=== PATIENT | male | born 1945 | race Caucasian/White ===

== ENCOUNTER → 2016-12-13 | Outpatient (CLI) | payer MEDICARE, OTHER ==
--- NOTE | 2016-12-13 13:38 | Diagnostic Imaging Report ---
PROCEDURE: Lung cancer screening CT chest without contrast. TECHNIQUE: Multiple contiguous axial images were obtained through the chest without the use of intravenous contrast. This is performed with a low-dose protocol. INDICATION: Currently asymptomatic patient with 30 pack years history of smoking Comparison: None. Findings: The lungs demonstrate no significant consolidation, mass or suspicious nodule. No significant interstitial thickening, bronchiectasis or emphysema changes. No mediastinal mass or significantly enlarged lymph nodes. No definite lymph node mass adjacent to the unopacified hilar vessels seen. No axillary lymphadenopathy. The thoracic aorta is normal in caliber. The heart size is normal. No pleural or pericardial effusion. The osseous structures appear grossly unremarkable. IMPRESSION: Negative study. Lung Rads Category 1. Negative study. Recommendations: Annual screening low-dose CT scan. Dictated by: Dictated on workstation # [id number]
== END ==
LOC: RAD 11:03
PROVIDERS: ATTEND Family Medicine
DX: Z12.2 Encounter for screening for malignant neoplasm of respiratory organs (principal); J43.9 Emphysema, unspecified; I25.10 Atherosclerotic heart disease of native coronary artery without angina pectoris; I73.9 Peripheral vascular disease, unspecified; F17.210 Nicotine dependence, cigarettes, uncomplicated

== ENCOUNTER → 2017-04-24 | Outpatient (CLI) | payer MEDICARE, OTHER | LOC: CARD 10:45 | PROVIDERS: ATTEND Internal Medicine Cardiovascular Disease | DX: I10 Essential (primary) hypertension (principal); I73.9 Peripheral vascular disease, unspecified; E78.2 Mixed hyperlipidemia | CPT/HCPCS: 93306 ==

== ENCOUNTER → 2017-04-30 | Outpatient (CLI) | payer MEDICARE, OTHER ==
[~2017-04-30] MED LIST: CATHETER FLUSH 10 ML SYR IV PRN
[2017-04-30 13:36] VITALS: BP 143/92
[2017-04-30 13:43] VITALS: BP 159/93
[2017-04-30 13:45] VITALS: BP 191/101
[2017-04-30 13:47] VITALS: BP 167/97
[2017-04-30 13:49] VITALS: BP 147/93
--- NOTE | 2017-05-01 08:02 | STRESS TEST ---
DATE OF SERVICE: 04/30/2017 EXERCISE MYOVIEW STRESS TEST REPORT Baseline heart rate is 67. Baseline blood pressure 148/97. Baseline EKG is sinus rhythm with no ischemic changes. IN SUMMARY: The patient was injected with 10.16 mCi of technetium-99 Myoview and the resting images were obtained. Then, the patient started exercising with a baseline heart rate, blood pressure and EKG mentioned above. Patient was able to finish a total of 6 minutes 30 seconds on standard Davian protocol with peak exercise level, blood pressure was 190/100. During recovery, heart rate and blood pressure returned to baseline. EKG returned to baseline. Minimal nondiagnostic EKG changes were noted. The resting and stressed images were reviewed and compared in the short axis, horizontal long axis, and vertical long axis views. Review of the images showed diaphragmatic attenuation with typical male pattern. No significant ischemia or infarction was seen. SSS is 0. TID value 1.07. On the gated images, the left ventricle appeared to be normal size with normal contractility, calculated ejection fraction 55%. IN CONCLUSION: 1. Fair exercise tolerance a total of 6 minutes 30 seconds on standard Davian protocol, total of 7.7 METS achieving 100% of maximum expected heart rate. 2. Minimal and diagnostic EKG changes with exercise returned to baseline during recovery. 3. Occasional PVCs noted during test. 4. Typical male pattern with no significant ischemia or infarction on SPECT images. 5. Normal left ventricular size with normal contractility. Calculated ejection fraction 55%. Job ID: [id number] DocumentID: [id number] Dictated Date: 04/30/2017 15:45:07 Surg Rn Date: 05/01/2017 00:44:12 Dictated By: ALFREDO JAMES MD
== END ==
LOC: CARD 11:34
PROVIDERS: ATTEND Internal Medicine Cardiovascular Disease
DX: I10 Essential (primary) hypertension (principal); I73.9 Peripheral vascular disease, unspecified; E78.2 Mixed hyperlipidemia
CPT/HCPCS: 78452; 93017

== ENCOUNTER → 2017-09-16 | Outpatient (CLI) | payer MEDICARE, OTHER ==
--- NOTE | 2017-09-16 11:20 | Diagnostic Imaging Report ---
INDICATION: COPD COMPARISON: None FINDINGS: Frontal and lateral views of the chest demonstrate normal heart size and pulmonary vascularity. The lungs are clear. There are no signs of infiltrate, pleural effusions or pneumothoraces. The visualized osseous structures show no acute abnormalities. There is calcified aortic atherosclerosis. IMPRESSION: 1. No acute process. No signs of infiltrates, effusions or pneumothoraces. Dictated by: Dictated on workstation # [id number]
== END ==
LOC: RAD 10:51
PROVIDERS: ATTEND Internal Medicine Critical Care Medicine
DX: J44.9 Chronic obstructive pulmonary disease, unspecified (principal)
CPT/HCPCS: 71046

== ENCOUNTER → 2017-10-01 | Outpatient (CLI) | payer MEDICARE, OTHER ==
[~2017-10-01] MED LIST changes: -CATHETER FLUSH 10 ML SYR IV PRN; +RT-ALBUTEROL SULF 2.5 MG/3 ML PRE-MIX VIAL INH ONE; +RT-ALBUTEROL SULF 2.5 MG/3 ML PRE-MIX VIAL ONE
== END ==
LOC: RT 15:00
PROVIDERS: ATTEND Nurse Practitioner Family
DX: J45.909 Unspecified asthma, uncomplicated (principal); J44.9 Chronic obstructive pulmonary disease, unspecified; R06.00 Dyspnea, unspecified; F17.200 Nicotine dependence, unspecified, uncomplicated
CPT/HCPCS: 94060; 94726; 94729

== ENCOUNTER 2017-10-16 15:00 | Outpatient (RCR) | payer MEDICARE, OTHER ==
[2017-10-14 15:00] VITALS: BP 120/60
[2017-10-14 15:36] VITALS: BP 120/70
[2017-10-21 15:00] VITALS: BP 118/70
[2017-10-21 15:38] VITALS: BP 138/70
[2017-10-28 09:45] VITALS: BP 104/70
[2017-10-28 10:50] VITALS: BP 110/78
[2017-11-06 10:00] VITALS: BP 118/80
[2017-11-06 10:58] VITALS: BP 132/70
[2017-11-18 10:55] VITALS: BP 112/61
[2017-11-18 11:13] VITALS: BP 109/60
[2017-11-20 09:58] VITALS: BP 120/80
[2017-11-20 11:00] VITALS: BP 100/70
[2017-11-25 09:55] VITALS: BP_SYST 100; BP_SYST 115; BP_DIAS 70
[2017-11-25 10:55] VITALS: BP 128/76
[2017-11-27 10:00] VITALS: BP 118/60
[2017-11-27 11:00] VITALS: BP 120/60
[2017-12-02 09:30] VITALS: BP 120/80
[2017-12-02 10:21] VITALS: BP 123/60
[2017-12-09 09:55] VITALS: BP 120/80
[2017-12-09 10:50] VITALS: BP 100/63
[2017-12-11 10:00] VITALS: BP 100/60
[2017-12-11 10:56] VITALS: BP 105/70
[2017-12-16 09:50] VITALS: BP 110/69
[2017-12-16 10:42] VITALS: BP 97/59
[2017-12-18 09:55] VITALS: BP 115/60
[2017-12-18 10:40] VITALS: BP 105/40
[2017-12-23 10:00] VITALS: BP 122/60
[2017-12-23 10:59] VITALS: BP 100/70
[2017-12-25 10:00] VITALS: BP 100/60
[2017-12-25 11:00] VITALS: BP 107/60
== END 2017-12-28 | disposition home or self-care (01) ==
LOC: PULM 15:00
PROVIDERS: ATTEND Nurse Practitioner Family
DX: J45.909 Unspecified asthma, uncomplicated (principal); J44.9 Chronic obstructive pulmonary disease, unspecified; R06.00 Dyspnea, unspecified
CPT/HCPCS: 99211

== ENCOUNTER → 2017-10-21 | Outpatient (CLI) | payer MEDICARE, OTHER ==
[2017-10-21 14:59] LABS: BASOPHILS # (AUTO) 0.1 10^3/uL (0.0-0.1); BASOPHILS % (AUTO) 1 % (0-10); EOSINOPHILS # (AUTO) 0.1 10^3/uL (0.0-0.3); EOSINOPHILS % (AUTO) 0 % (0-10); HEMATOCRIT 41 % (40-54); HEMOGLOBIN 13.8 G/DL (13.3-17.7); LYMPHOCYTES # (AUTO) 2.1 X 10^3 (1.0-4.0); LYMPHOCYTES % (AUTO) 10 % (12-44); MEAN CORPUSCULAR HEMOGLOBIN 34 PG (25-34); MEAN CORPUSCULAR HGB CONC 34 G/DL (32-36); MEAN CORPUSCULAR VOLUME 100 FL (80-99); MEAN PLATELET VOLUME 10.3 FL (7.4-10.4); MONOCYTES # (AUTO) 1.7 X 10^3 (0.0-1.0); MONOCYTES % (AUTO) 8 % (0-12); NEUTROPHILS # (AUTO) 17.5 X 10^3 (1.8-7.8); NEUTROPHILS % (AUTO) 81 % (42-75); PLATELET COUNT 637 10^3/uL (130-400); RED BLOOD COUNT 4.07 10^6/uL (4.35-5.85); RED CELL DISTRIBUTION WIDTH 15.6 % (10.0-14.5)
[2017-10-21 15:00] LABS: WHITE BLOOD COUNT 21.5 10^3/uL (4.3-11.0)
[2017-10-21 15:10] LABS: BAND NEUTROPHILS 14 %; BASOPHILS % (MANUAL) 2 %; EOSINOPHILS % (MANUAL) 0 %; LYMPHOCYTES % (MANUAL) 15 %; MONOCYTES % (MANUAL) 6 %; NEUTROPHILS % (MANUAL) 63 %; RBC MORPH NORMAL
== END ==
LOC: LAB 14:10
PROVIDERS: ATTEND Nurse Practitioner Family
DX: J44.9 Chronic obstructive pulmonary disease, unspecified (principal)
CPT/HCPCS: 36415; 82785; 85007; 85027; 86003

== ENCOUNTER 2017-11-05 21:02 | Outpatient (CLI) | payer MEDICARE, OTHER, BC | END 2017-11-06 06:45 | disposition home or self-care (01) | LOC: SLEEP 21:02 | PROVIDERS: ATTEND Nurse Practitioner Family | DX: G47.33 Obstructive sleep apnea (adult) (pediatric) (principal) | CPT/HCPCS: 95810 ==

== ENCOUNTER → 2017-11-14 | Outpatient (CLI) | payer MEDICARE, OTHER ==
--- NOTE | 2017-11-14 12:15 | Diagnostic Imaging Report ---
INDICATION: COPD and asthma. TIME OF EXAM: 11:38 AM Correlation is made with prior study 09/16/2017. FINDINGS: The heart size is stable. Lungs are hyperinflated consistent with COPD. No infiltrates are detected. No effusion or pneumothorax is seen. IMPRESSION: Stable chest. No acute feature is detected. Dictated by: Dictated on workstation # [id number]
== END ==
LOC: RAD 10:21
PROVIDERS: ATTEND Nurse Practitioner Family
DX: J44.9 Chronic obstructive pulmonary disease, unspecified (principal); J30.2 Other seasonal allergic rhinitis; F17.200 Nicotine dependence, unspecified, uncomplicated
CPT/HCPCS: 71046; 87070; 87205

== ENCOUNTER → 2018-04-13 | Outpatient (CLI) | payer MEDICARE, OTHER ==
[~2018-04-13] VITALS: Ht 170.2 cm; Wt 69.4 kg
[~2018-04-13] MED LIST changes: +AMLO5TAB7 PO; +ASPI-586 PO; +ATOR40TA70 PO; +CETI10TA17 PO; +FLUT15.88 NS; +KETO15CR2 TP; +LEVO75TA6 PO; +LISI40TA PO; +MONT10TA24 PO; +OMEP20TA7 PO; -RT-ALBUTEROL SULF 2.5 MG/3 ML PRE-MIX VIAL INH ONE; -RT-ALBUTEROL SULF 2.5 MG/3 ML PRE-MIX VIAL ONE
== END | disposition home or self-care (01) ==
LOC: PREOP 05:40
PROVIDERS: ATTEND Specialist
DX: Z01.818 Encounter for other preprocedural examination (principal)

== ENCOUNTER 2018-04-15 08:24 | Day surgery (SDC) | payer MEDICARE, OTHER ==
[~2018-04-15] VITALS: Ht 170.2 cm; Wt 69.4 kg
[2018-04-15] MEDS ORDERED: TIMOLOL MALEATE 0.5% 5 ML (TIMOPTIC) BTL OU PRN (08:45)
[2018-04-15] MEDS ORDERED: MOXIFLOXACIN OPHTH SOLN 5 MG/ML 0.3 ML SYRINGE OP ONE (08:45)
[2018-04-15] MEDS ORDERED: POVIDONE (BETADINE) OPHTH SOLN 5% 30 ML OP ONE (08:45)
[2018-04-15] MEDS ORDERED: LIDOCAINE PF 1% 2 ML AMP IR PRN (08:45)
[2018-04-15] MEDS ORDERED: EPINEPHrine INJECTION 1 MG/ML AMP INJ ONE (08:45)
[2018-04-15 08:50] VITALS: BP 120/91
[2018-04-15] MEDS: TETRACAINE 0.5% OPHTH SOLN 4 ML BTL (SINGLE DOSE ONLY) OU PRN ×4 (08:54→09:09)
[2018-04-15] MEDS: PHENYLEPHRINE 10% OPHTH (NEO-SYN) 5 ML BTL OU SCH ×3 (09:00→09:09)
[2018-04-15] MEDS: CYCLOPENTOLATE 1% (CYCLOGYL) 2 ML DROPS OP SCH ×3 (09:00→09:09)
[2018-04-15] MEDS ORDERED: MIDAZOLAM 2 MG/2 ML (VERSED) VIAL ONE (09:16)
--- NOTE | 2018-04-15 09:38 | Ophthalmologist Pre-Op Note ---
Pre-Operative Progress Note H&P Reviewed The H&P was reviewed, patient examined and no changes noted. Date H&P Reviewed: Apr 15, 2018 Time H&P Reviewed: 09:38 Pre-Op Dx Cataract, Right Eye ELEANOR GALEAS MD Apr 15, 2018 09:38
--- NOTE | 2018-04-15 10:13 | Ophthalmology Operative Report ---
Cataract, Miotic Pupil PREOPERATIVE DIAGNOSIS: 1. Cataract Right Eye 2. Miotic Pupil POSTOPERATIVE DIAGNOSIS: 1. Cataract Right Eye 2. Miotic Pupil PROCEDURE: 1. Cataract removal and placement of posterior chamber implant, right eye 2. Pupillary expansion with malyugin ring SURGEON: Margarito Galeas ANESTHESIA: Topical with sedation COMPLICATIONS: None ESTIMATED BLOOD LOSS: Minimal DESCRIPTION OF PROCEDURE: After proper informed consent was obtained, the patient, a 72 male, was taken to the Operating Room and the right eye was anesthetized with Tetracaine. The eye was then prepped and draped in the usual manner. A wire lid speculum was placed. A paracentesis was made at the left hand position. Preservative free lidocaine was injected into anterior chamber followed by viscoelastic. A clear corneal incision was made in the temporal position. The malyugin ring was injected into the anterior chamber and the pupil was dilated. A capsulorrhexis was preformed and the central nuclear and cortical material were removed. The posterior capsule was polished and Shai 23.0 AU00Y0 IOL was placed into the capsular bag. The malyugin ring was removed. The residual viscoelastic was aspirated and the balanced saline solution was injected into the anterior chamber. Moxifloxacin was injected into the anterior chamber. The wound was checked and found to be water tight. The patient tolerated the procedure well without complications. MARGARITO GALEAS MD Apr 15, 2018 10:13
[2018-04-15 10:25] VITALS: BP 136/80
--- NOTE | 2018-04-15 11:12 | Anesthesia-General Post-Op ---
MAC Patient Condition Mental Status/LOC: Same as Preop Cardiovascular: Satisfactory Nausea/Vomiting: Absent Respiratory: Satisfactory Pain: Controlled Complications: Absent Post Op Complications Complications None Follow Up Care/Instructions Patient Instructions None needed. Anesthesiology Discharge Order Discharge Order Patient is doing well, no complaints, stable vital signs, no apparent adverse anesthesia problems. No complications reported per nursing. RITA CHANG CRNA Apr 15, 2018 11:12
== END 2018-04-15 10:25 | disposition home or self-care (01) ==
LOC: SDC 08:24
PROVIDERS: ATTEND Specialist
DX: H26.9 Unspecified cataract (principal); H57.03 Miosis; I10 Essential (primary) hypertension; J44.9 Chronic obstructive pulmonary disease, unspecified; H91.90 Unspecified hearing loss, unspecified ear; F17.210 Nicotine dependence, cigarettes, uncomplicated; K21.9 Gastro-esophageal reflux disease without esophagitis; I73.9 Peripheral vascular disease, unspecified; Z85.828 Personal history of other malignant neoplasm of skin; Z79.899 Other long term (current) drug therapy

== ENCOUNTER 2018-04-26 14:15 | Emergency (ER) | payer MEDICARE, OTHER ==
[~2018-04-26] VITALS: Ht 170.2 cm; Wt 68.9 kg
[2018-04-26 14:52] LABS: BILIRUBIN,URINE NEGATIVE (NEGATIVE); CLARITY,URINE CLEAR; COLOR,URINE YELLOW; GLUCOSE, URINE (UA) NEGATIVE (NEGATIVE); KETONES,URINE NEGATIVE (NEGATIVE); LEUKOCYTE ESTERASE ,URINE 1+ (NEGATIVE); NITRITE,URINE NEGATIVE (NEGATIVE); PH,URINE 6.5 (5-9); PROTEIN,URINE 2+ (NEGATIVE); UROBILINOGEN,URINE NORMAL (NORMAL)
[2018-04-26 14:53] LABS: BASOPHILS # (AUTO) 0.1 10^3/uL (0.0-0.1); BASOPHILS % (AUTO) 0 % (0-10); EOSINOPHILS # (AUTO) 0.2 10^3/uL (0.0-0.3); EOSINOPHILS % (AUTO) 1 % (0-10); HEMATOCRIT 42 % (40-54); HEMOGLOBIN 14.6 G/DL (13.3-17.7); LYMPHOCYTES # (AUTO) 3.8 X 10^3 (1.0-4.0); LYMPHOCYTES % (AUTO) 16 % (12-44); MEAN CORPUSCULAR HEMOGLOBIN 33 PG (25-34); MEAN CORPUSCULAR HGB CONC 35 G/DL (32-36); MEAN CORPUSCULAR VOLUME 94 FL (80-99); MEAN PLATELET VOLUME 10.6 FL (7.4-10.4); MONOCYTES # (AUTO) 2.3 X 10^3 (0.0-1.0); MONOCYTES % (AUTO) 10 % (0-12); NEUTROPHILS # (AUTO) 17.2 X 10^3 (1.8-7.8); NEUTROPHILS % (AUTO) 73 % (42-75); RED BLOOD COUNT 4.49 10^6/uL (4.35-5.85); WHITE BLOOD COUNT 23.7 10^3/uL (4.3-11.0)
[2018-04-26 14:55] LABS: PLATELET COUNT 1010 10^3/uL (130-400)
[2018-04-26 15:00] LABS: BACTERIA,URINE TRACE /HPF; HYALINE CASTS, URINE RARE /LPF; SQUAMOUS EPITHELIAL CELL,UR RARE /HPF
[2018-04-26 15:04] LABS: FIBRIN DEGRADATION PRODUCTS 0.59 UG/ML (0.00-0.49); PROTHROMBIN TIME PATIENT 13.5 SEC (12.2-14.7)
[2018-04-26 15:11] LABS: ALANINE AMINOTRANSFERASE 39 U/L (0-55); ALBUMIN 4.4 GM/DL (3.2-4.5); ALKALINE PHOSPHATASE 78 U/L (40-136); BILIRUBIN,TOTAL 0.8 MG/DL (0.1-1.0); BUN/CREATININE RATIO 14; CALCIUM 9.4 MG/DL (8.5-10.1); CARBON DIOXIDE 21 MMOL/L (21-32); CHLORIDE 105 MMOL/L (98-107); CREATININE SERUM 1.14 MG/DL (0.60-1.30); GFR ESTIMATED > 60; GLUCOSE 154 MG/DL (70-105); SODIUM 139 MMOL/L (135-145); TOTAL PROTEIN 7.5 GM/DL (6.4-8.2)
--- NOTE | 2018-04-26 15:14 | Diagnostic Imaging Report ---
EXAM: CHEST 1 VIEW, AP/PA ONLY. INDICATION: Confusion. COMPARISON: Chest radiographs 11/14/2017. FINDINGS: Normal heart size and pulmonary vascularity. Calcified aorta. No focal pulmonary opacity, pleural effusion, or pneumothorax. No acute osseous findings. IMPRESSION: No acute cardiopulmonary findings. Dictated by: Dictated on workstation # [id number]
--- NOTE | 2018-04-26 15:15 | Diagnostic Imaging Report ---
EXAM: CT HEAD WO-R/O STROKE. INDICATION: Altered mental status. COMPARISON: None. FINDINGS: Moderate generalized cerebral and cerebellar parenchymal volume loss. No CT evidence for territorial infarction. No intracranial hemorrhage, mass effect, hydrocephalus, or extra-axial fluid collections. Intracranial vascular calcifications. The paranasal sinuses and mastoids are clear. No fractures. IMPRESSION: No acute intracranial CT findings. Dictated by: Dictated on workstation # [id number]
[2018-04-26 15:34] LABS: LYMPHOCYTES % (MANUAL) 19 %; MONOCYTES % (MANUAL) 13 %; NEUTROPHILS % (MANUAL) 68 %
[2018-04-26 15:35] LABS: RBC MORPH NORMAL
[2018-04-26] MEDS ORDERED: NS IV 1000 ML 1,000 ML IV ONE (15:35)
--- NOTE | 2018-04-26 16:15 | ED General ---
General Chief Complaint: Neuro-Stroke Like Symptoms Stated Complaint: CONFUSION,ACTING OUT Nursing Triage Note: ARRIVED VIA AMB TO ROOM 09 WITH FAMILY. PT STATES HE IS VERY CONFUSED AND NOT ACTING HIMSELF. LAST WELL KNOWN TIME WAS FRIDAY AFTERNOON. Nursing Sepsis Screen: No Definite Risk Source of Information: Patient Exam Limitations: No Limitations History of Present Illness Date Seen by Provider: Apr 26, 2018 Time Seen by Provider: 15:30 Initial Comments Here with report of acute psychosis in that he is confused and talking more than he typically does. He is also cussing which is not typical for him. He has family here to celebrate his birthday. Denies drinking alcohol or using drugs. 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 Family with him agrees and he has not been using alcohol or any other drugs. Recently just finished a seven-day course of Levaquin and is currently finishing a course of steroids for his COPD. Denies recent injury or other concerns. Denies difficulty with swallowing and certainly has no difficulty with talking. Retains full strength and otherwise has no focal neural deficits. Onset sometime after Friday night and before Friday earlier in the day. This is per family at bedside. There is report that he was similar and mannerism on Friday but better on Friday. Timing/Duration: 1-2 Days Severity: Moderate Associated Systoms: No Chest Pain; Cough (chronic COPD); No Fever/Chills, No Nausea/Vomiting, No Shortness of Air, No Weakness Allergies and Home Medications Allergies Coded Allergies: No Known Drug Allergies (Unverified , 04/13/18) Home Medications Amlodipine Besylate 5 Mg Tablet, 5 MG PO DAILY, (Reported) Aspirin 81 Mg Tablet.dr, 81 MG PO DAILY, (Reported) Atorvastatin Calcium 40 Mg Tablet, 40 MG PO DAILY, (Reported) Cetirizine HCl 10 Mg Tablet, 10 MG PO DAILY, (Reported) Fluticasone Propionate 15.8 Ml [place].susp, 15.8 ML NS DAILY, (Reported) Ketoconazole 15 Gm Cream..g., 15 GM TP DAILY, (Reported) Levothyroxine Sodium 75 Mcg Tablet, 75 MCG PO DAILY, (Reported) Lisinopril 40 Mg Tablet, 40 MG PO DAILY, (Reported) Montelukast Sodium 10 Mg Tablet, 10 MG PO DAILY, (Reported) Omeprazole 20 Mg Tablet.dr, 20 MG PO DAILY, (Reported) Patient Home Medication List Home Medication List Reviewed: Yes Review of Systems Review of Systems Constitutional: see HPI; No chills, No fever Respiratory: cough; No short of breath; wheezing Cardiovascular: no symptoms reported Gastrointestinal: No abdominal pain, No nausea, No vomiting Genitourinary: no symptoms reported Musculoskeletal: no symptoms reported Skin: no symptoms reported Psychiatric/Neurological: See HPI, Emotional Problems (talkative and cussing. Not normal for him.); Denies Weakness All Other Systems Reviewed Negative Unless Noted: Yes Past Fpfmicq-Snfluf-Zlrwcz Hx Past Med/Social Hx: Reviewed Nursing Past Med/Soc Hx Patient Social History Alcohol Use: Past History Recreational Drug Use: No Smoking Status: Current Everyday Smoker Recent Foreign Travel: No Contact w/Someone Who Travel: No Recent Infectious Disease Expo: No Past Medical History Respiratory: Yes (ASTHMA, COPD) Cardiac: Yes (CARDIAC STENTS) Genitourinary: Yes (TURP) Gastrointestinal: Yes Gastroesophageal Reflux Musculoskeletal: No Endocrine: No HEENT: No Cancer: No Psychosocial: No Family Medical History Reviewed Nursing Family Hx Physical Exam Vital Signs Vital Signs - First Documented 04/26/18 14:30 Temp 98.0 Pulse 98 Resp 16 B/P (MAP) 138/113 (121) Pulse Ox 98 O2 Delivery Room Air Capillary Refill : Less Than 3 Seconds Height, Weight, BMI Height: 5'7.00" Weight: 152lbs. 0.4oz. 68.453215cc; BMI Method:Stated General Appearance: No Apparent Distress, WD/WN HEENT: PERRL/EOMI, Pharynx Normal Neck: Non Tender, Supple Respiratory: Lungs Clear, Normal Breath Sounds Cardiovascular: Regular Rate, Rhythm, No Murmur Gastrointestinal: Non Tender, Soft Back: Normal Inspection, No CVA Tenderness, No Vertebral Tenderness Extremity: Normal Range of Motion, Non Tender Neurologic/Psychiatric: Alert, Oriented x3 Skin: Normal Color, Warm/Dry Progress/Results/Core Measures Suspected Sepsis Recent Fever Within 48 Hours: No Infection Criteria Present: None New/Unexplained Altered Menta: Yes Sepsis Screen: No Definite Risk SIRS Temperature:98.0 Pulse: 98 Respiratory Rate: 16 Laboratory Tests 04/26/18 14:40: White Blood Count 23.7H Blood Pressure 138 /113 Mean: 121 Laboratory Tests 04/26/18 14:40: Creatinine 1.14, INR Comment 1.0, Platelet Count 1010*H, Total Bilirubin 0.8 Results/Orders Lab Results Laboratory Tests Test 04/26/18 14:40 04/26/18 14:54 Range/Units White Blood Count 23.7 H 4.3-11.0 10^3/uL Red Blood Count 4.49 4.35-5.85 10^6/uL Hemoglobin 14.6 13.3-17.7 G/DL Hematocrit 42 40-54 % Mean Corpuscular Volume 94 80-99 FL Mean Corpuscular Hemoglobin 33 25-34 PG Mean Corpuscular Hemoglobin Concent 35 32-36 G/DL Red Cell Distribution Width 19.0 H 10.0-14.5 % Platelet Count 1010 *H 130-400 10^3/uL Mean Platelet Volume 10.6 H 7.4-10.4 FL Neutrophils (%) (Auto) 73 42-75 % Lymphocytes (%) (Auto) 16 12-44 % Monocytes (%) (Auto) 10 0-12 % Eosinophils (%) (Auto) 1 0-10 % Basophils (%) (Auto) 0 0-10 % Neutrophils # (Auto) 17.2 H 1.8-7.8 X 10^3 Lymphocytes # (Auto) 3.8 1.0-4.0 X 10^3 Monocytes # (Auto) 2.3 H 0.0-1.0 X 10^3 Eosinophils # (Auto) 0.2 0.0-0.3 10^3/uL Basophils # (Auto) 0.1 0.0-0.1 10^3/uL Neutrophils % (Manual) 68 % Lymphocytes % (Manual) 19 % Monocytes % (Manual) 13 % Blood Morphology Comment NORMAL Prothrombin Time 13.5 12.2-14.7 SEC INR Comment 1.0 0.8-1.4 Activated Partial Thromboplast Time 37 H 24-35 SEC D-Dimer 0.59 H 0.00-0.49 UG/ML Urine Color YELLOW Urine Clarity CLEAR Urine pH 6.5 5-9 Urine Specific [place] 1.015 L 1.016-1.022 Urine Protein 2+ H NEGATIVE Urine Glucose (UA) NEGATIVE NEGATIVE Urine Ketones NEGATIVE NEGATIVE Urine Nitrite NEGATIVE NEGATIVE Urine Bilirubin NEGATIVE NEGATIVE Urine Urobilinogen NORMAL NORMAL MG/DL Urine Leukocyte Esterase 1+ H NEGATIVE Urine RBC (Auto) NEGATIVE NEGATIVE Urine RBC NONE /HPF Urine WBC 2-5 /HPF Urine Squamous Epithelial Cells RARE /HPF Urine Crystals NONE /LPF Urine Bacteria TRACE /HPF Urine Casts PRESENT /LPF Urine Hyaline Casts RARE /LPF Urine Mucus NEGATIVE /LPF Urine Culture Indicated NO Sodium Level 139 135-145 MMOL/L Potassium Level 4.0 3.6-5.0 MMOL/L Chloride Level 105 98-107 MMOL/L Carbon Dioxide Level 21 21-32 MMOL/L Anion Gap 13 5-14 MMOL/L Blood Urea Nitrogen 16 7-18 MG/DL Creatinine 1.14 0.60-1.30 MG/DL Estimat Glomerular Filtration Rate > 60 BUN/Creatinine Ratio 14 Glucose Level 154 H 70-105 MG/DL Calcium Level 9.4 8.5-10.1 MG/DL Corrected Calcium 9.1 8.5-10.1 MG/DL Total Bilirubin 0.8 0.1-1.0 MG/DL Aspartate Amino Transf (AST/SGOT) 36 H 5-34 U/L Alanine Aminotransferase (ALT/SGPT) 39 0-55 U/L Alkaline Phosphatase 78 40-136 U/L Lactate Dehydrogenase 299 H 125-220 U/L Troponin I < 0.30 <0.30 NG/ML Total Protein 7.5 6.4-8.2 GM/DL Albumin 4.4 3.2-4.5 GM/DL Serum Alcohol < 10 <10 MG/DL Glucometer 168 H 70-110 MG/DL My Orders Orders - HOLLEY MCGRAW MD Cbc With Automated Diff (04/26/18 14:47) Protime With Inr (04/26/18 14:47) Partial Thromboplastin Time (04/26/18 14:47) Comprehensive Metabolic Panel (04/26/18 14:47) Fibrin Degradation Products (04/26/18 14:47) Troponin I (04/26/18 14:47) Ua Culture If Indicated (04/26/18 14:47) Chest 1 View, Ap/Pa Only (04/26/18 14:47) Ekg Tracing (04/26/18 14:47) Nothing By Mouth (04/26/18 Dinner) Accucheck Stat ONCE (04/26/18 14:47) Saline Lock/Iv-Start (04/26/18 14:47) Saline Lock/Iv-Start (04/26/18 14:47) Vital Signs Stroke Patient Q15M (04/26/18 14:47) Ct Head Wo-R/O Stroke (04/26/18 14:47) O2 (04/26/18 14:47) Intake & Output 06,14,22 (04/26/18 14:47) Monitor-Rhythm Ecg Trace Only (04/26/18 14:47) Dysphagia Screening Tool (04/26/18 14:47) Post Thrombolytic Adminstratio (04/26/18 14:47) Lipid Panel (04/27/18 06:00) Manual Differential (04/26/18 14:40) Alcohol (04/26/18 14:57) LDH (04/26/18 15:22) Saline Lock/Iv-Start (04/26/18 15:35) Ns Iv 1000 Ml (Sodium Chloride 0.9%) (04/26/18 15:35) Thyroid Analyzer (04/26/18 16:27) Medications Given in ED Current Medications Medications Dose Ordered Sig/Marta Route Start Time Stop Time Status Last Admin Dose Admin Sodium Chloride 1,000 ml @ 0 mls/hr Q0M ONCE IV 04/26/18 15:35 04/26/18 15:37 DC 04/26/18 15:42 1,000 MLS/HR Vital Signs/I&O 04/26/18 14:30 Temp 98.0 Pulse 98 Resp 16 B/P (MAP) 138/113 (121) Pulse Ox 98 O2 Delivery Room Air Capillary Refill : Less Than 3 Seconds Blood Pressure Mean: 121 Point of Care Testing Finger Stick Blood Glucose: 138 Progress Note : Progress Note Seen and evaluated. IV, labs, UA, EKG, CT head, chest x-ray and normal saline 1 L bolus ordered. Monitor patient. This does appear to be mostly related to acute psychosis likely from Levaquin use and possibly augmented by steroids. I did discuss the case with Dr. Doyle and she agrees. I did discuss this with the patient and family. He does have family members I can stay with him tonight and they are willing to do that and patient feels like he would be more comfortable at home. Family also agrees with that and saline. He has no other focal deficits and no indications stroke or other abnormalities. He does have elevated white count and platelets which may be related to steroids. He has had this previously. He will need follow-up for that. I did add LDH for evaluation. We will add thyroid studies as well since he is on thyroid replacement. Overall safe for discharge home at this point with the understanding if things worsen or change that he will return and we will to admission at that point. Dr. Zaragoza was in agreement with that plan as well. ECG Initial ECG Impression Date: Apr 26, 2018 Initial ECG Impression Time: 14:48 Initial ECG Rate: 94 Initial ECG Rhythm: Normal Sinus Comment Sinus rhythm with left axis deviation. No evidence of ST elevation AR. Premature atrial complexes noted. No previous available for comparison. Interpreted by me. Diagnostic Imaging Diagonstic Imaging: CT Plain Films/CT/US/NM/MRI: head Comments VIA [place], [place] NAME: DONTA ENCISO [facility] REC#: [id number] PT STATUS: REG ER : 1945 PHYSICIAN: HOLLEY MCGRAW MD ADMIT DATE: 04/26/18/ER Draft Date of Exam:04/26/18 CT HEAD WO-R/O STROKE EXAM: CT HEAD WO-R/O STROKE. INDICATION: Altered mental status. COMPARISON: None. FINDINGS: Moderate generalized cerebral and cerebellar parenchymal volume loss. No CT evidence for territorial infarction. No intracranial hemorrhage, mass effect, hydrocephalus, or extra-axial fluid collections. Intracranial vascular calcifications. The paranasal sinuses and mastoids are clear. No fractures. IMPRESSION: No acute intracranial CT findings. Dictated on workstation # [id number] Dict: 04/26/18 1512 Trans: 04/26/18 1514 [id number] Interpreted by: SHARON JULES MD Electronically signed by: Diagonstic Imaging: Xray Plain Films/CT/US/NM/MRI: chest Comments [facility]IA [facility] [employer] [place], [place] NAME: DONTA ENCISO [facility] REC#: [id number] PT STATUS: REG ER : 1945 PHYSICIAN: HOLLEY MCGRAW MD ADMIT DATE: 04/26/18/ER Draft Date of Exam:04/26/18 CHEST 1 VIEW, AP/PA ONLY EXAM: CHEST 1 VIEW, AP/PA ONLY. INDICATION: Confusion. COMPARISON: Chest radiographs 11/14/2017. FINDINGS: Normal heart size and pulmonary vascularity. Calcified aorta. No focal pulmonary opacity, pleural effusion, or pneumothorax. No acute osseous findings. IMPRESSION: No acute cardiopulmonary findings. Dictated on workstation # [id number] Dict: 04/26/18 1511 Trans: 04/26/18 1514 [id number] Interpreted by: SHARON JULES MD Electronically signed by: Departure Impression Primary Impression: Acute psychosis Additional Impressions: Adverse reaction to drug primarily affecting autonomic nervous system Blood dyscrasia Disposition: 01 HOME, SELF-CARE Condition: Stable Departure-Patient Inst. Decision time for Depature: 16:31 Referrals: GLORY CABRERA DO (PCP/Family) Primary Care Physician Patient Instructions: Acute Psychosis (DC) Add. Discharge Instructions: All discharge instructions reviewed with patient and/or family. Voiced understanding. Drink plenty of fluids and eat a normal diet. Follow-up with Dr. Cabrera tomorrow. Return for worsening of the psychosis, breathing problems, weakness, vision or balance problems or other concerns as needed. Get some rest. Copy Copies To 1: GLORY CABRERA TIMOTHY D MD Apr 26, 2018 16:15
[2018-04-26 16:38] VITALS: BP 144/98
== END 2018-04-26 16:38 | disposition home or self-care (01) ==
LOC: EDUNIT# 14:15 → ER 14:16
DX: F23 Brief psychotic disorder (principal); T44.901A Poisoning by unspecified drugs primarily affecting the autonomic nervous system, accidental (unintentional), initial encounter; D75.9 Disease of blood and blood-forming organs, unspecified; J44.9 Chronic obstructive pulmonary disease, unspecified; K21.9 Gastro-esophageal reflux disease without esophagitis; F17.200 Nicotine dependence, unspecified, uncomplicated; Z79.82 Long term (current) use of aspirin; Z79.51 Long term (current) use of inhaled steroids; Z95.5 Presence of coronary angioplasty implant and graft
CPT/HCPCS: 36415; 70450; 71045; 80053; 80320; 81000; 82962; 83615; 84443; 84484; 85007; 85027; 85379; 85610; 85730; 93005; 93041

== ENCOUNTER 2018-04-27 16:10 | Inpatient (IN) | payer MEDICARE, OTHER ==
[~2018-04-27] VITALS: Ht 171.4 cm; Wt 68.5 kg
[2018-04-27] MEDS ORDERED: PATIENT MAY USE OWN MEDS, ALL PO SCH (16:30)
[2018-04-27] MEDS ORDERED: HALOPERIDOL 5 MG/ML (HALDOL) AMP IM NR (16:30)
[2018-04-27] MEDS ORDERED: LORazepam INJ 2 MG/ML (ATIVAN) VIAL IVP NR (16:30)
[2018-04-27] MEDS: NS IV 1000 ML 1,000 ML IV SCH (17:28)
[2018-04-27 17:50] LABS: BASOPHILS % (AUTO) 0 % (0-10); EOSINOPHILS % (AUTO) 0 % (0-10); HEMATOCRIT 38 % (40-54); HEMOGLOBIN 13.9 G/DL (13.3-17.7); LYMPHOCYTES # (AUTO) 2.2 X 10^3 (1.0-4.0); LYMPHOCYTES % (AUTO) 12 % (12-44); MEAN CORPUSCULAR HEMOGLOBIN 34 PG (25-34); MEAN CORPUSCULAR HGB CONC 36 G/DL (32-36); MEAN CORPUSCULAR VOLUME 93 FL (80-99); MEAN PLATELET VOLUME 10.5 FL (7.4-10.4); MONOCYTES # (AUTO) 1.6 X 10^3 (0.0-1.0); MONOCYTES % (AUTO) 9 % (0-12); NEUTROPHILS # (AUTO) 14.6 X 10^3 (1.8-7.8); NEUTROPHILS % (AUTO) 79 % (42-75); PLATELET COUNT 795 10^3/uL (130-400); RED BLOOD COUNT 4.12 10^6/uL (4.35-5.85); RED CELL DISTRIBUTION WIDTH 18.6 % (10.0-14.5); WHITE BLOOD COUNT 18.4 10^3/uL (4.3-11.0)
[2018-04-27 18:13] LABS: ALANINE AMINOTRANSFERASE 33 U/L (0-55); ALBUMIN 4.4 GM/DL (3.2-4.5); ALKALINE PHOSPHATASE 78 U/L (40-136); BILIRUBIN,TOTAL 0.6 MG/DL (0.1-1.0); BUN/CREATININE RATIO 13; CALCIUM 9.6 MG/DL (8.5-10.1); CARBON DIOXIDE 21 MMOL/L (21-32); CHLORIDE 104 MMOL/L (98-107); GFR ESTIMATED > 60; GLUCOSE 96 MG/DL (70-105); POTASSIUM 3.9 MMOL/L (3.6-5.0); SODIUM 136 MMOL/L (135-145); TOTAL PROTEIN 7.4 GM/DL (6.4-8.2)
[2018-04-27] MEDS: RT-ALBUTEROL/IPRATROPIUM 3 ML (DUONEB) VIAL INH SCH ×2 (18:46→22:22)
[2018-04-27 19:27] VITALS: BP 85/55
[2018-04-27] MEDS ORDERED: HALOPERIDOL 5 MG/ML (HALDOL) AMP IM PRN (19:45)
[2018-04-27] MEDS ORDERED: LORazepam INJ 2 MG/ML (ATIVAN) VIAL IVP PRN (19:45)
[2018-04-27] MEDS ORDERED: FLU QUADRIvalent (5+ YOA) 2018-2019 (AFLURIA) 0.5 ML IM ONE (20:00)
--- NOTE | 2018-04-27 22:48 | History & Physicial ---
History of Present Illness History of Present Illness Reason for visit/HPI This is a 73 year old male with a recent exacerbation of COPD as well as recent cataract surgery. The patient takes a routine inhaled corticosteroid and was on Levaquin and a prednisone taper for his COPD exacerbation. He was then placed on steroid eye drops. He became manic like and was brought to the emergency room by his family due to concern of stroke. 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 He was seen in my office today and was having racing thoughts as well as agitation. He has not slept according to his son and daughter. He was directly admitted for IVFs as well as treatment of his psychosis. Date of Admission Apr 27, 2018 at 17:00 Date Seen by a Provider: Apr 27, 2018 Time Seen by a Provider: 03:30 I consulted on this patient on 04/27/18 22:43 Attending Physician Vidhya Cabrera DO Admitting Physician Vidhya Cabrera DO Consult Allergies and Home Medications Allergies Coded Allergies: No Known Drug Allergies (Unverified , 04/13/18) Home Medications Amlodipine Besylate 5 Mg Tablet, 5 MG PO DAILY, (Reported) Aspirin 81 Mg Tablet.dr, 81 MG PO DAILY, (Reported) Atorvastatin Calcium 40 Mg Tablet, 40 MG PO DAILY, (Reported) Cetirizine HCl 10 Mg Tablet, 10 MG PO DAILY, (Reported) Fluticasone Propionate 15.8 Ml [place].susp, 15.8 ML NS DAILY, (Reported) Ketoconazole 15 Gm Cream..g., 15 GM TP DAILY, (Reported) Levothyroxine Sodium 75 Mcg Tablet, 75 MCG PO DAILY, (Reported) Lisinopril 40 Mg Tablet, 40 MG PO DAILY, (Reported) Montelukast Sodium 10 Mg Tablet, 10 MG PO DAILY, (Reported) Omeprazole 20 Mg Tablet.dr, 20 MG PO DAILY, (Reported) Patient Home Medication List Home Medication List Reviewed: Yes Past Nwglrlg-[id number] Hx Patient Social History Alcohol Use: Denies Use Recreational Drug Use: No Smoking Status: Current Everyday Smoker Type Used: Cigarettes Physical Abuse Screen: No Sexual Abuse: No Recent Foreign Travel: No Contact w/other who traveled: No Recent Hopitalizations: Yes (1 week ago cataract surgery) Recent Infectious Disease Expo: No Seasonal Allergies Seasonal Allergies: No Respiratory Yes (ASTHMA, COPD) Currently Using CPAP: No Currently Using BIPAP: No Cardiovascular Yes (CARDIAC STENTS) Neurological No Genitourinary Yes (TURP) Gastrointestinal Yes Gastroesophageal Reflux Musculoskeletal No Endocrine History of Endocrine Disorders: No HEENT History of HEENT Disorders: No HEENT Disorders: Cataract Hearing Impairment: Hard of Hearing, Bilateral Hearing Aide Cancer No Skin Psychosocial History of Psychiatric Problem: No Integumentary History of Skin or Integumenta: No Blood Transfusions Adverse Reaction to a Blood Tr: No Family Medical History Family Hx: Alcoholism 19 FATHER G8 BROTHER G8 BROTHER G8 BROTHER G8 BROTHER G8 BROTHER G8 SISTER G8 SISTER Cardiovascular disease 19 FATHER Colon cancer Completed stroke G8 BROTHER Deafness or hearing loss G8 BROTHER G8 BROTHER G8 SISTER G8 SISTER Diabetes mellitus G8 BROTHER G8 BROTHER Drug abuse G8 BROTHER G8 BROTHER Myocardial infarction 19 FATHER Neoplasm G8 BROTHER G8 SISTER Review of Systems Constitutional: No no symptoms reported, No see HPI, No chills, No diaphoresis , No dizziness, No fever, No malaise, No weakness, No weight gain, No weight loss, No other EENTM: No see HPI, No no symptoms reported, No ear discharge, No hearing loss, No ear pain, No blurred vision, No double vision, No eye pain, No tearing, No vision loss, No dental problems, No hoarseness, No mouth pain, No mouth swelling , No epistaxis, No nose congestion, No nose pain, No throat pain, No throat swelling, No other Respiratory: cough, dyspnea on exertion, short of breath, wheezing Cardiovascular: No no symptoms reported, No see HPI, No chest pain, No edema, No Hx of Intervention, No palpitations, No syncope, No vascular heart diseas, No other Gastrointestinal: No RUQ, No LUQ, No RLQ, No LLQ, No no symptoms reported, No see HPI, No abdominal pain, No constipation, No diarrhea, No dysphagia, No hematemesis, No heartburn, No jaundice, No loss of appetite, No melena, No nausea, No vomiting, No other Genitourinary: No no symptoms reported, No see HPI, No decreased output, No discharge, No dysuria, No frequency, No hematuria, No hesitancy, No incontinence , No nocturia, No pain, No other Musculoskeletal: No no symptoms reported, No see HPI, No back pain, No gout, No joint pain, No joint swelling, No muscle pain, No muscle stiffness, No muscle cramps, No muscle twitching, No muscle weakness, No neck pain, No other Skin: No no symptoms reported, No see HPI, No change in color, No change in hair/nails, No dryness, No hx of skin cancer, No lesions, No lumps, No pruritus , No rash, No other Psychiatric/Neurological: Emotional Problems (racing thoughts/agitation) Physical Exam Vital Signs Vital Signs - First Documented 04/27/18 04/27/18 04/27/18 04/27/18 18:49 19:00 19:27 20:00 Temp 98.6 Pulse 88 Resp 20 B/P (MAP) 85/55 (65) Pulse Ox 92 O2 Delivery Room Air O2 Flow Rate 2.00 Capillary Refill : Height, Weight, BMI Height: 5'7.50" Weight: 151lbs. 0.8oz. [id number]; 23.3 BMI Method:Stated General Appearance: Mild Distress, Other (wearing dark glasses) HEENT: Normal ENT Inspection Neck: Supple Respiratory: Decreased Breath Sounds, Rhonci Cardiovascular: Systolic Murmur, Gallop/S4, Tachycardia Gastrointestinal: Normal Bowel Sounds, Non Tender, Soft Rectal: Deferred Back: No CVA Tenderness Extremity: Non Tender, No Calf Tenderness, No Pedal Edema Neurologic/Psychiatric: Alert, Disoriented Skin: Warm/Dry Comments Laboratory Tests 04/27/18 17:45: White Blood Count 18.4H, Red Blood Count 4.12L, Hemoglobin 13.9, Hematocrit 38L , Mean Corpuscular Volume 93, Mean Corpuscular Hemoglobin 34, Mean Corpuscular Hemoglobin Concent 36, Red Cell Distribution Width 18.6H, Platelet Count 795H, Mean Platelet Volume 10.5H, Neutrophils (%) (Auto) 79H, Lymphocytes (%) (Auto) 12, Monocytes (%) (Auto) 9, Eosinophils (%) (Auto) 0, Basophils (%) (Auto) 0, Neutrophils # (Auto) 14.6H, Lymphocytes # (Auto) 2.2, Monocytes # (Auto) 1.6H, Eosinophils # (Auto) 0.0, Basophils # (Auto) 0.0, Erythrocyte Sedimentation Rate 1, Sodium Level 136, Potassium Level 3.9, Chloride Level 104, Carbon Dioxide Level 21, Anion Gap 11, Blood Urea Nitrogen 12, Creatinine 0.90, Estimat Glomerular Filtration Rate > 60, BUN/Creatinine Ratio 13, Glucose Level 96, Calcium Level 9.6, Corrected Calcium 9.3, Total Bilirubin 0.6, Aspartate Amino Transf (AST/SGOT) 26, Alanine Aminotransferase (ALT/SGPT) 33, Alkaline Phosphatase 78, Total Protein 7.4, Albumin 4.4 04/27/18 22:25: Urine Opiates Screen NEGATIVE, Urine Oxycodone Screen NEGATIVE, Urine Methadone Screen NEGATIVE, Urine Propoxyphene Screen NEGATIVE, Urine Barbiturates Screen NEGATIVE, Ur Tricyclic Antidepressants Screen NEGATIVE, Urine Phencyclidine Screen NEGATIVE, Urine Amphetamines Screen NEGATIVE, Urine Methamphetamines Screen NEGATIVE, Urine Benzodiazepines Screen POSITIVEH, Urine Cocaine Screen NEGATIVE, Urine Cannabinoids Screen NEGATIVE Assessment/Plan Assessment and Plan 1. Acute Steroid Psychosis--admit and hydrate and give haldol and ativan and monitor, DC oral prednisone 2. Acute Exacerbation of COPD--oxygen prn to keep O2 sat greater than 90%, SVNS with duoneb 3. Hypertension--currently hypotensive so will hold BP meds and hydrate and monitor BP Admission Diagnosis Admission Status: Observation Clinical Quality Measures DVT/VTE Risk/Contraindication: Risk Factor Score Per Nursin RFS Level Per Nursing on Admit: 4+=Very High VIDHYA CABRERA DO Apr 27, 2018 22:48
[2018-04-27 22:50] LABS: AMPHETAMINE SCREEN, URINE NEGATIVE (NEGATIVE); BARBITURATE SCREEN URINE NEGATIVE (NEGATIVE); BENZODIAZEPINES SCREEN URINE POSITIVE (NEGATIVE); CANNABINOID SCREEN, URINE NEGATIVE (NEGATIVE); COCAINE SCREEN URINE NEGATIVE (NEGATIVE); METHADONE STAT NEGATIVE (NEGATIVE); METHAMPHETAMINE SCREEN URINE S NEGATIVE (NEGATIVE); OPIATE SCREEN URINE NEGATIVE (NEGATIVE); OXYCODONE STAT NEGATIVE (NEGATIVE); PROPOXYPHENE STAT NEGATIVE (NEGATIVE); TRICYCLIC ANTIDEPRESSANTS SCRE NEGATIVE (NEGATIVE)
[2018-04-28 00:56] VITALS: BP 116/66
[2018-04-28] MEDS: NS IV 1000 ML 1,000 ML IV SCH ×3 (01:35→18:50)
[2018-04-28] MEDS: RT-ALBUTEROL/IPRATROPIUM 3 ML (DUONEB) VIAL INH SCH ×6 (02:16→22:03)
[2018-04-28 04:03] VITALS: BP 116/65
[2018-04-28 06:18] LABS: BASOPHILS # (AUTO) 0.1 10^3/uL (0.0-0.1); BASOPHILS % (AUTO) 0 % (0-10); EOSINOPHILS # (AUTO) 0.2 10^3/uL (0.0-0.3); EOSINOPHILS % (AUTO) 1 % (0-10); HEMATOCRIT 36 % (40-54); HEMOGLOBIN 12.2 G/DL (13.3-17.7); LYMPHOCYTES # (AUTO) 3.4 X 10^3 (1.0-4.0); LYMPHOCYTES % (AUTO) 18 % (12-44); MEAN CORPUSCULAR HEMOGLOBIN 32 PG (25-34); MEAN CORPUSCULAR HGB CONC 34 G/DL (32-36); MEAN CORPUSCULAR VOLUME 95 FL (80-99); MEAN PLATELET VOLUME 10.6 FL (7.4-10.4); MONOCYTES # (AUTO) 2.5 X 10^3 (0.0-1.0); MONOCYTES % (AUTO) 13 % (0-12); NEUTROPHILS # (AUTO) 13.1 X 10^3 (1.8-7.8); NEUTROPHILS % (AUTO) 68 % (42-75); PLATELET COUNT 770 10^3/uL (130-400); RED BLOOD COUNT 3.78 10^6/uL (4.35-5.85); RED CELL DISTRIBUTION WIDTH 19.1 % (10.0-14.5); WHITE BLOOD COUNT 19.2 10^3/uL (4.3-11.0)
[2018-04-28 07:00] LABS: BAND NEUTROPHILS 2 %; EOSINOPHILS % (MANUAL) 5 %; LYMPHOCYTES % (MANUAL) 19 %; MONOCYTES % (MANUAL) 7 %; NEUTROPHILS % (MANUAL) 67 %; POIKILOCYTOSIS SLIGHT; POLYCHROMASIA SLIGHT
[2018-04-28 07:01] LABS: ANISOCYTOSIS MODERATE; ELLIPT/OVALOCYTES SLIGHT
[2018-04-28 08:00] VITALS: BP_SYST 138; BP_SYST 169; BP_DIAS 80; BP_DIAS 90
[2018-04-28] MEDS ORDERED: PRED5DRO17 OD (09:25)
[2018-04-28] MEDS ORDERED: FLUT16SP22 NS (09:25)
[2018-04-28] MEDS ORDERED: OMEP20CA12 PO (09:25)
[2018-04-28] MEDS ORDERED: KETO5DRO14 OD (09:25)
[2018-04-28 12:00] VITALS: BP 150/80
[2018-04-28] MEDS ORDERED: cefTRIAXone FOR IV USE 1,000 MG in NS (IVPB) 50 ML IV NR (13:15)
[2018-04-28 16:00] VITALS: BP 143/89
[2018-04-28] MEDS: amLODIPine 5 MG (NORVASC) TAB PO SCH (16:29)
[2018-04-28] MEDS: prednisoLONE 1% OPTH (PRED FORTE) 5 ML BTL OD SCH ×2 (16:30→20:00)
[2018-04-28] MEDS: KETOROLAC TROMETHAMINE 0.5% OD SCH ×2 (16:30→20:00)
[2018-04-28] MEDS: EYE OD SCH ×2 (16:30→20:00)
[2018-04-28 20:50] VITALS: BP 140/78
[2018-04-28] MEDS ORDERED: HALOPERIDOL 5 MG/ML (HALDOL) AMP IM ONE (22:15)
[2018-04-28] MEDS ORDERED: LORazepam INJ 2 MG/ML (ATIVAN) VIAL IVP ONE (22:15)
[2018-04-29] VITALS (7 sets, daily range): BP systolic 111–161; BP diastolic 65–93
[2018-04-29] MEDS: RT-ALBUTEROL/IPRATROPIUM 3 ML (DUONEB) VIAL INH SCH ×6 (02:38→22:10)
[2018-04-29] MEDS: OMEPRAZOLE 20 MG (PriLOSEC) CAP PO SCH (06:31)
[2018-04-29] MEDS: LEVOTHYROXINE 75 MCG (LEVOTHROID) TABLET PO SCH (06:31)
[2018-04-29 06:47] LABS: BASOPHILS # (AUTO) 0.1 10^3/uL (0.0-0.1); BASOPHILS % (AUTO) 1 % (0-10); EOSINOPHILS # (AUTO) 0.2 10^3/uL (0.0-0.3); EOSINOPHILS % (AUTO) 1 % (0-10); HEMATOCRIT 34 % (40-54); HEMOGLOBIN 11.8 G/DL (13.3-17.7); LYMPHOCYTES # (AUTO) 2.5 X 10^3 (1.0-4.0); LYMPHOCYTES % (AUTO) 21 % (12-44); MEAN CORPUSCULAR HEMOGLOBIN 33 PG (25-34); MEAN CORPUSCULAR HGB CONC 35 G/DL (32-36); MEAN CORPUSCULAR VOLUME 95 FL (80-99); MEAN PLATELET VOLUME 10.7 FL (7.4-10.4); MONOCYTES # (AUTO) 1.5 X 10^3 (0.0-1.0); MONOCYTES % (AUTO) 12 % (0-12); NEUTROPHILS # (AUTO) 7.8 X 10^3 (1.8-7.8); NEUTROPHILS % (AUTO) 65 % (42-75); PLATELET COUNT 679 10^3/uL (130-400); RED BLOOD COUNT 3.56 10^6/uL (4.35-5.85); RED CELL DISTRIBUTION WIDTH 18.7 % (10.0-14.5)
[2018-04-29 07:02] LABS: BUN/CREATININE RATIO 14; CALCIUM 8.7 MG/DL (8.5-10.1); CARBON DIOXIDE 20 MMOL/L (21-32); CHLORIDE 111 MMOL/L (98-107); CREATININE SERUM 0.79 MG/DL (0.60-1.30); GFR ESTIMATED > 60; GLUCOSE 92 MG/DL (70-105); POTASSIUM 4.1 MMOL/L (3.6-5.0); SODIUM 139 MMOL/L (135-145)
[2018-04-29] MEDS: NS IV 1000 ML 1,000 ML IV SCH (08:31)
[2018-04-29] MEDS: KETOROLAC TROMETHAMINE 0.5% OD SCH ×4 (08:31→21:24)
[2018-04-29] MEDS: cefTRIAXone FOR IV USE 1,000 MG in NS (IVPB) 50 ML IV SCH (08:31)
[2018-04-29] MEDS: prednisoLONE 1% OPTH (PRED FORTE) 5 ML BTL OD SCH ×4 (08:31→21:36)
[2018-04-29] MEDS: EYE OD SCH ×4 (08:31→21:24)
[2018-04-29] MEDS: ATORVASTATIN 40 MG (LIPITOR) TABLET PO SCH (08:32)
[2018-04-29] MEDS: amLODIPine 5 MG (NORVASC) TAB PO SCH (08:33)
[2018-04-29] MEDS: ASPIRIN E.C. 81 MG (ECOTRIN) TAB PO SCH (08:33)
[2018-04-29] MEDS: lisINopril 40 MG (PRINIVIL) TABLET PO SCH (08:34)
[2018-04-29] MEDS: MONTELUKAST 10 MG (SINGULAIR) TAB PO SCH (08:34)
[2018-04-29] MEDS ORDERED: NON-FORMULARY MEDICATION 1 EA EA (Aspirin (Aspir 81) 81 MG) PO SCH (09:00)
[2018-04-29] MEDS ORDERED: OMEPRAZOLE 20 MG (PriLOSEC) CAP NON-FORMULARY PO SCH (09:00)
[2018-04-29] MEDS ORDERED: NON-FORMULARY MEDICATION 1 EA EA (Amlodipine Besylate 5 MG) PO SCH (09:00)
[2018-04-29] MEDS ORDERED: FLU QUADRIvalent (5+ YOA) 2018-2019 (AFLURIA) 0.5 ML IM ONE (13:29)
--- NOTE | 2018-04-29 18:21 | Progress Note (SOAP) ---
Subjective Date Seen by a Provider: Apr 28, 2018 Time Seen by a Provider: 12:35 Subjective/Events-last exam Fwup Acute Steroid Psychosis, COPD exacerbation, Leukocytosis, Dehydration, Tobacco Abuse, Hypertension. Objective Exam Vital Signs Date Time Temp Pulse Resp B/P (MAP) Pulse Ox O2 Delivery O2 Flow Rate FiO2 04/29/18 16:30 98.2 103 16 112/82 (92) 98 Room Air 04/29/18 14:41 95 Room Air 04/29/18 13:00 89 04/29/18 12:00 97.2 86 18 111/87 (95) 94 Room Air 04/29/18 10:36 92 Room Air 04/29/18 08:00 93 Room Air 04/29/18 08:00 97.4 87 18 134/80 (98) 93 Room Air 04/29/18 07:32 92 Room Air 04/29/18 07:00 95 04/29/18 04:29 98.5 72 17 115/65 (82) 93 Room Air 04/29/18 01:00 102 04/29/18 00:44 97.5 81 18 123/66 (85) 94 Room Air 04/28/18 22:03 92 Room Air 04/28/18 20:50 97.4 83 18 140/78 (98) 94 Room Air 04/28/18 20:00 94 Room Air 04/28/18 19:10 93 Room Air 04/28/18 19:00 93 I & O 04/29/18 07:00 Intake Total 3840 ml Balance 3840 ml Capillary Refill : General Appearance: No Apparent Distress Neck: Supple Respiratory: Decreased Breath Sounds, Rhonci Cardiovascular: Regular Rate, Rhythm, Systolic Murmur, Gallop/S4 Gastrointestinal: normal bowel sounds, non tender, soft Extremity: Non Tender, No Calf Tenderness, No Pedal Edema Neurologic/Psychiatric: Alert, Oriented x3, Other (flight of ideas, anxious) Skin: Warm/Dry Results Lab Laboratory Tests 04/29/18 06:20: White Blood Count 12.0H, Red Blood Count 3.56L, Hemoglobin 11.8L, Hematocrit 34L , Mean Corpuscular Volume 95, Mean Corpuscular Hemoglobin 33, Mean Corpuscular Hemoglobin Concent 35, Red Cell Distribution Width 18.7H, Platelet Count 679H, Mean Platelet Volume 10.7H, Neutrophils (%) (Auto) 65, Lymphocytes (%) (Auto) 21 , Monocytes (%) (Auto) 12, Eosinophils (%) (Auto) 1, Basophils (%) (Auto) 1, Neutrophils # (Auto) 7.8, Lymphocytes # (Auto) 2.5, Monocytes # (Auto) 1.5H, Eosinophils # (Auto) 0.2, Basophils # (Auto) 0.1, Sodium Level 139, Potassium Level 4.1, Chloride Level 111H, Carbon Dioxide Level 20L, Anion Gap 8, Blood Urea Nitrogen 11, Creatinine 0.79, Estimat Glomerular Filtration Rate > 60, BUN/ Creatinine Ratio 14, Glucose Level 92, Calcium Level 8.7 Assessment/Plan Assessment/Plan Assess & Plan/Chief Complaint 1. Acute Steroid Psychosis--did sleep with Haldol and ativan but still with racing thoughts and pressured speech and restlessness today, only steroids we are keeping at this time are his steroid eye drops for his post surgical cataract eye 2. Leukocytosis--will add Rocephin to cover for recent UTI and lung etiology and monitor WBC count as well as psychosis 3. COPD with acute exacerbation--continue SVNs with duoneb and oxygen prn 4. Tobacco Abuse--will hold on nicotine patch as do not want any stimulants at this time 5. Hypertension--restart home BP meds Clinical Quality Measures Admission Status Admission Dx 1. Acute Steroid Psychosis--admit and hydrate and give haldol and ativan and monitor, DC oral prednisone 2. Acute Exacerbation of COPD--oxygen prn to keep O2 sat greater than 90%, SVNS with duoneb 3. Hypertension--currently hypotensive so will hold BP meds and hydrate and monitor BP DVT/VTE Risk/Contraindication: Risk Factor Score Per Nursin RFS Level Per Nursing on Admit: 4+=Very High GLORY MARTIN DO Apr 29, 2018 6:21 pm
--- NOTE | 2018-04-29 18:24 | Progress Note (SOAP) ---
Subjective Date Seen by a Provider: Apr 29, 2018 Time Seen by a Provider: 12:45 Subjective/Events-last exam Fwup Acute Steroid Psychosis, COPD exacerbation, Leukocytosis, Dehydration, Tobacco Abuse, Hypertension. Slept well last night and doing a little better today. Not quite as restless and thoughts aren't racing as much. Objective Exam Vital Signs Date Time Temp Pulse Resp B/P (MAP) Pulse Ox O2 Delivery O2 Flow Rate FiO2 04/29/18 16:30 98.2 103 16 112/82 (92) 98 Room Air 04/29/18 14:41 95 Room Air 04/29/18 13:00 89 04/29/18 12:00 97.2 86 18 111/87 (95) 94 Room Air 04/29/18 10:36 92 Room Air 04/29/18 08:00 93 Room Air 04/29/18 08:00 97.4 87 18 134/80 (98) 93 Room Air 04/29/18 07:32 92 Room Air 04/29/18 07:00 95 04/29/18 04:29 98.5 72 17 115/65 (82) 93 Room Air 04/29/18 01:00 102 04/29/18 00:44 97.5 81 18 123/66 (85) 94 Room Air 04/28/18 22:03 92 Room Air 04/28/18 20:50 97.4 83 18 140/78 (98) 94 Room Air 04/28/18 20:00 94 Room Air 04/28/18 19:10 93 Room Air 04/28/18 19:00 93 I & O 04/29/18 07:00 Intake Total 3840 ml Balance 3840 ml Capillary Refill : General Appearance: No Apparent Distress Neck: Supple Respiratory: Decreased Breath Sounds, Rhonci Cardiovascular: Regular Rate, Rhythm, Systolic Murmur, Gallop/S4 Extremity: Non Tender, No Calf Tenderness, No Pedal Edema Neurologic/Psychiatric: Alert, Oriented x3 Skin: Warm/Dry Results Lab Laboratory Tests 04/29/18 06:20: White Blood Count 12.0H, Red Blood Count 3.56L, Hemoglobin 11.8L, Hematocrit 34L , Mean Corpuscular Volume 95, Mean Corpuscular Hemoglobin 33, Mean Corpuscular Hemoglobin Concent 35, Red Cell Distribution Width 18.7H, Platelet Count 679H, Mean Platelet Volume 10.7H, Neutrophils (%) (Auto) 65, Lymphocytes (%) (Auto) 21 , Monocytes (%) (Auto) 12, Eosinophils (%) (Auto) 1, Basophils (%) (Auto) 1, Neutrophils # (Auto) 7.8, Lymphocytes # (Auto) 2.5, Monocytes # (Auto) 1.5H, Eosinophils # (Auto) 0.2, Basophils # (Auto) 0.1, Sodium Level 139, Potassium Level 4.1, Chloride Level 111H, Carbon Dioxide Level 20L, Anion Gap 8, Blood Urea Nitrogen 11, Creatinine 0.79, Estimat Glomerular Filtration Rate > 60, BUN/ Creatinine Ratio 14, Glucose Level 92, Calcium Level 8.7 Assessment/Plan Assessment/Plan Assess & Plan/Chief Complaint 1. Acute Steroid Psychosis--some improvement so will DC haldol and ativan and use restoril for sleep tonight and see how he does, only steroids we are keeping at this time are his steroid eye drops for his post surgical cataract eye 2. Leukocytosis--improved today since added Rocephin to cover for recent UTI and lung etiology 3. COPD with acute exacerbation--continue SVNs with duoneb and oxygen prn 4. Tobacco Abuse--will hold on nicotine patch as do not want any stimulants at this time 5. Hypertension--restarted home BP meds Clinical Quality Measures Admission Status Admission Dx 1. Acute Steroid Psychosis--admit and hydrate and give haldol and ativan and monitor, DC oral prednisone 2. Acute Exacerbation of COPD--oxygen prn to keep O2 sat greater than 90%, SVNS with duoneb 3. Hypertension--currently hypotensive so will hold BP meds and hydrate and monitor BP DVT/VTE Risk/Contraindication: Risk Factor Score Per Nursin RFS Level Per Nursing on Admit: 4+=Very High GLORY MARTIN DO Apr 29, 2018 6:24 pm
[2018-04-29] MEDS ORDERED: TEMAZEPAM 7.5 MG CAP (RESTORIL) PO SCH (21:00)
[2018-04-30] MEDS: RT-ALBUTEROL/IPRATROPIUM 3 ML (DUONEB) VIAL INH SCH ×3 (03:17→09:48)
[2018-04-30 04:33] VITALS: BP 120/76
[2018-04-30] MEDS: LEVOTHYROXINE 75 MCG (LEVOTHROID) TABLET PO SCH (05:43)
[2018-04-30] MEDS: OMEPRAZOLE 20 MG (PriLOSEC) CAP PO SCH (05:43)
[2018-04-30 06:04] LABS: BASOPHILS # (AUTO) 0.1 10^3/uL (0.0-0.1); BASOPHILS % (AUTO) 0 % (0-10); EOSINOPHILS # (AUTO) 0.2 10^3/uL (0.0-0.3); EOSINOPHILS % (AUTO) 2 % (0-10); HEMATOCRIT 37 % (40-54); HEMOGLOBIN 12.8 G/DL (13.3-17.7); LYMPHOCYTES % (AUTO) 16 % (12-44); MEAN CORPUSCULAR HEMOGLOBIN 33 PG (25-34); MEAN CORPUSCULAR HGB CONC 35 G/DL (32-36); MEAN CORPUSCULAR VOLUME 95 FL (80-99); MEAN PLATELET VOLUME 10.6 FL (7.4-10.4); MONOCYTES # (AUTO) 1.6 X 10^3 (0.0-1.0); MONOCYTES % (AUTO) 13 % (0-12); NEUTROPHILS # (AUTO) 8.2 X 10^3 (1.8-7.8); NEUTROPHILS % (AUTO) 68 % (42-75); PLATELET COUNT 780 10^3/uL (130-400); RED BLOOD COUNT 3.92 10^6/uL (4.35-5.85); RED CELL DISTRIBUTION WIDTH 18.9 % (10.0-14.5)
[2018-04-30] MEDS: prednisoLONE 1% OPTH (PRED FORTE) 5 ML BTL OD SCH (07:49)
[2018-04-30] MEDS: ASPIRIN E.C. 81 MG (ECOTRIN) TAB PO SCH (07:51)
[2018-04-30] MEDS: ATORVASTATIN 40 MG (LIPITOR) TABLET PO SCH (07:52)
[2018-04-30] MEDS: amLODIPine 5 MG (NORVASC) TAB PO SCH (07:53)
[2018-04-30] MEDS: MONTELUKAST 10 MG (SINGULAIR) TAB PO SCH (07:54)
[2018-04-30] MEDS: KETOROLAC TROMETHAMINE 0.5% OD SCH (07:57)
[2018-04-30] MEDS: lisINopril 40 MG (PRINIVIL) TABLET PO SCH (07:57)
[2018-04-30] MEDS: EYE OD SCH (07:57)
[2018-04-30 08:00] VITALS: BP 145/89
[2018-04-30] MEDS: cefTRIAXone FOR IV USE 1,000 MG in NS (IVPB) 50 ML IV SCH (09:09)
[2018-04-30 12:00] VITALS: BP 156/77
[2018-04-30] MEDS ORDERED: CEFD300C3 PO (12:24)
[2018-04-30] MEDS ORDERED: TEMA7.5C PO (12:24)
--- NOTE | 2018-04-30 12:28 | Discharge Inst-Simple/Standard ---
Discharge Inst-Standard Discharge Medications New, Converted or Re-Newed RX: Transmitted to Pharmacy Patient Instructions/Follow Up Plan of Care/Instructions/FU: Fwup with me in 1 week Activity as Tolerated: Yes Discharge Diet: ADA Diet Other Inst to Patient May use brovana in nebulizer machine but stop betamethasone. May use ventolin as rescue inhaler and albuterol in nebulizer as needed as rescue. GLORY MARTIN DO Apr 30, 2018 12:28 pm
[2018-04-30 13:20] VITALS: BP 156/77
--- NOTE | 2018-05-01 15:24 | Physician Query-Final Dx ---
Final Diagnosis Give Final Diagnosis Please give Final Diagnosis [place] May 01, 2018 15:24
== END 2018-04-30 13:23 | disposition home or self-care (01) | DRG 885 ==
LOC: 4TH 16:30 → UNDOADMOB 17:00 → INTOOBSV 04-29 12:59 → OBSVTOIN 04-29 12:59 → UNDODISIN 04-30 13:23
PROVIDERS: ADMIT Family Medicine; ATTEND Family Medicine
DX: F23 Brief psychotic disorder (principal); T38.0X5A Adverse effect of glucocorticoids and synthetic analogues, initial encounter; J44.1 Chronic obstructive pulmonary disease with (acute) exacerbation; F17.210 Nicotine dependence, cigarettes, uncomplicated; E86.0 Dehydration; I10 Essential (primary) hypertension; K21.9 Gastro-esophageal reflux disease without esophagitis; I95.9 Hypotension, unspecified; Z95.5 Presence of coronary angioplasty implant and graft; D72.829 Elevated white blood cell count, unspecified; Z23 Encounter for immunization
CPT/HCPCS: 36415; 80048; 80053; 80306; 85007; 85025; 85027; 85652; 90686; 94640; 94760; G0378

== ENCOUNTER 2018-09-25 13:00 | Outpatient (RCR) | payer MEDICARE, OTHER ==
[~2018-09-25 13:00] MED LIST changes: -AMLO5TAB7 PO; +AMLO5TAB9 PO; +CEFD300C3 PO; +FLUT16SP22 NS; +KETO5DRO14 OD; +OMEP20CA12 PO; +PRED5DRO17 OD; +TEMA7.5C PO
== END 2018-10-29 | disposition home or self-care (01) ==
PROVIDERS: ATTEND Family Medicine
DX: M54.16 Radiculopathy, lumbar region (principal)

== ENCOUNTER → 2019-06-28 | Outpatient (CLI) | payer MEDICARE, OTHER ==
[~2019-06-28] MED LIST changes: +FLUT15.845 NS; -FLUT15.88 NS; +OMEP-280 PO; -OMEP20CA12 PO; +RT-ALBUTEROL SULF 2.5 MG/3 ML PRE-MIX VIAL INH ONE
== END ==
LOC: RT 09:33
PROVIDERS: ATTEND Nurse Practitioner Family
DX: J44.9 Chronic obstructive pulmonary disease, unspecified (principal); J30.2 Other seasonal allergic rhinitis; G47.9 Sleep disorder, unspecified; F17.200 Nicotine dependence, unspecified, uncomplicated
CPT/HCPCS: 94060; 94726; 94729

== ENCOUNTER → 2019-08-12 | Outpatient (CLI) | payer MEDICARE, OTHER ==
[~2019-08-12] MED LIST changes: -RT-ALBUTEROL SULF 2.5 MG/3 ML PRE-MIX VIAL INH ONE
--- NOTE | 2019-08-12 13:50 | Diagnostic Imaging Report ---
PROCEDURE: CT abdomen and pelvis without contrast. TECHNIQUE: Multiple contiguous axial images were obtained through the abdomen and pelvis without the use of intravenous contrast. Auto Exposure Controls were utilized during the CT exam to meet ALARA standards for radiation dose reduction. INDICATION: Diarrhea x3 weeks which has improved recently. Denies abdominal pain. CORRELATION STUDY: None. FINDINGS: LOWER THORAX: Clear. LIVER: Unremarkable. GALLBLADDER: Somewhat contracted may be owing to recent meal ingestion. No overt bile duct dilatation. SPLEEN: Unremarkable. PANCREAS: Unremarkable. ADRENAL GLANDS: Unremarkable. KIDNEYS: There is presence of non-obstructing bilateral renal stones. There are two rounded low attenuating masses in the right kidney favoring probable cysts but incompletely characterized on this noncontrast study. No definitive ureteric calcification or significant obstructive uropathy. ABDOMINAL AORTA: Dense aortoiliac wall calcification, nonaneurysmal. There does appear to be concern for rather significant, severe narrowing through the bilateral common iliac arteries right greater than left. Extensive calcification through the internal and external iliac arteries as well. GASTROINTESTINAL TRACT: Stomach is significantly distended with retained gastric contents and fluid. No small bowel obstruction. Moderate severity fecal retention with stool throughout the colon. Normal appendix is present. Fairly tortuous, redundant course of the sigmoid colon. Some wall thickening of the sigmoid colon likely largely due to its collapsed state. Component of colitis would be difficult to exclude. However, there is no significant pericolonic inflammatory changes. No abdominal ascites or free air. URINARY BLADDER: Unremarkable. REPRODUCTIVE: Prostate gland enlarged, approximately 5 x 4 cm. OSSEOUS STRUCTURES: Rather marked severity disc space narrowing L5-S1 level. Endplate spurring results in significant osseous encroachment with narrowing of the neural foramina. OTHER: None. IMPRESSION: 1. Nonobstructive appearing bowel gas pattern. There is question of some wall thickening of the distal colon. This may simply be owing to its relatively collapsed state. Component of low-grade colitis is not excluded. 2. Distention of the stomach with retained gastric contents and fluid likely owing to recent meal ingestion. 3. Rather dense aortoiliac vascular calcification. There is what appears to be likely rather marked severity narrowing with perhaps near occlusion at the bilateral common iliac arteries and to a lesser degree external and internal iliac arteries. 4. Nonobstructing bilateral renal stones with probable right renal cortical cysts. 5. Prostate gland enlargement. Dictated by: Dictated on workstation # [id number]
== END ==
LOC: RAD 13:04
PROVIDERS: ATTEND Family Medicine
DX: N20.0 Calculus of kidney (principal); N40.0 Benign prostatic hyperplasia without lower urinary tract symptoms; R10.32 Left lower quadrant pain; R19.7 Diarrhea, unspecified
CPT/HCPCS: 74176

== ENCOUNTER → 2020-01-19 | Outpatient (CLI) | payer MEDICARE, OTHER ==
[~2020-01-19] MED LIST changes: -MONT10TA24 PO; +MONT10TA26 PO; -OMEP-280 PO; +OMEP20CA18 PO
== END ==
LOC: CARD 10:18
PROVIDERS: ATTEND Family Medicine
DX: Z01.810 Encounter for preprocedural cardiovascular examination (principal); I25.10 Atherosclerotic heart disease of native coronary artery without angina pectoris
CPT/HCPCS: 93005

== ENCOUNTER 2020-04-06 21:38 | Inpatient (IN) | payer MEDICARE, OTHER ==
[~2020-04-06] VITALS: Ht 172.7 cm; Wt 70.4 kg
[2020-04-06 22:16] LABS: BASOPHILS # (AUTO) 0.1 10^3/uL (0.0-0.1); BASOPHILS % (AUTO) 1 % (0-10); EOSINOPHILS # (AUTO) 0.1 10^3/uL (0.0-0.3); EOSINOPHILS % (AUTO) 1 % (0-10); HEMATOCRIT 36 % (40-54); HEMOGLOBIN 12.1 G/DL (13.3-17.7); LYMPHOCYTES # (AUTO) 2.3 X 10^3 (1.0-4.0); LYMPHOCYTES % (AUTO) 19 % (12-44); MEAN CORPUSCULAR HEMOGLOBIN 33 PG (25-34); MEAN CORPUSCULAR HGB CONC 34 G/DL (32-36); MEAN CORPUSCULAR VOLUME 98 FL (80-99); MEAN PLATELET VOLUME 10.7 FL (7.4-10.4); MONOCYTES # (AUTO) 0.8 X 10^3 (0.0-1.0); MONOCYTES % (AUTO) 7 % (0-12); NEUTROPHILS # (AUTO) 8.9 X 10^3 (1.8-7.8); NEUTROPHILS % (AUTO) 73 % (42-75); PLATELET COUNT 692 10^3/uL (130-400); WHITE BLOOD COUNT 12.2 10^3/uL (4.3-11.0)
[2020-04-06 22:20] LABS: ALBUMIN 4.4 GM/DL (3.2-4.5)
[2020-04-06 22:21] LABS: CHLORIDE 103 MMOL/L (98-107); POTASSIUM 4.5 MMOL/L (3.6-5.0); SODIUM 136 MMOL/L (135-145)
[2020-04-06] MEDS: fentaNYL INJECTION 100 MCG/2 ML AMP IVP PRN (22:21)
[2020-04-06 22:22] LABS: CALCIUM 9.4 MG/DL (8.5-10.1)
[2020-04-06 22:23] LABS: GLUCOSE 112 MG/DL (70-105); TOTAL PROTEIN 7.7 GM/DL (6.4-8.2)
[2020-04-06 22:24] LABS: CARBON DIOXIDE 21 MMOL/L (21-32)
[2020-04-06 22:25] LABS: BILIRUBIN,TOTAL 0.7 MG/DL (0.1-1.0)
[2020-04-06 22:26] LABS: ALKALINE PHOSPHATASE 77 U/L (40-136)
[2020-04-06 22:27] LABS: CREATININE SERUM 1.15 MG/DL (0.60-1.30); GFR ESTIMATED > 60
[2020-04-06 22:28] LABS: BUN/CREATININE RATIO 17
[2020-04-06 22:30] LABS: ALANINE AMINOTRANSFERASE 19 U/L (0-55)
--- NOTE | 2020-04-06 23:25 | ED Fall/Injury ---
General Chief Complaint: Lower Extremity Stated Complaint: FALL Source: patient Exam Limitations: no limitations History of Present Illness Date Seen by Provider: Apr 06, 2020 Time Seen by Provider: 22:23 Initial Comments Here with report of fall. Apparently he was getting out of his boat and stepped down from the trailer. He lost his balance and fell on his right hip. He tried to get up afterwards and realized that he was in too much pain. States it's lateral aspect. The leg is rotated to the right. Denies hitting his head. Denies being on blood thinners. Follows with Dr. Cabrera. Does smoke and has history of COPD. Denies other injury. Occurred: just prior to arrival (approximately one hour ago) Severity: mild, moderate Injuries/Pain Location: pelvis, lower extremity Context: lost balance Loss of Consciousness: no loss of consciousness Modifying Factors: Improves With Immobilization; Worse With Movement Associated Symptoms (Fall): No Abdominal Pain, No Chest Pain, No Confusion, No Nausea/Vomiting, No Neck Pain, No Shortness of Air; Trouble Walking Allergies and Home Medications Allergies Coded Allergies: No Known Drug Allergies (Unverified , 04/13/18) Home Medications Amlodipine Besylate 5 Mg Tablet, 5 MG PO DAILY, (Reported) Aspirin 81 Mg Tablet.dr, 81 MG PO DAILY, (Reported) Atorvastatin Calcium 40 Mg Tablet, 40 MG PO DAILY, (Reported) Cefdinir 300 Mg Capsule, 300 MG PO BID Prescribed by: GLORY CABRERA on 04/30/18 1224 Cetirizine HCl 10 Mg Tablet, 10 MG PO DAILY, (Reported) Ketoconazole 15 Gm Cream..g., TP DAILY, (Reported) Ketorolac Tromethamine 5 Ml Drops, 1 DROP OD QID, (Reported) Levothyroxine Sodium 75 Mcg Tablet, 75 MCG PO DAILY, (Reported) Lisinopril 40 Mg Tablet, 40 MG PO DAILY, (Reported) Montelukast Sodium 10 Mg Tablet, 10 MG PO DAILY, (Reported) Omeprazole 20 Mg Capsule.dr, 20 MG PO DAILY, (Reported) Prednisolone Acetate 5 Ml Drops.susp, 1 DROP OD QID, (Reported) Temazepam 7.5 Mg Capsule, 7.5 MG PO HS for sleep Prescribed by: GLORY CABRERA on 04/30/18 1224 Patient Home Medication List Home Medication List Reviewed: Yes Review of Systems Review of Systems Constitutional: see HPI; No chills, No fever Eyes: No Symptoms Reported Ears, Nose, Mouth, Throat: no symptoms reported Respiratory: no symptoms reported Cardiovascular: no symptoms reported Musculoskeletal: see HPI, joint pain; No joint swelling; muscle pain Skin: change in color; No lesions Psychiatric/Neurological: No Symptoms Reported All Other Systems Reviewed Negative Unless Noted: Yes Past Zwvsjoa-Wgiyfj-Cbhuxs Hx Past Med/Social Hx: Reviewed Nursing Past Med/Soc Hx Patient Social History Alcohol Use: Denies Use Recreational Drug Use: No Smoking Status: Current Everyday Smoker Type Used: Cigarettes Recent Foreign Travel: No Contact w/Someone Who Travel: No Recent Infectious Disease Expo: No Recent Hopitalizations: Yes (1 week ago cataract surgery) Physical Abuse: No Sexual Abuse: No Mistreated: No Fear: No Immunizations Up To Date Date of Influenza Vaccine: Apr 29, 2018 Seasonal Allergies Seasonal Allergies: No Past Medical History Surgeries: Yes Vascular Surgery (stents to the arteries in the upper leg bilateral) Respiratory: Yes COPD Currently Using CPAP: No Currently Using BIPAP: No Cardiac: Yes (cardiac stents) Neurological: No Genitourinary: No Gastrointestinal: No Gastroesophageal Reflux Musculoskeletal: No Endocrine: No HEENT: Yes (9 days ago) Cataract Hearing Impairment: Hard of Hearing, Bilateral Hearing Aide Cancer: Yes Skin Psychosocial: No Integumentary: No Adverse Reaction/Blood Tranf: No Family Medical History Reviewed Nursing Family Hx Alcoholism 19 FATHER G8 BROTHER G8 BROTHER G8 BROTHER G8 BROTHER G8 BROTHER G8 SISTER G8 SISTER Cardiovascular disease 19 FATHER Colon cancer Completed stroke G8 BROTHER Deafness or hearing loss G8 BROTHER G8 BROTHER G8 SISTER G8 SISTER Diabetes mellitus G8 BROTHER G8 BROTHER Drug abuse G8 BROTHER G8 BROTHER Myocardial infarction 19 FATHER Neoplasm G8 BROTHER G8 SISTER Physical Exam Vital Signs Vital Signs - First Documented 04/06/20 21:38 Temp 35.4 Pulse 69 Resp 22 B/P (MAP) 135/89 (104) Pulse Ox 98 O2 Delivery Room Air Capillary Refill : Less Than 3 Seconds Height, Weight, BMI Height: 5'7.50" Weight: 151lbs. 0.8oz. 68.626008mn; 23.00 BMI Method:Stated General Appearance: WD/WN, no apparent distress HEENT: PERRL/EOMI, pharynx normal Neck: non-tender, full range of motion, supple, normal inspection Cardiovascular: regular rate, rhythm, no murmur Respiratory: lungs clear, normal breath sounds Gastrointestinal: non tender, soft Back: normal inspection, no CVA tenderness, no vertebral tenderness Extremities: no pedal edema, no calf tenderness, pelvis stable, other (tender right lateral hip at greater trochanter) Neurologic/Psychiatric: alert, oriented x 3 Skin: normal color, warm/dry, ecchymosis (bilateral arms) Arianna Coma Score Best Eye Response: (4) Open Spontaneously Best Verbal Response: (5) Oriented Best Motor Response: (6) Obeys Commands Progress/Results/Core Measures Results/Orders Lab Results Laboratory Tests Test 04/06/20 21:58 Range/Units White Blood Count 12.2 H 4.3-11.0 10^3/uL Red Blood Count 3.64 L 4.35-5.85 10^6/uL Hemoglobin 12.1 L 13.3-17.7 G/DL Hematocrit 36 L 40-54 % Mean Corpuscular Volume 98 80-99 FL Mean Corpuscular Hemoglobin 33 25-34 PG Mean Corpuscular Hemoglobin Concent 34 32-36 G/DL Red Cell Distribution Width 18.1 H 10.0-14.5 % Platelet Count 692 H 130-400 10^3/uL Mean Platelet Volume 10.7 H 7.4-10.4 FL Neutrophils (%) (Auto) 73 42-75 % Lymphocytes (%) (Auto) 19 12-44 % Monocytes (%) (Auto) 7 0-12 % Eosinophils (%) (Auto) 1 0-10 % Basophils (%) (Auto) 1 0-10 % Neutrophils # (Auto) 8.9 H 1.8-7.8 X 10^3 Lymphocytes # (Auto) 2.3 1.0-4.0 X 10^3 Monocytes # (Auto) 0.8 0.0-1.0 X 10^3 Eosinophils # (Auto) 0.1 0.0-0.3 10^3/uL Basophils # (Auto) 0.1 0.0-0.1 10^3/uL Sodium Level 136 135-145 MMOL/L Potassium Level 4.5 3.6-5.0 MMOL/L Chloride Level 103 98-107 MMOL/L Carbon Dioxide Level 21 21-32 MMOL/L Anion Gap 12 5-14 MMOL/L Blood Urea Nitrogen 19 H 7-18 MG/DL Creatinine 1.15 0.60-1.30 MG/DL Estimat Glomerular Filtration Rate > 60 BUN/Creatinine Ratio 17 Glucose Level 112 H 70-105 MG/DL Calcium Level 9.4 8.5-10.1 MG/DL Corrected Calcium 9.1 8.5-10.1 MG/DL Total Bilirubin 0.7 0.1-1.0 MG/DL Aspartate Amino Transf (AST/SGOT) 24 5-34 U/L Alanine Aminotransferase (ALT/SGPT) 19 0-55 U/L Alkaline Phosphatase 77 40-136 U/L Total Protein 7.7 6.4-8.2 GM/DL Albumin 4.4 3.2-4.5 GM/DL Medications Given in ED Current Medications Medications Dose Ordered Sig/Marta Route Start Time Stop Time Status Last Admin Dose Admin Fentanyl Citrate 25 mcg ONCE PRN IVP 04/06/20 22:15 04/06/20 22:21 25 MCG Vital Signs/I&O 04/06/20 21:38 Temp 35.4 Pulse 69 Resp 22 B/P (MAP) 135/89 (104) Pulse Ox 98 O2 Delivery Room Air Blood Pressure Mean: 104 Progress Progress Note : Progress Note Seen and evaluated. IV, labs, UA, x-ray pelvis and right hip as well as chest x- ray ordered. Monitor patient. Retinal 25 g IV for pain. Monitor patient. 2320: I did discuss the case with Dr. Cabrera and she accepts patient in consult. 2325: I did discuss the case with Dr. Tim and he accepts patient for admis ave, inpatient status for fracture repair of the right hip. Patient agrees to the plan. Currently comfortable. Declines Felton catheter at this point. Initial ECG Impression Date: Apr 06, 2020 Initial ECG Impression Time: 22:28 Initial ECG Rate: 68 Initial ECG Rhythm: Normal Sinus Comment Sinus rhythm with leftward axis. No evidence of ST elevation CA. Similar to previous of 04/26/18. Interpreted by me. Diagnostic Imaging Diagonstic Imaging: Xray Plain Films/CT/US/NM/MRI: chest Comments No acute Reviewed: Reviewed by Me Diagonstic Imaging: Xray Plain Films/CT/US/NM/MRI: pelvis, hip Comments Intertrochanteric fracture of the right hip Reviewed: Reviewed by Me Departure Impression Primary Impression: Closed right hip fracture Qualified Codes: S72.001A - Fracture of unspecified part of neck of right femur, initial encounter for closed fracture Disposition: ADMITTED INPATIENT Condition: Stable Admissions Decision to Admit Reason: Admit from ER (Trauma) Decision to Admit/Date: Apr 06, 2020 Time/Decision to Admit Time: 23:20 Departure-Patient Inst. Referrals: GLORY CABRERA DO (PCP/Family) Primary Care Physician HOLLEY MCGRAW MD Apr 06, 2020 23:25
[2020-04-07] VITALS (15 sets, daily range): BP systolic 94–133; BP diastolic 57–79
--- NOTE | 2020-04-07 00:11 | NUR ---
TELEPHONE REPORT RECEIVED FROM FRANCISCO VALVERDE FROM ED.
--- NOTE | 2020-04-07 00:30 | NUR ---
DONTA ENCISO admitted to room 413-1, with an admitting diagnosis of RIGHT HIP FRACTURE, on 04/06/20 from ED via STRETCHER, accompanied by STAFF.DONTA ENCISO introduced to surroundings, call light, bed controls, phone, TV, temperature control, lights, meal times, smoking policy, visitor policy, side rail policy, bathrooms and showers. Patient Rights given to patient in the handbook. DONTA ENCISO verbalizes understanding that [facility] is not responsible for the loss or damage to any personal effects or valuables that are kept in the patients posession during their hospitalization. DONTA ENCISO verbalizes understanding of Interdisciplinary Patient Education. Patient and/or family were informed about the Rapid Response Team and its purpose.
[2020-04-07] MEDS ORDERED: NS IV 1000 ML 1,000 ML ONE (01:02)
[2020-04-07] MEDS: NS IV 1000 ML 1,000 ML IV SCH ×2 (01:05→08:10)
[2020-04-07] MEDS: fentaNYL INJECTION 100 MCG/2 ML AMP IVP PRN ×3 (01:05→16:01)
--- NOTE | 2020-04-07 01:05 | NUR ---
IV FLUID STARTED AND PAIN MEDICATION GIVEN PER ORDER AT THIS TIME.
[2020-04-07] MEDS ORDERED: ONDANSETRON 4 MG/2 ML (SDV) Z0FRAN IVP PRN ×4 (01:45→15:00)
[2020-04-07] MEDS ORDERED: RT-ALBUTEROL/IPRATROPIUM 3 ML (DUONEB) VIAL INH PRN ×2 (03:15→16:00)
--- NOTE | 2020-04-07 06:29 | Diagnostic Imaging Report ---
INDICATION: Trauma. FINDINGS: AP pelvis and two-view right hip shows intertrochanteric fracture of the right hip without significant angulation or dislocation. The bony pelvis appeared intact. There are vascular calcifications on atherosclerotic basis. IMPRESSION: Right hip intertrochanteric fracture without dislocation or substantial angulation. Dictated by: Dictated on workstation # [id number]
--- NOTE | 2020-04-07 06:30 | Diagnostic Imaging Report ---
INDICATION: Fall with pain. FINDINGS: No lung contusion, pneumothorax or hemothorax. No failure pattern or pneumonia. No displaced chest wall fracture deformity. IMPRESSION: No acute appearing abnormality. Dictated by: Dictated on workstation # [id number]
--- NOTE | 2020-04-07 06:56 | Progress Note-Pre Operative ---
Pre-Operative Progress Note H&P Reviewed The H&P was reviewed, patient examined and no changes noted. Date Seen by Provider: Apr 07, 2020 Time Seen by Provider: 06:55 Date H&P Reviewed: Apr 07, 2020 Time H&P Reviewed: 06:56 Pre-Operative Diagnosis: right intertrochanteric femur fracture REBEKA CODY MD Apr 07, 2020 06:56
--- NOTE | 2020-04-07 06:56 | Progress Note-Post Operative ---
Post-Operative Progess Note Surgeon (s)/Psychiatric Therapist (s) Surgeon REBEKA CODY MD Psychiatric Therapist: Herson Rivas Pre-Operative Diagnosis right intertrochanteric femur fracture Post-Operative Diagnosis right intertrochanteric femur fracture Procedure & Operative Findings Date of Procedure 04/07/20 Procedure Performed/Findings right hip intramedullary nail Anesthesia Type GETA Estimated Blood Loss Estimated blood loss (mL): 100ml Specimens/Packing Specimens Removed none Packing: none REBEKA CODY MD Apr 07, 2020 06:56
--- NOTE | 2020-04-07 08:45 | HISTORY AND PHYSICAL ---
DATE OF SERVICE: ADMISSION HISTORY AND PHYSICAL REASON FOR ADMISSION: Right intertrochanteric femur fracture. HISTORY OF PRESENT ILLNESS: The patient is a 74-year-old gentleman, who fell while getting out of his boat after docking onto his trailer last evening. He fell directly on his right hip. He reports pain in his hip area. Radiographs revealed a displaced right intertrochanteric femur fracture. He reports no antecedent pain. He denies head pain. Denies loss of consciousness. PAST MEDICAL HISTORY: Significant for chronic obstructive pulmonary disease. Hypothyroidism and reflux. ALLERGIES: No known drug allergies. MEDICATIONS: Amlodipine, aspirin, atorvastatin, levothyroxine and omeprazole. SOCIAL HISTORY: The patient is an everyday smoker. Denies alcohol use. PAST SURGICAL HISTORY: Vascular stents and cataract. FAMILY HISTORY: Noncontributory. PHYSICAL EXAMINATION: GENERAL: The patient is well developed, well-nourished, in no acute distress. HEENT: Normocephalic and atraumatic. Pupils are equal, round and reactive to light. Oropharynx is clear. NECK: Supple, no lymphadenopathy. LUNGS: Clear to auscultation bilaterally. HEART: Regular rate and rhythm. ABDOMEN: Soft, nontender and nondistended. EXTREMITIES: Right lower extremity demonstrates some mild shortening and has symmetric pulses. He has intact dorsiflexion and plantarflexion of the toes and ankle with symmetric sensation to light touch. Radiographs reveal a minimally displaced right intertrochanteric femur fracture. IMPRESSION: Closed displaced right intertrochanteric femur fracture. PLAN: Right hip intramedullary nail. Discussed risks, benefits, options, ramifications and recovery with the patient and his son. They understand and wished to proceed. Job ID: [id number] DocumentID: [id number] Dictated Date: 04/07/2020 07:00:19 International Marketing Coordinator Date: 04/07/2020 08:45:14 Dictated By: REBEKA CODY MD
[2020-04-07] MEDS ORDERED: IPRA30SP NSEACH (09:10)
[2020-04-07] MEDS ORDERED: COLE1TAB PO (09:10)
[2020-04-07] MEDS ORDERED: ALBU2.5V4 NEB (09:10)
[2020-04-07] MEDS ORDERED: RT-ALBUINH INH (09:10)
[2020-04-07] MEDS ORDERED: CHOL500050 PO (09:10)
[2020-04-07] MEDS ORDERED: ARFO15VI3 NEB (09:10)
[2020-04-07] MEDS ORDERED: ASPI-1238 PO (09:10)
--- NOTE | 2020-04-07 09:20 | NUR ---
SPOKE WITH THE PT (HE HAD A MED LIST THAT I ATTACHED TO HIS CHART) AND WENT THRU THE EXT MED HISTORY TO COMPLETE THE MED REC COLESTIPOL 1 GM- DIRECTIONS SHOW 1 TAB BID HOWEVER PT IS JUST TAKING 1 TAB DAILY. PT STATES HE HAD A MAINTENANCE INHALER THAT HE RECEIVED A SAMPLE FROM DR. MARTIN BUT INDICATES HE DOESNT USE IT VERY OFTEN AND HE CANT REMEMBER THE NAME OR THE LAST TIME HE GOT ONE FROM THE OFFICE. I SPOKE WITH DR. TAYLOR OFFICE AND WAS TOLD THEY HAVE ALEXIS EATONER 15.6 ON HIS MED LIST BUT THEY HAVE NO RECORD OF GIVING HIM SAMPLES- I DID NOT INCLUDE THIS ON THE MED REC DUE TO THE REASONS LISTED ABOVE OTC MEDS: ASPIRIN 81MG VIT D3
--- NOTE | 2020-04-07 10:52 | NUR ---
Pt is Roman Catholic and would usually want sacraments but is NPO. Automotive Hardware Engineer will notify team facilitator.
[2020-04-07] MEDS ORDERED: BUPIVACAINE 0.25% 30 ML (SENSORCAINE) VIAL ONE ×2 (10:53→12:33)
--- NOTE | 2020-04-07 11:47 | NUR ---
ADELAIDA/ERLINDA visited with the patient for discharge planning. The patient reports that he is doing okay but he is in pain and has surgery this afternoon. Home: The patient lives at home alone in the [facility]. He reports that he is independent at home with his daily living activities and is able to cook, clean, and do his laundry without any assistance. The house does not have any stairs. Equipment: The patient reports that he does have a nebulizer for his COPD but does not have any other equipment. Support: The patient reports that he moved here to be closer to his son and [id number]. He reports that they are a great support for him. ADELAIDA/ERLINDA discussed different options for skilled therapies after his surgery. ADELAIDA/ERLINDA discussed jail facility and inpatient rehab. The patient reports that Dr. Cabrera informed him IRF would be a good option for him. ADELAIDA/SS informed [facility] in [facility]F and [facility]. They verbalized understanding. ADELAIDA/ERLINDA will continue to follow.
[2020-04-07] MEDS ORDERED: NON-FORMULARY MEDICATION 1 EA EA (Ipratropium Bromide 2 SPRAYS) NSEACH PRN (12:15)
[2020-04-07] MEDS ORDERED: ACETAMINOPHEN 325 MG TABLET PO PRN (12:15)
[2020-04-07] MEDS ORDERED: fentaNYL INJECTION 100 MCG/2 ML AMP IVP PRN (12:15)
--- NOTE | 2020-04-07 12:17 | Consultation ---
History of Present Illness History of Present Illness Patient Consulted On(rashard/time) 04/07/20 12:10 Date Seen by Provider: Apr 07, 2020 Time Seen by Provider: 10:40 History of Present Illness This is a 74 year old male with know COPD, HTN and a history of CAD who fell when he was putting his boat away after fishing. He landed directly on his right hip. He was brought to the emergency room and x-rays revealed a displaced right intertrochanteric femur fracture. He is currently scheduled for surgery this afternoon by Dr. Tim. 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 Home Medications Albuterol Sulfate 2.5 Mg/3 Ml Vial.neb, 3 ML NEB Q4H PRN for SHORTNESS OF BREATH, (Reported) Albuterol Sulfate 1 Puff Puff, 2 PUFF INH Q4H PRN for SHORTNESS OF BREATH, (Reported) 1 PUFF = 90 MCG Amlodipine Besylate 5 Mg Tablet, 5 MG PO DAILY, (Reported) Arformoterol Tartrate 15 Mcg/2 Ml Vial.neb, 2 ML NEB BID, (Reported) Aspirin 81 Mg Tablet.dr, 81 MG PO HS, (Reported) Atorvastatin Calcium 40 Mg Tablet, 40 MG PO HS, (Reported) Cetirizine HCl 10 Mg Tablet, 10 MG PO DAILY, (Reported) Cholecalciferol (Vitamin D3) 125 Mcg Capsule, 125 MCG PO DAILY, (Reported) Colestipol HCl 1 Gm Tablet, 1 GM PO DAILY, (Reported) Ipratropium [place] 30 Ml [place], 2 SPRAYS NSEACH BID PRN for RUNNY NOSE, (Reported) Levothyroxine Sodium 75 Mcg Tablet, 75 MCG PO DAILY, (Reported) Lisinopril 40 Mg Tablet, 40 MG PO DAILY, (Reported) Montelukast Sodium 10 Mg Tablet, 10 MG PO HS, (Reported) Patient Home Medication List Home Medication List Reviewed: Yes Past Fafqewh-Addtha-Aoibbz Hx Past Med/Social Hx: Reviewed Nursing Past Med/Soc Hx Patient Social History Alcohol Use: Denies Use Recreational Drug Use: No Smoking Status: Current Everyday Smoker Type Used: Cigarettes Recent Foreign Travel: No Contact w/Someone Who Travel: No Recent Infectious Disease Expo: No Recent Hopitalizations: Yes (1 week ago cataract surgery) Physical Abuse: No Sexual Abuse: No Mistreated: No Fear: No Immunizations Up To Date Date of Pneumonia Vaccine: Mar 21, 2018 Date of Influenza Vaccine: Apr 05, 2020 Seasonal Allergies Seasonal Allergies: No Past Medical History Surgeries: Yes Vascular Surgery (stents to the arteries in the upper leg bilateral) Respiratory: Yes COPD Currently Using CPAP: No Currently Using BIPAP: No Cardiac: Yes (cardiac stents) Neurological: No Genitourinary: No Gastrointestinal: No Gastroesophageal Reflux Musculoskeletal: No Endocrine: No HEENT: Yes (9 days ago) Cataract Hearing Impairment: Hard of Hearing, Bilateral Hearing Aide Cancer: Yes Skin Psychosocial: No Integumentary: No Adverse Reaction/Blood Tranf: No Family Medical History Reviewed Nursing Family Hx Alcoholism 19 FATHER G8 BROTHER G8 BROTHER G8 BROTHER G8 BROTHER G8 BROTHER G8 SISTER G8 SISTER Cardiovascular disease 19 FATHER Colon cancer Completed stroke G8 BROTHER Deafness or hearing loss G8 BROTHER G8 BROTHER G8 SISTER G8 SISTER Diabetes mellitus G8 BROTHER G8 BROTHER Drug abuse G8 BROTHER G8 BROTHER Myocardial infarction 19 FATHER Neoplasm G8 BROTHER G8 SISTER Review of Systems-General Constitutional: No no symptoms reported, No see HPI, No chills, No diaphoresis, No dizziness, No fever, No malaise, No weakness, No weight gain, No weight loss, No other EENTM: No see HPI, No no symptoms reported, No ear discharge, No hearing loss, No ear pain, No blurred vision, No double vision, No eye pain, No tearing, No vision loss, No dental problems, No hoarseness, No mouth pain, No mouth swelling, No epistaxis, No nose congestion, No nose pain, No throat pain, No throat swelling, No other Respiratory: cough (chronic) Cardiovascular: No no symptoms reported, No see HPI, No chest pain, No edema, No Hx of Intervention, No palpitations, No syncope, No vascular heart diseas, No other Gastrointestinal: diarrhea (intermittent from IBS) Genitourinary: No no symptoms reported, No see HPI, No decreased output, No discharge, No dysuria, No frequency, No hematuria, No hesitancy, No incontinence, No nocturia, No pain, No other Musculoskeletal: joint pain (right hip) Psychiatric/Neurological: Denies No Symptoms Reported, Denies See HPI, Denies Anxiety, Denies Depressed, Denies Emotional Problems, Denies Headache, Denies Numbness, Denies Paresthesia, Denies Pre-Existing Deficit, Denies Seizure, Denies Tingling, Denies Tremors, Denies Weakness, Denies Other Physical Exam-General Problems Physical Exam Vital Signs Vital Signs - First Documented 04/06/20 04/07/20 21:38 03:05 Temp 35.4 Pulse 69 Resp 22 B/P (MAP) 135/89 (104) Pulse Ox 98 O2 Delivery Room Air FiO2 21 Capillary Refill : Less Than 3 SecondsLess Than 3 Seconds General Appearance: no apparent distress HEENT: normal ENT inspection Neck: supple Respiratory: lungs clear, decreased breath sounds Cardiovascular: regular rate, rhythm, gallop/S4 Gastrointestinal: normal bowel sounds, non tender, soft Rectal: deferred Back: no CVA tenderness Extremities: non-tender, no pedal edema, no calf tenderness, other (right groin/lateral hip with tenderness) Neurologic/Psychiatric: alert, oriented x 3 Skin: warm/dry Comments Laboratory Tests 04/06/20 21:58: White Blood Count 12.2H, Red Blood Count 3.64L, Hemoglobin 12.1L, Hematocrit 36L , Mean Corpuscular Volume 98, Mean Corpuscular Hemoglobin 33, Mean Corpuscular Hemoglobin Concent 34, Red Cell Distribution Width 18.1H, Platelet Count 692H, Mean Platelet Volume 10.7H, Neutrophils (%) (Auto) 73, Lymphocytes (%) (Auto) 19, Monocytes (%) (Auto) 7, Eosinophils (%) (Auto) 1, Basophils (%) (Auto) 1, Neutrophils # (Auto) 8.9H, Lymphocytes # (Auto) 2.3, Monocytes # (Auto) 0.8, Eosinophils # (Auto) 0.1, Basophils # (Auto) 0.1, Sodium Level 136, Potassium Level 4.5, Chloride Level 103, Carbon Dioxide Level 21, Anion Gap 12, Blood Urea Nitrogen 19H, Creatinine 1.15, Estimat Glomerular Filtration Rate > 60, BUN/Creatinine Ratio 17, Glucose Level 112H, Calcium Level 9.4, Corrected Calcium 9.1, Total Bilirubin 0.7, Aspartate Amino Transf (AST/SGOT) 24, Alanine Aminotransferase (ALT/SGPT) 19, Alkaline Phosphatase 77, Total Protein 7.7, Albumin 4.4 Assessment/Plan Assessment/Plan Admission Diagnosis/Plan 1. Displaced right intertrochanteric femur fracture--pain control, surgery today--discussed spinal block due to his COPD, will need rehab as patient lives alone 2. COPD--give preop albuterol/ipratroprium inhaler dose now and then prn 3. Hypertension--resume home meds 4. CAD--stable Admission Status: Inpatient Order (span 2 midnights) Clinical Quality Measures DVT/VTE Risk/Contraindication: Risk Factor Score Per Nursin RFS Level Per Nursing on Admit: 4+=Very High GLORY MARTIN DO Apr 07, 2020 12:17
--- NOTE | 2020-04-07 12:21 | NUR ---
GINNY ONE GRAM PULLED FOR THE PATIENT'S SURGERY LATER THIS AFTERNOON. THIS RN WILL SEND WITH PATIENT TO O.R. PER DR. CODY'S ORDERS. THIS HAS NOT BEEN CHARTED BY THIS RN AND WILL NEED TO BE SCANNED IN O.R. PER THE RN THAT ASSUMES CARE OF HI, WHILE HE IS OFF THIS FLOOR.
[2020-04-07] MEDS ORDERED: GLYCOPYRROLATE 0.2 MG/ML (ROBINUL) 2 ML VIAL ONE (13:00)
[2020-04-07] MEDS ORDERED: RT-ALBUTEROL/IPRATROPIUM 3 ML (DUONEB) VIAL IH NR (13:00)
[2020-04-07] MEDS ORDERED: ONDANSETRON 4 MG/2 ML (SDV) Z0FRAN ONE (13:00)
[2020-04-07] MEDS ORDERED: ROCURONIUM 10 MG/ML 5 ML SYRINGE IV ONE (13:00)
[2020-04-07] MEDS ORDERED: proPOfol 200 MG/20 ML (DIPRIVAN) VIAL IV ONE (13:00)
[2020-04-07] MEDS ORDERED: LIDOCAINE PF 2% 5 ML (XYLOCAINE) VIAL ONE (13:00)
[2020-04-07] MEDS ORDERED: NEOSTIGMINE 3 MG/3 ML VIAL ONE (13:00)
[2020-04-07] MEDS ORDERED: MIDAZOLAM 2 MG/2 ML (VERSED) VIAL ONE (13:00)
[2020-04-07] MEDS ORDERED: fentaNYL INJECTION 100 MCG/2 ML AMP ONE (13:01)
[2020-04-07] MEDS: LACTATED RINGERS 1,000 ML IV PRN ×2 (13:20→15:00)
[2020-04-07] MEDS: RT-ALBUTEROL/IPRATROPIUM 3 ML (DUONEB) VIAL INH SCH ×3 (13:50→21:09)
[2020-04-07] MEDS ORDERED: ceFAZolin INJECTION 1,000 MG in WATER (STERILE) FOR INJECTION 10 ML IV ONE (14:00)
--- NOTE | 2020-04-07 14:35 | Physical Therapy Progress Note ---
Therapy Progress Note Patient currently in surgery for right hip repair. PT to initiate treatment in JANI Champion PT Apr 07, 2020 14:35
[2020-04-07] MEDS ORDERED: ISOFLURANE (FORANE) 15 ML/15 MIN INHALATION ONE ×2 (14:36→15:05)
--- NOTE | 2020-04-07 14:49 | Diagnostic Imaging Report ---
INDICATION: Hip fracture. EXAMINATION: Fluoroscopy at 2:20 p.m. Fluoroscopic assistance was provided for Dr. Tim. 30 seconds of fluoroscopy time was utilized. 3 spot films of the right femur were received from the OR. FINDINGS: The prior exam of 04/06/2020 noted an intertrochanteric fracture of the right femur. The spot films reveal that there is now an orthopedic fixation screw and intramedullary jose alfredo securing the main fracture fragments. The orthopedic hardware appears to be in good position and the fracture fragments are near anatomic in alignment. IMPRESSION: Fluoroscopic assistance was provided for Dr. Tim. Dictated by: Dictated on workstation # [id number]
[2020-04-07] MEDS ORDERED: morphine INJ 10 MG/ML 1ML (SYR OR VIAL) IVP ONE (15:00)
[2020-04-07] MEDS ORDERED: MEPERIDINE (DEMEROL) INJ 50 MG/ML IVP ONE (15:00)
[2020-04-07] MEDS ORDERED: morphine INJ 10 MG/ML 1ML (SYR OR VIAL) ONE (15:09)
[2020-04-07] MEDS: oxyCODONE/APAP 5/325MG (PERCOCET 5) TABLET PO PRN (16:02)
[2020-04-07] MEDS: MONTELUKAST 10 MG (SINGULAIR) TAB PO SCH (20:36)
[2020-04-07] MEDS: ceFAZolin INJECTION 1,000 MG in WATER (STERILE) FOR INJECTION 10 ML IV SCH ×2 (20:36→22:13)
[2020-04-07] MEDS: ASPIRIN E.C. 81 MG (ECOTRIN) TAB PO SCH (20:37)
--- NOTE | 2020-04-07 23:15 | OPERATIVE REPORT ---
DATE OF SERVICE: 04/07/2020 PREOPERATIVE DIAGNOSIS: Right hip intertrochanteric femur fracture. POSTOPERATIVE DIAGNOSIS: Right hip intertrochanteric femur fracture. PROCEDURE: Right hip intramedullary nail. SURGEON: Johnathon Cody MD ACTIVE DIRECTORY ADMINISTRATOR: Herson Rivas, who assisted throughout the procedure and closed the incisions ANESTHESIA: General endotracheal by Fredy Escalona CRNA ESTIMATED BLOOD LOSS: 100 mL. DRAINS: None. COMPLICATIONS: None. POSTOPERATIVE PLAN: Weightbearing as tolerated, right lower extremity. MATERIALS: Synthes 11 nail with 105 mm blade. STATEMENT OF MEDICAL NECESSITY: The patient is a 74-year-old gentleman who fell last evening after loading his boat. He presented to the Emergency Department with right hip pain and was found to have an intertrochanteric right femur fracture. The patient was admitted and elected to proceed with surgical intervention. DESCRIPTION OF PROCEDURE: After risks and benefits of procedure were discussed and questions were answered, an informed consent was signed and placed on chart, the operative site was confirmed in the preoperative holding area initialed by the surgeon. The patient was then transferred to the operating room and after adequate levels of general endotracheal anesthetic were obtained, a timeout was called, confirming the operative site. The patient was carefully placed on the fracture table. Gentle longitudinal traction applied. Fluoroscopy in AP and lateral planes revealed anatomic reduction of the fracture. The right hip and lower extremity was then prepped and draped in the usual sterile fashion. A longitudinal incision was made on the lateral aspect of the hip extending from the greater trochanter proximally. The iliotibial band was incised in line with the incision, the guidewire was passed through the greater trochanter into the femoral canal, which was found to be well-placed in the AP and lateral projections. This was then overreamed and an 11 mm short jose alfredo was placed through a stab incision, the guidewire for the spiral blade was placed. This was found to be in excellent position, then overdrilled and a 105 mm blade was placed. This was then locked proximally. The static locking screw was then placed through the same incision distally. Fluoroscopy in the AP and lateral planes revealed anatomic reduction of the fracture with well-placed hardware. The wounds were copiously irrigated. The iliotibial band was closed in a kxubwe-zi-odnxc interrupted fashion. The wounds were further irrigated. A 2-0 Vicryl was used to reapproximate subcutaneous tissue and skin was closed with rhonda. A soft dressing was applied and the patient was transported to the recovery room awake and in stable condition. Job ID: [id number] DocumentID: [id number] Dictated Date: 04/07/2020 14:45:29 Projection Welding Machine Operator Date: 04/07/2020 23:14:54 Dictated By: JOHNATHON CODY MD
[2020-04-08] VITALS: BP 93/59
[2020-04-08] MEDS: RT-ALBUTEROL SULF 2.5 MG/3 ML PRE-MIX VIAL INH SCH ×6 (02:32→20:28)
[2020-04-08 03:57] VITALS: BP 99/62
[2020-04-08] MEDS: oxyCODONE/APAP 5/325MG (PERCOCET 5) TABLET PO PRN ×3 (04:06→20:45)
[2020-04-08] MEDS: NS IV 1000 ML 1,000 ML IV SCH ×3 (04:13→14:56)
[2020-04-08] MEDS: LEVOTHYROXINE 75 MCG (LEVOTHROID) TABLET PO SCH (05:27)
[2020-04-08 06:39] LABS: HEMOGLOBIN 9.2 G/DL (13.3-17.7)
[2020-04-08 08:00] VITALS: BP 93/54
--- NOTE | 2020-04-08 08:01 | Progress Note ---
Standard Progress Note Progress Notes/Assess & Plan Date Seen by a Provider: Apr 08, 2020 Time Seen by a Provider: 08:00 Progress/Assessment & Plan no complaints Vital Signs Date Time Temp Pulse Resp B/P (MAP) Pulse Ox O2 Delivery O2 Flow Rate FiO2 04/08/20 03:57 37.9 66 16 99/62 (74) 90 Nasal Cannula 3.00 04/08/20 02:32 Nasal Cannula 2.00 04/08/20 00:00 37.0 62 16 93/59 (70) 91 Room Air 04/07/20 21:26 74 94 32 04/07/20 21:09 94 Nasal Cannula 3.00 04/07/20 20:00 90 Room Air 04/07/20 19:10 36.9 69 18 104/61 (75) 91 Nasal Cannula 3.00 04/07/20 16:17 36.0 71 16 129/75 (93) 91 Nasal Cannula 2.50 04/07/20 15:50 Nasal Cannula 3 04/07/20 15:50 36.7 20 129/79 (96) 94 Nasal Cannula 3 04/07/20 15:45 Nasal Cannula 3 04/07/20 15:40 20 129/79 (96) 96 Nasal Cannula 3 04/07/20 15:30 20 131/74 (93) 100 OxyMask 3 04/07/20 15:30 OxyMask 3 04/07/20 15:20 20 128/75 (92) 95 OxyMask 6 04/07/20 15:15 OxyMask 6 04/07/20 15:10 20 133/75 (94) 95 OxyMask 6 04/07/20 15:00 20 131/71 (91) 97 OxyMask 6 04/07/20 15:00 OxyMask 6 04/07/20 14:52 36.7 20 102/70 (81) 100 OxyMask 6 04/07/20 14:52 OxyMask 6 04/07/20 12:02 90 Room Air 04/07/20 12:02 37.0 58 90 21 04/07/20 12:00 36.5 66 18 103/70 (81) 91 Room Air 04/07/20 09:10 90 Room Air I & O 04/08/20 07:00 Intake Total 1910 ml Output Total 815 ml Balance 1095 ml Laboratory Tests Test 04/08/20 06:20 Range/Units Hemoglobin 9.2 #L 13.3-17.7 G/DL Hematocrit 28 L 40-54 % R hip dressing intact. Intact DF and PF of toes and ankle with equal pulses s/p R hip IM Jaxon PT/OT REBEKA CODY MD Apr 08, 2020 08:01
[2020-04-08] MEDS: lisINopril 40 MG (PRINIVIL) TABLET PO SCH (08:17)
[2020-04-08] MEDS: amLODIPine 5 MG (NORVASC) TAB PO SCH (08:17)
[2020-04-08] MEDS: LORATADINE (CLARITIN) 10 MG TAB PO SCH (08:17)
[2020-04-08] MEDS: VITAMIN D3 125 MCG (5,000 UNITS) CAPSULE PO SCH (08:17)
[2020-04-08] MEDS: ASPIRIN E.C. 81 MG (ECOTRIN) TAB PO SCH ×2 (08:17→20:45)
[2020-04-08] MEDS: ENOXAPARIN 40 MG/0.4 ML (LOVENOX) SYR SC SCH (08:18)
--- NOTE | 2020-04-08 10:10 | Progress Note ---
Subjective Subjective Date Seen by Provider: Apr 08, 2020 Time Seen by Provider: 10:00 Denies overnight events- reports doing well. No concerns or questions today. s/p hip fracture after falling off his boat. Review of Systems General: No Chills, No Night Sweats HEENT: No Head Aches Pulmonary: Dyspnea (at baseline); No Cough Cardiovascular: No: Chest Pain Gastrointestinal: No: Nausea, Vomiting Musculoskeletal: leg pain Neurological: Weakness All Other Systems Reviewed All Other Systems Reviewed: Yes Objective Exam Vital Signs Vital Signs Date Time Temp Pulse Resp B/P (MAP) Pulse Ox O2 Delivery O2 Flow Rate FiO2 04/08/20 08:35 Nasal Cannula 3.00 04/08/20 03:57 37.9 66 16 99/62 (74) 90 Nasal Cannula 3.00 04/08/20 02:32 Nasal Cannula 2.00 04/08/20 00:00 37.0 62 16 93/59 (70) 91 Room Air 04/07/20 21:26 74 94 32 04/07/20 21:09 94 Nasal Cannula 3.00 04/07/20 20:00 90 Room Air 04/07/20 19:10 36.9 69 18 104/61 (75) 91 Nasal Cannula 3.00 04/07/20 16:17 36.0 71 16 129/75 (93) 91 Nasal Cannula 2.50 04/07/20 15:50 Nasal Cannula 3 04/07/20 15:50 36.7 20 129/79 (96) 94 Nasal Cannula 3 04/07/20 15:45 Nasal Cannula 3 04/07/20 15:40 20 129/79 (96) 96 Nasal Cannula 3 04/07/20 15:30 20 131/74 (93) 100 OxyMask 3 04/07/20 15:30 OxyMask 3 04/07/20 15:20 20 128/75 (92) 95 OxyMask 6 04/07/20 15:15 OxyMask 6 04/07/20 15:10 20 133/75 (94) 95 OxyMask 6 04/07/20 15:00 20 131/71 (91) 97 OxyMask 6 04/07/20 15:00 OxyMask 6 04/07/20 14:52 36.7 20 102/70 (81) 100 OxyMask 6 04/07/20 14:52 OxyMask 6 04/07/20 12:02 90 Room Air 04/07/20 12:02 37.0 58 90 21 04/07/20 12:00 36.5 66 18 103/70 (81) 91 Room Air I & O 04/08/20 07:00 Intake Total 1910 ml Output Total 815 ml Balance 1095 ml General Appearance: No Apparent Distress, WD/WN Respiratory: Lungs Clear, Normal Breath Sounds, No Accessory Muscle Use Cardiovascular: Regular Rate, Rhythm (quiet due to copd) Gastrointestinal: Non Tender, Soft Rectal: Deferred Extremity: No Calf Tenderness Neurologic/Psychiatric: Alert, Oriented x3, Normal Mood/Affect Skin: Warm/Dry Results Lab Laboratory Tests 04/08/20 06:20: Hemoglobin 9.2#L, Hematocrit 28L Microbiology 04/07/20 MRSA Screen - Final, Complete MRSA not isolated Assessment/Plan Assessment/Plan Assessment and Plan 04/08/20- continue therapies s/p right femur fracture repair- Dr. Tim for orthopedics. -COPD is at baseline. -rechecking hgb in AM as it decreased with IVF Problems: (1) COPD (chronic obstructive pulmonary disease) (2) Closed right hip fracture Qualifiers: Qualified Codes: S72.001A - Fracture of unspecified part of neck of right femur, initial encounter for closed fracture (3) HTN (hypertension) Qualifiers: Qualified Codes: I10 - Essential (primary) hypertension Assessment & Plan: continue home medications (4) CAD (coronary artery disease) Clinical Quality Measures DVT/VTE Risk/Contraindication: Risk Factor Score Per Nursin RFS Level Per Nursing on Admit: 4+=Very High BATSHEVA TAVARES MD Apr 08, 2020 10:10
[2020-04-08 12:00] VITALS: BP 107/59
--- NOTE | 2020-04-08 13:18 | Physical Therapy Evaluation ---
PT Evaluation-General Medical Diagnosis Admission Date Apr 06, 2020 at 23:27 Medical Diagnosis: R hip fx Onset Date: Apr 06, 2020 Therapy Diagnosis Therapy Diagnosis: decreased mobility Height/Weight Height (Feet): 5 Height (Inches): 7.50 Weight (Pounds): 151 Weight (Ounces): 0.8 Precautions Precautions/Isolations: Fall Prevention, Standard Precautions Weight Bear Status Right Lower Extremity: Right Partial Weight Bearing Left Lower Extremity: Left Full Weight Bearing Referral Physician: MACO Leblanc Reason for Referral: Evaluation/Treatment Medical History Pertinent Medical History: COPD Additional Medical History tobacco use Current History Presented to ER due to fall while stepping out of boat. Reviewed History: Yes Social History Home: Single Level Current Living Status: Alone Prior Prior Level of Function SCALE: Activities may be completed with or without assistive devices. 9-Xqmqqnckpe-vdzxzbm completes the activity by him/herself with no assistance from a helper. 5-Set-up or Clean-up Assistance-helper sets up or cleans up; patient completes activity. [place] assists only prior to or following the activity. 4-Supervision or Touching Assistance-helper provides verbal cues and/or touching/steadying and/or contact guard assistance as patient completes activity. Assistance may be provided throughout the activity or intermittently. 3-Partial/Moderate Assistance-helper does LESS THAN HALF the effort. [place] lifts, holds or supports trunk or limbs, but provides less than half the effort. 2-Substantial/Maximal Assistance-helper does MORE THAN HALF the effort. [place] l ifts or holds trunk or limbs and provides more than half the effort. 9-Ayzcdbgfw-ypsklg does ALL the effort. Patient does none of the effort to complete the activity. Or, the assistance of 2 or more helpers is required for the patient to complete the activity. If activity was not attempted, code reason: 7-Patient Refused. 9-Not Applicable-not attempted and the patient did not perform the activity before the current illness, exacerbation or injury. 10-Not Attempted due to Environmental Limitations-(lack of equipment, weather restraints, etc.). 88-Not Attempted due to Medical Conditions or Safety Concerns. Bed Mobility: 6 Transfers (B,C,W/C): 6 Gait: 6 Stairs: 6 Indoor Mobility (Ambulation): Independent PT Evaluation-Current Subjective Pt. in bed, agrees to therapy. He denies pain at present time. Pt/Family Goals home Objective Patient Orientation: Person, Place, Time, Situation Attachments: Oxygen, IV ROM/Strength ROM Upper Extremities WNL ROM Lower Extremities WNL except focal deficits of R hip Strength Upper Extremities WNL Strength Lower Extremities 5/5 L LE, n/a R LE Integumentary/Posture Integumentary bandages covering R hip incision, no drainage present Bowel Incontinence: No Bladder Incontinence: No Posture generally upright Neuromuscular (Tone, Coordination, Reflexes) unremarkable Sensory Vision: Wears Glasses Hearing: Hearing Aid/Aides Sensation Right Upper Extremit: Intact Sensation Left Upper Extremity: Intact Sensation Right Lower Extremit: Intact Sensation Left Lower Extremity: Intact Transfers Lying to Sitting/Side of Bed(Q: 4 Sit to Stand (QC): 4 Chair/Eou-mj-Airbp Xfer(QC): 4 Gait Does the Patient Walk?: Yes Mode of Locomotion: Walk Anticipated Mode of Locomotion: Walk Distance: 5 ft Gait Assistive Device: FWW Comments/Gait Description maintains PWB on L Balance Sitting Static: Good Sitting Dynamic: Good Standing Static: Fair Standing Dynamic: Fair Treatment transfers Assessment/Needs Pt. is a 74 y.o. active male s/p R hip fracture with IM nail and who presents with decreased mobility. Pt. is currently CGA with transfers and maintains PWB during WB positions. Pt. in bedside chair post session with call light and all needs met, O2 in situ. Rehab Potential: Good PT Snf Goals Field Tax Auditor Goals PT Snf Goals Time Frame: Apr 15, 2020 Roll Left & Right (QC): 6 Sit to Lying (QC): 6 Lying-Sitting on Side/Bed(QC): 6 Sit to Stand (QC): 6 Chair/Sll-gg-Issve Xfer(QC): 6 Toilet Transfer (QC): 6 Does the Patient Walk: Yes Walk 10 feet (QC): 6 Walk 150 ft (QC): 6 4 Steps (QC): 4 PT Plan Problem List Problem List: Activity Tolerance, Functional Strength, Safety, Balance, Gait, Transfer, Bed Mobility, ROM Treatment/Plan Treatment Plan: Continue Plan of Care Treatment Plan: Bed Mobility, Concurrent Therapy, Education, Functional Activity Deborah, Functional Strength, Gait, Safety, Therapeutic Exercise, Transfers Treatment Duration: Apr 15, 2020 Frequency: 11 times per week Estimated Hrs Per Day: .25 hour per day Patient and/or Family Agrees t: Yes Time/GCodes Time In: 850 Time Out: 915 Total Billed Treatment Time: 25 Total Billed Treatment 1, EVL 10', FA 15' JOE BROWN PT Apr 08, 2020 13:18
[2020-04-08 16:00] VITALS: BP 106/67
--- NOTE | 2020-04-08 18:13 | Anesthesia-General Post-Op ---
General Patient Condition Mental Status/LOC: Same as Preop Cardiovascular: Satisfactory Nausea/Vomiting: Absent Respiratory: Satisfactory Pain: Controlled Complications: Absent Post Op Complications Complications None Follow Up Care/Instructions Patient Instructions None needed. Anesthesia/Patient Condition Patient Condition Patient is doing well, no complaints, stable vital signs, no apparent adverse anesthesia problems. No complications reported per nursing. ISABEL HERNANDEZ CRNA Apr 08, 2020 18:12
[2020-04-08 19:00] VITALS: BP 126/64
[2020-04-08] MEDS: MONTELUKAST 10 MG (SINGULAIR) TAB PO SCH (20:45)
[2020-04-09] VITALS (7 sets, daily range): BP systolic 111–124; BP diastolic 64–70
[2020-04-09] MEDS: NS IV 1000 ML 1,000 ML IV SCH ×2 (01:56→11:17)
[2020-04-09] MEDS: RT-ALBUTEROL SULF 2.5 MG/3 ML PRE-MIX VIAL INH SCH (03:36)
[2020-04-09 06:13] LABS: HEMOGLOBIN 8.9 G/DL (13.3-17.7)
[2020-04-09] MEDS: LEVOTHYROXINE 75 MCG (LEVOTHROID) TABLET PO SCH (06:26)
[2020-04-09] MEDS: ARFORMOTEROL 15 MCG/2 ML (BROVANA) INH SOLUTIION IH SCH ×3 (08:03→19:26)
[2020-04-09] MEDS: amLODIPine 5 MG (NORVASC) TAB PO SCH (08:05)
[2020-04-09] MEDS: LORATADINE (CLARITIN) 10 MG TAB PO SCH (08:05)
[2020-04-09] MEDS: ASPIRIN E.C. 81 MG (ECOTRIN) TAB PO SCH ×2 (08:05→20:44)
[2020-04-09] MEDS: VITAMIN D3 125 MCG (5,000 UNITS) CAPSULE PO SCH (08:05)
[2020-04-09] MEDS: lisINopril 40 MG (PRINIVIL) TABLET PO SCH (08:05)
[2020-04-09] MEDS: ENOXAPARIN 40 MG/0.4 ML (LOVENOX) SYR SC SCH (08:06)
[2020-04-09] MEDS: oxyCODONE/APAP 5/325MG (PERCOCET 5) TABLET PO PRN ×2 (08:12→20:43)
[2020-04-09] MEDS ORDERED: RT-ALBUTEROL SULF 2.5 MG/3 ML PRE-MIX VIAL INH PRN (08:15)
--- NOTE | 2020-04-09 09:36 | Physical Therapy Daily Note ---
PT Daily Note-Current Subjective Pt. up in chair, agrees to therapy. States he took a pain pill already this morning, no pain rating given. Mental Status Patient Orientation: Person, Place, Time, Situation Attachments: Oxygen, IV Transfers SCALE: Activities may be completed with or without assistive devices. 3-Xcdirngwvi-oircxeg completes the activity by him/herself with no assistance from a helper. 5-Set-up or Clean-up Assistance-helper sets up or cleans up; patient completes activity. [place] assists only prior to or following the activity. 4-Supervision or Touching Assistance-helper provides verbal cues and/or touching/steadying and/or contact guard assistance as patient completes activity. Assistance may be provided throughout the activity or intermittently. 3-Partial/Moderate Assistance-helper does LESS THAN HALF the effort. [place] lifts, holds or supports trunk or limbs, but provides less than half the effort. 2-Substantial/Maximal Assistance-helper does MORE THAN HALF the effort. [place] lifts or holds trunk or limbs and provides more than half the effort. 3-Vfkaejcuk-wxrxnx does ALL the effort. Patient does none of the effort to complete the activity. Or, the assistance of 2 or more helpers is required for the patient to complete the activity. If activity was not attempted, code reason: 7-Patient Refused. 9-Not Applicable-not attempted and the patient did not perform the activity before the current illness, exacerbation or injury. 10-Not Attempted due to Environmental Limitations-(lack of equipment, weather restraints, etc.). 88-Not Attempted due to Medical Conditions or Safety Concerns. Sit to Stand (QC): 4 Weight Bearing Right Lower Extremity: Right Partial Weight Bearing Left Lower Extremity: Left Full Weight Bearing Gait Training Does the Patient Walk?: Yes Distance: 60 ft Walk 10 feet (QC): 4 Gait Persons Needed: 1 Gait Assistive Device: FWW maintains PWB on R Exercises Seated Therapy Exercises: Ankle pumps, Long arc quads Seated Reps: 10 Treatments gait training Assessment Current Status: Good Progress Pt. is progressing very well with therapy. Able to increase ambulation to hallway today and he maintains PWB on R. Pt. returned to bedside chair post session, call light and all needs met. PT Marketing Planner Goals Mcfp Goals PT Marketing Planner Goals Time Frame: Apr 15, 2020 Roll Left & Right (QC): 6 Sit to Lying (QC): 6 Lying-Sitting on Side/Bed(QC): 6 Sit to Stand (QC): 6 Chair/Gxr-us-Qmkar Xfer(QC): 6 Toilet Transfer (QC): 6 Does the Patient Walk: Yes Walk 10 feet (QC): 6 Walk 150 ft (QC): 6 4 Steps (QC): 4 PT Plan Treatment/Plan Treatment Plan: Continue Plan of Care Treatment Plan: Bed Mobility, Concurrent Therapy, Education, Functional Activity Deborah, Functional Strength, Gait, Safety, Therapeutic Exercise, Transfers Treatment Duration: Apr 15, 2020 Frequency: 11 times per week Estimated Hrs Per Day: .25 hour per day Patient and/or Family Agrees t: Yes Time/GCodes Time In: 0825 Time Out: 0840 Total Billed Treatment Time: 15 Total Billed Treatment 1, GT 15' JOE BROWN PT Apr 09, 2020 09:36
[2020-04-09] MEDS: DOCUSATE SODIUM 100 MG (COLACE) CAP PO SCH ×2 (11:14→20:43)
--- NOTE | 2020-04-09 11:18 | Progress Note ---
Subjective Subjective Date Seen by Provider: Apr 09, 2020 Time Seen by Provider: 09:45 Denies overnight events- reports doing well. Seeing what each day brings and what the plan is. He is okay with rehab. Review of Systems General: No Chills, No Night Sweats HEENT: No Head Aches Pulmonary: Dyspnea (at baseline); No Cough Cardiovascular: No: Chest Pain Gastrointestinal: No: Nausea, Vomiting Musculoskeletal: leg pain Neurological: Weakness All Other Systems Reviewed All Other Systems Reviewed: Yes Objective Exam Vital Signs Vital Signs Date Time Temp Pulse Resp B/P (MAP) Pulse Ox O2 Delivery O2 Flow Rate FiO2 04/09/20 08:22 Nasal Cannula 3.00 04/09/20 08:00 36.8 78 18 123/67 (85) 92 Room Air 04/09/20 07:51 37.0 74 94 34 04/09/20 04:35 37.0 74 18 120/68 (85) 94 Nasal Cannula 3.00 04/09/20 00:15 36.6 80 18 111/69 (83) 92 Nasal Cannula 3.00 04/08/20 20:45 Nasal Cannula 2.00 04/08/20 20:28 93 Room Air 2.00 04/08/20 19:45 37.4 04/08/20 19:00 36.6 91 18 126/64 (84) 95 Nasal Cannula 2.00 04/08/20 16:00 37.5 79 18 106/67 (80) 92 Nasal Cannula 2.00 04/08/20 14:45 Nasal Cannula 2.00 90 04/08/20 12:00 36.6 70 18 107/59 (75) 94 Nasal Cannula 1.00 I & O 04/09/20 07:00 Intake Total 1130 ml Output Total 1015 ml Balance 115 ml General Appearance: No Apparent Distress, WD/WN HEENT: PERRL/EOMI Neck: Non Tender, Supple Respiratory: Lungs Clear, Normal Breath Sounds, No Accessory Muscle Use Cardiovascular: Regular Rate, Rhythm (quiet due to copd) Gastrointestinal: Non Tender, Soft Rectal: Deferred Extremity: No Calf Tenderness Neurologic/Psychiatric: Alert, Oriented x3, Normal Mood/Affect Skin: Warm/Dry Results Lab Laboratory Tests 04/09/20 06:00: Hemoglobin 8.9L, Hematocrit 27L Microbiology 04/07/20 MRSA Screen - Final, Complete MRSA not isolated Assessment/Plan Assessment/Plan Assessment and Plan 04/08/20- continue therapies s/p right femur fracture repair- Dr. Tim for orthopedics. -COPD is at baseline. -rechecking hgb in AM as it decreased with IVF 04/09/20- hgb about the same. No exacerbation of COPD. Awaiting rehab decision. Dr. Cabrera to resume care in AM. Problems: (1) COPD (chronic obstructive pulmonary disease) (2) Closed right hip fracture Qualifiers: Qualified Codes: S72.001A - Fracture of unspecified part of neck of right femur, initial encounter for closed fracture (3) HTN (hypertension) Qualifiers: Qualified Codes: I10 - Essential (primary) hypertension Assessment & Plan: continue home medications (4) CAD (coronary artery disease) Clinical Quality Measures DVT/VTE Risk/Contraindication: Risk Factor Score Per Nursin RFS Level Per Nursing on Admit: 4+=Very High BATSHEVA TAVARES MD Apr 09, 2020 11:18
--- NOTE | 2020-04-09 11:25 | Progress Note ---
Standard Progress Note Progress Notes/Assess & Plan Date Seen by a Provider: Apr 09, 2020 Time Seen by a Provider: 11:23 Progress/Assessment & Plan no complaints Vital Signs Date Time Temp Pulse Resp B/P (MAP) Pulse Ox O2 Delivery O2 Flow Rate FiO2 04/08/20 03:57 37.9 66 16 99/62 (74) 90 Nasal Cannula 3.00 04/08/20 02:32 Nasal Cannula 2.00 04/08/20 00:00 37.0 62 16 93/59 (70) 91 Room Air 04/07/20 21:26 74 94 32 04/07/20 21:09 94 Nasal Cannula 3.00 04/07/20 20:00 90 Room Air 04/07/20 19:10 36.9 69 18 104/61 (75) 91 Nasal Cannula 3.00 04/07/20 16:17 36.0 71 16 129/75 (93) 91 Nasal Cannula 2.50 04/07/20 15:50 Nasal Cannula 3 04/07/20 15:50 36.7 20 129/79 (96) 94 Nasal Cannula 3 04/07/20 15:45 Nasal Cannula 3 04/07/20 15:40 20 129/79 (96) 96 Nasal Cannula 3 04/07/20 15:30 20 131/74 (93) 100 OxyMask 3 04/07/20 15:30 OxyMask 3 04/07/20 15:20 20 128/75 (92) 95 OxyMask 6 04/07/20 15:15 OxyMask 6 04/07/20 15:10 20 133/75 (94) 95 OxyMask 6 04/07/20 15:00 20 131/71 (91) 97 OxyMask 6 04/07/20 15:00 OxyMask 6 04/07/20 14:52 36.7 20 102/70 (81) 100 OxyMask 6 04/07/20 14:52 OxyMask 6 04/07/20 12:02 90 Room Air 04/07/20 12:02 37.0 58 90 21 04/07/20 12:00 36.5 66 18 103/70 (81) 91 Room Air 04/07/20 09:10 90 Room Air I & O 04/08/20 07:00 Intake Total 1910 ml Output Total 815 ml Balance 1095 ml Laboratory Tests Test 04/08/20 06:20 Range/Units Hemoglobin 9.2 #L 13.3-17.7 G/DL Hematocrit 28 L 40-54 % R hip dressing intact. Intact DF and PF of toes and ankle with equal pulses s/p R hip IM Jaxon PT/OT Final Diagnosis no complaints Vital Signs Date Time Temp Pulse Resp B/P (MAP) Pulse Ox O2 Delivery O2 Flow Rate FiO2 04/09/20 08:22 Nasal Cannula 3.00 04/09/20 08:00 36.8 78 18 123/67 (85) 92 Room Air 04/09/20 07:51 37.0 74 94 34 04/09/20 04:35 37.0 74 18 120/68 (85) 94 Nasal Cannula 3.00 04/09/20 00:15 36.6 80 18 111/69 (83) 92 Nasal Cannula 3.00 04/08/20 20:45 Nasal Cannula 2.00 04/08/20 20:28 93 Room Air 2.00 04/08/20 19:45 37.4 04/08/20 19:00 36.6 91 18 126/64 (84) 95 Nasal Cannula 2.00 04/08/20 16:00 37.5 79 18 106/67 (80) 92 Nasal Cannula 2.00 04/08/20 14:45 Nasal Cannula 2.00 90 04/08/20 12:00 36.6 70 18 107/59 (75) 94 Nasal Cannula 1.00 I & O 04/09/20 07:00 Intake Total 1130 ml Output Total 1015 ml Balance 115 ml Laboratory Tests Test 04/09/20 06:00 Range/Units Hemoglobin 8.9 L 13.3-17.7 G/DL Hematocrit 27 L 40-54 % R hip incision with mild bloody DC inferiorly no calf tenderness. Neg Levon's s/p R hip IM jaxon mobilize WALLYU REBEKA Pereira MD Apr 09, 2020 11:25
[2020-04-09] MEDS: MONTELUKAST 10 MG (SINGULAIR) TAB PO SCH (20:43)
[2020-04-09] MEDS ORDERED: DOCUSATE SODIUM 100 MG (COLACE) CAP PO SCH (21:00)
[2020-04-10 00:23] VITALS: BP 105/66
--- NOTE | 2020-04-10 00:23 | NUR ---
PT O2 SAT 96% ON 3 LITERS PER NASAL CANNULA. THIS RN DECREASED PT TO 1 LITER PER NASAL CANNULA. O2 SAT CURRENTLY AT 95%. WILL CONTINUE TO MONITOR.
[2020-04-10 03:33] VITALS: BP 112/70
[2020-04-10] MEDS: LEVOTHYROXINE 75 MCG (LEVOTHROID) TABLET PO SCH (04:58)
[2020-04-10] MEDS: ARFORMOTEROL 15 MCG/2 ML (BROVANA) INH SOLUTIION IH SCH (07:05)
[2020-04-10 07:44] VITALS: BP 108/59
--- NOTE | 2020-04-10 07:57 | Progress Note ---
Standard Progress Note Progress Notes/Assess & Plan Date Seen by a Provider: Apr 10, 2020 Time Seen by a Provider: 07:56 Progress/Assessment & Plan no complaints Vital Signs Date Time Temp Pulse Resp B/P (MAP) Pulse Ox O2 Delivery O2 Flow Rate FiO2 04/08/20 03:57 37.9 66 16 99/62 (74) 90 Nasal Cannula 3.00 04/08/20 02:32 Nasal Cannula 2.00 04/08/20 00:00 37.0 62 16 93/59 (70) 91 Room Air 04/07/20 21:26 74 94 32 04/07/20 21:09 94 Nasal Cannula 3.00 04/07/20 20:00 90 Room Air 04/07/20 19:10 36.9 69 18 104/61 (75) 91 Nasal Cannula 3.00 04/07/20 16:17 36.0 71 16 129/75 (93) 91 Nasal Cannula 2.50 04/07/20 15:50 Nasal Cannula 3 04/07/20 15:50 36.7 20 129/79 (96) 94 Nasal Cannula 3 04/07/20 15:45 Nasal Cannula 3 04/07/20 15:40 20 129/79 (96) 96 Nasal Cannula 3 04/07/20 15:30 20 131/74 (93) 100 OxyMask 3 04/07/20 15:30 OxyMask 3 04/07/20 15:20 20 128/75 (92) 95 OxyMask 6 04/07/20 15:15 OxyMask 6 04/07/20 15:10 20 133/75 (94) 95 OxyMask 6 04/07/20 15:00 20 131/71 (91) 97 OxyMask 6 04/07/20 15:00 OxyMask 6 04/07/20 14:52 36.7 20 102/70 (81) 100 OxyMask 6 04/07/20 14:52 OxyMask 6 04/07/20 12:02 90 Room Air 04/07/20 12:02 37.0 58 90 21 04/07/20 12:00 36.5 66 18 103/70 (81) 91 Room Air 04/07/20 09:10 90 Room Air I & O 04/08/20 07:00 Intake Total 1910 ml Output Total 815 ml Balance 1095 ml Laboratory Tests Test 04/08/20 06:20 Range/Units Hemoglobin 9.2 #L 13.3-17.7 G/DL Hematocrit 28 L 40-54 % R hip dressing intact. Intact DF and PF of toes and ankle with equal pulses s/p R hip IM Jaxon PT/OT Final Diagnosis no complaints Vital Signs Date Time Temp Pulse Resp B/P (MAP) Pulse Ox O2 Delivery O2 Flow Rate FiO2 04/10/20 03:33 37.0 75 16 112/70 (84) 95 Nasal Cannula 1.00 04/10/20 00:23 37.2 72 17 105/66 (79) 96 Nasal Cannula 1.00 04/09/20 20:00 37.6 77 20 124/65 (84) 95 Nasal Cannula 3.00 04/09/20 20:00 Nasal Cannula 3.00 04/09/20 19:23 Nasal Cannula 3.50 04/09/20 16:30 36.6 66 16 118/70 (86) 97 Nasal Cannula 3.00 04/09/20 12:00 36.5 78 16 112/64 (80) 97 Nasal Cannula 3.00 04/09/20 08:22 Nasal Cannula 3.00 04/09/20 08:00 36.8 78 18 123/67 (85) 92 Room Air I & O 04/10/20 07:00 Intake Total 3230 ml Output Total 1875 ml Balance 1355 ml R hip with bloody DC from inferior incision No erythema s/p R hip IM jaxon IRU when available REBEKA CODY MD Apr 10, 2020 07:57
[2020-04-10] MEDS: LORATADINE (CLARITIN) 10 MG TAB PO SCH (08:34)
[2020-04-10] MEDS: lisINopril 40 MG (PRINIVIL) TABLET PO SCH (08:34)
[2020-04-10] MEDS: ENOXAPARIN 40 MG/0.4 ML (LOVENOX) SYR SC SCH (08:34)
[2020-04-10] MEDS: amLODIPine 5 MG (NORVASC) TAB PO SCH (08:34)
[2020-04-10] MEDS: ASPIRIN E.C. 81 MG (ECOTRIN) TAB PO SCH (08:34)
[2020-04-10] MEDS: DOCUSATE SODIUM 100 MG (COLACE) CAP PO SCH (08:39)
[2020-04-10] MEDS: VITAMIN D3 125 MCG (5,000 UNITS) CAPSULE PO SCH (08:39)
--- NOTE | 2020-04-10 10:22 | NUR ---
REPORT GIVEN TO FRANCISCO KIM FROM REHAB AT THIS TIME. ALL PATIENT BELONGINGS TAKEN TO ARU WITH PATIENT WHEN TRANFERRED THIS A.M.
--- NOTE | 2020-04-10 10:38 | NUR ---
PATIENT TO REHAB VIA W/C AT 1030 THIS A.M. ACCOMPANIED BY OT AND PULL THROUGH [facility].
--- NOTE | 2020-04-11 10:34 | DISCHARGE SUMMARY ---
DATE OF SERVICE: DIAGNOSES: 1. Right intertrochanteric femur fracture. 2. Chronic obstructive pulmonary disease. 3. Hypothyroidism. 4. Reflux. PROCEDURE: Right hip intramedullary nail. SUMMARY: The patient is a 74-year-old gentleman who fell off his boat trailer while after loading his boat and presented to the Emergency Department, was found to have a right intertrochanteric femur fracture. He underwent intramedullary nailing following day without complications. Postoperatively, he did well. He was advancing well with physical therapy and no calf tenderness. Negative Levon signs. He is tolerating diet well and tolerating pain with oral pain medications. CONDITION AT DISCHARGE: Good. DISCHARGE DIET: Regular. ACTIVITIES: 50% weightbearing, right lower extremity. DISCHARGE DISPOSITION: Transferred to the inpatient rehabilitation unit for continued physical and occupational therapy. Job ID: [id number] DocumentID: [id number] Dictated Date: 04/10/2020 17:08:18 Alkylation Operator Date: 04/11/2020 10:34:53 Dictated By: REBEKA CODY MD
== END 2020-04-10 10:30 | DRG 482 ==
LOC: EDUNIT# 21:38 → ER 21:40 → 4TH 23:27
PROVIDERS: ADMIT Orthopaedic Surgery; ATTEND Orthopaedic Surgery
PROC: 0QS636Z Reposition Right Upper Femur with Intramedullary Internal Fixation Device, Percutaneous Approach (ICD-10-PCS; principal; 2020-04-07 13:35)
DX: S72.141A Displaced intertrochanteric fracture of right femur, initial encounter for closed fracture (principal); J44.9 Chronic obstructive pulmonary disease, unspecified; I10 Essential (primary) hypertension; I25.10 Atherosclerotic heart disease of native coronary artery without angina pectoris; E03.9 Hypothyroidism, unspecified; K21.9 Gastro-esophageal reflux disease without esophagitis; F17.210 Nicotine dependence, cigarettes, uncomplicated; H91.93 Unspecified hearing loss, bilateral; W17.89XA Other fall from one level to another, initial encounter; Y93.19 Activity, other involving water and watercraft; Z97.4 Presence of external hearing-aid; Z95.5 Presence of coronary angioplasty implant and graft; Z95.828 Presence of other vascular implants and grafts; Z85.828 Personal history of other malignant neoplasm of skin
CPT/HCPCS: 36415; 71045; 76000; 80053; 85014; 85018; 85025; 87081; 93005; 94640; 94664; 94760; 96374

== ENCOUNTER 2020-04-10 09:05 | Inpatient (IN) | payer MEDICARE, OTHER ==
[~2020-04-10] VITALS: Ht 152.4 cm; Wt 71.2 kg
[~2020-04-10 09:05] MED LIST changes: +ALBU2.5V4 NEB; +ARFO15VI3 NEB; +ASPI-1238 PO; +CHOL500050 PO; +COLE1TAB PO; +IPRA30SP NSEACH; +RT-ALBUINH INH
[2020-04-10] MEDS ORDERED: MELATONIN 3 MG TABLET PO PRN (09:30)
[2020-04-10] MEDS ORDERED: diphenhydrAMINE 25 MG TAB (BENADRYL) PO PRN (09:30)
[2020-04-10] MEDS ORDERED: ACETAMINOPHEN 500 MG TAB (TYLENOL) PO PRN (09:30)
[2020-04-10] MEDS ORDERED: FLEET ENEMA ADULT 1 EA BTL PR PRN (09:30)
[2020-04-10] MEDS ORDERED: CALCIUM CARBONATE 500 MG (TUMS) TAB.CHEW PO PRN (09:30)
[2020-04-10] MEDS ORDERED: LACTULOSE SYRUP 10GM/15ML (ENULOSE) 30ML UDC PO PRN (09:30)
[2020-04-10] MEDS ORDERED: DOCUSATE SODIUM 100 MG (COLACE) CAP PO PRN (09:30)
[2020-04-10] MEDS ORDERED: ENOXAPARIN 40 MG/0.4 ML (LOVENOX) SYR SC SCH ×2 (09:30→14:00)
[2020-04-10] MEDS ORDERED: ONDANSETRON 4 MG (ZOFRAN) ORAL DISSOLVE TAB PO PRN (09:30)
[2020-04-10] MEDS ORDERED: ALPRAZolam 0.25 MG (XANAX) TAB PO PRN (09:30)
[2020-04-10] MEDS ORDERED: BISACODYL 10 MG SUPP (DULCOLAX) PR PRN (09:30)
[2020-04-10] MEDS ORDERED: guaiFENesin/CODEINE (ROBITUSSIN AC) 10ML UDC PO PRN (09:30)
--- NOTE | 2020-04-10 11:05 | NUR ---
Donta Junior admitted to room 228, with an admitting diagnosis of right ORIF, on from via , accompanied by stafff.DONTA JUNIOR introduced to surroundings, call light, bed controls, phone, TV, temperature control, lights, meal times, smoking policy, visitor policy, side rail policy, bathrooms and showers. Patient Rights given to patient in the handbook.DONTA JUNIOR verbalizes understanding that [facility] is not responsible for the loss or damage to any personal effects or valuables that are kept in the patients posession during their hospitalization. The following Patient Care Plans were discussed with the patient: Discharge Planning, impaired mobility,altered comfort, and self care deficit. DONTA JUNIOR verbalizes understanding of Interdisciplinary Patient Education. Patient and/or family were informed about the Rapid Response Team and its purpose.
--- NOTE | 2020-04-10 11:29 | Occupational Therapy Eval ---
OT Evaluation-General/PLF Medical Diagnosis Admission Date Apr 10, 2020 Medical Diagnosis: R hip fx, S/P IM nail Onset Date: Apr 06, 2020 Therapy Diagnosis Therapy Diagnosis: decreased ADL status Height/Weight Height (Feet): 5 Height (Inches): 7.50 Weight (Pounds): 151 Weight (Ounces): 0.8 Weight Bear Status Weight Bearing Restriction: Partial Weight Bearing Location Restriction: R LE Referral Physician: Mila Referral Reason: Evaluation/Treatment Medical History Pertinent Medical History: COPD Additional Medical History COPD, hypothyroidism, reflux, vascular stents, cataracts Current History fall while stepping out of boat, R hip fx, s/p IM nail Social History Home: Single Level Current Living Status: Alone Steps Into Home: 0 ADL-Prior Level of Function SCALE: Activities may be completed with or without assistive devices. 6-Hjvzcqiics-yojjwhj completes the activity by him/herself with no assistance from a helper. 5-Set-up or Clean-up Assistance-helper sets up or cleans up; patient completes activity. [place] assists only prior to or following the activity. 4-Supervision or Touching Assistance-helper provides verbal cues and/or touching/steadying and/or contact guard assistance as patient completes activity. Assistance may be provided throughout the activity or intermittently. 3-Partial/Moderate Assistance-helper does LESS THAN HALF the effort. [place] lifts, holds or supports trunk or limbs, but provides less than half the effort. 2-Substantial/Maximal Assistance-helper does MORE THAN HALF the effort. [place] lifts or holds trunk or limbs and provides more than half the effort. 9-Dyzhpsdhp-mjpsfu does ALL the effort. Patient does none of the effort to complete the activity. Or, the assistance of 2 or more helpers is required for the patient to complete the activity. If activity was not attempted, code reason: 7-Patient Refused. 9-Not Applicable-not attempted and the patient did not perform the activity before the current illness, exacerbation or injury. 10-Not Attempted due to Environmental Limitations-(lack of equipment, weather restraints, etc.). 88-Not Attempted due to Medical Conditions or Safety Concerns. ADL PLOF Comments Pt reports being independent with all ADLS and functional mobility at PLOF, no AE/AD. Pt has a tub/shower, without a shower chair. He reports taking care of his own cooking, cleaning, bathing and dressing. Self Care: Independent Functional Cognition: Independent DME/Equipment: Tub/Shower OT Current Status Subjective Pt laying in bed. Agreeable to OT evaluation and tx. Pt did not verbalize pain during tx. Mental Status/Objective Patient Orientation: Person, Place, Time, Situation Attachments: Oxygen (1L) Current Glasses/Contacts: No Hearing Aids: Yes Dentures/Partials: Yes Hand Dominance: Left Upper Extremity ROM WFL, BUE shoulder flexion to approx 150 degrees. Upper Extremity Coordination WFL Upper Extremity Sensation Pt denies tingling/numbness BUEs Upper Extremity Strength grossly 4/5 MMT ADL-Treatment Eating (QC): 7 Oral Hygiene (QC): 7 Shower/Bathe Self (QC): 7 Upper Body Dressing (QC): 7 Lower Body Dressing (QC): 3 (A threading RLE, pt able to thread LLE and complete pant hike with CGA in stand at FWW) On/Off Footwear (QC): 7 Toileting Hygiene (QC): 7 Other Treatments Pt laying in bed, transferred supine to sit EOB with min A RLE. Pt then stood with CGA and transferred to w/c, using FWW with CGA. Pt able to maintain partial weight bearing in RLE. OT educated pt on purpose and benefits of OT, he verbalized understanding. Pt then provided information about PLOF and home set up, & participates in UE screen. OT then provided education about ARU expectatio ns. Pt then agreeable to donning underwear. Pt required min A for threading RLE, pt then able to thread LLE and complete pant hike with CGA. Pt sat back in w/c. Post OT tx, pt seated in w/c, call light in reach and all needs met, PT present. Education OT Patient Education: Correct positioning, Energy conservation, Modified ADL techniques, Progress toward Goal/Update tx plan, Purpose of tx/functional activities, Rehab process Teaching Recipient: Patient Teaching Methods: Discussion Response to Teaching: Verbalize Understanding OT Short Term Goals Short Term Goals Time Frame: Apr 19, 2020 Lower body dressin Putting on/taking off footwear: 3 OT Train Planner Goals Train Planner Goals Time Frame: Apr 28, 2020 Eating (QC): 6 Oral Hygiene (QC): 6 Toileting Hygiene (QC): 6 Shower/Bathe Self (QC): 6 Upper Body Dressing (QC): 6 Lower Body Dressing (QC): 6 On/Off Footwear (QC): 6 Additional Goals: 1-Demonstrate ADL Tasks, 2-Verbalize Understanding, 3- ImproveStrength/Deborah 1=Demonstrate adherence to instructed precautions during ADL tasks. 2=Patient will verbalize/demonstrate understanding of assistive devices/modifications for ADL. 3=Patient will improve strength/tolerance for activity to enable patient to perform ADL's. OT Education/Plan Problem List/Assessment Assessment: Decreased Activ Tolerance, Decreased UE Strength, Impaired Funct Balance, Impaired I ADL's, Impaired Self-Care Skills Discharge Recommendations Plan/Recommendations: Continue POC Treatment Plan/Plan of Care Patient would benefit from OT for education, treatment and training to promote independence in ADL's, mobility, safety and/or upper extremity function for ADL's. Plan of Care: ADL Retraining, Functional Mobility, Group Exercise/Act as Ind, UE Funct Exercise/Act Treatment Duration: Apr 28, 2020 Frequency: At least 5 of 7 days/Wk (IRF) Estimated Hrs Per Day: 1.5 hours per day Rehab Potential: Good Time/GCodes Start Time: 10:30 Stop Time: 11:00 Total Time Billed (hr/min): 30 Billed Treatment Time 1, EVM (20'), ADL (10') MAURICIO LANG OT Apr 10, 2020 11:29
--- NOTE | 2020-04-10 11:53 | Physical Therapy Evaluation ---
PT Evaluation-General Medical Diagnosis Admission Date Apr 06, 2020 Medical Diagnosis: R hip fx, S/P IM nail Onset Date: Apr 06, 2020 Therapy Diagnosis Therapy Diagnosis: Impaired strength, mobility, and endurance Height/Weight Height (Feet): 5 Height (Inches): 7.50 Weight (Pounds): 151 Weight (Ounces): 0.8 Precautions Precautions/Isolations: Fall Prevention, Standard Precautions Weight Bear Status Right Lower Extremity: Right Partial Weight Bearing Left Lower Extremity: Left Full Weight Bearing Referral Physician: Alley Zaragoza DO Reason for Referral: Evaluation/Treatment Medical History Pertinent Medical History: COPD Reviewed History: Yes Social History Home: Single Level Current Living Status: Alone PT Steps Into Home: 0 PT Steps Inside Home: 0 Pt reports poor hearing abilities, he often relies on reading lips, which is not possible while wearing a mask. Please speak clearly and slowly to him. Prior Prior Level of Function SCALE: Activities may be completed with or without assistive devices. 9-Exqnpjjkwl-godblzo completes the activity by him/herself with no assistance from a helper. 5-Set-up or Clean-up Assistance-helper sets up or cleans up; patient completes activity. [place] assists only prior to or following the activity. 4-Supervision or Touching Assistance-helper provides verbal cues and/or touching/steadying and/or contact guard assistance as patient completes activity. Assistance may be provided throughout the activity or intermittently. 3-Partial/Moderate Assistance-helper does LESS THAN HALF the effort. [place] lifts, holds or supports trunk or limbs, but provides less than half the effort. 2-Substantial/Maximal Assistance-helper does MORE THAN HALF the effort. [place] lifts or holds trunk or limbs and provides more than half the effort. 9-Yxrljrsmy-phmhkm does ALL the effort. Patient does none of the effort to complete the activity. Or, the assistance of 2 or more helpers is required for the patient to complete the activity. If activity was not attempted, code reason: 7-Patient Refused. 9-Not Applicable-not attempted and the patient did not perform the activity before the current illness, exacerbation or injury. 10-Not Attempted due to Environmental Limitations-(lack of equipment, weather restraints, etc.). 88-Not Attempted due to Medical Conditions or Safety Concerns. Bed Mobility: 6 Transfers (B,C,W/C): 6 Gait: 6 Stairs: 6 Wheelchair Mobility: 9 Indoor Mobility (Ambulation): Independent Stairs: Independent Prior Devices Use: None PT Evaluation-Current Subjective Pt presents sitting upright in recliner. Pt agrees to PT. Pt reports 4/10 pain in right hip. Pt/Family Goals Return home Objective Patient Orientation: Person, Place, Eyes Open, Situation Attachments: Oxygen ROM/Strength Strength Lower Extremities RLE hip flex: 3/5 RLE knee flex/ext: 4/5 LLE hip flex: 4/5 LLE knee flex/ext: 5/5 Sensory Hearing: Impaired Hand Dominance: Left Sensation Right Lower Extremit: Intact Sensation Left Lower Extremity: Intact Sensation Lower Extremities B LE sensation intact to light touch L2-S2 Transfers Roll Left to Right (QC): 4 Sit to Lying (QC): 4 Lying to Sitting/Side of Bed(Q: 4 Sit to Stand (QC): 4 Chair/Ywu-le-Kiuar Xfer(QC): 4 Toilet Transfer (QC): 4 Car Transfer (QC): 4 Pt able to complete bed mobility (sit<->lying, rolling), sit<->stand, and car transfers with CGA. Gait Does the Patient Walk?: Yes Mode of Locomotion: Walk Anticipated Mode of Locomotion: Walk Walk 10 feet (QC): 4 Walk 50 ft with 2 Turns(QC): 4 Walk 150 ft (QC): 4 Walking 10ft/uneven surface-QC: 4 Distance: 150'x2 Gait Assistive Device: FWW Comments/Gait Description Pt took rest break to complete car transfer on walk to the rehab gym. On walk from gym to room patient required a rest break at about the residential point, but was able to remain standing the entire time. Wheelchair Training Does the Pt Use a Wheelchair?: No Wheel 50 ft with 2 turns (QC): 9 Wheel 150 ft (QC): 9 Stairs 1 Step (curb) (QC): 4 4 Steps (QC): 88 12 Steps (QC): 88 Walking Assistive Device: Walker Pt cued to step up with LLE leading and R LLE leading when descending. Balance Sitting Static: Normal Sitting Dynamic: Normal Standing Static: Good Standing Dynamic: Good Picking up an Object (QC): 88 Treatment R SLR with min assist x3; pt unable to remain supine B LAQ x10 B HR/TR x10 B Hip abd/add with 2s pillow squeeze x10 Assessment/Needs Pt becomes short of breath due to COPD, this limits patient's endurance with activity. Pt demonstrated weakness in B hip flexion, weaker on R. Pt struggles with bed mobility but is able to complete himself; he is unable to roll fully to R side due to hip pain. Pt sits with weightshifted to L to unload R side and relieve hip pain. Rehab Potential: Fair PT Short Term Goals Short Term Goals Time Frame: Apr 17, 2020 Roll Left & Right: 4 (SBA) Sit to lyin (SBA) Lying to sitting on side of be: 4 (SBA) Sit to stand: 4 (SBA) Chair/wxq-bb-vlcvc transfer: 4 (SBA) Toilet transfer: 5 Walk 10 feet: 4 (SBA) Walk 50 feet with two turns: 4 (SBA) Walk 150 feet: 4 (SBA) PT Residential Goals Residential Goals PT Prison Librarian Goals Time Frame: Apr 24, 2020 Roll Left & Right (QC): 6 Sit to Lying (QC): 6 Lying-Sitting on Side/Bed(QC): 6 Sit to Stand (QC): 6 Chair/Dxq-eu-Yaaxy Xfer(QC): 6 Toilet Transfer (QC): 6 Car Transfer (QC): 5 Does the Patient Walk: Yes Walk 10 feet (QC): 5 Walk 50ft with 2 Turns (QC): 5 Walk 150 ft (QC): 5 Walking 10ft on Uneven Surface: 5 1 Step (curb) (QC): 4 4 Steps (QC): 88 12 Steps (QC): 88 Picking up an Object (QC): 88 Does the Pt use WC or Scooter?: No Wheel 50 feet with 2 turns (QC: 9 Wheel 150 feet: 9 PT Plan Problem List Problem List: Activity Tolerance, Functional Strength, Safety, Balance, Gait, Transfer, Bed Mobility, ROM Treatment/Plan Treatment Plan: Continue Plan of Care Treatment Plan: Bed Mobility, Education, Functional Activity Deborah, Functional Strength, Group Therapy, Gait, Safety, Therapeutic Exercise, Transfers Treatment Duration: Apr 24, 2020 Frequency: At least 5 of 7 days/Wk (IRF) Estimated Hrs Per Day: 1.5 hours per day Patient and/or Family Agrees t: Yes Safety Risks/Education Patient Education: Gait Training, Transfer Techniques, Steps, Reviewed Precautions, Correct Positioning, Safety Issues Teaching Recipient: Patient Teaching Methods: Demonstration, Discussion Response to Teaching: Reinforcement Needed Discharge Recommendations Plan Plan to complete LE strengthening, gait training, balance training, functional activities. Therapy Discharge Recommendati: Home & Family Time/GCodes Time In: 1100 Time Out: 1200 Total Billed Treatment Time: 60 Total Billed Treatment 1 visit EVL 20' GT 25' EX 15' RAFAEL ARZOLA PT Apr 10, 2020 11:53
[2020-04-10 12:00] VITALS: BP 110/74
--- NOTE | 2020-04-10 12:46 | NUR ---
KIM, RT NOTIFIED OF PATIENT'S RT ADMISSION SCORE.
--- NOTE | 2020-04-10 13:31 | NUR ---
ENOXAPARIN NON ADMINISTERED ; DUPLICATE ORDER. ADMIN ON 4TH. PATIENT UP IN CHAIR CURRENTLY WORKING WITH OT. DENIES NEEDS OR C/O. CONT TO MONITOR.
[2020-04-10] MEDS ORDERED: ACETAMINOPHEN 325 MG TABLET PO PRN ×2 (13:45→14:30)
--- NOTE | 2020-04-10 14:01 | Occupational Ther Daily Note ---
OT Current Status-Daily Note Subjective Pt seated in recliner, agreeable to OT tx. Pt did not verbalize pain rating during tx. Mental Status/Objective Patient Orientation: Person, Place, Time, Situation ADL-Treatment Therapy Code Descriptions/Definitions Functional [place] Measure: 0=Not Assessed/NA 4=Minimal Assistance 1=Total Assistance 5=Supervision or Setup 2=Maximal Assistance 6=Modified [place] 3=Moderate Assistance 7=Complete IndependenceSCALE: Activities may be completed with or without assistive devices. 2-Wqlqhhxvqj-kajenmd completes the activity by him/herself with no assistance from a helper. 5-Set-up or Clean-up Assistance-helper sets up or cleans up; patient completes activity. [place] assists only prior to or following the activity. 4-Supervision or Touching Assistance-helper provides verbal cues and/or touching/steadying and/or contact guard assistance as patient completes activity. Assistance may be provided throughout the activity or intermittently. 3-Partial/Moderate Assistance-helper does LESS THAN HALF the effort. [place] lifts, holds or supports trunk or limbs, but provides less than half the effort. 2-Substantial/Maximal Assistance-helper does MORE THAN HALF the effort. [place] lifts or holds trunk or limbs and provides more than half the effort. 8-Uhouanqzf-wqgpnn does ALL the effort. Patient does none of the effort to complete the activity. Or, the assistance of 2 or more helpers is required for the patient to complete the activity. If activity was not attempted, code reason: 7-Patient Refused. 9-Not Applicable-not attempted and the patient did not perform the activity before the current illness, exacerbation or injury. 10-Not Attempted due to Environmental Limitations-(lack of equipment, weather restraints, etc.). 88-Not Attempted due to Medical Conditions or Safety Concerns. Eating (QC): 6 (Pt ate lunch without difficulty.) Oral Hygiene (QC): 5 (set up with oral care at recliner) Shower/Bathe Self (QC): 3 (Assist BLEs lower legs/feet. Pt able to wash upper body, UEs, chest/abdomen, buttocks/periarea with CGA in standing.) Upper Body Dressing (QC): 5 (set up) Lower Body Dressing (QC): 3 (assist threading RLE into pants, pt then able to thread LLE and manage pants up in stand. ) On/Off Footwear: 1 (Pt requires assistance donning/doffing gripper socks) Toileting Hygiene (QC): 4 (Pt able to manage pants up/down and perform hygiene, CGA in stance at [facility]) Other Treatment Pt seated at recliner eating lunch. Pt requests sponge bath on this date, requires assistance with lower legs/feet due to pain. Pt then completed dressing at recliner, assist threading RLE into pants. Pt brushes his teeth at tray table, then bella his hair independently. Post OT tx, pt seated in recliner, waffle cushion in chair, call light in reach and all needs met. Education OT Patient Education: Correct positioning, Energy conservation, Modified ADL techniques, Progress toward Goal/Update tx plan, Purpose of tx/functional activities, Safety issues Teaching Recipient: Patient Teaching Methods: Discussion Response to Teaching: Verbalize Understanding OT Short Term Goals Short Term Goals Time Frame: Apr 19, 2020 Lower body dressin Putting on/taking off footwear: 3 OT Nursing Home Goals Condominium Manager Goals Time Frame: Apr 28, 2020 Eating (QC): 6 Oral Hygiene (QC): 6 Toileting Hygiene (QC): 6 Shower/Bathe Self (QC): 6 Upper Body Dressing (QC): 6 Lower Body Dressing (QC): 6 On/Off Footwear (QC): 6 Additional Goals: 1-Demonstrate ADL Tasks, 2-Verbalize Understanding, 3- ImproveStrength/Deborah 1=Demonstrate adherence to instructed precautions during ADL tasks. 2=Patient will verbalize/demonstrate understanding of assistive devices/modifications for ADL. 3=Patient will improve strength/tolerance for activity to enable patient to perform ADL's. OT Education/Plan Problem List/Assessment Assessment: Decreased Activ Tolerance, Decreased UE Strength, Impaired I ADL's, Impaired Self-Care Skills Discharge Recommendations Plan/Recommendations: Continue POC Treatment Plan/Plan of Care Patient would benefit from OT for education, treatment and training to promote independence in ADL's, mobility, safety and/or upper extremity function for ADL's. Plan of Care: ADL Retraining, Functional Mobility, Group Exercise/Act as Ind, UE Funct Exercise/Act Treatment Duration: Apr 28, 2020 Frequency: At least 5 of 7 days/Wk (IRF) Estimated Hrs Per Day: 1.5 hours per day Rehab Potential: Good Time/GCodes Start Time: 13:00 Stop Time: 14:00 Total Time Billed (hr/min): 60 Billed Treatment Time 1, ADL 4 MAURICIO LANG OT Apr 10, 2020 14:01
[2020-04-10] MEDS ORDERED: ONDANSETRON 4 MG/2 ML (SDV) Z0FRAN IVP PRN (14:30)
[2020-04-10] MEDS ORDERED: RT-ALBUTEROL SULF 2.5 MG/3 ML PRE-MIX VIAL INH PRN (14:30)
[2020-04-10] MEDS ORDERED: RT-ALBUTEROL/IPRATROPIUM 3 ML (DUONEB) VIAL INH PRN (14:30)
[2020-04-10] MEDS ORDERED: NON-FORMULARY MEDICATION 1 EA EA (Ipratropium Bromide 2 SPRAYS) NSEACH PRN (14:30)
[2020-04-10 14:52] VITALS: BP 110/74
--- NOTE | 2020-04-10 15:36 | NUR ---
NO BM SINCE 04/06, LACTULOSE AND COLACE ADMIN. DENIES NEEDS OR C/O AT THIS TIME. UP IN CHAIR , WATCHING TELEVISION. CONT TO MONITOR.
--- NOTE | 2020-04-10 15:47 | Physical Therapy Daily Note ---
PT Daily Note-Current Subjective Pt presents sitting upright in recliner. Pt agrees to PT. Pt reports 4/10 pain in R hip. Appearance At conclusion of PT tx patient is sitting upright in recliner with access to tray, call button, and all needs met. Mental Status Patient Orientation: Person, Place, Time, Eyes Open Attachments: Oxygen Transfers SCALE: Activities may be completed with or without assistive devices. 6-Dbyivhwjgu-djukrac completes the activity by him/herself with no assistance from a helper. 5-Set-up or Clean-up Assistance-helper sets up or cleans up; patient completes activity. [place] assists only prior to or following the activity. 4-Supervision or Touching Assistance-helper provides verbal cues and/or touching/steadying and/or contact guard assistance as patient completes activity. Assistance may be provided throughout the activity or intermittently. 3-Partial/Moderate Assistance-helper does LESS THAN HALF the effort. [place] lifts, holds or supports trunk or limbs, but provides less than half the effort. 2-Substantial/Maximal Assistance-helper does MORE THAN HALF the effort. [place] lifts or holds trunk or limbs and provides more than half the effort. 6-Bsurnjzkq-xibetk does ALL the effort. Patient does none of the effort to complete the activity. Or, the assistance of 2 or more helpers is required for the patient to complete the activity. If activity was not attempted, code reason: 7-Patient Refused. 9-Not Applicable-not attempted and the patient did not perform the activity before the current illness, exacerbation or injury. 10-Not Attempted due to Environmental Limitations-(lack of equipment, weather restraints, etc.). 88-Not Attempted due to Medical Conditions or Safety Concerns. Sit to Stand (QC): 4 Weight Bearing Right Lower Extremity: Right Partial Weight Bearing Left Lower Extremity: Left Full Weight Bearing Gait Training Does the Patient Walk?: Yes Distance: 150'x2 Walk 10 feet (QC): 4 Walk 50 ft with 2 Turns(QC): 4 Walk 150 ft (QC): 4 Gait Assistive Device: FWW Antalgic gait; pt reports bearing about 20% weight on RLE instead of 50% Exercises Seated Therapy Exercises: Ankle pumps, Hip flexion Seated Reps: 15 Treatments Gait Training Assessment Current Status: Fair Progress Pt able to ambulate 150' without need for seated rest. PT Short Term Goals Short Term Goals Time Frame: Apr 17, 2020 Roll Left & Right: 4 (SBA) Sit to lyin (SBA) Lying to sitting on side of be: 4 (SBA) Sit to stand: 4 (SBA) Chair/fbp-gs-qizzr transfer: 4 (SBA) Toilet transfer: 5 Walk 10 feet: 4 (SBA) Walk 50 feet with two turns: 4 (SBA) Walk 150 feet: 4 (SBA) PT On Site Property Manager Goals Alf Goals PT On Site Property Manager Goals Time Frame: Apr 24, 2020 Roll Left & Right (QC): 6 Sit to Lying (QC): 6 Lying-Sitting on Side/Bed(QC): 6 Sit to Stand (QC): 6 Chair/Agl-zf-Pxlmx Xfer(QC): 6 Toilet Transfer (QC): 6 Car Transfer (QC): 5 Does the Patient Walk: Yes Walk 10 feet (QC): 5 Walk 50ft with 2 Turns (QC): 5 Walk 150 ft (QC): 5 Walking 10ft on Uneven Surface: 5 1 Step (curb) (QC): 4 4 Steps (QC): 88 12 Steps (QC): 88 Picking up an Object (QC): 88 Does the Pt use WC or Scooter?: No Wheel 50 feet with 2 turns (QC: 9 Wheel 150 feet: 9 PT Plan Problem List Problem List: Activity Tolerance, Functional Strength, Safety, Balance, Gait, Transfer, Bed Mobility, ROM Treatment/Plan Treatment Plan: Continue Plan of Care Treatment Plan: Bed Mobility, Education, Functional Activity Deborah, Functional Strength, Group Therapy, Gait, Safety, Therapeutic Exercise, Transfers Treatment Duration: Apr 24, 2020 Frequency: At least 5 of 7 days/Wk (IRF) Estimated Hrs Per Day: 1.5 hours per day Patient and/or Family Agrees t: Yes Safety Risks/Education Patient Education: Gait Training, Transfer Techniques, Safety Issues Teaching Recipient: Patient Teaching Methods: Demonstration, Discussion Response to Teaching: Reinforcement Needed Time/GCodes Time In: 1500 Time Out: 1530 Total Billed Treatment Time: 30 Total Billed Treatment 1 visit GT 20' EX 10' RAFAEL ARZOLA PT Apr 10, 2020 15:47
[2020-04-10 16:00] VITALS: BP 124/57
--- NOTE | 2020-04-10 16:15 | NUR ---
Visited with pt about smoking cessation. Pt states, "tried to quit before, it worked for just a little while. I was able to quit once for 5 years, but then I started up again." Enc. given. Offered [facility] classes and [facility] quit info, Handout on smoking cessation given.
[2020-04-10] MEDS: oxyCODONE/APAP 5/325MG (PERCOCET 5) TABLET PO PRN ×2 (17:39→23:14)
--- NOTE | 2020-04-10 18:49 | Progress Note ---
Subjective Date Seen by a Provider: Apr 10, 2020 Time Seen by a Provider: 12:45 Subjective/Events-last exam Fwup right femur fracture--S/P IM jose lafredo, COPD, HTN, post-op anemia. Sitting up in chair in rehab. Pain well controlled. Reports no BM since surgery. Objective Exam Vital Signs Date Time Temp Pulse Resp B/P (MAP) Pulse Ox O2 Delivery O2 Flow Rate FiO2 04/10/20 14:52 36.2 73 94 24 04/10/20 12:00 36.2 74 16 110/74 93 1.00 04/10/20 12:00 93 1.00 Capillary Refill : Less Than 3 Seconds General Appearance: No Apparent Distress Neck: Supple Respiratory: Decreased Breath Sounds, Rhonci Cardiovascular: Regular Rate, Rhythm, Gallop/S4 Gastrointestinal: normal bowel sounds, non tender, soft Extremity: Non Tender, No Calf Tenderness, No Pedal Edema Neurologic/Psychiatric: Alert, Oriented x3 Skin: Warm/Dry, Other (right hip with dry dressing in place) Assessment/Plan Assessment/Plan Assess & Plan/Chief Complaint 1. Right Femur Fracture--S/P IM jose alfredo placement, pain contol, DVT prophylaxis, PT/OT 2. Hypertension--back on home meds 3. 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 Post-op anemia--monitor H/H 5. Constipation--start senokot-S, miralax today Clinical Quality Measures DVT/VTE Risk/Contraindication: Risk Factor Score Per Nursin RFS Level Per Nursing on Admit: 4+=Very High GLORY MARTIN DO Apr 10, 2020 18:49
--- NOTE | 2020-04-10 18:52 | NUR ---
RIGHT HIP DRESSING CHANGE. MODERATE AMOUNTS OF SANGUINOUS DRAINAGE. SURROUNDING TISSUE EDEMATOUS, FREE FROM ERYTHEMA. JESSIE INTACT, WELL APPROXIMATED. ISLAND CHANGED AND REINFORCED WITH 4X4 GAUZE. REPORTS PAIN 3/10 FOLLOWING PERCOCET ADMINISTRATION. PATIENT INCONT OF SMALL AMOUNT OF BM WHILE AMBULATING W/FWW, GAIT BELT TO BR. HAD LARGE, FORMED BM IN STOOL. PRN LACTULOSE AND COLACE EFFECTIVE. CONT TO MONITOR.
[2020-04-10] MEDS: ARFORMOTEROL 15 MCG/2 ML (BROVANA) INH SOLUTIION IH SCH (19:57)
[2020-04-10] MEDS: MONTELUKAST 10 MG (SINGULAIR) TAB PO SCH (20:22)
[2020-04-10] MEDS: SENNA W/DOCUSATE (SENOKOT S) TABLET PO SCH (20:22)
[2020-04-10] MEDS: DOCUSATE SODIUM 100 MG (COLACE) CAP PO SCH (20:22)
[2020-04-10] MEDS: polyethylene glycoL POWDER 17 GM (MIRALAX) PACK PO SCH (20:23)
--- NOTE | 2020-04-10 20:25 | NUR ---
BEDSIDE REPORT RECEIVED FROM JUDY SINGH, ASSUME CARE OF PT
[2020-04-10] MEDS ORDERED: DOCUSATE SODIUM 100 MG (COLACE) CAP PO SCH (21:00)
--- NOTE | 2020-04-10 21:15 | NUR ---
DRESSING CHANGE TO RT HIP, DRESSING SATURATED WITH SEROSANGUINEOUS DRAINAGE, CLEANSED WITH ALCOHOL DRESSING 4X4 & ISLAND DRESSING TOLERATED WELL
--- NOTE | 2020-04-10 21:17 | PM&R Post Admission Assessment ---
PM&R HP Date of Visit: Apr 10, 2020 Time of Visit: 11:30 History of Present Illness CC: Right hip fracture HPI: This is a 74yoWM clinic pt of Dr. Cabrera and Dr. Lozano and Dr. Aguilar who has a PMH of COPD who continues to smoke and he is maintained on inhalers but no home O2 who was fishing and had just returned back to getting out of the boat when he tripped and fell suffering a right hip fracture. At this time pt will be a short stay. He is doing very well with therapy but will maintain good respiratory monitoring for postoperative pneumonia. 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 and he lives at home alone. He does take nebulizer treatments at home. His prior level of functioning was independent without the use of assistive devices. Smoking cessation counseled. Past Xpbdrda-Sgzmfz-Eyupdk Hx Past Med/Social Hx: Reviewed Nursing Past Med/Soc Hx, Reviewed and Corrections made Patient Social History Marrital Status: single Employed/Student: retired Alcohol Use: Denies Use Recreational Drug Use: No Smoking Status: Current Everyday Smoker Type Used: Cigarettes Physical Abuse Screen: No Sexual Abuse: No Recent Foreign Travel: No Contact w/other who traveled: No Recent Hopitalizations: Yes (ORIF RIGHT HIP) Recent Infectious Disease Expo: No Immunizations Up To Date Date of Pneumonia Vaccine: Mar 21, 2018 Date of Influenza Vaccine: Apr 05, 2020 Seasonal Allergies Seasonal Allergies: Yes Past Medical History Surgeries: Orthopedic, Vascular Surgery Respiratory: COPD Currently Using CPAP: No Currently Using BIPAP: No Cardiac: High Cholesterol, Hypertension Gastrointestinal: Gastroesophageal Reflux, Diverticulosis Musculoskeletal: Arthritis HEENT: Cataract Loss of Vision: Denies Hearing Impairment: Hard of Hearing, Bilateral Hearing Aide Cancer: Skin History of Blood Disorders: No Adverse Reaction to Blood Wright: No Family History Alcoholism 19 FATHER G8 BROTHER G8 BROTHER G8 BROTHER G8 BROTHER G8 BROTHER G8 SISTER G8 SISTER Cardiovascular disease 19 FATHER Colon cancer Completed stroke G8 BROTHER Deafness or hearing loss G8 BROTHER G8 BROTHER G8 SISTER G8 SISTER Diabetes mellitus G8 BROTHER G8 BROTHER Drug abuse G8 BROTHER G8 BROTHER Myocardial infarction 19 FATHER Neoplasm G8 BROTHER G8 SISTER Prior Level of Function Bed Mobility: 6 Transfers: 6 Gait: 6 Stairs: 6 Wheelchair Mobility: 9 Indoor Mobility (Ambulation): Independent Stairs: Independent Prior Devices Use: None Self Care: Independent Functional Cognition: Independent Current Level of Fuctioning Roll Left to Right: 4 Sit to Lyin Lying to Sitting/Side of Bed: 4 Sit to Stand: 4 Chair/Ykk-yo-Mdbta Xfer: 4 Car Transfer: 4 Does the Patient Walk: Yes Mode of Locomotion: Walk Anticipated Mode of Locomotion: Walk Walk 10 feet: 4 Walk 50 ft with 2 Turns: 4 Walk 150 ft: 4 Walking 10ft on uneven surface: 4 Gait Assistive Device: FWW Does the Pt Use a Wheelchair: No Wheel 50 ft with 2 turns: 9 Wheel 150 ft: 9 1 Step (curb): 4 4 Steps: 88 Walking Assistive Device: Walker 12 Steps: 88 Picking up an Object: 88 Eatin (Pt ate lunch without difficulty.) Oral Hygiene: 5 ([facility]) Shower/Bathe Self: 3 (Assist BLEs lower legs/feet. Pt able to wash upper body, UEs, chest/abdomen, buttocks/periarea with CGA in standing.) Upper Body Dressin (set up) Lower Body Dressin (assist threading RLE into pants, pt then able to thread LLE and manage pants up in stand. 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 Home Medications Scheduled Amlodipine Besylate (Amlodipine Besylate), 5 MG PO DAILY, (Reported) Arformoterol Tartrate (Brovana), 2 ML NEB BID, (Reported) Aspirin (Aspirin EC), 81 MG PO HS, (Reported) Atorvastatin Calcium (Atorvastatin Calcium), 40 MG PO HS, (Reported) Cetirizine HCl (Cetirizine HCl), 10 MG PO DAILY, (Reported) Cholecalciferol (Vitamin D3) (Vitamin D3), 125 MCG PO DAILY, (Reported) Colestipol HCl (Colestipol HCl), 1 GM PO DAILY, (Reported) Levothyroxine Sodium (Levothyroxine Sodium), 75 MCG PO DAILY, (Reported) Lisinopril (Lisinopril), 40 MG PO DAILY, (Reported) Montelukast Sodium (Montelukast Sodium), 10 MG PO HS, (Reported) Scheduled PRN Albuterol Sulfate (Albuterol Sulfate), 3 ML NEB Q4H PRN for SHORTNESS OF BREATH, (Reported) Albuterol Sulfate (Ventolin Hfa), 2 PUFF INH Q4H PRN for SHORTNESS OF BREATH, (Reported) Ipratropium [place] (Ipratropium [place]), 2 SPRAYS NSEACH BID PRN for RUNNY NOSE, (Reported) Discontinued Medications Ketoconazole (Ketoconazole), TP DAILY, (Reported) Discontinued Reason: Duplicate Order Ketorolac Tromethamine (Ketorolac Tromethamine), 1 DROP OD QID, (Reported) Discontinued Reason: No Longer Taking Omeprazole (Omeprazole), 20 MG PO DAILY, (Reported) Discontinued Reason: No Longer Taking Prednisolone Acetate (Prednisolone Acetate), 1 DROP OD QID, (Reported) Discontinued Reason: No Longer Taking Temazepam (Temazepam), 7.5 MG PO HS Discontinued Reason: No Longer Taking Current Medications Current Medications Reviewed Review of Systems Constitutional: see HPI, malaise, weakness EENTM: no symptoms reported Respiratory: cough, short of breath, wheezing Cardiovascular: no symptoms reported Gastrointestinal: constipation Genitourinary: no symptoms reported Musculoskeletal: joint pain Skin: no symptoms reported Psychiatric/Neurological: Anxiety All Other Systems Reviewed Negative Unless Noted: Yes Physical Exam Physical Exam Vital Signs Vital Signs - First Documented 04/10/20 04/10/20 04/10/20 12:00 14:52 19:57 Temp 36.2 Pulse 74 Resp 16 B/P (MAP) 110/74 Pulse Ox 93 O2 Delivery Nasal Cannula O2 Flow Rate 1.00 FiO2 24 Capillary Refill : Less Than 3 Seconds Height, Weight, BMI Height: 5'7.50" Weight: 151lbs. 0.8oz. 68.035148ex; 30.26 BMI Method:Stated General Appearance: No Apparent Distress, WD/WN, Chronically ill Eyes: Bilateral Eye Normal Inspection, Bilateral Eye PERRL HEENT: PERRL/EOMI, Normal ENT Inspection, Pharynx Normal Neck: Full Range of Motion, Normal Inspection, Non Tender, Supple Respiratory: Chest Non Tender, No Accessory Muscle Use, No Respiratory Distress, Decreased Breath Sounds, Rhonci Cardiovascular: Regular Rate, Rhythm, No Edema, No Gallop, No JVD, No Murmur, Normal Peripheral Pulses, Gallop/S4 Gastrointestinal: Normal Bowel Sounds, No Organomegaly, No Pulsatile Mass, Non Tender, Soft Back: Normal Inspection, No CVA Tenderness, No Vertebral Tenderness Extremity: Normal Capillary Refill, Normal Inspection, Normal Range of Motion (except right leg), Non Tender, No Calf Tenderness, No Pedal Edema Neurologic/Psychiatric: Alert, Oriented x3, No Motor/Sensory Deficits, Normal Mood/Affect, hand reamer II-XII Norm as Tested, Abnormal Gait Skin: Normal Color, Warm/Dry, Other (right hip with dry dressing in place) Lymphatic: No Adenopathy PM&R Medical Assessment & Plan REHAB/MEDICAL ASSESSMENT AND PLAN: REHAB IMPAIRMENT GROUP: Right hip fracture ETIOLOGIC DIAGNOSIS: Right hip fracture The comorbidities that impact the patients function and/or functional outcome by: COPD, continued smoking, lives alone, fall risk REHAB PLAN: The patient is being admitted to our comprehensive inpatient rehabilitation facility and can tolerate the intensity of service consisting of at least: 180 minutes of therapy a day, 5 out of 7 days a week Rehab treatment will consist of: PT OT will focus on regaining function in ADL's and ambulation along with fall risk prevention in order to return home to live independently The patient/family has a good understanding of our discharge process and will benefit from an interdisciplinary inpatient rehabilitation program. The patient has potential to make improvement and is in need of at least two of the following multidisciplinary therapies including but not limited to physical, occupational, speech, and prosthetics and orthotics. Additionally the patient will need services from respiratory, nutritional services, wound care, psychology, etc. (Customize this to each patient). Given the patients complex condition and risk of further medical complications, rehabilitation services cannot be safely or effectively provided at a lower level of care such as a residential facility. BARRIERS TO DISCHARGE: Lives alone ESTIMATED LOS: [ ] DISPOSITION: 7 days RELEVANT CHANGES SINCE PREADMISSION SCREENING: I have compared the patients medical and functional status at the time of the preadmission screening and there are: no changes PROGNOSIS: Good REHABILITATION GOALS: 1. PT OT will focus on regaining function in ADL's and ambulation along with fal l risk prevention in order to return home to live independently All the above goals were reviewed with the patient and he/she is in agreement. By signing this document, I acknowledge that I have personally performed a full physical examination on this patient within 24 hours of admission to this inpatient rehabilitation facility and have determined the patient to be able to tolerate the above course of treatment at an intensive level for a reasonable period of time. I will be completing a detailed individualized Plan of Care for this patient by day #4 of the patients stay based upon the Preadmission Screen, the Post-Admission Evaluation, and the therapy evaluations. Admission Dx/Comorbidities: (1) Closed right hip fracture Status: Acute ICD Codes: S72.001A - Fracture of unspecified part of neck of right femur, ini tial encounter for closed fracture (2) Smoker ICD Codes: F17.200 - Nicotine dependence, unspecified, uncomplicated (3) Recovering alcoholic in remission ICD Codes: F10.21 - Alcohol dependence, in remission (4) HTN (hypertension) ICD Codes: I10 - Essential (primary) hypertension (5) CAD (coronary artery disease) ICD Codes: I25.10 - Atherosclerotic heart disease of [place] coronary artery without angina pectoris (6) COPD (chronic obstructive pulmonary disease) ICD Codes: J44.9 - Chronic obstructive pulmonary disease, unspecified Assessment/Plan Assessment and Plan Assess & Plan/Chief Complaint Assessment: s/p right hip fracture uncomplicated repair COPD Smoker HTN HLP Recovered alcoholic Constipation Plan: Jairo LAM IRF protocol BM regimen CATRACHITA DIAS DO Apr 10, 2020 21:17
--- NOTE | 2020-04-10 23:15 | NUR ---
C/O RT HIP PAIN, LEVEL 5/10 ON NUMERIC SCALE, PERCOCET 5/325 1 TAB GIVEN
[2020-04-11 05:43] LABS: BASOPHILS % (AUTO) 0 % (0-10); HEMATOCRIT 26 % (40-54); HEMOGLOBIN 8.7 G/DL (13.3-17.7); MEAN CORPUSCULAR HEMOGLOBIN 32 PG (25-34); MEAN CORPUSCULAR HGB CONC 33 G/DL (32-36); MEAN CORPUSCULAR VOLUME 97 FL (80-99); MEAN PLATELET VOLUME 11.1 FL (7.4-10.4); PLATELET COUNT 655 10^3/uL (130-400); WHITE BLOOD COUNT 10.5 10^3/uL (4.3-11.0)
[2020-04-11 05:49] VITALS: BP 123/61
[2020-04-11 05:54] LABS: ALBUMIN 3.3 GM/DL (3.2-4.5)
[2020-04-11 05:55] LABS: CHLORIDE 106 MMOL/L (98-107); POTASSIUM 3.6 MMOL/L (3.6-5.0); SODIUM 136 MMOL/L (135-145)
[2020-04-11 05:56] LABS: CALCIUM 8.1 MG/DL (8.5-10.1)
[2020-04-11 05:57] LABS: GLUCOSE 100 MG/DL (70-105); TOTAL PROTEIN 6.1 GM/DL (6.4-8.2)
[2020-04-11 05:58] LABS: CARBON DIOXIDE 21 MMOL/L (21-32); EOSINOPHILS # (AUTO) 0.1 10^3/uL (0.0-0.3); EOSINOPHILS % (AUTO) 1 % (0-10); LYMPHOCYTES % (AUTO) 19 % (12-44); MONOCYTES # (AUTO) 1.2 X 10^3 (0.0-1.0); MONOCYTES % (AUTO) 12 % (0-12); NEUTROPHILS # (AUTO) 7.1 X 10^3 (1.8-7.8); NEUTROPHILS % (AUTO) 68 % (42-75)
[2020-04-11 05:59] LABS: BILIRUBIN,TOTAL 0.8 MG/DL (0.1-1.0)
[2020-04-11 06:00] LABS: ALKALINE PHOSPHATASE 59 U/L (40-136)
[2020-04-11 06:01] LABS: CREATININE SERUM 0.77 MG/DL (0.60-1.30); GFR ESTIMATED > 60
[2020-04-11 06:02] LABS: BUN/CREATININE RATIO 10
[2020-04-11 06:04] LABS: ALANINE AMINOTRANSFERASE 16 U/L (0-55)
[2020-04-11] MEDS: oxyCODONE/APAP 5/325MG (PERCOCET 5) TABLET PO PRN ×3 (06:36→17:46)
[2020-04-11] MEDS: LEVOTHYROXINE 75 MCG (LEVOTHROID) TABLET PO SCH (06:36)
--- NOTE | 2020-04-11 06:36 | NUR ---
c/o rt hip pain, level 5/10 on numeric scale, Percocet 5/325 1 tab given
[2020-04-11] MEDS: SENNA W/DOCUSATE (SENOKOT S) TABLET PO SCH ×2 (08:04→19:39)
[2020-04-11] MEDS: LORATADINE (CLARITIN) 10 MG TAB PO SCH (08:04)
[2020-04-11] MEDS: ASPIRIN E.C. 81 MG (ECOTRIN) TAB PO SCH (08:04)
[2020-04-11] MEDS: ARFORMOTEROL 15 MCG/2 ML (BROVANA) INH SOLUTIION IH SCH ×2 (08:04→20:51)
[2020-04-11] MEDS: amLODIPine 5 MG (NORVASC) TAB PO SCH (08:05)
[2020-04-11] MEDS: VITAMIN D3 125 MCG (5,000 UNITS) CAPSULE PO SCH (08:05)
[2020-04-11] MEDS: lisINopril 40 MG (PRINIVIL) TABLET PO SCH (08:05)
[2020-04-11] MEDS: polyethylene glycoL POWDER 17 GM (MIRALAX) PACK PO SCH ×2 (08:05→19:39)
[2020-04-11] MEDS: ENOXAPARIN 40 MG/0.4 ML (LOVENOX) SYR SC SCH (08:07)
--- NOTE | 2020-04-11 08:25 | NUR ---
PATIENT WORKING WITH THERAPY. 1LO2 REMOVED. PATIENT O2 SAT 96% ON RA WITH ACTIVITY. TOLERATING THERAPY WELL AT THIS TIME. REPORTS PAIN 3/10 WITH ACTIVITY. OT AT SIDE. DENIES NEEDS OR C/O AT THIS TIME. CONT TO MONITOR.
--- NOTE | 2020-04-11 08:45 | Individualized Plan of Care ---
Individualized Plan of Care Rehab Nursing IPOC Order Admission Date Apr 10, 2020 at 11:05 Current Orders Orders Admission Order(Inpt,Obs,Sdc) (04/10/20 09:27) Vital Signs: Per Unit Policy ( 08,16,00 (04/10/20 09:27) Technical Assoc-Inpt Rehab Con (04/10/20 09:27) Rehab Nursing Orders-Ipoc (04/10/20 09:27) Physical Therapy Rehab Orders (04/10/20 09:27) Occupational Therapy Rehab Ord (04/10/20 09:27) Speech Therapy Rehab Orders (04/10/20:27) Cbc With Automated Diff (04/11/20 06:00) Comprehensive Metabolic Panel (04/11/20 06:00) General/Regular (04/10/20 Lunch) Intake & Output ,, (04/10/20 09:27) Precautions (Aru) (04/10/20 09:27) Rehab-Intensity Of Therapy (04/10/20 09:27) Initiate Admission Nursing Pro .admission (04/10/20 09:27) Acetaminophen Tablet (Tylenol Tablet) (04/10/20 09:30) Alprazolam Tablet (Xanax Tablet) (04/10/20 09:30) Calcium Carbonate Chew Tablet (Antacid C (04/10/20 09:30) Diphenhydramine Tablet (Benadryl Tablet) (04/10/20 09:30) Docusate Sodium Capsule (Colace Capsule) (04/10/20 21:00) Docusate Sodium Capsule (Colace Capsule) (04/10/20 09:30) Bisacodyl Suppository (Dulcolax Supposit (04/10/20 09:30) Lactulose Oral Solution (Enulose Oral So (04/10/20 09:30) Na Phos/Na Biphos Enema (Fleet Enema Lamont (04/10/20 09:30) Guaifenesin/Codeine Syrup (Robitussin Ac (04/10/20 09:30) Loperamide Tablet (Imodium Tablet) (04/10/20 09:30) Enoxaparin Injection (Lovenox Injection) (04/10/20 09:30) Melatonin Tablet (Melatonin Tablet) (04/10/20 09:30) Polyethylene Glycol Powder Pkt (Miralax (04/10/20 21:00) Ondansetron Oral Dissolve Tab (Zofran (04/10/20 09:30) Senna S Tablet (Senokot S Tablet) (04/10/20 21:00) Initiate Admission Nursing Pro .admission (04/10/20 09:27) Admission Arrival Bed Request (04/10/20 12:15) Edu Tobacco/Smoking Cessation .prn (04/10/20 13:08) Ambulate ,, (04/10/20 13:08) Sequential Compression Device Q4H (04/10/20 13:08) Dvt/Vte Risk - Notifiy Physici Q4H (04/10/20 13:08) Acetaminophen Tablet/Caplet (Tylenol T (04/10/20 13:45) Code/Resuscitation (04/10/20 14:22) Dressing Order (Intervention) DAILY (04/10/20 14:22) Oxygen-Administer (04/10/20 14:22) Kevin Hose (04/10/20 14:22) Weight Bearing Restrictions (04/10/20 14:22) (Nf) Ipratropium [place] (04/10/20 14:30) Albuterol Pre-Mix Nebs (Rt) (Proventil (04/10/20 14:30) Albuterol/Ipra Inhalation Soln (Duoneb I (04/10/20 14:30) Arformoterol Inhalation Soln (Brovana In (04/10/20 21:00) Aspirin Enteric Coated Tablet (Ecotrin T (04/11/20 09:00) Atorvastatin Tablet (Lipitor) (04/10/20 21:00) Cholecalciferol Capsule/Tablet (Vitamin (04/11/20 09:00) Docusate Sodium Capsule (Colace Capsule) (04/10/20 21:00) Enoxaparin Injection (Lovenox Injection) (04/11/20 08:00) Levothyroxine Tablet (Synthroid Tablet) (04/11/20 06:30) Loratadine Tablet (Claritin Tablet) (04/11/20 09:00) Montelukast Tablet (Singulair Tablet) (04/10/20 21:00) Acetaminophen Tablet/Caplet (Tylenol T (04/10/20 14:30) Ondansetron Injection (Zofran Injectio (04/10/20 14:30) Amlodipine Tablet (Norvasc Tablet) (04/11/20 09:00) Lisinopril Tablet (Zestril Tablet) (04/11/20 09:00) Oxycodone/Apap 5/325mg Tablet (Percocet (04/10/20 14:30) Incentive Spirometry Initial (04/10/20 14:22) Incentive Spirometry (Nursing) Q2H (04/10/20 14:22) Patient Visit (04/10/20 ) Pt Eval Low Complexity (04/10/20 ) Gait Training, Ea 15 Min (04/10/20 ) Exercise Therap, Ea 15 Min (04/10/20 ) Patient Visit (04/10/20 ) Exercise Therap, Ea 15 Min (04/10/20 ) Gait Training, Ea 15 Min (04/10/20 ) Iron Test (Fe) (04/11/20 10:28) Iron Sucrose Injection (Venofer Injectio (04/11/20 10:30) Sodium Chloride Flush (Catheter Flush Sy (04/11/20 11:01) Patient Visit (04/11/20 ) Exercise Therap, Ea 15 Min (04/11/20 ) Gait Training, Ea 15 Min (04/11/20 ) Ensure Enlive (04/11/20 Dinner) Patient Visit (04/11/20 ) Speech Sound Lang Comp (04/11/20 ) Patient Visit (04/11/20 ) Gait Training, Ea 15 Min (04/11/20 ) Rehab Nursing Orders: Ongoing Assess. of Cognitive Status, Ongoing Assess. of Function Status, Bladder Management, Bladder Scan, Bladder Training, Bowel Management, Bowel Training, Disease Management & Educaiton, DVT Prophylaxis, Fall Prevention, Fluid/Electrolyte/Nutrition Mgmt, Infection Prevention, Medication Management & Education, Management of Risks & Complications, Management of Skin Intergrity, Nutrition Management, Pain Management, Patient/Family Support, Safety Management Intensity of Therapy to be met Patient to be seen: Min.3h per day/5 of 7d PT IPOC Problem List: Activity Tolerance, Functional Strength, Safety, Balance, Gait, T ransfer, Bed Mobility, ROM Treatment Plan: Continue Plan of Care Bed Mobility, Education, Functional Activity Deborah, Functional Strength, Group Therapy, Gait, Safety, Therapeutic Exercise, Transfers Treatment Duration: Apr 24, 2020 Frequency: At least 5 of 7 days/Wk (IRF) Estimated Hrs Per Day: 1.5 hours per day OT IPOC Problems: Decreased Activ Tolerance, Decreased UE Strength, Impaired I ADL's, Impaired Self-Care Skills OT Treatment, Training and Edu: Yes Plan of Care: ADL Retraining, Functional Mobility, Group Exercise/Act as Ind, UE Funct Exercise/Act Treatment Duration: Apr 28, 2020 Frequency: At least 5 of 7 days/Wk (IRF) Estimated Hrs Per Day: 1.[address] IPOC Speech Therapy Treatment Plan: Modify Plan, See Comments Treatment Duration: Apr 11, 2020 Frequency: Modified Program (IRF) Estimated Hrs Per Day: Other Technical Assoc/Case Mgmt Technical Assoc/Case Managemen: Discharge Planning Dietitian/Med Surg Nurse Dietitian/Med Surg Nurse to monitor nutritional status and make changes and/or recommendations as needed and work with speech pathology on dietary upgrades as the occur. Physician IPOC Medical Issues being managed closely and that require the 24 hour availability of a physician: Recent hip fracture with h/o COPD and current smoking with high risk for respiratory compromise. Medical Issues: Bowel/Bladder Function, DVT Prophylaxis, Falls Precautions, Fluid/Electrolyte/Nutrition Balance, Infection Protection, Pain Management Brief Synthesis of Preadmission Screen, Post-Admission Evaluation, and Therapy Evaluations: PT OT will focus on regaining ADL independence along with ambulation with fall risk prevention along with energy conservation with O2 weaning Medical Prognosis: Good Anticipated Length of Stay: 7 days CATRACHITA DIAS DO Apr 11, 2020 08:45
--- NOTE | 2020-04-11 08:45 | PM&R Progress Note ---
Subjective HPI/CC On Admission Date Seen by Provider: Apr 11, 2020 Time Seen by Provider: 10:00 Subjective/Events-last exam Pt had a good night Pain is very well controlled Hgb 8.7, checked iron level, that is pending so will initiate iron infusion Oxycodone is working pretty well for him Bowels really moved very well yesterday Conferred with RN Reviewed therapy notes Checked meds and labs Review of Systems General: Fatigue, Malaise Musculoskeletal: leg pain Neurological: Weakness Objective Exam Vital Signs Vital Signs Date Time Temp Pulse Resp B/P (MAP) Pulse Ox O2 Delivery O2 Flow Rate FiO2 04/11/20 16:23 37.0 82 16 100/59 (73) 92 Room Air 04/11/20 08:04 1.00 04/10/20 14:52 24 Capillary Refill : Less Than 3 SecondsLess Than 3 Seconds General Appearance: No Apparent Distress, WD/WN, Chronically ill HEENT: PERRL/EOMI, Normal ENT Inspection, Pharynx Normal Neck: Full Range of Motion, Normal Inspection, Non Tender, Supple Respiratory: Chest Non Tender, No Accessory Muscle Use, No Respiratory Distress, Decreased Breath Sounds, Rhonci Cardiovascular: Regular Rate, Rhythm, No Edema, No Gallop, No JVD, No Murmur, Normal Peripheral Pulses, Gallop/S4 Gastrointestinal: Normal Bowel Sounds, No Organomegaly, No Pulsatile Mass, Non Tender, Soft Back: Normal Inspection, No CVA Tenderness, No Vertebral Tenderness Extremity: Normal Capillary Refill, Normal Inspection, Normal Range of Motion (except right leg), Non Tender, No Calf Tenderness, No Pedal Edema Neurologic/Psychiatric: Alert, Oriented x3, No Motor/Sensory Deficits, Normal Mood/Affect, lamination operator II-XII Norm as Tested, Abnormal Gait Skin: Normal Color, Warm/Dry, Other (right hip with dry dressing in place) Lymphatic: No Adenopathy Results/Procedures Lab Laboratory Tests 04/11/20 05:25 Patient resulted labs reviewed. FIM Transfers Therapy Code Descriptions/Definitions Functional [place] Measure: 0=Not Assessed/NA 4=Minimal Assistance 1=Total Assistance 5=Supervision or Setup 2=Maximal Assistance 6=Modified [place] 3=Moderate Assistance 7=Complete IndependenceSCALE: Activities may be completed with or without assistive devices. 9-Saeicezpbt-ehkpwsv completes the activity by him/herself with no assistance from a helper. 5-Set-up or Clean-up Assistance-helper sets up or cleans up; patient completes activity. [place] assists only prior to or following the activity. 4-Supervision or Touching Assistance-helper provides verbal cues and/or touching/steadying and/or contact guard assistance as patient completes activity. Assistance may be provided throughout the activity or intermittently. 3-Partial/Moderate Assistance-helper does LESS THAN HALF the effort. [place] lifts, holds or supports trunk or limbs, but provides less than half the effort. 2-Substantial/Maximal Assistance-helper does MORE THAN HALF the effort. [place] lifts or holds trunk or limbs and provides more than half the effort. 3-Zakprxeol-obzuis does ALL the effort. Patient does none of the effort to complete the activity. Or, the assistance of 2 or more helpers is required for the patient to complete the activity. If activity was not attempted, code reason: 7-Patient Refused. 9-Not Applicable-not attempted and the patient did not perform the activity before the current illness, exacerbation or injury. 10-Not Attempted due to Environmental Limitations-(lack of equipment, weather restraints, etc.). 88-Not Attempted due to Medical Conditions or Safety Concerns. Roll Left to Right (QC): 4 Sit to Lying (QC): 4 Sit to Stand (QC): 4 Chair/Upd-tf-Cmzjr Xfer(QC): 4 Car Transfer (QC): 4 Gait Training Does the Patient Walk?: Yes Distance: 150'x2 Walk 10 feet (QC): 4 Walk 50 ft with 2 Turns(QC): 4 Walk 150 ft (QC): 4 Walking 10ft/uneven surface-QC: 4 Gait Assistive Device: FWW Wheelchair Training Does the Pt Use a Wheelchair?: No Wheel 50 ft with 2 turns (QC): 9 Wheel 150 ft (QC): 9 Stair Training 1 Step (curb) (QC): 4 4 Steps (QC): 88 12 Steps (QC): 88 Balance Picking up an Object (QC): 88 ADL-Treatment Eating (QC): 6 (Pt ate lunch without difficulty.) Oral Hygiene (QC): 5 (set up with oral care at recliner) Shower/Bathe Self (QC): 3 (Assist BLEs lower legs/feet. Pt able to wash upper body, UEs, chest/abdomen, buttocks/periarea with CGA in standing.) Upper Body Dressing (QC): 5 (set up) Lower Body Dressing (QC): 3 (assist threading RLE into pants, pt then able to t hread LLE and manage pants up in stand. ) On/Off Footwear (QC): 1 (Pt requires assistance donning/doffing gripper socks) Toileting Hygiene (QC): 4 (Pt able to manage pants up/down and perform hygiene, CGA in stance at FWW) Assessment/Plan Assessment and Plan Assess & Plan/Chief Complaint Assessment: s/p right hip fracture uncomplicated repair COPD Smoker HTN HLP Recovered alcoholic Constipation Plan: Jairo MDI IRF protocol BM regimen 04/11/20: Continue changing dressing of right hip fracture site Continue bowel regimen Pain control IV iron infusion Monitor postop anemia (1) Closed right hip fracture Status: Acute (2) Smoker (3) Recovering alcoholic in remission (4) HTN (hypertension) (5) CAD (coronary artery disease) (6) COPD (chronic obstructive pulmonary disease) ACTRACHITA DIAS DO Apr 11, 2020 08:45
--- NOTE | 2020-04-11 09:08 | Occupational Ther Daily Note ---
OT Current Status-Daily Note Subjective Pt seen in recliner, states 4/10 pain in R hip. Pt agrees to OT, states desire for shower. Alert/ Ox4. Pt seen in recliner. States minimal pain, then pain jumps to 6/10 post standing. Mental Status/Objective Patient Orientation: Person, Place, Time, Situation, Normal For Age Attachments: Oxygen (1L) ADL-Treatment Therapy Code Descriptions/Definitions Functional [place] Measure: 0=Not Assessed/NA 4=Minimal Assistance 1=Total Assistance 5=Supervision or Setup 2=Maximal Assistance 6=Modified [place] 3=Moderate Assistance 7=Complete IndependenceSCALE: Activities may be completed with or without assistive devices. 9-Vqsmuhikrz-ptayxzg completes the activity by him/herself with no assistance from a helper. 5-Set-up or Clean-up Assistance-helper sets up or cleans up; patient completes activity. [place] assists only prior to or following the activity. 4-Supervision or Touching Assistance-helper provides verbal cues and/or touching/steadying and/or contact guard assistance as patient completes activity. Assistance may be provided throughout the activity or intermittently. 3-Partial/Moderate Assistance-helper does LESS THAN HALF the effort. [place] lifts, holds or supports trunk or limbs, but provides less than half the effort. 2-Substantial/Maximal Assistance-helper does MORE THAN HALF the effort. [place] lifts or holds trunk or limbs and provides more than half the effort. 4-Bgcpivrin-zesagf does ALL the effort. Patient does none of the effort to complete the activity. Or, the assistance of 2 or more helpers is required for the patient to complete the activity. If activity was not attempted, code reason: 7-Patient Refused. 9-Not Applicable-not attempted and the patient did not perform the activity before the current illness, exacerbation or injury. 10-Not Attempted due to Environmental Limitations-(lack of equipment, weather restraints, etc.). 88-Not Attempted due to Medical Conditions or Safety Concerns. Eating (QC): 6 Bathing Location: L Arm, R Arm, L Upper Leg, R Upper Leg, Chest, Abdomen, Buttocks, Perineal Area Shower/Bathe Self (QC): 3 (min A: assist with calves/ distal bilaterally and SBA in stance for bottom.) Upper Body Dressing (QC): 5 (s/u) Lower Body Dressing (QC): 2 (max A for B NANI hose, boxers (requires assist RLE) and pants (assist BLE and CGA in stance)) On/Off Footwear: 4 (Pt able to doff with dressing stick with education prior. Pt requires max A donning BLE socks. Pt states he is "stiff"Pt completes sock aide donning bilaterally with SBA) Toileting Hygiene (QC): 4 (CGA) Toilet Transfer (QC): 4 (CGA and cues for walker positioning.) Other Treatment Pt completes sit to stands with SBA, ambulation and transfers with CGA. Pt completes shower post-prep (covering dressing/ IV) as outlined above. Pt's 02 assessed in shower at 96% wihtout O2. Pt completes dressing in sit, pt educated on use of dressing stick for adaptive technique to doff sock. Pt returns to sit in recliner, NANI hose donned. Pt's 02 at 92% post shower, 1L donned again. Pt left in recliner with all needs met, call light in reach, PT present. Pt seen in recliner, desires oral hygiene. Pt sit to stand with SBA/ ambulates and stands in bathroom for ~5 min for oral hygiene (SUP). Pt educated on use of abdomen on sink to increase fx balance during bimanual task. Pt sits in recliner, educated on use of dressing stick/ sock aide. Pt dons sock bilaterally with cues. Pt and OT discuss home environment. Pt states daughter in law will assist in grocery shopping, pt cooks own meals, pt must walk ~3 doors down for laundry room (cues for smaller loads), pt would benefit from walker tray for indoor use. Pt educated on fact, pt states desire to go home as soon as possible. All needs met, call light in reach. Education OT Patient Education: Correct positioning, Modified ADL techniques, Progress toward Goal/Update tx plan, Purpose of tx/functional activities, Rehab process, Safety issues, Transfer techniques, Use of adapted equipment Teaching Recipient: Patient Teaching Methods: Demonstration, Discussion Response to Teaching: Verbalize Understanding, Return Demonstration OT Short Term Goals Short Term Goals Time Frame: Apr 19, 2020 Lower body dressin Putting on/taking off footwear: 3 OT Long-Term Goals Cathode Builder Goals Time Frame: Apr 28, 2020 Eating (QC): 6 Oral Hygiene (QC): 6 Toileting Hygiene (QC): 6 Shower/Bathe Self (QC): 6 Upper Body Dressing (QC): 6 Lower Body Dressing (QC): 6 On/Off Footwear (QC): 6 Additional Goals: 1-Demonstrate ADL Tasks, 2-Verbalize Understanding, 3- ImproveStrength/Deborah 1=Demonstrate adherence to instructed precautions during ADL tasks. 2=Patient will verbalize/demonstrate understanding of assistive devices/modifications for ADL. 3=Patient will improve strength/tolerance for activity to enable patient to perform ADL's. OT Education/Plan Problem List/Assessment Assessment: Decreased Activ Tolerance, Dependent Transfers, Edema, Impaired Funct Balance, Impaired I ADL's, Impaired Self-Care Skills Discharge Recommendations Plan/Recommendations: Continue POC Therapy Discharge Recommendati: Home & Family Equpiment Recommendations-D/C: Hip Kit Treatment Plan/Plan of Care Treatment,Training & Education: Yes Patient would benefit from OT for education, treatment and training to promote independence in ADL's, mobility, safety and/or upper extremity function for ADL's. Plan of Care: ADL Retraining, Functional Mobility, Group Exercise/Act as Ind, UE Funct Exercise/Act Treatment Duration: Apr 28, 2020 Frequency: At least 5 of 7 days/Wk (IRF) Estimated Hrs Per Day: 1.5 hours per day Rehab Potential: Fair Time/GCodes Start Time: 08:00 (1425) Stop Time: 09:00 (1455) Total Time Billed (hr/min): 90 Billed Treatment Time 0769-7276: 1, ADL 4 (60) 1436-0295: 1, ADL 2 (30) Total: 90 PAPA HOYT OTR Apr 11, 2020 09:08
--- NOTE | 2020-04-11 09:56 | Physical Therapy Daily Note ---
PT Daily Note-Current Subjective Pt presents sitting upright in recliner. Pt agrees to PT. Pt reports pain and swelling in R hip. Appearance At the conclusion of PT tx patient is sitting upright in recliner with access to tray, call button, and all needs having been met. Mental Status Patient Orientation: Person, Place, Time, Eyes Open, Situation Attachments: Oxygen Transfers SCALE: Activities may be completed with or without assistive devices. 0-Pwwadssetx-ntwfpjw completes the activity by him/herself with no assistance from a helper. 5-Set-up or Clean-up Assistance-helper sets up or cleans up; patient completes activity. [place] assists only prior to or following the activity. 4-Supervision or Touching Assistance-helper provides verbal cues and/or touching/steadying and/or contact guard assistance as patient completes activity. Assistance may be provided throughout the activity or intermittently. 3-Partial/Moderate Assistance-helper does LESS THAN HALF the effort. [place] lifts, holds or supports trunk or limbs, but provides less than half the effort. 2-Substantial/Maximal Assistance-helper does MORE THAN HALF the effort. [place] lifts or holds trunk or limbs and provides more than half the effort. 3-Zfqjrgnas-oovyhw does ALL the effort. Patient does none of the effort to complete the activity. Or, the assistance of 2 or more helpers is required for the patient to complete the activity. If activity was not attempted, code reason: 7-Patient Refused. 9-Not Applicable-not attempted and the patient did not perform the activity before the current illness, exacerbation or injury. 10-Not Attempted due to Environmental Limitations-(lack of equipment, weather restraints, etc.). 88-Not Attempted due to Medical Conditions or Safety Concerns. Sit to Lying (QC): 4 Lying to Sitting/Side of Bed(Q: 3 (Needed therapist's arm to act as handrail and pull self up) Sit to Stand (QC): 4 Chair/Kjb-cm-Kgnox Xfer(QC): 4 Weight Bearing Right Lower Extremity: Right Partial Weight Bearing Left Lower Extremity: Left Full Weight Bearing Gait Training Does the Patient Walk?: Yes Distance: 150' x2 Walk 10 feet (QC): 4 Walk 50 ft with 2 Turns(QC): 4 Walk 150 ft (QC): 4 Gait Assistive Device: FWW Antalgic gait; pt reports 25-35% weightbearing on R side. Pt able to walk 150' without rest to begin treatment, when walking back to room at end of treatment patient required multiple standing rest breaks. Exercises Supine Ex: Bridging, Heel Slides, Straight leg raise (10 reps; pt required min assist to raise RLE), Hip abd/add Supine Reps: 20 Seated Therapy Exercises: Ankle pumps (HR/TR), Long arc quads, Hip abd/add (2s pillow squeeze) Seated Reps: 20 Seated lateral weight shifts x20 Treatments Gait training and LE strengthening Assessment Current Status: Good Progress Pt is requiring less rest breaks therefore is improving LE endurance. PT Short Term Goals Short Term Goals Time Frame: Apr 17, 2020 Roll Left & Right: 4 (SBA) Sit to lyin (SBA) Lying to sitting on side of be: 4 (SBA) Sit to stand: 4 (SBA) Chair/dej-wt-otvmg transfer: 4 (SBA) Toilet transfer: 5 Walk 10 feet: 4 (SBA) Walk 50 feet with two turns: 4 (SBA) Walk 150 feet: 4 (SBA) PT Dowel Sander Operator Goals Dowel Sander Operator Goals PT [facility]sp Goals Time Frame: Apr 24, 2020 Roll Left & Right (QC): 6 Sit to Lying (QC): 6 Lying-Sitting on Side/Bed(QC): 6 Sit to Stand (QC): 6 Chair/Mwe-ik-Ywzlq Xfer(QC): 6 Toilet Transfer (QC): 6 Car Transfer (QC): 5 Does the Patient Walk: Yes Walk 10 feet (QC): 5 Walk 50ft with 2 Turns (QC): 5 Walk 150 ft (QC): 5 Walking 10ft on Uneven Surface: 5 1 Step (curb) (QC): 4 4 Steps (QC): 88 12 Steps (QC): 88 Picking up an Object (QC): 88 Does the Pt use WC or Scooter?: No Wheel 50 feet with 2 turns (QC: 9 Wheel 150 feet: 9 PT Plan Problem List Problem List: Activity Tolerance, Functional Strength, Safety, Balance, Gait, Transfer, Bed Mobility, ROM Treatment/Plan Treatment Plan: Continue Plan of Care Treatment Plan: Bed Mobility, Education, Functional Activity Deborah, Functional Strength, Group Therapy, Gait, Safety, Therapeutic Exercise, Transfers Treatment Duration: Apr 24, 2020 Frequency: At least 5 of 7 days/Wk (IRF) Estimated Hrs Per Day: 1.5 hours per day Patient and/or Family Agrees t: Yes Safety Risks/Education Patient Education: Gait Training, Transfer Techniques, Reviewed Precautions, Correct Positioning, Safety Issues Teaching Recipient: Patient Teaching Methods: Demonstration, Discussion Response to Teaching: Reinforcement Needed Time/GCodes Time In: 0900 Time Out: 1000 Total Billed Treatment Time: 60 Total Billed Treatment 1 visit GT 15' EX 45' RAFAEL ARZOLA PT Apr 11, 2020 09:56
--- NOTE | 2020-04-11 10:05 | NUR ---
O2 SAT ON RA WHILE IN CHAIR 97%. DENIES NEEDS OR C/O AT THIS TIME. DRESSING D/I. CONT TO MONITOR.
--- NOTE | 2020-04-11 10:51 | NUR ---
Pt is Sabian[employer]. Making Department Preparer provided prayer and Communion.
[2020-04-11] MEDS: IRON SUCROSE 200 MG/10 ML (VENOFER) VIAL IV SCH (11:00)
[2020-04-11] MEDS: DOCUSATE SODIUM 100 MG (COLACE) CAP PO SCH ×2 (11:01→19:39)
[2020-04-11] MEDS ORDERED: SODIUM CHLORIDE FLUSH 10 ML IV PRN (11:01)
--- NOTE | 2020-04-11 12:53 | Progress Note ---
Subjective Date Seen by a Provider: Apr 11, 2020 Time Seen by a Provider: 12:51 Subjective/Events-last exam Fwup right femur fracture--S/P IM jose alfredo, COPD, HTN, post-op anemia. Sitting up in chair. Pain well controlled. Appetite better. Had BM yesterday. Objective Exam Vital Signs Date Time Temp Pulse Resp B/P (MAP) Pulse Ox O2 Delivery O2 Flow Rate FiO2 04/11/20 08:30 96 Room Air 04/11/20 08:04 90 Nasal Cannula 1.00 04/11/20 05:49 36.7 73 18 123/61 (81) 93 Nasal Cannula 1.00 04/10/20 20:38 Nasal Cannula 1.00 04/10/20 19:57 Nasal Cannula 1.00 04/10/20 16:00 37.0 80 16 124/57 (79) 94 04/10/20 14:52 36.2 73 94 24 I & O 04/11/20 07:00 Intake Total 950 ml Output Total 450 ml Balance 500 ml Capillary Refill : Less Than 3 SecondsLess Than 3 Seconds General Appearance: No Apparent Distress Neck: Supple Respiratory: Lungs Clear Cardiovascular: Regular Rate, Rhythm Gastrointestinal: normal bowel sounds, non tender, soft Extremity: Non Tender, No Calf Tenderness Neurologic/Psychiatric: Alert, Oriented x3 Skin: Warm/Dry Results Lab Laboratory Tests 04/11/20 05:25: White Blood Count 10.5, Red Blood Count 2.71L, Hemoglobin 8.7L, Hematocrit 26L, Mean Corpuscular Volume 97, Mean Corpuscular Hemoglobin 32, Mean Corpuscular Hemoglobin Concent 33, Red Cell Distribution Width 18.9H, Platelet Count 655H, Mean Platelet Volume 11.1H, Neutrophils (%) (Auto) 68, Lymphocytes (%) (Auto) 19, Monocytes (%) (Auto) 12, Eosinophils (%) (Auto) 1, Basophils (%) (Auto) 0, Neutrophils # (Auto) 7.1, Lymphocytes # (Auto) 2.0, Monocytes # (Auto) 1.2H, Eosinophils # (Auto) 0.1, Basophils # (Auto) 0.0, Sodium Level 136, Potassium Level 3.6, Chloride Level 106, Carbon Dioxide Level 21, Anion Gap 9, Blood Urea Nitrogen 8, Creatinine 0.77, Estimat Glomerular Filtration Rate > 60, BUN/Creatinine Ratio 10, Glucose Level 100, Calcium Level 8.1L, Corrected Calcium 8.7, Total Bilirubin 0.8, Aspartate Amino Transf (AST/SGOT) 31, Alanine Aminotransferase (ALT/SGPT) 16, Alkaline Phosphatase 59, Total Protein 6.1L, Albumin 3.3 04/11/20 05:28: Assessment/Plan Assessment/Plan Assess & Plan/Chief Complaint 1. Right Femur Fracture--S/P IM jose alfredo placement, pain contol, DVT prophylaxis, PT/OT 2. Hypertension--back on home meds 3. 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 Post-op anemia--monitor H/H 5. Constipation--on bowel regimen Clinical Quality Measures DVT/VTE Risk/Contraindication: Risk Factor Score Per Nursin RFS Level Per Nursing on Admit: 4+=Very High GLORY MARTIN DO Apr 11, 2020 12:53
--- NOTE | 2020-04-11 13:31 | Physical Therapy Daily Note ---
PT Daily Note-Current Subjective Pt presents sitting in recliner. Pt agrees to PT. Pt reports 5/10 pain in R hip; he did not receive pain medication prior to therapy. Pt reports a therapist told him he no longer needed supplemental oxygen. Appearance At the conclusion of PT tx patient returns to sitting in recliner. Pt has access to tray, call button, and all needs have been met. Mental Status Patient Orientation: Person, Place, Time, Eyes Open, Situation Transfers SCALE: Activities may be completed with or without assistive devices. 8-Auuoxrgunr-ukhgybf completes the activity by him/herself with no assistance from a helper. 5-Set-up or Clean-up Assistance-helper sets up or cleans up; patient completes activity. [place] assists only prior to or following the activity. 4-Supervision or Touching Assistance-helper provides verbal cues and/or touching/steadying and/or contact guard assistance as patient completes activity. Assistance may be provided throughout the activity or intermittently. 3-Partial/Moderate Assistance-helper does LESS THAN HALF the effort. [place] lifts, holds or supports trunk or limbs, but provides less than half the effort. 2-Substantial/Maximal Assistance-helper does MORE THAN HALF the effort. [place] lifts or holds trunk or limbs and provides more than half the effort. 5-Izqjqmyqy-dftugs does ALL the effort. Patient does none of the effort to complete the activity. Or, the assistance of 2 or more helpers is required for the patient to complete the activity. If activity was not attempted, code reason: 7-Patient Refused. 9-Not Applicable-not attempted and the patient did not perform the activity before the current illness, exacerbation or injury. 10-Not Attempted due to Environmental Limitations-(lack of equipment, weather restraints, etc.). 88-Not Attempted due to Medical Conditions or Safety Concerns. Sit to Stand (QC): 4 Chair/Mxl-ao-Rjwcc Xfer(QC): 4 Weight Bearing Right Lower Extremity: Right Partial Weight Bearing Left Lower Extremity: Left Full Weight Bearing Gait Training Does the Patient Walk?: Yes Distance: 200' Walk 10 feet (QC): 4 Walk 50 ft with 2 Turns(QC): 4 Walk 150 ft (QC): 4 Gait Assistive Device: FWW Treatments Gait training Assessment Current Status: Good Progress Pt is concerned that he has not made enough progress already; pt reminded that it is only his second day of rehab and that we are following weightbearing precautions. Pt able to hold standing balance while using B UE to pull up LE clothing. Pt needed a few standing rest breaks to catch breath during gait training. PT Short Term Goals Short Term Goals Time Frame: Apr 17, 2020 Roll Left & Right: 4 (SBA) Sit to lyin (SBA) Lying to sitting on side of be: 4 (SBA) Sit to stand: 4 (SBA) Chair/knv-yl-bjtiw transfer: 4 (SBA) Toilet transfer: 5 Walk 10 feet: 4 (SBA) Walk 50 feet with two turns: 4 (SBA) Walk 150 feet: 4 (SBA) PT Detention Goals Detention Goals PT Creel Selector Goals Time Frame: Apr 24, 2020 Roll Left & Right (QC): 6 Sit to Lying (QC): 6 Lying-Sitting on Side/Bed(QC): 6 Sit to Stand (QC): 6 Chair/Isf-wt-Hqyrl Xfer(QC): 6 Toilet Transfer (QC): 6 Car Transfer (QC): 5 Does the Patient Walk: Yes Walk 10 feet (QC): 5 Walk 50ft with 2 Turns (QC): 5 Walk 150 ft (QC): 5 Walking 10ft on Uneven Surface: 5 1 Step (curb) (QC): 4 4 Steps (QC): 88 12 Steps (QC): 88 Picking up an Object (QC): 88 Does the Pt use WC or Scooter?: No Wheel 50 feet with 2 turns (QC: 9 Wheel 150 feet: 9 PT Plan Problem List Problem List: Activity Tolerance, Functional Strength, Safety, Balance, Gait, Transfer, Bed Mobility, ROM Treatment/Plan Treatment Plan: Continue Plan of Care Treatment Plan: Bed Mobility, Education, Functional Activity Deborah, Functional Strength, Group Therapy, Gait, Safety, Therapeutic Exercise, Transfers Treatment Duration: Apr 24, 2020 Frequency: At least 5 of 7 days/Wk (IRF) Estimated Hrs Per Day: 1.5 hours per day Patient and/or Family Agrees t: Yes Safety Risks/Education Patient Education: Gait Training, Reviewed Precautions, Safety Issues Teaching Recipient: Patient Teaching Methods: Demonstration, Discussion Response to Teaching: Reinforcement Needed Time/GCodes Time In: 1300 Time Out: 1320 Total Billed Treatment Time: 20 Total Billed Treatment 1 visit GT 20' KRTEK,RAFAEL PT Apr 11, 2020 13:31
--- NOTE | 2020-04-11 13:49 | ST Cognitive Linguistic Eval ---
Speech Evaluation-General Medical Diagnosis R hip fx, S/P IM nail Onset Date: Apr 06, 2020 Therapy Diagnosis Therapy Diagnosis: Cognitive-communication Referral Referring Physician: Dr. Zaragoza Medical History Pertinent Medical History: COPD Reviewed History: Yes Social History Current Living Status: Alone Speech PLF-Current Status Prior Level of Function Patient lives alone with family support as needed. Subjective Patient was pleasant and cooperative with the cognitive assessment. Language Eval: Auditory Comprehends Simple Yes/No Ques: Functional Indent/Objects Multiple [place]: Functional Ident/Pics in Multiple [place]: Functional Follows 1-Step Commands: Functional Follows Complex Directions: Functional Follows General Conversations: Functional Language Eval: Verbal Language Completes Spontaneous Greeting: Functional Produces Auto, Serial Info: Functional Imitates Simple Words/Phrases: Functional Word Finding: Functional Requests Basic Needs: Functional States Basic Personal Info: Functional Expresses Complex Ideas: Functional Objective Cognitive Domain Attention: WNL Memory: WNL Problem Solving: Functional Executive Functions: WNL Visuospatial Skills: WNL Composite Severity Rating: WNL Clock Drawing Severity Rating: WNL Objective Formal/Standardized Tests [facility] Status ([facility]) Results 28/30, within normal range of function Oral Motor/Speech Production Within Normal Limits Impression Patient is a pleasant 74 y/o male who was admitted to the ARU s/p fractured hip. Patient was given the UMS with a score of 28/30 obtained. This score is within the normal range of function. No further ST services are indicated at this time. Speech Patient Assess Expression of Ideas/Wants: Expression (4) Understanding Verbal Content: Understands (4) Brief Interview-Mental Status: Yes Repetition of Three Words: Three (3) Temporal Orientation: Year: Correct (3) Temporal Orientation: Month: Accurate within 5 days(2) Temporal Orientation: Day: Correct (1) Recall : Wear to say "Sock": Yes, no cue required (2) Recall : Color: Yes, no cue required (2) Recall : Bed: Yes,after cueing (1) Memory/Recall Ability: Current season, Location of own room, That he or she is in a hsp/hsp unit Speech-Plan Patient/Family Goals Patient/Family Goals: Patient plans on returning to his home upon discharge. Treatment Plan Speech Therapy Treatment Plan: Discontinue ST Treatment Duration: Apr 11, 2020 Frequency: 1 time per week Estimated Hrs Per Day: .25 hour per day Rehab Potential: Fair Barriers to Learning: Patient's health issues and age Pt/Family Agrees to Plan: Yes Safety Risks/Education Teaching Recipient: Patient Teaching Methods: Discussion Response to Teaching: Verbalize Understanding Education Topics Provided: Safety within his room and communication of wants/needs Time Speech Therapy Time In: 11:30 Speech Therapy Time Out: 11:45 Total Billed Time: 15 Billed Treatment Time 1, DAVIDNDNATALIEP ALONZO Humphreys Apr 11, 2020 13:49
--- NOTE | 2020-04-11 14:01 | NUR ---
RD ASSESSMENT PMHx: COPD; GERD; HTN; hypercholesterolemia; diverticulosis; current - R hip fracture PT INTERACTION: Pt was awake and pleasant during nutrition assessment. Pt states current appetite is "better today than it was yesterday," as it had been poor since his surgery. Note avg PO intake 38% x1d, per chart review. Pt states following a regular diet at home, and has no issues with chewing/swallowing food. Pt states some recent issues with constipation. Note last BM was 04/11, and pt currently on bowel regimen of colace BID; senna BID; and miralax BID, per chart review. Pt states recent 10# wt loss x12mon. Note unable to determine recent wt hx, per chart review. ABNORMAL NUTRITION-RELATED LAB VALUES LOW: Ca 8.1; Pro 6.1 HIGH: Est. kcal needs: 1400 kcal | 20 kcal/kg Est. Pro needs: 84 g Pro | 1.2 g Pro/kg PES STATEMENT: Inadequate oral intake (NI-2.1) related to loss of appetite | constipation as evidenced by pt interview | avg PO intake 38% x1d INTERVENTION: Continue with current diet order of Regular diet. Add Ensure Enlive (vary) to meals TID, for increased kcal intake. Provides 350 kcal and 13 g Pro per serving. Encouraged pt to eat when able. Will continue to follow and reassess as pt needs, intake, and status change. Argentina Nguyen, MS, RD, LD
[2020-04-11 16:23] VITALS: BP 100/59
[2020-04-11] MEDS: MONTELUKAST 10 MG (SINGULAIR) TAB PO SCH (19:53)
--- NOTE | 2020-04-11 23:20 | NUR ---
Took over care of patient from FRANCISCO Dsohi. Agreed with previous cash processor. Pt resting with eyes closed, no complaints for now.
[2020-04-12] MEDS: oxyCODONE/APAP 5/325MG (PERCOCET 5) TABLET PO PRN ×3 (02:12→20:59)
[2020-04-12] MEDS: LEVOTHYROXINE 75 MCG (LEVOTHROID) TABLET PO SCH (05:58)
[2020-04-12 06:38] VITALS: BP 124/66
[2020-04-12] MEDS: ARFORMOTEROL 15 MCG/2 ML (BROVANA) INH SOLUTIION IH SCH ×2 (07:18→20:05)
[2020-04-12] MEDS: VITAMIN D3 125 MCG (5,000 UNITS) CAPSULE PO SCH (08:05)
[2020-04-12] MEDS: ENOXAPARIN 40 MG/0.4 ML (LOVENOX) SYR SC SCH (08:05)
[2020-04-12] MEDS: LORATADINE (CLARITIN) 10 MG TAB PO SCH (08:06)
[2020-04-12] MEDS: polyethylene glycoL POWDER 17 GM (MIRALAX) PACK PO SCH ×2 (08:06→19:52)
[2020-04-12] MEDS: ASPIRIN E.C. 81 MG (ECOTRIN) TAB PO SCH (08:06)
[2020-04-12] MEDS: DOCUSATE SODIUM 100 MG (COLACE) CAP PO SCH ×2 (08:06→19:51)
[2020-04-12] MEDS: amLODIPine 5 MG (NORVASC) TAB PO SCH (08:06)
[2020-04-12] MEDS: SENNA W/DOCUSATE (SENOKOT S) TABLET PO SCH ×2 (08:06→19:52)
[2020-04-12] MEDS: lisINopril 40 MG (PRINIVIL) TABLET PO SCH (08:06)
--- NOTE | 2020-04-12 09:02 | Occupational Ther Daily Note ---
OT Current Status-Daily Note Subjective Pt seated in recliner, agreeable to OT tx. Pt did not verbalize pain rating during tx. ADL-Treatment Therapy Code Descriptions/Definitions Functional [place] Measure: 0=Not Assessed/NA 4=Minimal Assistance 1=Total Assistance 5=Supervision or Setup 2=Maximal Assistance 6=Modified [place] 3=Moderate Assistance 7=Complete IndependenceSCALE: Activities may be completed with or without assistive devices. 0-Lbmwhucguz-sxuvhjf completes the activity by him/herself with no assistance from a helper. 5-Set-up or Clean-up Assistance-helper sets up or cleans up; patient completes activity. [place] assists only prior to or following the activity. 4-Supervision or Touching Assistance-helper provides verbal cues and/or touching/steadying and/or contact guard assistance as patient completes activity. Assistance may be provided throughout the activity or intermittently. 3-Partial/Moderate Assistance-helper does LESS THAN HALF the effort. Ranger lif ts, holds or supports trunk or limbs, but provides less than half the effort. 2-Substantial/Maximal Assistance-helper does MORE THAN HALF the effort. [place] lifts or holds trunk or limbs and provides more than half the effort. 5-Gblcynyrq-xsqpfp does ALL the effort. Patient does none of the effort to complete the activity. Or, the assistance of 2 or more helpers is required for the patient to complete the activity. If activity was not attempted, code reason: 7-Patient Refused. 9-Not Applicable-not attempted and the patient did not perform the activity before the current illness, exacerbation or injury. 10-Not Attempted due to Environmental Limitations-(lack of equipment, weather restraints, etc.). 88-Not Attempted due to Medical Conditions or Safety Concerns. Eating (QC): 6 (Pt reports no difficulties eating ) Oral Hygiene (QC): 4 (SBA standing at sink) Upper Body Dressing (QC): 5 (set up) Lower Body Dressing (QC): 4 (SBA, OT educated pt on AE to don pants, pt able to complete with min verbal cues) On/Off Footwear: 3 (Pt able to doff socks using parts counter clerk, OT donned TEDhose for pt. Pt able to don shoes with min A with AE after OT switched laces for elastic shoelaces.) Toileting Hygiene (QC): 4 (Pt used urinal in standing at FWW, SBA) Other Treatment Pt seated at recliner, completed dressing. OT educated pt on using AE for lower body dressing and footwear. Pt agreed to OT switching out his laces for elastic shoe laces due to pt reporting difficulty with bending forward to tie shoes. Pt then able to don shoes using long handled parts counter clerk. Pt ambulated to restroom, standing at sink to complete oral care, use urinal, and use electric razer to shave. Pt returned to recliner. Post OT Tx, pt seated in recliner, call light in reach and all needs met. Education OT Patient Education: Correct positioning, Modified ADL techniques, Progress toward Goal/Update tx plan, Purpose of tx/functional activities, Safety issues, Use of adapted equipment Teaching Recipient: Patient Teaching Methods: Discussion Response to Teaching: Verbalize Understanding OT Short Term Goals Short Term Goals Time Frame: Apr 19, 2020 Lower body dressin Putting on/taking off footwear: 3 OT Penitentiary Goals Milk Vendor Goals Time Frame: Apr 28, 2020 Eating (QC): 6 Oral Hygiene (QC): 6 Toileting Hygiene (QC): 6 Shower/Bathe Self (QC): 6 Upper Body Dressing (QC): 6 Lower Body Dressing (QC): 6 On/Off Footwear (QC): 6 Additional Goals: 1-Demonstrate ADL Tasks, 2-Verbalize Understanding, 3-ImproveStrength/Deborah 1=Demonstrate adherence to instructed precautions during ADL tasks. 2=Patient will verbalize/demonstrate understanding of assistive devices/modifications for ADL. 3=Patient will improve strength/tolerance for activity to enable patient to perform ADL's. OT Education/Plan Problem List/Assessment Assessment: Decreased Activ Tolerance, Impaired I ADL's, Impaired Self-Care Skills Discharge Recommendations Plan/Recommendations: Continue POC Equpiment Recommendations-D/C: Extended Bath Bench, Hip Kit, Long Shoe [place] Treatment Plan/Plan of Care Patient would benefit from OT for education, treatment and training to promote independence in ADL's, mobility, safety and/or upper extremity function for ADL's. Plan of Care: ADL Retraining, Functional Mobility, Group Exercise/Act as Ind, UE Funct Exercise/Act Treatment Duration: Apr 28, 2020 Frequency: At least 5 of 7 days/Wk (IRF) Estimated Hrs Per Day: 1.5 hours per day Rehab Potential: Fair Time/GCodes Start Time: 08:00 Stop Time: 09:00 Total Time Billed (hr/min): 60 Billed Treatment Time 1, ADL 4 MAURICIO LANG OT Apr 12, 2020 09:02
--- NOTE | 2020-04-12 09:11 | PM&R Progress Note ---
Subjective HPI/CC On Admission Date Seen by Provider: Apr 12, 2020 Time Seen by Provider: 09:00 Subjective/Events-last exam 04/12/20: No major issue [place] checked on his incision and it is doing well and less drainage Bowels moving pretty well Remains on oxygen and weening that down Pt had a good night Pain is very well controlled Hgb 8.7, checked iron level, that is pending so will initiate iron infusion Oxycodone is working pretty well for him Bowels really moved very well yesterday Conferred with RN Reviewed therapy notes Checked meds and labs Review of Systems General: Fatigue, Malaise Neurological: Weakness Objective Exam Vital Signs Vital Signs Date Time Temp Pulse Resp B/P (MAP) Pulse Ox O2 Delivery O2 Flow Rate FiO2 04/12/20 20:05 88 Room Air 04/12/20 17:30 37.0 78 18 127/56 (79) 04/11/20 08:04 1.00 04/10/20 14:52 24 Capillary Refill : Less Than 3 SecondsLess Than 3 Seconds General Appearance: No Apparent Distress, WD/WN, Chronically ill HEENT: PERRL/EOMI, Normal ENT Inspection, Pharynx Normal Neck: Full Range of Motion, Normal Inspection, Non Tender, Supple Respiratory: Chest Non Tender, No Accessory Muscle Use, No Respiratory Distress, Decreased Breath Sounds, Rhonci Cardiovascular: Regular Rate, Rhythm, No Edema, No Gallop, No JVD, No Murmur, Normal Peripheral Pulses, Gallop/S4 Gastrointestinal: Normal Bowel Sounds, No Organomegaly, No Pulsatile Mass, Non Tender, Soft Back: Normal Inspection, No CVA Tenderness, No Vertebral Tenderness Extremity: Normal Capillary Refill, Normal Inspection, Normal Range of Motion (except right leg), Non Tender, No Calf Tenderness, No Pedal Edema Neurologic/Psychiatric: Alert, Oriented x3, No Motor/Sensory Deficits, Normal Mood/Affect, it service technician II-XII Norm as Tested, Abnormal Gait Skin: Normal Color, Warm/Dry, Other (right hip with dry dressing in place) Lymphatic: No Adenopathy Results/Procedures Lab Patient resulted labs reviewed. FIM Transfers Therapy Code Descriptions/Definitions Functional [place] Measure: 0=Not Assessed/NA 4=Minimal Assistance 1=Total Assistance 5=Supervision or Setup 2=Maximal Assistance 6=Modified [place] 3=Moderate Assistance 7=Complete IndependenceSCALE: Activities may be completed with or without assistive devices. 8-Lmypemxzqt-siuglkd completes the activity by him/herself with no assistance from a helper. 5-Set-up or Clean-up Assistance-helper sets up or cleans up; patient completes activity. [place] assists only prior to or following the activity. 4-Supervision or Touching Assistance-helper provides verbal cues and/or touching/steadying and/or contact guard assistance as patient completes activity. Assistance may be provided throughout the activity or intermittently. 3-Partial/Moderate Assistance-helper does LESS THAN HALF the effort. [place] lifts, holds or supports trunk or limbs, but provides less than half the effort. 2-Substantial/Maximal Assistance-helper does MORE THAN HALF the effort. [place] lifts or holds trunk or limbs and provides more than half the effort. 5-Ihcbxmmtx-iogntl does ALL the effort. Patient does none of the effort to complete the activity. Or, the assistance of 2 or more helpers is required for the patient to complete the activity. If activity was not attempted, code reason: 7-Patient Refused. 9-Not Applicable-not attempted and the patient did not perform the activity before the current illness, exacerbation or injury. 10-Not Attempted due to Environmental Limitations-(lack of equipment, weather restraints, etc.). 88-Not Attempted due to Medical Conditions or Safety Concerns. Roll Left to Right (QC): 4 Sit to Lying (QC): 4 Sit to Stand (QC): 4 Chair/Ssa-px-Hutmd Xfer(QC): 4 Car Transfer (QC): 4 Gait Training Does the Patient Walk?: Yes Distance: 200' Walk 10 feet (QC): 4 Walk 50 ft with 2 Turns(QC): 4 Walk 150 ft (QC): 4 Walking 10ft/uneven surface-QC: 4 Gait Assistive Device: FWW Wheelchair Training Wheel 50 ft with 2 turns (QC): 9 Wheel 150 ft (QC): 9 Stair Training 1 Step (curb) (QC): 4 4 Steps (QC): 88 12 Steps (QC): 88 Balance Picking up an Object (QC): 88 ADL-Treatment Eating (QC): 6 (Pt reports no difficulties eating ) Oral Hygiene (QC): 4 (SBA standing at sink) Bathing Location: L Arm, R Arm, L Upper Leg, R Upper Leg, Chest, Abdomen, Buttocks, Perineal Area Shower/Bathe Self (QC): 3 (min A: assist with calves/ distal bilaterally and SBA in stance for bottom.) Upper Body Dressing (QC): 5 (set up) Lower Body Dressing (QC): 4 (SBA, OT educated pt on AE to don pants, pt able to complete with min verbal cues) On/Off Footwear (QC): 3 (Pt able to doff socks using agricultural engineering technologist, OT donned TEDhose for pt. Pt able to don shoes with min A with AE after OT switched laces for elastic shoelaces.) Toileting Hygiene (QC): 4 (Pt used urinal in standing at FWW, SBA) Toilet Transfer (QC): 4 (CGA and cues for walker positioning.) Assessment/Plan Assessment and Plan Assess & Plan/Chief Complaint Assessment: s/p right hip fracture uncomplicated repair COPD Smoker HTN HLP Recovered alcoholic Constipation Plan: Jairo MDI IRF protocol BM regimen 04/11/20: Continue changing dressing of right hip fracture site Continue bowel regimen Pain control IV iron infusion Monitor postop anemia 04/12/20: Monitor respiratory status nebulizer treatments Oxygen supplementation Pain control (1) Closed right hip fracture Status: Acute (2) Smoker (3) Recovering alcoholic in remission (4) HTN (hypertension) (5) CAD (coronary artery disease) (6) COPD (chronic obstructive pulmonary disease) CATRACHITA DIAS DO Apr 12, 2020 09:11
--- NOTE | 2020-04-12 10:05 | Progress Note ---
Standard Progress Note Progress Notes/Assess & Plan Date Seen by a Provider: Apr 12, 2020 Time Seen by a Provider: 10:04 Progress/Assessment & Plan no complaints Vital Signs Date Time Temp Pulse Resp B/P (MAP) Pulse Ox O2 Delivery O2 Flow Rate FiO2 04/12/20 07:18 93 Room Air 04/12/20 06:38 37.0 71 14 124/66 (85) 92 Room Air 04/11/20 20:51 Room Air 04/11/20 20:00 96 Room Air 04/11/20 16:23 37.0 82 16 100/59 (73) 92 Room Air I & O 04/12/20 07:00 Intake Total 1700 ml Output Total 875 ml Balance 825 ml R hip incisions clean and dry. No calf tenderness. Neg Levon's s/p R hip IM jose alfredo advancing well continue PT/OT REBEKA CODY MD Apr 12, 2020 10:05
--- NOTE | 2020-04-12 11:59 | Physical Therapy Daily Note ---
PT Daily Note-Current Subjective Pt states his pain level in right hip is improving and is 4/10 presently. Pt. comments mostly about the edema and stiffness. Pt. states he is really hoping to DC on Friday, his son can transport him then and stay with him as well Pain Numeric Pain Scale: 4 Location: Right Location Body Site: Hip Pain Description: Ache Mental Status Patient Orientation: Normal For Age Attachments: Other-See Comments (mask while out of room) Transfers SCALE: Activities may be completed with or without assistive devices. 2-Qjbgyrfahx-fyybxjn completes the activity by him/herself with no assistance from a helper. 5-Set-up or Clean-up Assistance-helper sets up or cleans up; patient completes activity. [place] assists only prior to or following the activity. 4-Supervision or Touching Assistance-helper provides verbal cues and/or touching/steadying and/or contact guard assistance as patient completes activity. Assistance may be provided throughout the activity or intermittently. 3-Partial/Moderate Assistance-helper does LESS THAN HALF the effort. [place] lifts, holds or supports trunk or limbs, but provides less than half the effort. 2-Substantial/Maximal Assistance-helper does MORE THAN HALF the effort. [place] lifts or holds trunk or limbs and provides more than half the effort. 0-Begjigtci-uekxsj does ALL the effort. Patient does none of the effort to complete the activity. Or, the assistance of 2 or more helpers is required for the patient to complete the activity. If activity was not attempted, code reason: 7-Patient Refused. 9-Not Applicable-not attempted and the patient did not perform the activity before the current illness, exacerbation or injury. 10-Not Attempted due to Environmental Limitations-(lack of equipment, weather restraints, etc.). 88-Not Attempted due to Medical Conditions or Safety Concerns. Roll Left & Right (QC): 6 Sit to Lying (QC): 6 Lying to Sitting/Side of Bed(Q: 6 Sit to Stand (QC): 6 Chair/Wcj-wr-Wzyhb Xfer(QC): 6 Toilet Transfer (QC): 6 Weight Bearing Right Lower Extremity: Right Partial Weight Bearing Left Lower Extremity: Left Full Weight Bearing Gait Training Does the Patient Walk?: Yes Walk 10 feet (QC): 5 Walk 50 ft with 2 Turns(QC): 5 Walk 150 ft (QC): 5 Gait Persons Needed: 1 Gait Assistive Device: FWW no LOB, maintains PWB ing right well., takes standing rest breaks occas secondary to SOB , mask and COPD Hx Exercises Supine Ex: Ankle pumps, Quad Set, Rolling, Glut sets, Heel Slides, Short Arc Quads, Scooting, Straight leg raise (assisted right), Hip abd/add Supine Reps: 20 Seated Therapy Exercises: Ankle pumps, Sit to stand, Long arc quads Seated Reps: 20 NuStep Minutes: 10 NuStep Workload: 4 Treatments shallow presses on Nustep x 12 Assessment Current Status: Good Progress gives full effort, progressing well in all phases of Rx PT Short Term Goals Short Term Goals Time Frame: Apr 17, 2020 Roll Left & Right: 4 (SBA) Sit to lyin (SBA) Lying to sitting on side of be: 4 (SBA) Sit to stand: 4 (SBA) Chair/vbx-lm-cqpvf transfer: 4 (SBA) Toilet transfer: 5 Walk 10 feet: 4 (SBA) Walk 50 feet with two turns: 4 (SBA) Walk 150 feet: 4 (SBA) PT Half-Way Goals Half-Way Goals PT Excavating Machine Operator Goals Time Frame: Apr 24, 2020 Roll Left & Right (QC): 6 Sit to Lying (QC): 6 Lying-Sitting on Side/Bed(QC): 6 Sit to Stand (QC): 6 Chair/Mbn-bd-Ocruy Xfer(QC): 6 Toilet Transfer (QC): 6 Car Transfer (QC): 5 Does the Patient Walk: Yes Walk 10 feet (QC): 5 Walk 50ft with 2 Turns (QC): 5 Walk 150 ft (QC): 5 Walking 10ft on Uneven Surface: 5 1 Step (curb) (QC): 4 4 Steps (QC): 88 12 Steps (QC): 88 Picking up an Object (QC): 88 Does the Pt use WC or Scooter?: No Wheel 50 feet with 2 turns (QC: 9 Wheel 150 feet: 9 PT Plan Treatment/Plan Treatment Plan: Continue Plan of Care Treatment Plan: Bed Mobility, Education, Functional Activity Deborah, Functional Strength, Group Therapy, Gait, Safety, Therapeutic Exercise, Transfers Treatment Duration: Apr 24, 2020 Frequency: At least 5 of 7 days/Wk (IRF) Estimated Hrs Per Day: 1.5 hours per day Patient and/or Family Agrees t: Yes Safety Risks/Education Patient Education: Gait Training, Transfer Techniques, Correct Positioning, Disease Process, Safety Issues Teaching Recipient: Patient Teaching Methods: Demonstration, Discussion Response to Teaching: Verbalize Understanding, Return Demonstration, Reinforcement Needed Time/GCodes Time In: 1100 Time Out: 1200 Total Billed Treatment Time: 60 Total Billed Treatment 1,GT20m,EX25m,FA15m MECHELLE DOMINGUEZ CLERK OPERATOR Apr 12, 2020 11:59
--- NOTE | 2020-04-12 12:49 | Progress Note ---
Subjective Date Seen by a Provider: Apr 12, 2020 Time Seen by a Provider: 12:48 Subjective/Events-last exam Fwup right femur fracture--S/P IM jose alfredo, COPD, HTN, post-op anemia. Sitting up in chair. Pain well controlled. Objective Exam Vital Signs Date Time Temp Pulse Resp B/P (MAP) Pulse Ox O2 Delivery O2 Flow Rate FiO2 04/12/20 07:18 93 Room Air 04/12/20 06:38 37.0 71 14 124/66 (85) 92 Room Air 04/11/20 20:51 Room Air 04/11/20 20:00 96 Room Air 04/11/20 16:23 37.0 82 16 100/59 (73) 92 Room Air I & O 04/12/20 07:00 Intake Total 1700 ml Output Total 875 ml Balance 825 ml Capillary Refill : Less Than 3 SecondsLess Than 3 Seconds General Appearance: No Apparent Distress Respiratory: Decreased Breath Sounds, Rhonci Cardiovascular: Regular Rate, Rhythm Gastrointestinal: normal bowel sounds, non tender, soft Extremity: Non Tender, No Calf Tenderness, No Pedal Edema Neurologic/Psychiatric: Alert, Oriented x3 Skin: Warm/Dry Assessment/Plan Assessment/Plan Assess & Plan/Chief Complaint 1. Right Femur Fracture--S/P IM jose alfredo placement, pain contol, DVT prophylaxis, PT/OT 2. Hypertension--back on home meds 3. 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 Post-op anemia--monitor H/H 5. Constipation--on bowel regimen Clinical Quality Measures DVT/VTE Risk/Contraindication: Risk Factor Score Per Nursin RFS Level Per Nursing on Admit: 4+=Very High GLORY MARTIN DO Apr 12, 2020 12:49
--- NOTE | 2020-04-12 14:48 | Therapy Group Daily Note ---
Therapy Daily Group Note Patient Education Topic Home Safety, Home Safety, Exercises, Other List Below (ARU description/expectations) Exercises LE Seated Exercise, UE Exercise Session Ratio (pt:therapist): 4:1 Goal of Session: Education on ARU Expectations, Home Safety Strategies, UE/LE Strengthing Goal Met for this Session: Yes Pt Benefit of Group: Contributions to Others, F/U Use of Strategies @Home, Increased Functional Safety, Increased Functional Strength, Recognition of Peer s, Socialization Other/Notes Pt ambulated using FWW from room to [facility] OT/PT group. Group consisted of LE/UE seated exercises, ARU description/expectations, and home safety. Pt participated in introduction(name, where you are from, and random question), actively listened to peers.Engaged in seated LE/UE exercises. Pt acknowledged understanding of educational topics by giving own examples. Pt ambulated back to room. After group, pt laying in bed. Call light/phone in reach. All needs met. Start Time: 12:50 Stop Time: 14:15 Total Billed Treatment Time: 85 Total Billed Treatment 1, GRP JOSEPH TORIBIO Apr 12, 2020 14:47
--- NOTE | 2020-04-12 16:13 | NUR ---
CM/SS ADMISSION Patient was admitted to ARU 04/10/20 from [facility] post op for closed right hip fracture status post IM nail. 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 Patient has resided alone for many years, he lives in handicap accessible [facility] apartments. He was completely independent prior to this accident, he was fishing and stepped down from the boat and trailer, lost his balance and fell with resulting fracture. Patient plans to return to his apartment as before and desires to be able to care for himself like cooking, and gradually back to household duties. PCP: Vidhya Cabrera DO [place] [facility] [place] INSURANCE: Medicare, [employer] [place] supplement DME: Patient has a nebulizer for COPD, he has no other assistive devices and has never needed any. BARRIERS TO DISCHARGE: Patient indicates some financial limitations and hardship due to living only on his Social Security income, that all his fpc funds are gone. Patient will have several DME items that are not Medicare covered and those will be out of pocket. His children are mainly available when not working, so likely weekends. CONTACTS: Santos Junior, [place] [address] [place] [address] Amaya Pinzon, Daughter Donnelly, [place] Son Jack DENISE Patient understood the purpose and process of the weekly patient care conference and that his proposed discharge is 04/15/20.
--- NOTE | 2020-04-12 16:45 | NUR ---
CM/SS PATIENT CARE CONFERENCE Patient understands that his target discharge is 04/15/20. He did express concern about not knowing how he would do home alone, and he had originally proposed a weekend discharge to the therapy team because his family would be off work and more available. Discussed his concerns at length, namely what assistive devices were recommended and the support of home health services. Patient has 3 children, a son in [place], daughter in [place], son in [place]. He indicated his daughter came up when he had surgery and that she would return this weekend. He also shared that his children work and are not readily available during normal business hours. Therapy team expressed confidence in his readiness to return home; however, patient agreed to a revisit of his thoughts on Friday to assess for final planning. Dollyman updated Lead Therapist of patient's concerns, sleeping on his side, and general restrictions for movement/positioning. Therapy team members to respond to his questions/concerns and encourage correct and safe home performance. HHC: Reviewed Medicare Compare agencies in patient's service area, he asked for services with [facility]. Referral initiated for PT and OT. DME: Needs are FWW, Tub Transfer Bench, Hip Kit, some sort of stool riser. Medicare benefits are available for FWW, all other items will be private pay. Dollyman will discuss with children regarding getting these items independently or through an agency, depending on OOP cost.
[2020-04-12 17:30] VITALS: BP 127/56
[2020-04-12] MEDS: LOPERAMIDE 2 MG (IMODIUM) TABLET PO PRN (18:24)
[2020-04-12] MEDS: MONTELUKAST 10 MG (SINGULAIR) TAB PO SCH (20:50)
--- NOTE | 2020-04-13 05:30 | PM&R Progress Note ---
Subjective HPI/CC On Admission Date Seen by Provider: Apr 13, 2020 Time Seen by Provider: 10:00 Subjective/Events-last exam 04/13/20: Percocet ordered and has helped with the pain Doing pretty well overall Bowels moved yesterday and they were loose May need to delay discharge IV iron infusion maintained 04/12/20: No major issue [place] checked on his incision and it is doing well and less drainage Bowels moving pretty well Remains on oxygen and weening that down Pt had a good night Pain is very well controlled Hgb 8.7, checked iron level, that is pending so will initiate iron infusion Oxycodone is working pretty well for him Bowels really moved very well yesterday Conferred with RN Reviewed therapy notes Checked meds and labs Review of Systems General: Fatigue, Malaise Musculoskeletal: leg pain Objective Exam Vital Signs Vital Signs Date Time Temp Pulse Resp B/P (MAP) Pulse Ox O2 Delivery O2 Flow Rate FiO2 04/13/20 20:20 Room Air 04/13/20 17:24 35.6 72 18 103/53 (70) 93 04/11/20 08:04 1.00 04/10/20 14:52 24 Capillary Refill : Less Than 3 SecondsLess Than 3 Seconds General Appearance: No Apparent Distress, WD/WN, Chronically ill HEENT: PERRL/EOMI, Normal ENT Inspection, Pharynx Normal Neck: Full Range of Motion, Normal Inspection, Non Tender, Supple Respiratory: Chest Non Tender, No Accessory Muscle Use, No Respiratory Distress, Decreased Breath Sounds, Rhonci Cardiovascular: Regular Rate, Rhythm, No Edema, No Gallop, No JVD, No Murmur, Normal Peripheral Pulses, Gallop/S4 Gastrointestinal: Normal Bowel Sounds, No Organomegaly, No Pulsatile Mass, Non Tender, Soft Back: Normal Inspection, No CVA Tenderness, No Vertebral Tenderness Extremity: Normal Capillary Refill, Normal Inspection, Normal Range of Motion (except right leg), Non Tender, No Calf Tenderness, No Pedal Edema Neurologic/Psychiatric: Alert, Oriented x3, No Motor/Sensory Deficits, Normal Mood/Affect, market development trainer II-XII Norm as Tested, Abnormal Gait Skin: Normal Color, Warm/Dry, Other (right hip with dry dressing in place) Lymphatic: No Adenopathy Results/Procedures Lab Patient resulted labs reviewed. FIM Transfers Therapy Code Descriptions/Definitions Functional [place] Measure: 0=Not Assessed/NA 4=Minimal Assistance 1=Total Assistance 5=Supervision or Setup 2=Maximal Assistance 6=Modified [place] 3=Moderate Assistance 7=Complete IndependenceSCALE: Activities may be completed with or without assistive devices. 3-Dftqovvnla-mnzvsjc completes the activity by him/herself with no assistance from a helper. 5-Set-up or Clean-up Assistance-helper sets up or cleans up; patient completes activity. [place] assists only prior to or following the activity. 4-Supervision or Touching Assistance-helper provides verbal cues and/or touching/steadying and/or contact guard assistance as patient completes activ ity. Assistance may be provided throughout the activity or intermittently. 3-Partial/Moderate Assistance-helper does LESS THAN HALF the effort. [place] lifts, holds or supports trunk or limbs, but provides less than half the effort. 2-Substantial/Maximal Assistance-helper does MORE THAN HALF the effort. [place] lifts or holds trunk or limbs and provides more than half the effort. 4-Jhmdgluen-ckmqdk does ALL the effort. Patient does none of the effort to complete the activity. Or, the assistance of 2 or more helpers is required for the patient to complete the activity. If activity was not attempted, code reason: 7-Patient Refused. 9-Not Applicable-not attempted and the patient did not perform the activity before the current illness, exacerbation or injury. 10-Not Attempted due to Environmental Limitations-(lack of equipment, weather restraints, etc.). 88-Not Attempted due to Medical Conditions or Safety Concerns. Roll Left to Right (QC): 6 Sit to Lying (QC): 6 Sit to Stand (QC): 6 Chair/Fxa-av-Cdqym Xfer(QC): 6 Car Transfer (QC): 4 Gait Training Does the Patient Walk?: Yes Distance: 200' Walk 10 feet (QC): 5 Walk 50 ft with 2 Turns(QC): 5 Walk 150 ft (QC): 5 Walking 10ft/uneven surface-QC: 4 Gait Persons Needed: 1 Gait Assistive Device: FWW Wheelchair Training Does the Pt Use a Wheelchair?: No Wheel 50 ft with 2 turns (QC): 9 Wheel 150 ft (QC): 9 Stair Training 1 Step (curb) (QC): 4 4 Steps (QC): 88 12 Steps (QC): 88 Balance Picking up an Object (QC): 88 ADL-Treatment Eating (QC): 6 (Pt reports no difficulties eating ) Oral Hygiene (QC): 4 (SBA standing at sink) Bathing Location: L Arm, R Arm, L Upper Leg, R Upper Leg, Chest, Abdomen, Buttocks, Perineal Area Shower/Bathe Self (QC): 3 (min A: assist with calves/ distal bilaterally and SBA in stance for bottom.) Upper Body Dressing (QC): 5 (set up) Lower Body Dressing (QC): 4 (SBA, OT educated pt on AE to don pants, pt able to complete with min verbal cues) On/Off Footwear (QC): 3 (Pt able to doff socks using senior systems engineer, OT donned TEDhose for pt. Pt able to don shoes with min A with AE after OT switched laces for elastic shoelaces.) Toileting Hygiene (QC): 4 (Pt used urinal in standing at FWW, SBA) Toilet Transfer (QC): 4 (CGA and cues for walker positioning.) Assessment/Plan Assessment and Plan Assess & Plan/Chief Complaint Assessment: s/p right hip fracture uncomplicated repair COPD Smoker HTN HLP Recovered alcoholic Constipation Plan: Jairo MDI IRF protocol BM regimen 04/11/20: Continue changing dressing of right hip fracture site Continue bowel regimen Pain control IV iron infusion Monitor postop anemia 04/12/20: Monitor respiratory status nebulizer treatments Oxygen supplementation Pain control 04/13/20: Wean O2 Pain control IRF protocol (1) Closed right hip fracture Status: Acute (2) Smoker (3) Recovering alcoholic in remission (4) HTN (hypertension) (5) CAD (coronary artery disease) (6) COPD (chronic obstructive pulmonary disease) CATRACHITA DIAS DO Apr 13, 2020 05:30
[2020-04-13 06:01] VITALS: BP 116/57
[2020-04-13] MEDS: LEVOTHYROXINE 75 MCG (LEVOTHROID) TABLET PO SCH (06:34)
[2020-04-13] MEDS: ARFORMOTEROL 15 MCG/2 ML (BROVANA) INH SOLUTIION IH SCH ×2 (07:10→20:25)
[2020-04-13] MEDS: lisINopril 40 MG (PRINIVIL) TABLET PO SCH (08:59)
[2020-04-13] MEDS: ASPIRIN E.C. 81 MG (ECOTRIN) TAB PO SCH (08:59)
[2020-04-13] MEDS: VITAMIN D3 125 MCG (5,000 UNITS) CAPSULE PO SCH (08:59)
[2020-04-13] MEDS: amLODIPine 5 MG (NORVASC) TAB PO SCH (08:59)
[2020-04-13] MEDS: IRON SUCROSE 200 MG/10 ML (VENOFER) VIAL IV SCH (09:00)
[2020-04-13] MEDS: LORATADINE (CLARITIN) 10 MG TAB PO SCH (09:00)
[2020-04-13] MEDS: oxyCODONE/APAP 5/325MG (PERCOCET 5) TABLET PO PRN ×2 (09:00→20:46)
--- NOTE | 2020-04-13 09:40 | Occupational Ther Daily Note ---
OT Current Status-Daily Note Subjective Pt seen in recliner. Pt states 5/10 pain in R hip. Pt agrees to OT tx session. Later in session states 7/10 pain, quickly resolves. Pt states hesitation to d/c Friday due to limited confidence as he will be home alone. OT and pt complete most tasks pt will be completing through the day that pt feels unsure of. Mental Status/Objective Patient Orientation: Normal For Age ADL-Treatment Therapy Code Descriptions/Definitions Functional [place] Measure: 0=Not Assessed/NA 4=Minimal Assistance 1=Total Assistance 5=Supervision or Setup 2=Maximal Assistance 6=Modified [place] 3=Moderate Assistance 7=Complete IndependenceSCALE: Activities may be completed with or without assistive devices. 9-Zhnvtdiynj-typdlza completes the activity by him/herself with no assistance from a helper. 5-Set-up or Clean-up Assistance-helper sets up or cleans up; patient completes activity. [place] assists only prior to or following the activity. 4-Supervision or Touching Assistance-helper provides verbal cues and/or touching/steadying and/or contact guard assistance as patient completes activity. Assistance may be provided throughout the activity or intermittently. 3-Partial/Moderate Assistance-helper does LESS THAN HALF the effort. [place] lifts, holds or supports trunk or limbs, but provides less than half the effort. 2-Substantial/Maximal Assistance-helper does MORE THAN HALF the effort. [place] lifts or holds trunk or limbs and provides more than half the effort. 6-Hgbyylguw-llssfl does ALL the effort. Patient does none of the effort to complete the activity. Or, the assistance of 2 or more helpers is required for the patient to complete the activity. If activity was not attempted, code reason: 7-Patient Refused. 9-Not Applicable-not attempted and the patient did not perform the activity before the current illness, exacerbation or injury. 10-Not Attempted due to Environmental Limitations-(lack of equipment, weather restraints, etc.). 88-Not Attempted due to Medical Conditions or Safety Concerns. Eating (QC): 6 Oral Hygiene (QC): 6 Shower/Bathe Self (QC): 7 Lower Body Dressing (QC): 4 On/Off Footwear: 6 Toileting Hygiene (QC): 4 Toilet Transfer (QC): 6 Other Treatment All sit to stands with SBA-SUP with use of walker. Ambulates with walker with SBA-SUP. Pt completes pant/ sock doffing and donning with SBA. No cues required. Pt able to utilize AE appropriately. Pt ambulates to sink, completes oral care with IND. Pt states limited confidence with completing "all my things I do through the day." Pt ambulates to kitchen area; with limited cues, pt able to navigate kitchen, grabbing from high cabinet and mid-shelf in refrigerator with SBA. Pt able to open microwave and pour coffee with safety/ no LOB. Pt states difficulty with fridge at home as it is smaller/ shorter, requiring pt to reach lower. Pt reaches for multiple cones placed around therapy gym, able to grab all with good safety in tight corners/ high shelves and low shelves. In shower room, pt completes tub transfer bench with demonstration to start and VCs. Pt then completes with SBA, stands in tub to practice bottom/ [place] hygiene, and returns to stance outside of shower at walker level. Pt states he is surprised by how easy this task is. Pt states he is getting a BSC at d/c as well, though he states he was able to get off/ on the standard toilet days ago. Pt educated that pt does not have precautions that require him having a BSC, but this would be beneficial to have if fatigued/ desires handles. Pt states he thinks he desires. Pt returns to room, educated on use of walker tray. Pt stands to utilize walker tray, gets in pt's way during this task. Walker basket donned on pt's walker. Pt left with other therapy at this time. All needs met. Education OT Patient Education: Correct positioning, Modified ADL techniques, Progress toward Goal/Update tx plan, Purpose of tx/functional activities, Safety issues, Transfer techniques, Use of adapted equipment Teaching Recipient: Patient Teaching Methods: Demonstration, Discussion Response to Teaching: Verbalize Understanding, Return Demonstration, Reinforcement Needed OT Short Term Goals Short Term Goals Time Frame: Apr 19, 2020 Lower body dressin Putting on/taking off footwear: 3 OT Residential Goals Shaft Mechanic Goals Time Frame: Apr 28, 2020 Eating (QC): 6 Oral Hygiene (QC): 6 Toileting Hygiene (QC): 6 Shower/Bathe Self (QC): 6 Upper Body Dressing (QC): 6 Lower Body Dressing (QC): 6 On/Off Footwear (QC): 6 Additional Goals: 1-Demonstrate ADL Tasks, 2-Verbalize Understanding, 3-ImproveStrength/Deborah 1=Demonstrate adherence to instructed precautions during ADL tasks. 2=Patient will verbalize/demonstrate understanding of assistive devices/modifications for ADL. 3=Patient will improve strength/tolerance for activity to enable patient to perform ADL's. OT Education/Plan Problem List/Assessment Assessment: Decreased Activ Tolerance, Impaired I ADL's Discharge Recommendations Plan/Recommendations: Continue POC Therapy Discharge Recommendati: Home & Family Equpiment Recommendations-D/C: Extended Bath Bench, Bedside Commode (or rails), Hip Kit, Rails on Toilet Treatment Plan/Plan of Care Treatment,Training & Education: Yes Patient would benefit from OT for education, treatment and training to promote independence in ADL's, mobility, safety and/or upper extremity function for ADL's. Plan of Care: ADL Retraining, Functional Mobility, Group Exercise/Act as Ind, UE Funct Exercise/Act Treatment Duration: Apr 28, 2020 Frequency: At least 5 of 7 days/Wk (IRF) Estimated Hrs Per Day: 1.5 hours per day Rehab Potential: Fair Time/GCodes Start Time: 08:25 Stop Time: 09:45 Total Time Billed (hr/min): 75 Billed Treatment Time 1, ADL 3 (45), FA 2 (30)= (75) PAPA HOYT OTR Apr 13, 2020 09:40
--- NOTE | 2020-04-13 10:22 | Occupational Ther Daily Note ---
OT Current Status-Daily Note Subjective Pt seated in recliner, this OT took over OT tx. Pt agreeable. Pt expresses concerns with going home due to not having anyone to assist him except for the weekends. OT encouraged pt and discussed his progress since starting therapy, and about the assistance level he requires with ADLs at this time. Pt agrees he is doing well but still is fearful about going home. ADL-Treatment Therapy Code Descriptions/Definitions Functional [place] Measure: 0=Not Assessed/NA 4=Minimal Assistance 1=Total Assistance 5=Supervision or Setup 2=Maximal Assistance 6=Modified [place] 3=Moderate Assistance 7=Complete IndependenceSCALE: Activities may be completed with or without assistive devices. 4-Fudeqwaxht-anbzdan completes the activity by him/herself with no assistance from a helper. 5-Set-up or Clean-up Assistance-helper sets up or cleans up; patient completes activity. [place] assists only prior to or following the activity. 4-Supervision or Touching Assistance-helper provides verbal cues and/or touching/steadying and/or contact guard assistance as patient completes activity. Assistance may be provided throughout the activity or intermittently. 3-Partial/Moderate Assistance-helper does LESS THAN HALF the effort. [place] lifts, holds or supports trunk or limbs, but provides less than half the effort. 2-Substantial/Maximal Assistance-helper does MORE THAN HALF the effort. [place] lifts or holds trunk or limbs and provides more than half the effort. 3-Okjxpjcfk-mkkllb does ALL the effort. Patient does none of the effort to complete the activity. Or, the assistance of 2 or more helpers is required for the patient to complete the activity. If activity was not attempted, code reason: 7-Patient Refused. 9-Not Applicable-not attempted and the patient did not perform the activity before the current illness, exacerbation or injury. 10-Not Attempted due to Environmental Limitations-(lack of equipment, weather restraints, etc.). 88-Not Attempted due to Medical Conditions or Safety Concerns. Other Treatment OT educated pt on walker basket in order to get items from one room to another at home. Pt able to ambulate around room and gather clothes from counter and bathroom, and go to closet to put away. Pt then returned to [facility] with task. OT educated pt on using containers with lids to carry food from kitchen to area he wants to eat at, as well as drinking bottles with caps on them so liquid does not spill when carrying in basket. Pt verbalized understanding. Pt feels like his main concern with going home is not being able to sleep since he is used to sleeping on his side, OT informed pt if he feels like the recliner is more comfortable, than he can sleep there vs the bed when he goes home, pt agreeable. Post OT tx, pt seated in recliner, call light in reach and all needs met. Education OT Patient Education: Correct positioning, Modified ADL techniques, Progress toward Goal/Update tx plan, Purpose of tx/functional activities, Safety issues, Transfer techniques, Use of adapted equipment Teaching Recipient: Patient Teaching Methods: Discussion Response to Teaching: Verbalize Understanding OT Short Term Goals Short Term Goals Time Frame: Apr 19, 2020 Lower body dressin Putting on/taking off footwear: 3 OT Skilled Nursing Goals Social Science Analyst Goals Time Frame: Apr 28, 2020 Eating (QC): 6 Oral Hygiene (QC): 6 Toileting Hygiene (QC): 6 Shower/Bathe Self (QC): 6 Upper Body Dressing (QC): 6 Lower Body Dressing (QC): 6 On/Off Footwear (QC): 6 Additional Goals: 1-Demonstrate ADL Tasks, 2-Verbalize Understanding, 3- ImproveStrength/Deborah 1=Demonstrate adherence to instructed precautions during ADL tasks. 2=Patient will verbalize/demonstrate understanding of assistive devices/modifications for ADL. 3=Patient will improve strength/tolerance for activity to enable patient to perform ADL's. OT Education/Plan Problem List/Assessment Assessment: Decreased Activ Tolerance, Impaired I ADL's Discharge Recommendations Plan/Recommendations: Continue POC Equpiment Recommendations-D/C: Walker Bag or Basket Treatment Plan/Plan of Care Patient would benefit from OT for education, treatment and training to promote independence in ADL's, mobility, safety and/or upper extremity function for ADL's. Plan of Care: ADL Retraining, Functional Mobility, Group Exercise/Act as Ind, UE Funct Exercise/Act Treatment Duration: Apr 28, 2020 Frequency: At least 5 of 7 days/Wk (IRF) Estimated Hrs Per Day: 1.5 hours per day Rehab Potential: Fair Time/GCodes Start Time: 09:45 Stop Time: 10:00 Total Time Billed (hr/min): 15 Billed Treatment Time ADL MAURICIO LANG OT Apr 13, 2020 10:22
--- NOTE | 2020-04-13 11:16 | NUR ---
Anointed and Communion provided by Fr Meraz.
--- NOTE | 2020-04-13 11:53 | Physical Therapy Daily Note ---
PT Daily Note-Current Subjective Pt presents sitting upright in recliner. Pt agrees to PT. Pt reports unrated pain in R hip. Appearance At conclusion of PT tx patient returns to recliner where he as access to tray, call button, and all needs have been met. Mental Status Patient Orientation: Person, Place, Time, Eyes Open, Situation Transfers SCALE: Activities may be completed with or without assistive devices. 0-Pnxdaairrj-wxudrjv completes the activity by him/herself with no assistance from a helper. 5-Set-up or Clean-up Assistance-helper sets up or cleans up; patient completes activity. [place] assists only prior to or following the activity. 4-Supervision or Touching Assistance-helper provides verbal cues and/or touching/steadying and/or contact guard assistance as patient completes activity. Assistance may be provided throughout the activity or intermittently. 3-Partial/Moderate Assistance-helper does LESS THAN HALF the effort. [place] lifts, holds or supports trunk or limbs, but provides less than half the effort. 2-Substantial/Maximal Assistance-helper does MORE THAN HALF the effort. [place] lifts or holds trunk or limbs and provides more than half the effort. 9-Famgxizxs-iqmanu does ALL the effort. Patient does none of the effort to complete the activity. Or, the assistance of 2 or more helpers is required for the patient to complete the activity. If activity was not attempted, code reason: 7-Patient Refused. 9-Not Applicable-not attempted and the patient did not perform the activity before the current illness, exacerbation or injury. 10-Not Attempted due to Environmental Limitations-(lack of equipment, weather restraints, etc.). 88-Not Attempted due to Medical Conditions or Safety Concerns. Roll Left & Right (QC): 3 Sit to Lying (QC): 4 Lying to Sitting/Side of Bed(Q: 4 Sit to Stand (QC): 4 Chair/Ajt-lg-Xqocg Xfer(QC): 4 Pt requires cues and min assistance to roll to either side. Practiced rolling to each side. Weight Bearing Right Lower Extremity: Right Partial Weight Bearing Left Lower Extremity: Left Full Weight Bearing Gait Training Does the Patient Walk?: Yes Distance: 150'x2 Walk 10 feet (QC): 4 Walk 50 ft with 2 Turns(QC): 4 Walk 150 ft (QC): 4 Gait Assistive Device: FWW Pt ambulates with step-through pattern; antalgic gait, compliant with partial weightbearing precautions on R side. Exercises Supine Ex: Heel Slides, Straight leg raise Supine Reps: 10 Seated Therapy Exercises: Ankle pumps, Long arc quads Seated Reps: 20 Standing: Sit to Stand Standing Reps: 30 Treatments Bed Mobility and LE strengthening, ambulation Assessment Current Status: Good Progress Pt is concerned with a Friday discharge date; he would like to stay longer to continue strengthening LLE and heal RLE before being independent at home. Pt and therapist worked together to find comfortable sleeping position; pt reports he moves around a lot before actually falling asleep. Pt found that laying on his R side was less irritable than expected; laying on his L side caused pressure on L hip that traveled to R hip causing severe pain even with pillows positioned between knee and under L hip, pt reports this pain is not consistent. PT Short Term Goals Short Term Goals Time Frame: Apr 17, 2020 Roll Left & Right: 4 (SBA) Sit to lyin (SBA) Lying to sitting on side of be: 4 (SBA) Sit to stand: 4 (SBA) Chair/pdh-my-noocz transfer: 4 (SBA) Toilet transfer: 5 Walk 10 feet: 4 (SBA) Walk 50 feet with two turns: 4 (SBA) Walk 150 feet: 4 (SBA) PT Limousine Rental Clerk Goals Limousine Rental Clerk Goals PT Limousine Rental Clerk Goals Time Frame: Apr 24, 2020 Roll Left & Right (QC): 6 Sit to Lying (QC): 6 Lying-Sitting on Side/Bed(QC): 6 Sit to Stand (QC): 6 Chair/Ioe-uc-Czwfk Xfer(QC): 6 Toilet Transfer (QC): 6 Car Transfer (QC): 5 Does the Patient Walk: Yes Walk 10 feet (QC): 5 Walk 50ft with 2 Turns (QC): 5 Walk 150 ft (QC): 5 Walking 10ft on Uneven Surface: 5 1 Step (curb) (QC): 4 4 Steps (QC): 88 12 Steps (QC): 88 Picking up an Object (QC): 88 Does the Pt use WC or Scooter?: No Wheel 50 feet with 2 turns (QC: 9 Wheel 150 feet: 9 PT Plan Problem List Problem List: Activity Tolerance, Functional Strength, Safety, Balance, Gait, Transfer, Bed Mobility, ROM Treatment/Plan Treatment Plan: Continue Plan of Care Treatment Plan: Bed Mobility, Education, Functional Activity Deborah, Functional Strength, Group Therapy, Gait, Safety, Therapeutic Exercise, Transfers Treatment Duration: Apr 24, 2020 Frequency: At least 5 of 7 days/Wk (IRF) Estimated Hrs Per Day: 1.5 hours per day Patient and/or Family Agrees t: Yes Safety Risks/Education Patient Education: Gait Training, Transfer Techniques, Reviewed Precautions, Correct Positioning, Safety Issues Teaching Recipient: Patient Teaching Methods: Demonstration, Discussion Response to Teaching: Reinforcement Needed Time/GCodes Time In: 1100 Time Out: 1200 Total Billed Treatment Time: 60 Total Billed Treatment 1 visit FA 30' EX 30' RAFAEL ARZOLA PT Apr 13, 2020 11:53
[2020-04-13] MEDS: ENOXAPARIN 40 MG/0.4 ML (LOVENOX) SYR SC SCH (12:06)
[2020-04-13] MEDS: DOCUSATE SODIUM 100 MG (COLACE) CAP PO SCH ×2 (12:07→20:42)
[2020-04-13] MEDS: SENNA W/DOCUSATE (SENOKOT S) TABLET PO SCH ×2 (12:08→20:42)
[2020-04-13] MEDS: polyethylene glycoL POWDER 17 GM (MIRALAX) PACK PO SCH ×2 (12:08→20:42)
--- NOTE | 2020-04-13 12:08 | NUR ---
PT STATES THAT HE IS INTERESTED IN MEALS ON WHEELS AT DISCHARGE
--- NOTE | 2020-04-13 13:34 | Physical Therapy Daily Note ---
PT Daily Note-Current Subjective Pt presents sitting upright in recliner. Pt agrees to PT. Pt reports 4/10 pain. Appearance At conclusion of PT treatment pt is sitting upright in recliner where he has access to tray, call button, and all needs have been met. Mental Status Patient Orientation: Person, Place, Time, Eyes Open, Situation Transfers SCALE: Activities may be completed with or without assistive devices. 0-Wnnftuvggi-grqrfnj completes the activity by him/herself with no assistance from a helper. 5-Set-up or Clean-up Assistance-helper sets up or cleans up; patient completes activity. [place] assists only prior to or following the activity. 4-Supervision or Touching Assistance-helper provides verbal cues and/or touching/steadying and/or contact guard assistance as patient completes activity. Assistance may be provided throughout the activity or intermittently. 3-Partial/Moderate Assistance-helper does LESS THAN HALF the effort. [place] lifts, holds or supports trunk or limbs, but provides less than half the effort. 2-Substantial/Maximal Assistance-helper does MORE THAN HALF the effort. [place] lifts or holds trunk or limbs and provides more than half the effort. 1-Oadcivdxh-ykvnqc does ALL the effort. Patient does none of the effort to complete the activity. Or, the assistance of 2 or more helpers is required for the patient to complete the activity. If activity was not attempted, code reason: 7-Patient Refused. 9-Not Applicable-not attempted and the patient did not perform the activity before the current illness, exacerbation or injury. 10-Not Attempted due to Environmental Limitations-(lack of equipment, weather restraints, etc.). 88-Not Attempted due to Medical Conditions or Safety Concerns. Sit to Stand (QC): 4 Chair/Ogb-js-Xlzgd Xfer(QC): 4 Weight Bearing Right Lower Extremity: Right Partial Weight Bearing Left Lower Extremity: Left Full Weight Bearing Gait Training Does the Patient Walk?: Yes Distance: 150'x2 Walk 10 feet (QC): 4 Walk 50 ft with 2 Turns(QC): 4 Walk 150 ft (QC): 4 Gait Assistive Device: FWW Pt moves slow and steadily but requires multiple stops for standing rest breaks on the walk returning to room after treatment. Exercises NuStep Minutes: 15 NuStep Workload: 4 Treatments LE strengthening Assessment Current Status: Good Progress Pt increasing LE strength while staying compliant to weightbearing precautions. PT Short Term Goals Short Term Goals Time Frame: Apr 17, 2020 Roll Left & Right: 4 (SBA) Sit to lyin (SBA) Lying to sitting on side of be: 4 (SBA) Sit to stand: 4 (SBA) Chair/szn-mw-ryiab transfer: 4 (SBA) Toilet transfer: 5 Walk 10 feet: 4 (SBA) Walk 50 feet with two turns: 4 (SBA) Walk 150 feet: 4 (SBA) PT Supervisor Payroll Goals Mcfp Goals PT Mcfp Goals Time Frame: Apr 24, 2020 Roll Left & Right (QC): 6 Sit to Lying (QC): 6 Lying-Sitting on Side/Bed(QC): 6 Sit to Stand (QC): 6 Chair/Dfs-dw-Vycfb Xfer(QC): 6 Toilet Transfer (QC): 6 Car Transfer (QC): 5 Does the Patient Walk: Yes Walk 10 feet (QC): 5 Walk 50ft with 2 Turns (QC): 5 Walk 150 ft (QC): 5 Walking 10ft on Uneven Surface: 5 1 Step (curb) (QC): 4 4 Steps (QC): 88 12 Steps (QC): 88 Picking up an Object (QC): 88 Does the Pt use WC or Scooter?: No Wheel 50 feet with 2 turns (QC: 9 Wheel 150 feet: 9 PT Plan Problem List Problem List: Activity Tolerance, Functional Strength, Safety, Balance, Gait, Transfer, Bed Mobility, ROM Treatment/Plan Treatment Plan: Continue Plan of Care Treatment Plan: Bed Mobility, Education, Functional Activity Deborah, Functional Strength, Group Therapy, Gait, Safety, Therapeutic Exercise, Transfers Treatment Duration: Apr 24, 2020 Frequency: At least 5 of 7 days/Wk (IRF) Estimated Hrs Per Day: 1.5 hours per day Patient and/or Family Agrees t: Yes Safety Risks/Education Patient Education: Gait Training, Transfer Techniques, Reviewed Precautions, Correct Positioning, Safety Issues Teaching Recipient: Patient Teaching Methods: Demonstration, Discussion Response to Teaching: Reinforcement Needed Time/GCodes Time In: 1300 Time Out: 1330 Total Billed Treatment Time: 30 Total Billed Treatment 1 visit GT 15' EX 15' RAFAEL ARZOLA PT Apr 13, 2020 13:34
--- NOTE | 2020-04-13 14:09 | NUR ---
CM/SS CONCURRENT DOCUMENTATION Discussed patient independence and performance with PT team, will review 04/17/20 for status relative to safe discharge. DME: Revising after discussion with Lead Therapist: FWW, Hip Kit/private pay, vertical grab bar by bathroom stool. Attempted contact with housing landlord re installation of bathroom bar, left message, await return call. MEALS: Patient expressed interest in home delivered meals to nursing staff, will followup with him about options. HHC: Referral already initiated with [facility].
--- NOTE | 2020-04-13 15:22 | Progress Note ---
Standard Progress Note Progress Notes/Assess & Plan Date Seen by a Provider: Apr 13, 2020 Time Seen by a Provider: 15:20 Progress/Assessment & Plan no complaints Vital Signs Date Time Temp Pulse Resp B/P (MAP) Pulse Ox O2 Delivery O2 Flow Rate FiO2 04/12/20 07:18 93 Room Air 04/12/20 06:38 37.0 71 14 124/66 (85) 92 Room Air 04/11/20 20:51 Room Air 04/11/20 20:00 96 Room Air 04/11/20 16:23 37.0 82 16 100/59 (73) 92 Room Air I & O 04/12/20 07:00 Intake Total 1700 ml Output Total 875 ml Balance 825 ml R hip incisions clean and dry. No calf tenderness. Neg Levon's s/p R hip IM jose alfredo advancing well continue PT/OT Final Diagnosis no complaints RLE dressing intact. able to forward flex the hip. No calf tenderness. Neg Levon's s/p R hip IM jose alfredo continue PT/OT REBEKA CODY MD Apr 13, 2020 15:22
[2020-04-13 17:24] VITALS: BP 103/53
[2020-04-13] MEDS: MONTELUKAST 10 MG (SINGULAIR) TAB PO SCH (20:46)
[2020-04-14 05:41] VITALS: BP 108/71
[2020-04-14] MEDS: LEVOTHYROXINE 75 MCG (LEVOTHROID) TABLET PO SCH (06:17)
[2020-04-14] MEDS: ARFORMOTEROL 15 MCG/2 ML (BROVANA) INH SOLUTIION IH SCH ×2 (07:21→19:57)
[2020-04-14] MEDS: lisINopril 40 MG (PRINIVIL) TABLET PO SCH (08:20)
[2020-04-14] MEDS: amLODIPine 5 MG (NORVASC) TAB PO SCH (08:20)
[2020-04-14] MEDS: VITAMIN D3 125 MCG (5,000 UNITS) CAPSULE PO SCH (08:20)
[2020-04-14] MEDS: ASPIRIN E.C. 81 MG (ECOTRIN) TAB PO SCH (08:20)
[2020-04-14] MEDS: LORATADINE (CLARITIN) 10 MG TAB PO SCH (08:20)
[2020-04-14] MEDS: ENOXAPARIN 40 MG/0.4 ML (LOVENOX) SYR SC SCH (08:21)
[2020-04-14] MEDS: polyethylene glycoL POWDER 17 GM (MIRALAX) PACK PO SCH ×2 (08:21→19:34)
[2020-04-14] MEDS: DOCUSATE SODIUM 100 MG (COLACE) CAP PO SCH ×2 (08:22→19:33)
[2020-04-14] MEDS: SENNA W/DOCUSATE (SENOKOT S) TABLET PO SCH ×2 (08:23→19:34)
[2020-04-14 08:26] VITALS: BP 110/58
[2020-04-14] MEDS: oxyCODONE/APAP 5/325MG (PERCOCET 5) TABLET PO PRN ×3 (09:56→21:25)
--- NOTE | 2020-04-14 09:59 | PM&R Progress Note ---
Subjective HPI/CC On Admission Date Seen by Provider: Apr 14, 2020 Time Seen by Provider: 10:00 Subjective/Events-last exam 04/14/20: BM+ Incision looks good Iron infusions tolerated Edema of right leg bothers him 04/13/20: Percocet ordered and has helped with the pain Doing pretty well overall Bowels moved yesterday and they were loose May need to delay discharge IV iron infusion maintained 04/12/20: No major issue [place] checked on his incision and it is doing well and less drainage Bowels moving pretty well Remains on oxygen and weening that down Pt had a good night Pain is very well controlled Hgb 8.7, checked iron level, that is pending so will initiate iron infusion Oxycodone is working pretty well for him Bowels really moved very well yesterday Conferred with RN Reviewed therapy notes Checked meds and labs Review of Systems Cardiovascular: Edema Musculoskeletal: leg pain Objective Exam Vital Signs Vital Signs Date Time Temp Pulse Resp B/P (MAP) Pulse Ox O2 Delivery O2 Flow Rate FiO2 04/15/20 05:42 36.8 61 16 98/53 (68) 92 Room Air 04/11/20 08:04 1.00 04/10/20 14:52 24 Capillary Refill : Less Than 3 SecondsLess Than 3 Seconds General Appearance: No Apparent Distress, WD/WN, Chronically ill HEENT: PERRL/EOMI, Normal ENT Inspection, Pharynx Normal Neck: Full Range of Motion, Normal Inspection, Non Tender, Supple Respiratory: Chest Non Tender, No Accessory Muscle Use, No Respiratory Distress, Decreased Breath Sounds, Rhonci Cardiovascular: Regular Rate, Rhythm, No Edema, No Gallop, No JVD, No Murmur, Normal Peripheral Pulses, Gallop/S4 Gastrointestinal: Normal Bowel Sounds, No Organomegaly, No Pulsatile Mass, Non Tender, Soft Back: Normal Inspection, No CVA Tenderness, No Vertebral Tenderness Extremity: Normal Capillary Refill, Normal Inspection, Normal Range of Motion (except right leg), Non Tender, No Calf Tenderness, No Pedal Edema Neurologic/Psychiatric: Alert, Oriented x3, No Motor/Sensory Deficits, Normal Mood/Affect, automatic fancy machine operator II-XII Norm as Tested, Abnormal Gait Skin: Normal Color, Warm/Dry, Other (right hip with dry dressing in place) Lymphatic: No Adenopathy Results/Procedures Lab Patient resulted labs reviewed. FIM Transfers Therapy Code Descriptions/Definitions Functional [place] Measure: 0=Not Assessed/NA 4=Minimal Assistance 1=Total Assistance 5=Supervision or Setup 2=Maximal Assistance 6=Modified [place] 3=Moderate Assistance 7=Complete IndependenceSCALE: Activities may be completed with or without assistive devices. 1-Uqfxhalnbz-narqxrr completes the activity by him/herself with no assistance from a helper. 5-Set-up or Clean-up Assistance-helper sets up or cleans up; patient completes activity. [place] assists only prior to or following the activity. 4-Supervision or Touching Assistance-helper provides verbal cues and/or touching/steadying and/or contact guard assistance as patient completes activity. Assistance may be provided throughout the activity or intermittently. 3-Partial/Moderate Assistance-helper does LESS THAN HALF the effort. [place] lifts, holds or supports trunk or limbs, but provides less than half the effort. 2-Substantial/Maximal Assistance-helper does MORE THAN HALF the effort. [place] lifts or holds trunk or limbs and provides more than half the effort. 7-Ajbnyrcsj-axbacm does ALL the effort. Patient does none of the effort to complete the activity. Or, the assistance of 2 or more helpers is required for the patient to complete the activity. If activity was not attempted, code reason: 7-Patient Refused. 9-Not Applicable-not attempted and the patient did not perform the activity before the current illness, exacerbation or injury. 10-Not Attempted due to Environmental Limitations-(lack of equipment, weather restraints, etc.). 88-Not Attempted due to Medical Conditions or Safety Concerns. Roll Left to Right (QC): 3 Sit to Lying (QC): 4 Sit to Stand (QC): 4 Chair/Vaw-wt-Ndape Xfer(QC): 4 Car Transfer (QC): 4 Gait Training Does the Patient Walk?: Yes Distance: 150'x2 Walk 10 feet (QC): 4 Walk 50 ft with 2 Turns(QC): 4 Walk 150 ft (QC): 4 Walking 10ft/uneven surface-QC: 4 Gait Persons Needed: 1 Gait Assistive Device: FWW Wheelchair Training Does the Pt Use a Wheelchair?: No Wheel 50 ft with 2 turns (QC): 9 Wheel 150 ft (QC): 9 Stair Training 1 Step (curb) (QC): 4 4 Steps (QC): 88 12 Steps (QC): 88 Balance Picking up an Object (QC): 88 ADL-Treatment Eating (QC): 6 Oral Hygiene (QC): 6 Bathing Location: L Arm, R Arm, L Upper Leg, R Upper Leg, Chest, Abdomen, Buttocks, Perineal Area Shower/Bathe Self (QC): 7 Upper Body Dressing (QC): 5 (set up) Lower Body Dressing (QC): 4 On/Off Footwear (QC): 6 Toileting Hygiene (QC): 4 Toilet Transfer (QC): 6 Assessment/Plan Assessment and Plan Assess & Plan/Chief Complaint Assessment: s/p right hip fracture uncomplicated repair COPD Smoker HTN HLP Recovered alcoholic Constipation Plan: Jairo PANGI IRF protocol BM regimen 04/11/20: Continue changing dressing of right hip fracture site Continue bowel regimen Pain control IV iron infusion Monitor postop anemia 04/12/20: Monitor respiratory status nebulizer treatments Oxygen supplementation Pain control 04/13/20: Wean O2 Pain control IRF protocol 04/14/20: Off O2 Podiatry consult Pain control (1) Closed right hip fracture Status: Acute (2) Smoker (3) Recovering alcoholic in remission (4) HTN (hypertension) (5) CAD (coronary artery disease) (6) COPD (chronic obstructive pulmonary disease) CATRACHITA DIAS DO Apr 14, 2020 09:59
--- NOTE | 2020-04-14 10:28 | Occupational Ther Daily Note ---
OT Current Status-Daily Note Subjective Pt seen in recliner chair. Pt alert/ oriented. Agrees to shower/ ADLs. States 5/10 pain, agrees to pain meds end of session, nursing notified. Pt seen in recliner post lunch. Pt states pain in R leg, no pain L. Pt agrees to tx. Mental Status/Objective Patient Orientation: Person, Place, Situation ADL-Treatment Therapy Code Descriptions/Definitions Functional Regina Measure: 0=Not Assessed/NA 4=Minimal Assistance 1=Total Assistance 5=Supervision or Setup 2=Maximal Assistance 6=Modified Regina 3=Moderate Assistance 7=Complete IndependenceSCALE: Activities may be completed with or without assistive devices. 1-Dvcnobevzr-zbfsntn completes the activity by him/herself with no assistance from a helper. 5-Set-up or Clean-up Assistance-helper sets up or cleans up; patient completes activity. Maxwell assists only prior to or following the activity. 4-Supervision or Touching Assistance-helper provides verbal cues and/or touching/steadying and/or contact guard assistance as patient completes activity. Assistance may be provided throughout the activity or intermittently. 3-Partial/Moderate Assistance-helper does LESS THAN HALF the effort. Maxwell lifts, holds or supports trunk or limbs, but provides less than half the effort. 2-Substantial/Maximal Assistance-helper does MORE THAN HALF the effort. Maxwell lifts or holds trunk or limbs and provides more than half the effort. 0-Tnvuvjsfl-hxafdo does ALL the effort. Patient does none of the effort to complete the activity. Or, the assistance of 2 or more helpers is required for the patient to complete the activity. If activity was not attempted, code reason: 7-Patient Refused. 9-Not Applicable-not attempted and the patient did not perform the activity before the current illness, exacerbation or injury. 10-Not Attempted due to Environmental Limitations-(lack of equipment, weather restraints, etc.). 88-Not Attempted due to Medical Conditions or Safety Concerns. Eating (QC): 6 Oral Hygiene (QC): 6 Bathing Location: L Arm, R Arm, L Upper Leg, R Upper Leg, L Lower Leg (including foot), R Lower Leg (including foot), Chest, Abdomen, Buttocks, Perineal Area Shower/Bathe Self (QC): 4 (SBA tub transfer with tub transfer bench. SUP showering.) Upper Body Dressing (QC): 6 (gathers from closet and dons IDN.) Lower Body Dressing (QC): 4 (SUP- pt gathers from closet, dons post shower with use of AE with SUP, no LOB, good safety.) On/Off Footwear: 6 (IND, pt able to bring items to shower room and complete sock doffing/ donning with AE) Toileting Hygiene (QC): 4 (SUP in stance.) Toilet Transfer (QC): 4 (SUP, use of walker. ) Other Treatment Pt sit to stands with SBA-SUP, ambulation without LOB and fair endurance. Pt completes gathering items for shower and dressing in walker basket with cues. Pt ambulates to shower room, completing shower in tub and dressing edge of tub transfer bench as outlined above. Pt states good confidence in stance/ during transfers. Pt returns to room, sits in recliner. Pt educated on retrograde massage from toes to groin for edema management. Retrograde massage completed from toes to knee with education, pt completes from knee to hip. Thigh high NANI hose donned bilaterally. All needs met, call light in reach. Pt sit to stand with SBA with walker. Pt denies oral care. Pt ambulates to therapy gym SBA, pt stands at tabletop level to complete pinch/ molder shoulder pad, reaching, visual scanning and cognitive task. Pt able to weight shift and balance with no LOB without hand stabilization on walker. Pt stands for 15 min and requires rest. Pt ambulates back to room and sits in recliner, all needs met, call light in reach. Education OT Patient Education: Correct positioning, Energy conservation, Modified ADL techniques, Progress toward Goal/Update tx plan, Purpose of tx/functional activities, Safety issues, Transfer techniques Teaching Recipient: Patient Teaching Methods: Demonstration, Discussion Response to Teaching: Verbalize Understanding, Return Demonstration OT Short Term Goals Short Term Goals Time Frame: Apr 19, 2020 Lower body dressin Putting on/taking off footwear: 3 OT Snf Goals Con[employer] Paving Supervisor Goals Time Frame: Apr 28, 2020 Eating (QC): 6 Oral Hygiene (QC): 6 Toileting Hygiene (QC): 6 Shower/Bathe Self (QC): 6 Upper Body Dressing (QC): 6 Lower Body Dressing (QC): 6 On/Off Footwear (QC): 6 Additional Goals: 1-Demonstrate ADL Tasks, 2-Verbalize Understanding, 3- ImproveStrength/Deborah 1=Demonstrate adherence to instructed precautions during ADL tasks. 2=Patient will verbalize/demonstrate understanding of assistive devices/modifications for ADL. 3=Patient will improve strength/tolerance for activity to enable patient to perform ADL's. OT Education/Plan Problem List/Assessment Assessment: Decreased Activ Tolerance, Edema, Impaired I ADL's Discharge Recommendations Plan/Recommendations: Continue POC Therapy Discharge Recommendati: Home & Family Equpiment Recommendations-D/C: Extended Bath Bench, Bedside Commode, Hip Kit Treatment Plan/Plan of Care Treatment,Training & Education: Yes Patient would benefit from OT for education, treatment and training to promote independence in ADL's, mobility, safety and/or upper extremity function for ADL's. Plan of Care: ADL Retraining, Functional Mobility, Group Exercise/Act as Ind, UE Funct Exercise/Act Treatment Duration: Apr 28, 2020 Frequency: At least 5 of 7 days/Wk (IRF) Estimated Hrs Per Day: 1.5 hours per day Rehab Potential: Fair Time/GCodes Start Time: 09:00 (1330) Stop Time: 10:00 (1400) Total Time Billed (hr/min): 90 Billed Treatment Time 1, ADL 4 (60) 1, FA 2 (30) Total: 90 PAPA HOYT OTR Apr 14, 2020 10:28
--- NOTE | 2020-04-14 10:54 | Physical Therapy Daily Note ---
PT Daily Note-Current Subjective Pt present sitting upright in recliner. Pt agrees to PT. Pt reports 6/10 pain today in right hip and increased swelling in RLE. Appearance At conclusion of PT tx patient has returned to recliner. Pt has access to tray, call button, and all needs have been met. Mental Status Patient Orientation: Person, Place, Time, Eyes Open, Situation Transfers SCALE: Activities may be completed with or without assistive devices. 9-Mftonacbda-ltrkyva completes the activity by him/herself with no assistance from a helper. 5-Set-up or Clean-up Assistance-helper sets up or cleans up; patient completes activity. Montgomery assists only prior to or following the activity. 4-Supervision or Touching Assistance-helper provides verbal cues and/or touchi ng/steadying and/or contact guard assistance as patient completes activity. Assistance may be provided throughout the activity or intermittently. 3-Partial/Moderate Assistance-helper does LESS THAN HALF the effort. Montgomery lifts, holds or supports trunk or limbs, but provides less than half the effort. 2-Substantial/Maximal Assistance-helper does MORE THAN HALF the effort. [place] lifts or holds trunk or limbs and provides more than half the effort. 2-Tubydkjrr-ufoyxl does ALL the effort. Patient does none of the effort to complete the activity. Or, the assistance of 2 or more helpers is required for the patient to complete the activity. If activity was not attempted, code reason: 7-Patient Refused. 9-Not Applicable-not attempted and the patient did not perform the activity before the current illness, exacerbation or injury. 10-Not Attempted due to Environmental Limitations-(lack of equipment, weather restraints, etc.). 88-Not Attempted due to Medical Conditions or Safety Concerns. Sit to Stand (QC): 4 Chair/Gnp-kq-Ycxcf Xfer(QC): 4 Weight Bearing Right Lower Extremity: Right Partial Weight Bearing Left Lower Extremity: Left Full Weight Bearing Gait Training Does the Patient Walk?: Yes Distance: 150'x2 Walk 10 feet (QC): 4 Walk 50 ft with 2 Turns(QC): 4 Walk 150 ft (QC): 4 Gait Assistive Device: FWW Swing through pattern; antalgic gait due to PWB status on R; pt reports shifting 30-40% of weight on R side. Exercises Seated Therapy Exercises: Ankle pumps, Long arc quads, Hip flexion, Hip abd/add (2s hold with pillow) Seated Reps: 20 NuStep Minutes: 15 NuStep Workload: 4 Treatments LE strengthening, seated weight shifting from side to side x20 Assessment Current Status: Good Progress Pt struggles with activating hip flexors; seated marches did become easier with repetitions. Pt lacks quad strength to fulling straighten knee with LAQs. PT Short Term Goals Short Term Goals Time Frame: Apr 17, 2020 Roll Left & Right: 4 (SBA) Sit to lyin (SBA) Lying to sitting on side of be: 4 (SBA) Sit to stand: 4 (SBA) Chair/fjp-hy-snnoe transfer: 4 (SBA) Toilet transfer: 5 Walk 10 feet: 4 (SBA) Walk 50 feet with two turns: 4 (SBA) Walk 150 feet: 4 (SBA) PT School Manager Goals School Manager Goals PT School Manager Goals Time Frame: Apr 24, 2020 Roll Left & Right (QC): 6 Sit to Lying (QC): 6 Lying-Sitting on Side/Bed(QC): 6 Sit to Stand (QC): 6 Chair/Roc-tv-Yvpsb Xfer(QC): 6 Toilet Transfer (QC): 6 Car Transfer (QC): 5 Does the Patient Walk: Yes Walk 10 feet (QC): 5 Walk 50ft with 2 Turns (QC): 5 Walk 150 ft (QC): 5 Walking 10ft on Uneven Surface: 5 1 Step (curb) (QC): 4 4 Steps (QC): 88 12 Steps (QC): 88 Picking up an Object (QC): 88 Does the Pt use WC or Scooter?: No Wheel 50 feet with 2 turns (QC: 9 Wheel 150 feet: 9 PT Plan Problem List Problem List: Activity Tolerance, Functional Strength, Safety, Balance, Gait, Transfer, Bed Mobility, ROM Treatment/Plan Treatment Plan: Continue Plan of Care Treatment Plan: Bed Mobility, Education, Functional Activity Deborah, Functional Strength, Group Therapy, Gait, Safety, Therapeutic Exercise, Transfers Treatment Duration: Apr 24, 2020 Frequency: At least 5 of 7 days/Wk (IRF) Estimated Hrs Per Day: 1.5 hours per day Patient and/or Family Agrees t: Yes Safety Risks/Education Patient Education: Gait Training, Transfer Techniques, Reviewed Precautions, Correct Positioning, Safety Issues Teaching Recipient: Patient Teaching Methods: Demonstration, Discussion Response to Teaching: Reinforcement Needed Time/GCodes Time In: 1000 Time Out: 1100 Total Billed Treatment Time: 60 Total Billed Treatment 1 visit GT 15' EX 45' RAFAEL ARZOLA PT Apr 14, 2020 10:54
--- NOTE | 2020-04-14 11:26 | Progress Note ---
Subjective Date Seen by a Provider: Apr 13, 2020 Time Seen by a Provider: 12:45 Subjective/Events-last exam Fwup right femur fracture--S/P IM jose alfredo, COPD, HTN, post-op anemia. Sitting up in chair. Pain well controlled. Had diarrhea yesterday so appetite not as good. Objective Exam Vital Signs Date Time Temp Pulse Resp B/P (MAP) Pulse Ox O2 Delivery O2 Flow Rate FiO2 04/14/20 09:14 Room Air 04/14/20 08:26 69 110/58 (75) 04/14/20 07:21 90 Room Air 04/14/20 05:41 36.7 61 18 108/71 (83) 92 Room Air 04/13/20 20:20 Room Air 04/13/20 17:24 35.6 72 18 103/53 (70) 93 Room Air I & O 04/14/20 07:00 Intake Total 1550 ml Output Total 2150 ml Balance -600 ml Capillary Refill : Less Than 3 SecondsLess Than 3 Seconds General Appearance: No Apparent Distress Neck: Supple Respiratory: Decreased Breath Sounds, Rhonci Cardiovascular: Regular Rate, Rhythm Gastrointestinal: normal bowel sounds, non tender, soft Extremity: Non Tender, No Calf Tenderness, No Pedal Edema, Other (thigh high NANI hose on) Neurologic/Psychiatric: Alert, Oriented x3 Skin: Warm/Dry Assessment/Plan Assessment/Plan Assess & Plan/Chief Complaint 1. Right Femur Fracture--S/P IM jose alfredo placement, pain contol, DVT prophylaxis, PT/OT 2. Hypertension--back on home meds 3. 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 Post-op anemia--monitor H/H 5. Constipation--resolved, had diarrhea yesterday so will Hold laxatives/stool softeners Clinical Quality Measures DVT/VTE Risk/Contraindication: Risk Factor Score Per Nursin RFS Level Per Nursing on Admit: 4+=Very High GLORY MARTIN DO Apr 14, 2020 11:26
--- NOTE | 2020-04-14 11:28 | Progress Note ---
Subjective Date Seen by a Provider: Apr 14, 2020 Time Seen by a Provider: 10:20 Subjective/Events-last exam Fwup right femur fracture--S/P IM jose alfredo, COPD, HTN, post-op anemia. In therapy room working on [employer]. Objective Exam Vital Signs Date Time Temp Pulse Resp B/P (MAP) Pulse Ox O2 Delivery O2 Flow Rate FiO2 04/14/20 09:14 Room Air 04/14/20 08:26 69 110/58 (75) 04/14/20 07:21 90 Room Air 04/14/20 05:41 36.7 61 18 108/71 (83) 92 Room Air 04/13/20 20:20 Room Air 04/13/20 17:24 35.6 72 18 103/53 (70) 93 Room Air I & O 04/14/20 07:00 Intake Total 1550 ml Output Total 2150 ml Balance -600 ml Capillary Refill : Less Than 3 SecondsLess Than 3 Seconds General Appearance: No Apparent Distress Extremity: Pedal Edema (right thigh swelling but thight high NANI hose in place) Neurologic/Psychiatric: Alert, Oriented x3 Assessment/Plan Assessment/Plan Assess & Plan/Chief Complaint 1. Right Femur Fracture--S/P IM jose alfredo placement, pain contol, DVT prophylaxis, PT/OT 2. Hypertension--back on home meds 3. 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 Post-op anemia--update H/H 5. Constipation--resolved Clinical Quality Measures DVT/VTE Risk/Contraindication: Risk Factor Score Per Nursin RFS Level Per Nursing on Admit: 4+=Very High GLORY MARTIN DO Apr 14, 2020 11:28
--- NOTE | 2020-04-14 11:31 | NUR ---
CALL TO DR. JEREZ'S OFFICE TO NOTIFY OF CONSULT. OFFICE IS CLOSED. MESSAGE LEFT. WILL F/U ON FRIDAY.
--- NOTE | 2020-04-14 13:30 | Physical Therapy Daily Note ---
PT Daily Note-Current Subjective Pt presents sitting upright in recliner. Pt agrees to PT. Pt reports 5/10 pain in bilateral legs; R surgical LE and pt has history of stents in L LE. Appearance At the conclusion of PT treatment pt returns to recliner. Pt has access to tray, call button, and all needs have been met. Mental Status Patient Orientation: Person, Place, Time, Eyes Open, Situation Transfers SCALE: Activities may be completed with or without assistive devices. 4-Gjharjpfky-eqdebdr completes the activity by him/herself with no assistance from a helper. 5-Set-up or Clean-up Assistance-helper sets up or cleans up; patient completes activity. [place] assists only prior to or following the activity. 4-Supervision or Touching Assistance-helper provides verbal cues and/or touching/steadying and/or contact guard assistance as patient completes activity. Assistance may be provided throughout the activity or intermittently. 3-Partial/Moderate Assistance-helper does LESS THAN HALF the effort. Custer lift s, holds or supports trunk or limbs, but provides less than half the effort. 2-Substantial/Maximal Assistance-helper does MORE THAN HALF the effort. [place] lifts or holds trunk or limbs and provides more than half the effort. 9-Hxcykxnsx-ciprjm does ALL the effort. Patient does none of the effort to complete the activity. Or, the assistance of 2 or more helpers is required for the patient to complete the activity. If activity was not attempted, code reason: 7-Patient Refused. 9-Not Applicable-not attempted and the patient did not perform the activity before the current illness, exacerbation or injury. 10-Not Attempted due to Environmental Limitations-(lack of equipment, weather restraints, etc.). 88-Not Attempted due to Medical Conditions or Safety Concerns. Sit to Stand (QC): 4 Chair/Sgi-gz-Tkkiz Xfer(QC): 4 Weight Bearing Right Lower Extremity: Right Partial Weight Bearing Left Lower Extremity: Left Full Weight Bearing Gait Training Does the Patient Walk?: Yes Distance: 200'x3 Walk 10 feet (QC): 4 Walk 50 ft with 2 Turns(QC): 4 Walk 150 ft (QC): 4 Gait Assistive Device: FWW Pt is compliant to PWB restrictions on R side. Pt requires seated rest breaks after approximately 200' and 400'. Treatments Gait training Assessment Current Status: Good Progress Pt demonstrated a slow but steady ambulation, pt required rest breaks at 200' kauffman to catch breath. Pt has improved gait. Pt reports left leg is more irritable during long walks than R surgical leg due to impaired blood circulation on LLE. PT Short Term Goals Short Term Goals Time Frame: Apr 17, 2020 Roll Left & Right: 4 (SBA) Sit to lyin (SBA) Lying to sitting on side of be: 4 (SBA) Sit to stand: 4 (SBA) Chair/dhc-jw-srzng transfer: 4 (SBA) Toilet transfer: 5 Walk 10 feet: 4 (SBA) Walk 50 feet with two turns: 4 (SBA) Walk 150 feet: 4 (SBA) PT Nursing Home Goals [place] Goals PT Nursing Home Goals Time Frame: Apr 24, 2020 Roll Left & Right (QC): 6 Sit to Lying (QC): 6 Lying-Sitting on Side/Bed(QC): 6 Sit to Stand (QC): 6 Chair/Eym-wr-Vdwak Xfer(QC): 6 Toilet Transfer (QC): 6 Car Transfer (QC): 5 Does the Patient Walk: Yes Walk 10 feet (QC): 5 Walk 50ft with 2 Turns (QC): 5 Walk 150 ft (QC): 5 Walking 10ft on Uneven Surface: 5 1 Step (curb) (QC): 4 4 Steps (QC): 88 12 Steps (QC): 88 Picking up an Object (QC): 88 Does the Pt use WC or Scooter?: No Wheel 50 feet with 2 turns (QC: 9 Wheel 150 feet: 9 PT Plan Problem List Problem List: Activity Tolerance, Functional Strength, Safety, Balance, Gait, Transfer, Bed Mobility, ROM Treatment/Plan Treatment Plan: Continue Plan of Care Treatment Plan: Bed Mobility, Education, Functional Activity Deborah, Functional Strength, Group Therapy, Gait, Safety, Therapeutic Exercise, Transfers Treatment Duration: Apr 24, 2020 Frequency: At least 5 of 7 days/Wk (IRF) Estimated Hrs Per Day: 1.5 hours per day Patient and/or Family Agrees t: Yes Safety Risks/Education Patient Education: Gait Training, Correct Positioning, Safety Issues Teaching Recipient: Patient Teaching Methods: Demonstration, Discussion Response to Teaching: Reinforcement Needed Time/GCodes Time In: 1300 Time Out: 1330 Total Billed Treatment Time: 30 Total Billed Treatment 1 visit GT 30' KRTEK,RAFAEL PT Apr 14, 2020 13:30
--- NOTE | 2020-04-14 14:37 | NUR ---
provided prayer and Communion.
--- NOTE | 2020-04-14 15:02 | NUR ---
CM/SS CONCURRENT DOCUMENTATION Continuing to explore home delivered meals for patient. [facility] will deliver just there in town, asking for a menu for patient to look at from there and other options including [facility] Rolando. Picker / Packer contacted [facility] for updated list of viable services. Addendum: 04/14/20 at 1506 by NELIDA LI Spoke with housing authority staff this a.m., they will gladly install the requested grab bar in patient's bathroom for his additional safety. Picker / Packer requested this done prior to Friday.
[2020-04-14 16:05] VITALS: BP 112/56
[2020-04-14] MEDS: MONTELUKAST 10 MG (SINGULAIR) TAB PO SCH (20:31)
[2020-04-15] MEDS: LEVOTHYROXINE 75 MCG (LEVOTHROID) TABLET PO SCH (05:41)
[2020-04-15 05:42] VITALS: BP 98/53
[2020-04-15 06:06] LABS: BASOPHILS # (AUTO) 0.1 10^3/uL (0.0-0.1); BASOPHILS % (AUTO) 1 % (0-10); EOSINOPHILS # (AUTO) 0.3 10^3/uL (0.0-0.3); EOSINOPHILS % (AUTO) 2 % (0-10); HEMATOCRIT 27 % (40-54); HEMOGLOBIN 8.7 g/dL (13.3-17.7); LYMPHOCYTES # (AUTO) 2.1 10^3/uL (1.0-4.0); LYMPHOCYTES % (AUTO) 12 % (12-44); MEAN CORPUSCULAR HEMOGLOBIN 32 pg (25-34); MEAN CORPUSCULAR HGB CONC 33 g/dL (32-36); MEAN CORPUSCULAR VOLUME 98 fL (80-99); MEAN PLATELET VOLUME 11.4 fL (9.0-12.2); MONOCYTES # (AUTO) 1.3 10^3/uL (0.0-1.0); MONOCYTES % (AUTO) 7 % (0-12); NEUTROPHILS # (AUTO) 13.1 10^3/uL (1.8-7.8); NEUTROPHILS % (AUTO) 76 % (42-75); PLATELET COUNT 947 10^3/uL (130-400); WHITE BLOOD COUNT 17.2 10^3/uL (4.3-11.0)
[2020-04-15 06:15] LABS: ALBUMIN 3.4 GM/DL (3.2-4.5)
[2020-04-15 06:16] LABS: CHLORIDE 105 MMOL/L (98-107); POTASSIUM 4.4 MMOL/L (3.6-5.0); SODIUM 137 MMOL/L (135-145)
[2020-04-15 06:17] LABS: CALCIUM 8.8 MG/DL (8.5-10.1)
[2020-04-15 06:18] LABS: GLUCOSE 111 MG/DL (70-105); TOTAL PROTEIN 6.5 GM/DL (6.4-8.2)
[2020-04-15 06:19] LABS: CARBON DIOXIDE 22 MMOL/L (21-32)
[2020-04-15 06:20] LABS: BILIRUBIN,TOTAL 0.8 MG/DL (0.1-1.0)
[2020-04-15 06:21] LABS: ALKALINE PHOSPHATASE 83 U/L (40-136)
[2020-04-15 06:22] LABS: CREATININE SERUM 0.82 MG/DL (0.60-1.30); GFR ESTIMATED > 60
[2020-04-15 06:23] LABS: BUN/CREATININE RATIO 23
[2020-04-15 06:25] LABS: ALANINE AMINOTRANSFERASE 41 U/L (0-55)
--- NOTE | 2020-04-15 06:30 | PM&R Progress Note ---
Subjective HPI/CC On Admission Date Seen by Provider: Apr 15, 2020 Time Seen by Provider: 12:30 Subjective/Events-last exam 04/15/20: 2 loose stools have bothered him Dressing changes later today Daughter at bedside Right IV infiltrated and will place warm wet towels 04/14/20: BM+ Incision looks good Iron infusions tolerated Edema of right leg bothers him 04/13/20: Percocet ordered and has helped with the pain Doing pretty well overall Bowels moved yesterday and they were loose May need to delay discharge IV iron infusion maintained 04/12/20: No major issue Fernfuta checked on his incision and it is doing well and less drainage Bowels moving pretty well Remains on oxygen and weening that down Pt had a good night Pain is very well controlled Hgb 8.7, checked iron level, that is pending so will initiate iron infusion Oxycodone is working pretty well for him Bowels really moved very well yesterday Conferred with RN Reviewed therapy notes Checked meds and labs Review of Systems General: Fatigue, Malaise Musculoskeletal: leg pain Objective Exam Vital Signs Vital Signs Date Time Temp Pulse Resp B/P (MAP) Pulse Ox O2 Delivery O2 Flow Rate FiO2 04/16/20 05:14 36.6 64 16 96/52 (67) 93 Room Air 04/11/20 08:04 1.00 04/10/20 14:52 24 Capillary Refill : Less Than 3 SecondsLess Than 3 Seconds General Appearance: No Apparent Distress, WD/WN, Chronically ill HEENT: PERRL/EOMI, Normal ENT Inspection, Pharynx Normal Neck: Full Range of Motion, Normal Inspection, Non Tender, Supple Respiratory: Chest Non Tender, No Accessory Muscle Use, No Respiratory Distress, Decreased Breath Sounds, Rhonci Cardiovascular: Regular Rate, Rhythm, No Edema, No Gallop, No JVD, No Murmur, Normal Peripheral Pulses, Gallop/S4 Gastrointestinal: Normal Bowel Sounds, No Organomegaly, No Pulsatile Mass, Non Tender, Soft Back: Normal Inspection, No CVA Tenderness, No Vertebral Tenderness Extremity: Normal Capillary Refill, Normal Inspection, Normal Range of Motion (except right leg), Non Tender, No Calf Tenderness, No Pedal Edema Neurologic/Psychiatric: Alert, Oriented x3, No Motor/Sensory Deficits, Normal Mood/Affect, guard supervisor II-XII Norm as Tested, Abnormal Gait Skin: Normal Color, Warm/Dry, Other (right hip with dry dressing in place) Lymphatic: No Adenopathy Results/Procedures Lab Patient resulted labs reviewed. FIM Transfers Therapy Code Descriptions/Definitions Functional [place] Measure: 0=Not Assessed/NA 4=Minimal Assistance 1=Total Assistance 5=Supervision or Setup 2=Maximal Assistance 6=Modified [place] 3=Moderate Assistance 7=Complete IndependenceSCALE: Activities may be completed with or without assistive devices. 1-Ynmwawxpen-cjgrogo completes the activity by him/herself with no assistance from a helper. 5-Set-up or Clean-up Assistance-helper sets up or cleans up; patient completes activity. [place] assists only prior to or following the activity. 4-Supervision or Touching Assistance-helper provides verbal cues and/or touching/steadying and/or contact guard assistance as patient completes activity. Assistance may be provided throughout the activity or intermittently. 3-Partial/Moderate Assistance-helper does LESS THAN HALF the effort. [place] lifts, holds or supports trunk or limbs, but provides less than half the effort. 2-Substantial/Maximal Assistance-helper does MORE THAN HALF the effort. [place] lifts or holds trunk or limbs and provides more than half the effort. 4-Ybqkoaxfa-iwhvrs does ALL the effort. Patient does none of the effort to complete the activity. Or, the assistance of 2 or more helpers is required for the patient to complete the activity. If activity was not attempted, code reason: 7-Patient Refused. 9-Not Applicable-not attempted and the patient did not perform the activity before the current illness, exacerbation or injury. 10-Not Attempted due to Environmental Limitations-(lack of equipment, weather restraints, etc.). 88-Not Attempted due to Medical Conditions or Safety Concerns. Roll Left to Right (QC): 3 Sit to Lying (QC): 4 Sit to Stand (QC): 4 Chair/Kly-ob-Vobjh Xfer(QC): 4 Car Transfer (QC): 4 Gait Training Does the Patient Walk?: Yes Distance: 200'x3 Walk 10 feet (QC): 4 Walk 50 ft with 2 Turns(QC): 4 Walk 150 ft (QC): 4 Walking 10ft/uneven surface-QC: 4 Gait Persons Needed: 1 Gait Assistive Device: FWW Wheelchair Training Does the Pt Use a Wheelchair?: No Wheel 50 ft with 2 turns (QC): 9 Wheel 150 ft (QC): 9 Stair Training 1 Step (curb) (QC): 4 4 Steps (QC): 88 12 Steps (QC): 88 Balance Picking up an Object (QC): 88 ADL-Treatment Eating (QC): 6 Oral Hygiene (QC): 6 Bathing Location: L Arm, R Arm, L Upper Leg, R Upper Leg, L Lower Leg (including foot), R Lower Leg (including foot), Chest, Abdomen, Buttocks, Perineal Area Shower/Bathe Self (QC): 4 (SBA tub transfer with tub transfer bench. SUP showering.) Upper Body Dressing (QC): 6 (gathers from closet and dons IDN.) Lower Body Dressing (QC): 4 (SUP- pt gathers from closet, dons post shower with use of AE with SUP, no LOB, good safety.) On/Off Footwear (QC): 6 (IND, pt able to bring items to shower room and complete sock doffing/ donning with AE) Toileting Hygiene (QC): 4 (SUP in stance.) Toilet Transfer (QC): 4 (SUP, use of walker. ) Assessment/Plan Assessment and Plan Assess & Plan/Chief Complaint Assessment: s/p right hip fracture uncomplicated repair COPD Smoker HTN HLP Recovered alcoholic Constipation Plan: Jairo PANGI IRF protocol BM regimen 04/11/20: Continue changing dressing of right hip fracture site Continue bowel regimen Pain control IV iron infusion Monitor postop anemia 04/12/20: Monitor respiratory status nebulizer treatments Oxygen supplementation Pain control 04/13/20: Wean O2 Pain control IRF protocol 04/14/20: Off O2 Podiatry consult Pain control 04/15/20: Jairo LAM Lab results will be called to PCP coverage since Deborah ordered them (1) Closed right hip fracture Status: Acute (2) Smoker (3) Recovering alcoholic in remission (4) HTN (hypertension) (5) CAD (coronary artery disease) (6) COPD (chronic obstructive pulmonary disease) CATRACHITA DIAS DO Apr 15, 2020 06:30
[2020-04-15 06:35] LABS: BAND NEUTROPHILS 5 %; EOSINOPHILS % (MANUAL) 2 %; LYMPHOCYTES % (MANUAL) 13 %; MONOCYTES % (MANUAL) 8 %; NEUTROPHILS % (MANUAL) 70 %
[2020-04-15 06:36] LABS: ANISOCYTOSIS SLIGHT; HYPOCHROMASIA SLIGHT; POIKILOCYTOSIS SLIGHT; PROMYELOCYTES % 2 %
[2020-04-15] MEDS: ARFORMOTEROL 15 MCG/2 ML (BROVANA) INH SOLUTIION IH SCH ×2 (07:25→18:39)
[2020-04-15 08:30] VITALS: BP 102/59
[2020-04-15] MEDS: ENOXAPARIN 40 MG/0.4 ML (LOVENOX) SYR SC SCH (09:37)
[2020-04-15] MEDS: LORATADINE (CLARITIN) 10 MG TAB PO SCH (09:38)
[2020-04-15] MEDS: SENNA W/DOCUSATE (SENOKOT S) TABLET PO SCH ×2 (09:38→19:49)
[2020-04-15] MEDS: amLODIPine 5 MG (NORVASC) TAB PO SCH (09:38)
[2020-04-15] MEDS: VITAMIN D3 125 MCG (5,000 UNITS) CAPSULE PO SCH (09:38)
[2020-04-15] MEDS: lisINopril 40 MG (PRINIVIL) TABLET PO SCH (09:38)
[2020-04-15] MEDS: DOCUSATE SODIUM 100 MG (COLACE) CAP PO SCH ×2 (09:38→19:48)
[2020-04-15] MEDS: polyethylene glycoL POWDER 17 GM (MIRALAX) PACK PO SCH ×2 (09:38→19:48)
[2020-04-15] MEDS: IRON SUCROSE 200 MG/10 ML (VENOFER) VIAL IV SCH (09:38)
[2020-04-15] MEDS: ASPIRIN E.C. 81 MG (ECOTRIN) TAB PO SCH (09:38)
--- NOTE | 2020-04-15 10:47 | Physical Therapy Daily Note ---
PT Daily Note-Current Subjective Pt up in chair upon arrival. Pt agrees to PT tx, but requests to get dressed first. Pain Numeric Pain Scale: 0-No Pain Location: No Pain Reported Comment: No pain, just stiffness in R hip Mental Status Patient Orientation: Person, Place, Time, Situation Attachments: [place] Transfers SCALE: Activities may be completed with or without assistive devices. 4-Pcgcxacitb-gngvojt completes the activity by him/herself with no assistance from a helper. 5-Set-up or Clean-up Assistance-helper sets up or cleans up; patient completes activity. [place] assists only prior to or following the activity. 4-Supervision or Touching Assistance-helper provides verbal cues and/or touching/steadying and/or contact guard assistance as patient completes activity. Assistance may be provided throughout the activity or intermittently. 3-Partial/Moderate Assistance-helper does LESS THAN HALF the effort. [place] lifts, holds or supports trunk or limbs, but provides less than half the effort. 2-Substantial/Maximal Assistance-helper does MORE THAN HALF the effort. [place] lifts or holds trunk or limbs and provides more than half the effort. 7-Hfmigymhi-oqrxwt does ALL the effort. Patient does none of the effort to complete the activity. Or, the assistance of 2 or more helpers is required for the patient to complete the activity. If activity was not attempted, code reason: 7-Patient Refused. 9-Not Applicable-not attempted and the patient did not perform the activity before the current illness, exacerbation or injury. 10-Not Attempted due to Environmental Limitations-(lack of equipment, weather restraints, etc.). 88-Not Attempted due to Medical Conditions or Safety Concerns. Sit to Stand (QC): 4 Weight Bearing Right Lower Extremity: Right Partial Weight Bearing Left Lower Extremity: Left Full Weight Bearing Gait Training Does the Patient Walk?: Yes Distance: 100' x2 Walk 10 feet (QC): 4 Walk 50 ft with 2 Turns(QC): 4 Gait Persons Needed: 1 Gait Assistive Device: FWW PWB on RLE. Exercises Seated Therapy Exercises: Sit to stand Seated Reps: 10 NuStep Minutes: 10 NuStep Workload: 1 Treatments Pt stands unsupported to don LE and UE clothing. Gait training throughout unit. Pt completes NuStep; WL1 d/t pt c/o stiffness. Pt in chair at end of tx; call light and bedside table w/in reach and all needs met. Assessment Current Status: Good Progress Pt motivated and pleasant. Has stiffness in R hip but no c/o pain. PT Short Term Goals Short Term Goals Time Frame: Apr 17, 2020 Roll Left & Right: 4 (SBA) Sit to lyin (SBA) Lying to sitting on side of be: 4 (SBA) Sit to stand: 4 (SBA) Chair/jkq-ih-wiyux transfer: 4 (SBA) Toilet transfer: 5 Walk 10 feet: 4 (SBA) Walk 50 feet with two turns: 4 (SBA) Walk 150 feet: 4 (SBA) PT Thermal Technician Goals Shelter Goals PT Thermal Technician Goals Time Frame: Apr 24, 2020 Roll Left & Right (QC): 6 Sit to Lying (QC): 6 Lying-Sitting on Side/Bed(QC): 6 Sit to Stand (QC): 6 Chair/Vyu-wv-Ytrlq Xfer(QC): 6 Toilet Transfer (QC): 6 Car Transfer (QC): 5 Does the Patient Walk: Yes Walk 10 feet (QC): 5 Walk 50ft with 2 Turns (QC): 5 Walk 150 ft (QC): 5 Walking 10ft on Uneven Surface: 5 1 Step (curb) (QC): 4 4 Steps (QC): 88 12 Steps (QC): 88 Picking up an Object (QC): 88 Does the Pt use WC or Scooter?: No Wheel 50 feet with 2 turns (QC: 9 Wheel 150 feet: 9 PT Plan Problem List Problem List: Activity Tolerance, Functional Strength, Safety, Balance, Gait, Transfer Treatment/Plan Treatment Plan: Continue Plan of Care Treatment Plan: Bed Mobility, Education, Functional Activity Deborah, Functional Strength, Group Therapy, Gait, Safety, Therapeutic Exercise, Transfers Treatment Duration: Apr 24, 2020 Frequency: At least 5 of 7 days/Wk (IRF) Estimated Hrs Per Day: 1.5 hours per day Patient and/or Family Agrees t: Yes Safety Risks/Education Patient Education: Gait Training, Correct Positioning, Safety Issues Teaching Recipient: Patient Teaching Methods: Discussion Response to Teaching: Verbalize Understanding Time/GCodes Time In: 900 Time Out: 930 Total Billed Treatment Time: 30 Total Billed Treatment 1, EX x1 (15m), GT x1 (15m) CLIFF WILLSON EXTRUSION SUPERVISOR Apr 15, 2020 10:47
[2020-04-15] MEDS: oxyCODONE/APAP 5/325MG (PERCOCET 5) TABLET PO PRN ×2 (13:40→20:29)
[2020-04-15] MEDS: LOPERAMIDE 2 MG (IMODIUM) TABLET PO PRN (13:40)
[2020-04-15 16:09] VITALS: BP 104/57
[2020-04-15] MEDS: MONTELUKAST 10 MG (SINGULAIR) TAB PO SCH (20:27)
[2020-04-16 05:14] VITALS: BP 96/52
[2020-04-16] MEDS: LEVOTHYROXINE 75 MCG (LEVOTHROID) TABLET PO SCH (06:17)
[2020-04-16 08:00] VITALS: BP 119/75
[2020-04-16] MEDS: lisINopril 40 MG (PRINIVIL) TABLET PO SCH (08:30)
[2020-04-16] MEDS: ENOXAPARIN 40 MG/0.4 ML (LOVENOX) SYR SC SCH (08:30)
[2020-04-16] MEDS: ASPIRIN E.C. 81 MG (ECOTRIN) TAB PO SCH (08:30)
[2020-04-16] MEDS: DOCUSATE SODIUM 100 MG (COLACE) CAP PO SCH ×2 (08:30→20:15)
[2020-04-16] MEDS: VITAMIN D3 125 MCG (5,000 UNITS) CAPSULE PO SCH (08:30)
[2020-04-16] MEDS: LORATADINE (CLARITIN) 10 MG TAB PO SCH (08:30)
[2020-04-16] MEDS: amLODIPine 5 MG (NORVASC) TAB PO SCH (08:30)
[2020-04-16] MEDS: polyethylene glycoL POWDER 17 GM (MIRALAX) PACK PO SCH ×2 (08:31→20:15)
[2020-04-16] MEDS: SENNA W/DOCUSATE (SENOKOT S) TABLET PO SCH ×2 (08:31→20:15)
[2020-04-16] MEDS: ARFORMOTEROL 15 MCG/2 ML (BROVANA) INH SOLUTIION IH SCH ×2 (09:41→19:14)
--- NOTE | 2020-04-16 12:12 | PM&R Progress Note ---
Subjective HPI/CC On Admission Date Seen by Provider: Apr 16, 2020 Time Seen by Provider: 12:15 Subjective/Events-last exam 04/16/20: Son visiting him today O2 weaned Loose stools improved Right flank blister noted no evidence of anything other than contact dermatitis 04/15/20: 2 loose stools have bothered him Dressing changes later today Daughter at bedside Right IV infiltrated and will place warm wet towels 04/14/20: BM+ Incision looks good Iron infusions tolerated Edema of right leg bothers him 04/13/20: Percocet ordered and has helped with the pain Doing pretty well overall Bowels moved yesterday and they were loose May need to delay discharge IV iron infusion maintained 04/12/20: No major issue Zafuta checked on his incision and it is doing well and less drainage Bowels moving pretty well Remains on oxygen and weening that down Pt had a good night Pain is very well controlled Hgb 8.7, checked iron level, that is pending so will initiate iron infusion Oxycodone is working pretty well for him Bowels really moved very well yesterday Conferred with RN Reviewed therapy notes Checked meds and labs Review of Systems General: Fatigue, Malaise Pulmonary: Dyspnea Objective Exam Vital Signs Vital Signs Date Time Temp Pulse Resp B/P (MAP) Pulse Ox O2 Delivery O2 Flow Rate FiO2 04/16/20 09:41 98 Room Air 04/16/20 05:14 36.6 64 16 96/52 (67) 04/11/20 08:04 1.00 04/10/20 14:52 24 Capillary Refill : Less Than 3 SecondsLess Than 3 Seconds General Appearance: No Apparent Distress, WD/WN, Chronically ill HEENT: PERRL/EOMI, Normal ENT Inspection, Pharynx Normal Neck: Full Range of Motion, Normal Inspection, Non Tender, Supple Respiratory: Chest Non Tender, No Accessory Muscle Use, No Respiratory Distress, Decreased Breath Sounds, Rhonci Cardiovascular: Regular Rate, Rhythm, No Edema, No Gallop, No JVD, No Murmur, Normal Peripheral Pulses, Gallop/S4 Gastrointestinal: Normal Bowel Sounds, No Organomegaly, No Pulsatile Mass, Non Tender, Soft Back: Normal Inspection, No CVA Tenderness, No Vertebral Tenderness Extremity: Normal Capillary Refill, Normal Inspection, Normal Range of Motion, Non Tender, No Calf Tenderness, No Pedal Edema Neurologic/Psychiatric: Alert, Oriented x3, No Motor/Sensory Deficits, Normal Mood/Affect, environmental attorney II-XII Norm as Tested, Abnormal Gait Skin: Normal Color, Warm/Dry, Other Lymphatic: No Adenopathy Results/Procedures Lab Patient resulted labs reviewed. FIM Transfers Therapy Code Descriptions/Definitions Functional [place] Measure: 0=Not Assessed/NA 4=Minimal Assistance 1=Total Assistance 5=Supervision or Setup 2=Maximal Assistance 6=Modified [place] 3=Moderate Assistance 7=Complete IndependenceSCALE: Activities may be completed with or without assistive devices. 9-Gvaexbcbwz-xouhroj completes the activity by him/herself with no assistance from a helper. 5-Set-up or Clean-up Assistance-helper sets up or cleans up; patient completes activity. [place] assists only prior to or following the activity. 4-Supervision or Touching Assistance-helper provides verbal cues and/or touching/steadying and/or contact guard assistance as patient completes activity. Assistance may be provided throughout the activity or intermittently. 3-Partial/Moderate Assistance-helper does LESS THAN HALF the effort. [place] lifts, holds or supports trunk or limbs, but provides less than half the effort. 2-Substantial/Maximal Assistance-helper does MORE THAN HALF the effort. [place] lifts or holds trunk or limbs and provides more than half the effort. 6-Yzcinxips-yvfhcj does ALL the effort. Patient does none of the effort to complete the activity. Or, the assistance of 2 or more helpers is required for the patient to complete the activity. If activity was not attempted, code reason: 7-Patient Refused. 9-Not Applicable-not attempted and the patient did not perform the activity before the current illness, exacerbation or injury. 10-Not Attempted due to Environmental Limitations-(lack of equipment, weather restraints, etc.). 88-Not Attempted due to Medical Conditions or Safety Concerns. Roll Left to Right (QC): 3 Sit to Lying (QC): 4 Sit to Stand (QC): 4 Chair/Ycu-tm-Jzczs Xfer(QC): 4 Car Transfer (QC): 4 Gait Training Does the Patient Walk?: Yes Distance: 100' x2 Walk 10 feet (QC): 4 Walk 50 ft with 2 Turns(QC): 4 Walk 150 ft (QC): 4 Walking 10ft/uneven surface-QC: 4 Gait Persons Needed: 1 Gait Assistive Device: FWW Wheelchair Training Does the Pt Use a Wheelchair?: No Wheel 50 ft with 2 turns (QC): 9 Wheel 150 ft (QC): 9 Stair Training 1 Step (curb) (QC): 4 4 Steps (QC): 88 12 Steps (QC): 88 Balance Picking up an Object (QC): 88 ADL-Treatment Eating (QC): 6 Oral Hygiene (QC): 6 Bathing Location: L Arm, R Arm, L Upper Leg, R Upper Leg, L Lower Leg (including foot), R Lower Leg (including foot), Chest, Abdomen, Buttocks, Perineal Area Shower/Bathe Self (QC): 4 (SBA tub transfer with tub transfer bench. SUP showering.) Upper Body Dressing (QC): 6 (gathers from closet and dons IDN.) Lower Body Dressing (QC): 4 (SUP- pt gathers from closet, dons post shower with use of AE with SUP, no LOB, good safety.) On/Off Footwear (QC): 6 (IND, pt able to bring items to shower room and complete sock doffing/ donning with AE) Toileting Hygiene (QC): 4 (SUP in stance.) Toilet Transfer (QC): 4 (SUP, use of walker. ) Assessment/Plan Assessment and Plan Assess & Plan/Chief Complaint Assessment: s/p right hip fracture uncomplicated repair COPD Smoker HTN HLP Recovered alcoholic Constipation Plan: Jairo PANGI IRF protocol BM regimen 04/11/20: Continue changing dressing of right hip fracture site Continue bowel regimen Pain control IV iron infusion Monitor postop anemia 04/12/20: Monitor respiratory status nebulizer treatments Oxygen supplementation Pain control 04/13/20: Wean O2 Pain control IRF protocol 04/14/20: Off O2 Podiatry consult Pain control 04/15/20: Jairo PANGI Lab results will be called to PCP coverage since Deborah ordered them 04/16/20: Labs tomorrow Sensitive skin noted DC soon (1) Closed right hip fracture Status: Acute (2) Smoker (3) Recovering alcoholic in remission (4) HTN (hypertension) (5) CAD (coronary artery disease) (6) COPD (chronic obstructive pulmonary disease) CATRACHITA DIAS DO Apr 16, 2020 12:11
[2020-04-16 17:06] VITALS: BP 130/61
[2020-04-16] MEDS: MONTELUKAST 10 MG (SINGULAIR) TAB PO SCH (20:08)
[2020-04-16] MEDS: LOPERAMIDE 2 MG (IMODIUM) TABLET PO PRN (20:12)
[2020-04-16] MEDS: oxyCODONE/APAP 5/325MG (PERCOCET 5) TABLET PO PRN (20:33)
[2020-04-17 05:19] VITALS: BP 112/58
[2020-04-17] MEDS: LEVOTHYROXINE 75 MCG (LEVOTHROID) TABLET PO SCH (05:27)
--- NOTE | 2020-04-17 05:34 | PM&R Progress Note ---
Subjective HPI/CC On Admission Date Seen by Provider: Apr 17, 2020 Time Seen by Provider: 09:00 Subjective/Events-last exam 04/17/20: Platelet count 1124 will require a delay on DC and consult with Dr. [place] Updated Dr. Cabrera Iron infusions tolerated Off O2 Nebulizer and inhalers maintained Right leg edema noted but its getting better 04/16/20: Son visiting him today O2 weaned Loose stools improved Right flank blister noted no evidence of anything other than contact dermatitis 04/15/20: 2 loose stools have bothered him Dressing changes later today Daughter at bedside Right IV infiltrated and will place warm wet towels 04/14/20: BM+ Incision looks good Iron infusions tolerated Edema of right leg bothers him 04/13/20: Percocet ordered and has helped with the pain Doing pretty well overall Bowels moved yesterday and they were loose May need to delay discharge IV iron infusion maintained 04/12/20: No major issue Zafuta checked on his incision and it is doing well and less drainage Bowels moving pretty well Remains on oxygen and weening that down Pt had a good night Pain is very well controlled Hgb 8.7, checked iron level, that is pending so will initiate iron infusion Oxycodone is working pretty well for him Bowels really moved very well yesterday Conferred with RN Reviewed therapy notes Checked meds and labs Review of Systems General: Fatigue, Malaise Musculoskeletal: leg pain Objective Exam Vital Signs Vital Signs Date Time Temp Pulse Resp B/P (MAP) Pulse Ox O2 Delivery O2 Flow Rate FiO2 04/17/20 20:00 Room Air 04/17/20 15:56 36.6 68 16 125/58 (80) 95 Capillary Refill : Less Than 3 SecondsLess Than 3 Seconds General Appearance: No Apparent Distress, WD/WN, Chronically ill HEENT: PERRL/EOMI, Normal ENT Inspection, Pharynx Normal Neck: Full Range of Motion, Normal Inspection, Non Tender, Supple Respiratory: Chest Non Tender, No Accessory Muscle Use, No Respiratory Distress, Decreased Breath Sounds, Rhonci Cardiovascular: Regular Rate, Rhythm, No Edema, No Gallop, No JVD, No Murmur, Normal Peripheral Pulses, Gallop/S4 Gastrointestinal: Normal Bowel Sounds, No Organomegaly, No Pulsatile Mass, Non Tender, Soft Back: Normal Inspection, No CVA Tenderness, No Vertebral Tenderness Extremity: Normal Capillary Refill, Normal Inspection, Normal Range of Motion, Non Tender, No Calf Tenderness, No Pedal Edema Neurologic/Psychiatric: Alert, Oriented x3, No Motor/Sensory Deficits, Normal Mood/Affect, make up arranger II-XII Norm as Tested, Abnormal Gait Skin: Normal Color, Warm/Dry, Other Lymphatic: No Adenopathy Results/Procedures Lab Laboratory Tests 04/17/20 05:29 Patient resulted labs reviewed. FIM Transfers Therapy Code Descriptions/Definitions Functional [place] Measure: 0=Not Assessed/NA 4=Minimal Assistance 1=Total Assistance 5=Supervision or Setup 2=Maximal Assistance 6=Modified [place] 3=Moderate Assistance 7=Complete IndependenceSCALE: Activities may be completed with or without assistive devices. 0-Zongwdhmxg-jaigeyf completes the activity by him/herself with no assistance from a helper. 5-Set-up or Clean-up Assistance-helper sets up or cleans up; patient completes activity. [place] assists only prior to or following the activity. 4-Supervision or Touching Assistance-helper provides verbal cues and/or touching/steadying and/or contact guard assistance as patient completes activity. Assistance may be provided throughout the activity or intermittently. 3-Partial/Moderate Assistance-helper does LESS THAN HALF the effort. [place] lifts, holds or supports trunk or limbs, but provides less than half the effort. 2-Substantial/Maximal Assistance-helper does MORE THAN HALF the effort. [place] l ifts or holds trunk or limbs and provides more than half the effort. 9-Wrhxxgkul-parqtm does ALL the effort. Patient does none of the effort to complete the activity. Or, the assistance of 2 or more helpers is required for the patient to complete the activity. If activity was not attempted, code reason: 7-Patient Refused. 9-Not Applicable-not attempted and the patient did not perform the activity before the current illness, exacerbation or injury. 10-Not Attempted due to Environmental Limitations-(lack of equipment, weather restraints, etc.). 88-Not Attempted due to Medical Conditions or Safety Concerns. Roll Left to Right (QC): 3 Sit to Lying (QC): 4 Sit to Stand (QC): 4 Chair/Eno-tf-Hdxdi Xfer(QC): 4 Car Transfer (QC): 4 Gait Training Does the Patient Walk?: Yes Distance: 100' x2 Walk 10 feet (QC): 4 Walk 50 ft with 2 Turns(QC): 4 Walk 150 ft (QC): 4 Walking 10ft/uneven surface-QC: 4 Gait Persons Needed: 1 Gait Assistive Device: FWW Wheelchair Training Does the Pt Use a Wheelchair?: No Wheel 50 ft with 2 turns (QC): 9 Wheel 150 ft (QC): 9 Stair Training 1 Step (curb) (QC): 4 4 Steps (QC): 88 12 Steps (QC): 88 Balance Picking up an Object (QC): 88 ADL-Treatment Eating (QC): 6 Oral Hygiene (QC): 6 Bathing Location: L Arm, R Arm, L Upper Leg, R Upper Leg, L Lower Leg (including foot), R Lower Leg (including foot), Chest, Abdomen, Buttocks, Perineal Area Shower/Bathe Self (QC): 4 (SBA tub transfer with tub transfer bench. SUP showering.) Upper Body Dressing (QC): 6 (gathers from closet and dons IDN.) Lower Body Dressing (QC): 4 (SUP- pt gathers from closet, dons post shower with use of AE with SUP, no LOB, good safety.) On/Off Footwear (QC): 6 (IND, pt able to bring items to shower room and complete sock doffing/ donning with AE) Toileting Hygiene (QC): 4 (SUP in stance.) Toilet Transfer (QC): 4 (SUP, use of walker. ) Assessment/Plan Assessment and Plan Assess & Plan/Chief Complaint Assessment: s/p right hip fracture uncomplicated repair COPD Smoker HTN HLP Recovered alcoholic Constipation Plan: Jairo PANGI IRF protocol BM regimen 04/11/20: Continue changing dressing of right hip fracture site Continue bowel regimen Pain control IV iron infusion Monitor postop anemia 04/12/20: Monitor respiratory status nebulizer treatments Oxygen supplementation Pain control 04/13/20: Wean O2 Pain control IRF protocol 04/14/20: Off O2 Podiatry consult Pain control 04/15/20: Jairo PANGI Lab results will be called to PCP coverage since Deborah ordered them 04/16/20: Labs tomorrow Sensitive skin noted DC soon 04/17/20: Appreciate Dr [place] Monitor pain (1) Closed right hip fracture Status: Acute (2) Smoker (3) Recovering alcoholic in remission (4) HTN (hypertension) (5) CAD (coronary artery disease) (6) COPD (chronic obstructive pulmonary disease) CATRACHITA DIAS DO Apr 17, 2020 05:34
[2020-04-17 05:57] LABS: BASOPHILS # (AUTO) 0.1 10^3/uL (0.0-0.1); BASOPHILS % (AUTO) 1 % (0-10); EOSINOPHILS # (AUTO) 0.3 10^3/uL (0.0-0.3); EOSINOPHILS % (AUTO) 3 % (0-10); HEMATOCRIT 27 % (40-54); HEMOGLOBIN 8.7 g/dL (13.3-17.7); LYMPHOCYTES # (AUTO) 2.5 10^3/uL (1.0-4.0); LYMPHOCYTES % (AUTO) 21 % (12-44); MEAN CORPUSCULAR HEMOGLOBIN 33 pg (25-34); MEAN CORPUSCULAR HGB CONC 33 g/dL (32-36); MEAN CORPUSCULAR VOLUME 100 fL (80-99); MEAN PLATELET VOLUME 11.4 fL (9.0-12.2); MONOCYTES % (AUTO) 8 % (0-12); NEUTROPHILS # (AUTO) 7.7 10^3/uL (1.8-7.8); NEUTROPHILS % (AUTO) 63 % (42-75); WHITE BLOOD COUNT 12.2 10^3/uL (4.3-11.0)
[2020-04-17 06:04] LABS: PLATELET COUNT 1142 10^3/uL (130-400)
[2020-04-17 06:23] LABS: ALANINE AMINOTRANSFERASE 38 U/L (0-55); ALBUMIN 3.4 GM/DL (3.2-4.5); ALKALINE PHOSPHATASE 94 U/L (40-136); BILIRUBIN,TOTAL 0.7 MG/DL (0.1-1.0); BUN/CREATININE RATIO 17; CALCIUM 8.6 MG/DL (8.5-10.1); CARBON DIOXIDE 23 MMOL/L (21-32); CHLORIDE 106 MMOL/L (98-107); CREATININE SERUM 0.88 MG/DL (0.60-1.30); GFR ESTIMATED > 60; GLUCOSE 107 MG/DL (70-105); POTASSIUM 4.4 MMOL/L (3.6-5.0); SODIUM 136 MMOL/L (135-145); TOTAL PROTEIN 6.5 GM/DL (6.4-8.2)
[2020-04-17] MEDS: ASPIRIN E.C. 81 MG (ECOTRIN) TAB PO SCH (08:25)
[2020-04-17] MEDS: LORATADINE (CLARITIN) 10 MG TAB PO SCH (08:25)
[2020-04-17] MEDS: VITAMIN D3 125 MCG (5,000 UNITS) CAPSULE PO SCH (08:25)
[2020-04-17] MEDS: DOCUSATE SODIUM 100 MG (COLACE) CAP PO SCH (08:26)
[2020-04-17] MEDS: polyethylene glycoL POWDER 17 GM (MIRALAX) PACK PO SCH (08:26)
[2020-04-17] MEDS: SENNA W/DOCUSATE (SENOKOT S) TABLET PO SCH (08:27)
[2020-04-17 08:33] LABS: NEUTROPHILS % (MANUAL) 68 %
[2020-04-17 08:34] LABS: BAND NEUTROPHILS 3 %; LYMPHOCYTES % (MANUAL) 24 %; MONOCYTES % (MANUAL) 3 %
[2020-04-17 08:35] LABS: ANISOCYTOSIS SLIGHT; BASOPHILS % (MANUAL) 1 %; ELLIPT/OVALOCYTES MODERATE; EOSINOPHILS % (MANUAL) 1 %; POIKILOCYTOSIS SLIGHT
[2020-04-17 08:44] LABS: ABSOLUTE RETIC # 114 10e9/uL (24-90); RETICULOCYTE % 4.36 % (0.50-2.40)
[2020-04-17] MEDS: ENOXAPARIN 40 MG/0.4 ML (LOVENOX) SYR SC SCH (09:31)
[2020-04-17] MEDS: IRON SUCROSE 200 MG/10 ML (VENOFER) VIAL IV SCH (09:41)
[2020-04-17 09:45] VITALS: BP 103/57
--- NOTE | 2020-04-17 09:59 | NUR ---
CALL TO DR. JEREZ'S OFFICE TO NOTIFY OF CONSULT. NO ANSWER. MESSAGE LEFT. WILL AWAIT RETURN CALL.
--- NOTE | 2020-04-17 10:39 | NUR ---
[facility] NOTIFIED OF CONSULT FOR DR. COHEN.
--- NOTE | 2020-04-17 10:59 | Physical Therapy Daily Note ---
PT Daily Note-Current Subjective Pt present sitting in recliner. Pt agrees to PT. Pt reports 6/10 pain in left leg and 4/10 in R leg. Appearance At conclusion of PT tx patient returns to recliner where he has access to tray, call button, and all needs met. Mental Status Patient Orientation: Person, Place, Time, Eyes Open, Situation Transfers SCALE: Activities may be completed with or without assistive devices. 8-Syvppgwvbd-iuobxzt completes the activity by him/herself with no assistance from a helper. 5-Set-up or Clean-up Assistance-helper sets up or cleans up; patient completes activity. [place] assists only prior to or following the activity. 4-Supervision or Touching Assistance-helper provides verbal cues and/or touching/steadying and/or contact guard assistance as patient completes activity. Assistance may be provided throughout the activity or intermittently. 3-Partial/Moderate Assistance-helper does LESS THAN HALF the effort. [place] lifts, holds or supports trunk or limbs, but provides less than half the effort. 2-Substantial/Maximal Assistance-helper does MORE THAN HALF the effort. [place] lifts or holds trunk or limbs and provides more than half the effort. 0-Ujcyqfklx-aymsxo does ALL the effort. Patient does none of the effort to complete the activity. Or, the assistance of 2 or more helpers is required for the patient to complete the activity. If activity was not attempted, code reason: 7-Patient Refused. 9-Not Applicable-not attempted and the patient did not perform the activity before the current illness, exacerbation or injury. 10-Not Attempted due to Environmental Limitations-(lack of equipment, weather restraints, etc.). 88-Not Attempted due to Medical Conditions or Safety Concerns. Roll Left & Right (QC): 6 Sit to Lying (QC): 6 Lying to Sitting/Side of Bed(Q: 6 Sit to Stand (QC): 4 Chair/Ipq-ib-Nswsg Xfer(QC): 4 Toilet Transfer (QC): 4 Car Transfer (QC): 4 Weight Bearing Right Lower Extremity: Right Partial Weight Bearing Left Lower Extremity: Left Full Weight Bearing Gait Training Does the Patient Walk?: Yes Distance: 150', 300' Walk 10 feet (QC): 4 Walk 50 ft with 2 Turns(QC): 4 Walk 150 ft (QC): 4 Walking 10ft/uneven surface-QC: 4 Gait Assistive Device: FWW CGA for uneven surface to SBA for ambulation. Pt has increased weightbearing on R leg to 40-50%; this is within his PWB status. Wheelchair Training Wheel 50 ft with 2 turns (QC): 9 Wheel 150 ft (QC): 9 Stair Training Stair Training: Handrails/: uses walker #of Steps: 1 1 Step (curb) (QC): 4 4 Steps (QC): 88 12 Steps (QC): 88 Stairs: Pattern: Step to CGA. Pt instructed to go up with good (L) leg and down with surgical (R) leg. Balance Picking up an Object (QC): 3 Exercises Seated Therapy Exercises: Ankle pumps, Long arc quads, Hamstring Curls, Hip abd/add Seated Reps: 20 Standing: Sit to Stand Standing Reps: 30 Treatments Gait Training, LE strengthening, and functional activities. Assessment Current Status: Good Progress Pt has shown improvement in overall mobility. Pt is able to transfer himself with SBA, along with ambulating even surfaces with stand-by assist. Pt continues to experience more pain and fatigue in L leg, but is increasing weightbearing in R leg. Pt required min assist to stand up straight after picking up item off floor using "golfer's picker and sorter load and unload" pattern. PT Short Term Goals Short Term Goals Time Frame: Apr 17, 2020 Roll Left & Right: 4 (SBA) Sit to lyin (SBA) Lying to sitting on side of be: 4 (SBA) Sit to stand: 4 (SBA) Chair/ujs-ut-gqzgr transfer: 4 (SBA) Toilet transfer: 5 Walk 10 feet: 4 (SBA) Walk 50 feet with two turns: 4 (SBA) Walk 150 feet: 4 (SBA) PT Half-Way Goals Half-Way Goals PT Half-Way Goals Time Frame: Apr 24, 2020 Roll Left & Right (QC): 6 Sit to Lying (QC): 6 Lying-Sitting on Side/Bed(QC): 6 Sit to Stand (QC): 6 Chair/Fgu-dh-Tpzym Xfer(QC): 6 Toilet Transfer (QC): 6 Car Transfer (QC): 5 Does the Patient Walk: Yes Walk 10 feet (QC): 5 Walk 50ft with 2 Turns (QC): 5 Walk 150 ft (QC): 5 Walking 10ft on Uneven Surface: 5 1 Step (curb) (QC): 4 4 Steps (QC): 88 12 Steps (QC): 88 Picking up an Object (QC): 88 Does the Pt use WC or Scooter?: No Wheel 50 feet with 2 turns (QC: 9 Wheel 150 feet: 9 PT Plan Problem List Problem List: Activity Tolerance, Functional Strength, Safety, Balance, Gait, Transfer, Bed Mobility, ROM Treatment/Plan Treatment Plan: Continue Plan of Care Treatment Plan: Bed Mobility, Education, Functional Activity Deborah, Functional Strength, Group Therapy, Gait, Safety, Therapeutic Exercise, Transfers Treatment Duration: Apr 24, 2020 Frequency: At least 5 of 7 days/Wk (IRF) Estimated Hrs Per Day: 1.5 hours per day Patient and/or Family Agrees t: Yes Safety Risks/Education Patient Education: Gait Training, Transfer Techniques, Reviewed Precautions, Correct Positioning, Safety Issues Teaching Recipient: Patient Teaching Methods: Demonstration, Discussion Response to Teaching: Reinforcement Needed Time/GCodes Time In: 1000 Time Out: 1100 Total Billed Treatment Time: 60 Total Billed Treatment 1 visit FA 30' EX 15' GT 15' RAFAEL ARZOLA PT Apr 17, 2020 10:59
[2020-04-17] MEDS: ARFORMOTEROL 15 MCG/2 ML (BROVANA) INH SOLUTIION IH SCH (11:01)
[2020-04-17] MEDS: amLODIPine 5 MG (NORVASC) TAB PO SCH (11:05)
[2020-04-17] MEDS: lisINopril 40 MG (PRINIVIL) TABLET PO SCH (11:05)
[2020-04-17 11:06] VITALS: BP 107/56
--- NOTE | 2020-04-17 12:36 | Progress Note ---
Subjective Date Seen by a Provider: Apr 17, 2020 Time Seen by a Provider: 12:34 Subjective/Events-last exam Fwup right femur fracture--S/P IM jose alfredo, COPD, HTN, post-op anemia. C/O diarrhea and left leg pain with ambulation--improves with rest. Objective Exam Vital Signs Date Time Temp Pulse Resp B/P (MAP) Pulse Ox O2 Delivery O2 Flow Rate FiO2 04/17/20 11:06 61 107/56 (73) 04/17/20 11:01 96 Room Air 04/17/20 09:45 63 103/57 (72) 04/17/20 09:17 Room Air 04/17/20 05:19 36.8 67 18 112/58 (76) 92 Room Air 04/16/20 21:18 Room Air 04/16/20 19:14 100 Room Air 04/16/20 17:06 36.1 72 20 130/61 (84) 97 Room Air I & O 04/17/20 07:00 Intake Total 1710 ml Output Total 09765 ml Balance -56753 ml Capillary Refill : Less Than 3 SecondsLess Than 3 Seconds General Appearance: No Apparent Distress Respiratory: Lungs Clear Cardiovascular: Regular Rate, Rhythm Gastrointestinal: normal bowel sounds, non tender, soft Extremity: Non Tender, No Calf Tenderness, No Pedal Edema Neurologic/Psychiatric: Alert, Oriented x3 Skin: Warm/Dry Results Lab Laboratory Tests 04/17/20 05:29: White Blood Count 12.2H, Red Blood Count 2.68L, Hemoglobin 8.7L, Hematocrit 27L, Mean Corpuscular Volume 100H, Mean Corpuscular Hemoglobin 33, Mean Corpuscular Hemoglobin Concent 33, Red Cell Distribution Width 19.9H, Platelet Count 1142*H, Mean Platelet Volume 11.4, Immature Granulocyte % (Auto) 4, Neutrophils (%) (Auto) 63, Lymphocytes (%) (Auto) 21, Monocytes (%) (Auto) 8, Eosinophils (%) (Auto) 3, Basophils (%) (Auto) 1, Neutrophils # (Auto) 7.7, Lymphocytes # (Auto) 2.5, Monocytes # (Auto) 1.0, Eosinophils # (Auto) 0.3, Basophils # (Auto) 0.1, Immature Granulocyte # (Auto) 0.5H, Neutrophils % (Manual) 68, Lymphocytes % (Manual) 24, Monocytes % (Manual) 3, Eosinophils % (Manual) 1, Basophils % (Manual) 1, Band Neutrophils 3, Poikilocytosis SLIGHT, Basophilic Stippling SLIGHT, Anisocytosis SLIGHT, Elliptocytes MODERATE, Absolute Reticulocyte Count 114H, Percent Reticulocyte Count 4.36H, Sodium Level 136, Potassium Level 4.4, Chloride Level 106, Carbon Dioxide Level 23, Anion Gap 7, Blood Urea Nitrogen 15, Creatinine 0.88, Estimat Glomerular Filtration Rate > 60, BUN/Creatinine Ratio 17, Glucose Level 107H, Calcium Level 8.6, Corrected Calcium 9.1, Total Bilirubin 0.7, Aspartate Amino Transf (AST/SGOT) 36H, Alanine Aminotransferase (ALT/SGPT) 38, Alkaline Phosphatase 94, Total Protein 6.5, Albumin 3.4 Assessment/Plan Assessment/Plan Assess & Plan/Chief Complaint 1. Right Femur Fracture--S/P IM jose alfredo placement, pain contol, DVT prophylaxis, PT/OT 2. Hypertension--back on home meds 3. 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 Post-op anemia--on iron infusions 5. Diarrhea--restart Colestid 6. Thrombocytosis--likely reactive from acute iron deficiency blood loss anemia but hematology consulted to assess Clinical Quality Measures DVT/VTE Risk/Contraindication: Risk Factor Score Per Nursin RFS Level Per Nursing on Admit: 4+=Very High GLORY MARTIN DO Apr 17, 2020 12:36
--- NOTE | 2020-04-17 13:05 | Occupational Ther Daily Note ---
OT Current Status-Daily Note Subjective Pt seen in recliner this am. Alert/ oriented. Pt agrees to OT tx, desiring shower. Pt states 3/10 pain in R hip to start. Mental Status/Objective Patient Orientation: Person, Place, Situation ADL-Treatment Therapy Code Descriptions/Definitions Functional [place] Measure: 0=Not Assessed/NA 4=Minimal Assistance 1=Total Assistance 5=Supervision or Setup 2=Maximal Assistance 6=Modified [place] 3=Moderate Assistance 7=Complete IndependenceSCALE: Activities may be completed with or without assistive devices. 5-Kgifrsimjj-wvdjbxm completes the activity by him/herself with no assistance from a helper. 5-Set-up or Clean-up Assistance-helper sets up or cleans up; patient completes activity. [place] assists only prior to or following the activity. 4-Supervision or Touching Assistance-helper provides verbal cues and/or touching/steadying and/or contact guard assistance as patient completes activity. Assistance may be provided throughout the activity or intermittently. 3-Partial/Moderate Assistance-helper does LESS THAN HALF the effort. Mobile lifts, holds or supports trunk or limbs, but provides less than half the effort. 2-Substantial/Maximal Assistance-helper does MORE THAN HALF the effort. Mobile lifts or holds trunk or limbs and provides more than half the effort. 0-Ewydxjkfh-xbpkdx does ALL the effort. Patient does none of the effort to complete the activity. Or, the assistance of 2 or more helpers is required for the patient to complete the activity. If activity was not attempted, code reason: 7-Patient Refused. 9-Not Applicable-not attempted and the patient did not perform the activity before the current illness, exacerbation or injury. 10-Not Attempted due to Environmental Limitations-(lack of equipment, weather restraints, etc.). 88-Not Attempted due to Medical Conditions or Safety Concerns. Eating (QC): 6 Oral Hygiene (QC): 6 Shower/Bathe Self (QC): 4 (s/u for IV wrappingSBA during shower transfer and standing for bottom hygiene. SUP in sit on shower chair.) Upper Body Dressing (QC): 6 (gathers and dons IND) Lower Body Dressing (QC): 4 (SUP in stance. Pt gathers clothing and dons with use of parcel post weigher. good balance when pulls over hips in stance.) On/Off Footwear: 6 (IND socks with sock aide.) Toileting Hygiene (QC): 4 (SBA in shower for bottom hygiene. When addressing any difficulties at home, pt states difficulty wiping bottom after diarrhea. Pt states swelling on R hip still significant, denies ability to wipe from front. Per ability to complete in shower, pt able to complete; however pt states fati leydi with continued BMs.) Toilet Transfer (QC): 4 (SUP) Other Treatment Pt completes all sit to stands with SUP at walker level, ambulates with SBA to SUP. No LOB. Completes gathering clothes and AE for showering. Pt completes showering/ dressing/ oral care as above. Pt desires to go outside this date. Pt's nurse aware, pt able to ambulate from room and guide self to cafeteria with use of environmental signs. Pt sits in commons area, stating L leg fatigue. Pt states 6/10 pain in LLE and no pain RLE. Pt ambulates outside with SUP, completes reps of theraband ex in sit to address UE functional activity tolerance. Pt states 2 concerns on returning home: pt concerned with fatigued that accompanies diarrhea (see toilet hygiene above), and standing during cooking tasks. Pt educated on ability to clean self in stance during showering, states ability; pt educated on ability to stand 15-20 min previous tx session, pt agrees that if not walking pt is able to complete kitchen management/ standing tasks. Pt returns to 2nd floor with one rest break for LLE fatigue/ pain. Pt returns to room, all needs met, call light in reach. Education OT Patient Education: Correct positioning, Exercise program, Home exercise program, Modified ADL techniques, Progress toward Goal/Update tx plan, Purpose of tx/functional activities, Safety issues Teaching Recipient: Patient Teaching Methods: Demonstration, Discussion Response to Teaching: Verbalize Understanding, Return Demonstration OT Short Term Goals Short Term Goals Time Frame: Apr 19, 2020 Lower body dressin Putting on/taking off footwear: 3 OT Snf Goals Snf Goals Time Frame: Apr 28, 2020 Eating (QC): 6 Oral Hygiene (QC): 6 Toileting Hygiene (QC): 6 Shower/Bathe Self (QC): 6 Upper Body Dressing (QC): 6 Lower Body Dressing (QC): 6 On/Off Footwear (QC): 6 Additional Goals: 1-Demonstrate ADL Tasks, 2-Verbalize Understanding, 3- ImproveStrength/Deborah 1=Demonstrate adherence to instructed precautions during ADL tasks. 2=Patient will verbalize/demonstrate understanding of assistive devices/modifications for ADL. 3=Patient will improve strength/tolerance for activity to enable patient to perform ADL's. OT Education/Plan Problem List/Assessment Assessment: Decreased Activ Tolerance, Impaired I ADL's, Impaired Self-Care Skills Discharge Recommendations Plan/Recommendations: Continue POC Therapy Discharge Recommendati: Home & Family Equpiment Recommendations-D/C: Extended Bath Bench, Bedside Commode, Hip Kit Treatment Plan/Plan of Care Treatment,Training & Education: Yes Patient would benefit from OT for education, treatment and training to promote independence in ADL's, mobility, safety and/or upper extremity function for ADL's. Plan of Care: ADL Retraining, Functional Mobility, Group Exercise/Act as Ind, UE Funct Exercise/Act Treatment Duration: Apr 28, 2020 Frequency: At least 5 of 7 days/Wk (IRF) Estimated Hrs Per Day: 1.5 hours per day Rehab Potential: Fair Time/GCodes Start Time: 08:00 Stop Time: 09:30 Total Time Billed (hr/min): 90 Billed Treatment Time 1, ADL 4 (60), FA (15), EX (15)= 90 PAPA HOYT OTR Apr 17, 2020 13:05
--- NOTE | 2020-04-17 14:16 | Physical Therapy Daily Note ---
PT Daily Note-Current Subjective Pt present sitting supine in recliner. Pt agrees to PT. Pt reports being in no pain, but that pain increases to 6/10 in left leg with activity. Appearance At the conclusion of PT tx patient returns to recliner where he has access to tray, call button, and all needs have been met. Mental Status Patient Orientation: Person, Place, Time, Eyes Open, Situation Transfers SCALE: Activities may be completed with or without assistive devices. 9-Xwhoibdcjd-hepgvsw completes the activity by him/herself with no assistance from a helper. 5-Set-up or Clean-up Assistance-helper sets up or cleans up; patient completes activity. [place] assists only prior to or following the activity. 4-Supervision or Touching Assistance-helper provides verbal cues and/or touching/steadying and/or contact guard assistance as patient completes activity. Assistance may be provided throughout the activity or intermittently. 3-Partial/Moderate Assistance-helper does LESS THAN HALF the effort. [place] lifts, holds or supports trunk or limbs, but provides less than half the effort. 2-Substantial/Maximal Assistance-helper does MORE THAN HALF the effort. [place] lifts or holds trunk or limbs and provides more than half the effort. 1-Rvargwkoe-eywyek does ALL the effort. Patient does none of the effort to complete the activity. Or, the assistance of 2 or more helpers is required for the patient to complete the activity. If activity was not attempted, code reason: 7-Patient Refused. 9-Not Applicable-not attempted and the patient did not perform the activity before the current illness, exacerbation or injury. 10-Not Attempted due to Environmental Limitations-(lack of equipment, weather restraints, etc.). 88-Not Attempted due to Medical Conditions or Safety Concerns. Sit to Stand (QC): 4 Chair/Bxu-qu-Llgzr Xfer(QC): 4 Weight Bearing Right Lower Extremity: Right Partial Weight Bearing Left Lower Extremity: Left Full Weight Bearing Gait Training Does the Patient Walk?: Yes Distance: 200' x3 Walk 10 feet (QC): 4 Walk 50 ft with 2 Turns(QC): 4 Walk 150 ft (QC): 4 Gait Assistive Device: FWW Pt able to ambulate with SBA. Pt moves at steady pace and requires seated rest breaks every approximate 200' Exercises Seated Therapy Exercises: Ankle pumps, Long arc quads, Hip abd/add Seated Reps: 20 Treatments Gait Training Assessment Current Status: Good Progress Pt is improving his gait and weightbearing tolerance on R side. PT Short Term Goals Short Term Goals Time Frame: Apr 17, 2020 Roll Left & Right: 4 (SBA) Sit to lyin (SBA) Lying to sitting on side of be: 4 (SBA) Sit to stand: 4 (SBA) Chair/gul-gb-unyra transfer: 4 (SBA) Toilet transfer: 5 Walk 10 feet: 4 (SBA) Walk 50 feet with two turns: 4 (SBA) Walk 150 feet: 4 (SBA) PT Spinner [employer]draulic Goals Senior Living Goals PT Senior Living Goals Time Frame: Apr 24, 2020 Roll Left & Right (QC): 6 Sit to Lying (QC): 6 Lying-Sitting on Side/Bed(QC): 6 Sit to Stand (QC): 6 Chair/Zkh-ox-Fmqhq Xfer(QC): 6 Toilet Transfer (QC): 6 Car Transfer (QC): 5 Does the Patient Walk: Yes Walk 10 feet (QC): 5 Walk 50ft with 2 Turns (QC): 5 Walk 150 ft (QC): 5 Walking 10ft on Uneven Surface: 5 1 Step (curb) (QC): 4 4 Steps (QC): 88 12 Steps (QC): 88 Picking up an Object (QC): 88 Does the Pt use WC or Scooter?: No Wheel 50 feet with 2 turns (QC: 9 Wheel 150 feet: 9 PT Plan Problem List Problem List: Activity Tolerance, Functional Strength, Safety, Balance, Gait, Transfer, Bed Mobility, ROM Treatment/Plan Treatment Plan: Continue Plan of Care Treatment Plan: Bed Mobility, Education, Functional Activity Deborah, Functional Strength, Group Therapy, Gait, Safety, Therapeutic Exercise, Transfers Treatment Duration: Apr 24, 2020 Frequency: At least 5 of 7 days/Wk (IRF) Estimated Hrs Per Day: 1.5 hours per day Patient and/or Family Agrees t: Yes Safety Risks/Education Patient Education: Gait Training, Correct Positioning, Safety Issues Teaching Recipient: Patient Teaching Methods: Demonstration, Discussion Response to Teaching: Reinforcement Needed Time/GCodes Time In: 1345 Time Out: 1415 Total Billed Treatment Time: 30 Total Billed Treatment 1 visit GT 20' EX 10' RAFAEL ARZOLA PT Apr 17, 2020 14:16
[2020-04-17 15:56] VITALS: BP 125/58
--- NOTE | 2020-04-17 16:56 | NUR ---
DR. COHEN HERE TO SEE PATIENT.
--- NOTE | 2020-04-17 17:35 | Podiatry Progress Note ---
Standard Progress Note Progress Notes/Assess & Plan Date Seen by a Provider: Apr 17, 2020 Time Seen by a Provider: 17:33 Progress/Assessment & Plan Foot exam completed and foot care given. Consult dictated. Follow up as needed. Final Diagnosis Onychomycosis, PVD LAURA JEREZ DPM Apr 17, 2020 17:34
[2020-04-17] MEDS: MONTELUKAST 10 MG (SINGULAIR) TAB PO SCH (20:55)
[2020-04-17] MEDS: COLESTIPOL 1 GM (COLESTID) TAB PO SCH (21:00)
[2020-04-17] MEDS: oxyCODONE/APAP 5/325MG (PERCOCET 5) TABLET PO PRN (23:45)
--- NOTE | 2020-04-18 00:02 | CONSULTATION REPORT ---
DATE OF SERVICE: 04/17/2020 The patient is admitted to room 228. PHYSICIAN REQUESTING CONSULTATION: Alley Zaragoza DO PRIMARY PHYSICIAN: Vidhya Cabrera DO IMPRESSION: 1. A 74-year-old male admitted with a right intertrochanteric fracture following a fall, status post ORIF with intramedullary nail. 2. Worsening thrombocytosis of undetermined etiology. The patient had thrombocytosis even in 2018 during a previous hospitalization. Rule out myeloproliferative disorder. RECOMMENDATIONS: 1. Monitor CBC serially to follow platelet count. 2. We will obtain NIKA-2 mutation analysis. 3. If platelet count is continuing to increase, he may need treatment with hydroxyurea to control this until the workup is completed. 4. If the NIKA-2 mutation is positive, he will need a bone marrow aspiration and biopsy for further evaluation. 5. Continue rehabilitation as you are doing. BRIEF HISTORY: The patient is a 74-year-old male who was admitted to the hospital after he had a fall on his driveway and hurt his right hip. Evaluation showed an intertrochanteric fracture of the right hip and he underwent intramedullary jose alfredo placement and repair. He is undergoing physical therapy. His platelet count has been increasing steadily and hence a hematology consultation was obtained for further evaluation and management. PAST MEDICAL HISTORY: Significant for hypertension, for which he has been on treatment for more than 10 years. He was diagnosed with COPD and is using inhalers. History of intermittent diarrhea of undetermined etiology since the last few years. Peripheral vascular disease requiring stents in both lower extremities. PAST SURGICAL HISTORY: No major surgeries other than recent intramedullary nail placement in the right intertrochanteric fracture. SOCIAL HISTORY: The patient is and lives in [place], [place]. He has three children, two sons and a daughter. One son lives in [place], another son in [place] and daughter in [place]. He worked in [place] and retired few years ago. He denied any exposure to chemicals or radiation during his work. He has extensive history of tobacco use averaging 60+ pack years and was smoking half to 1 pack of cigarettes daily prior to admission. 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 He has been sober for 30 years. No other recreational drug use. FAMILY HISTORY: Unremarkable with no major hematologic or oncologic problems other than skin cancers. Significant diabetes mellitus and coronary artery disease in the family. Two of his brothers from alcoholism. PHYSICAL EXAMINATION: GENERAL: Today showed an elderly male, well developed, well nourished, awake and oriented, in no acute distress. VITAL SIGNS: His temperature was 36.6 degree centigrade, pulse rate of 68, respirations 16, blood pressure 125/58 with oxygen saturation of 95% on room air. HEENT: Normocephalic, extraocular muscles intact, conjunctivae slightly pale, oral mucosa moist. NECK: Supple, with no JVD. CHEST: Symmetrical. LUNGS: Slightly diminished breath sounds bilaterally without wheezes or rales. CARDIOVASCULAR: Regular in rate and rhythm. No murmurs or gallops heard. ABDOMEN: Soft, nontender with no hepatosplenomegaly or other masses palpable. EXTREMITIES: showed postsurgical changes of the right hip. No edema or tenderness of the lower extremities. NEUROLOGIC: Grossly intact without focal motor deficits. The patient is able to ambulate with a walker. LABORATORY DATA: CBC done today showed white count of 12.2, hemoglobin 8.7, MCV 100, RDW 19.9, platelet count 1142,000 with neutrophil count 7.7, lymphocyte count 2.5 and monocyte count 1.0. Absolute reticulocyte count was 114,000. His platelet counts at the time of admission on 04/11/2020 was 655,000. Previous CBCs done in 04/2018 as well as in 10/2017 showed leukocytosis and thrombocytosis. Chemistry panel today showed normal electrolytes. BUN was 15 and creatinine 0.88 with GFR more than 60 mL per minute. Liver function studies were normal except AST level of 36. Thank you for allowing me to participate in this patient's care. I will follow the patient with you and make appropriate recommendations. Job ID: [id number] DocumentID: [id number] Dictated Date: 04/17/2020 17:10:15 Claim Service Representative Date: 04/18/2020 00:01:57 Dictated By: LADONNA COHEN MD
[2020-04-18] MEDS: ARFORMOTEROL 15 MCG/2 ML (BROVANA) INH SOLUTIION IH SCH ×3 (00:47→21:38)
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
--- NOTE | 2020-04-18 05:51 | PM&R Progress Note ---
Subjective HPI/CC On Admission Date Seen by Provider: Apr 18, 2020 Time Seen by Provider: 09:00 Subjective/Events-last exam 04/18/20: DC delayed due to family concerned about his safety Hospital course: Hospital Course: Pt had an uneventful hospital course. he was admitted after right hip fracture. Nebulizer treatments and MDIs maintained along with PCP Dr. Cabrera follow ups during his hospital stay. His Hgb remained stable, received IV iron, but increased platelet count prompted a consult with Dr. Montana because platelet counts were 1134 suspicious for myelodysplastic process so Dr. Montana saw him in consultation and will have close follow up as an outpatient. His bowels regained normal routine. Dr. Segura was able to trim his toenails while he was in the rehab unit and overall he was stable for DC. 04/17/20: Platelet count 1124 will require a delay on DC and consult with Dr. Montana Updated Dr. Cabrera Iron infusions tolerated Off O2 Nebulizer and inhalers maintained Right leg edema noted but its getting better 04/16/20: Son visiting him today O2 weaned Loose stools improved Right flank blister noted no evidence of anything other than contact dermatitis 04/15/20: 2 loose stools have bothered him Dressing changes later today Daughter at bedside Right IV infiltrated and will place warm wet towels 04/14/20: BM+ Incision looks good Iron infusions tolerated Edema of right leg bothers him 04/13/20: Percocet ordered and has helped with the pain Doing pretty well overall Bowels moved yesterday and they were loose May need to delay discharge IV iron infusion maintained 04/12/20: No major issue Fernfuta checked on his incision and it is doing well and less drainage Bowels moving pretty well Remains on oxygen and weening that down Pt had a good night Pain is very well controlled Hgb 8.7, checked iron level, that is pending so will initiate iron infusion Oxycodone is working pretty well for him Bowels really moved very well yesterday Conferred with RN Reviewed therapy notes Checked meds and labs Review of Systems General: Fatigue, Malaise Neurological: Weakness Objective Exam Vital Signs Vital Signs Date Time Temp Pulse Resp B/P (MAP) Pulse Ox O2 Delivery O2 Flow Rate FiO2 04/18/20 20:29 Room Air 04/18/20 17:51 37.0 68 20 130/63 (85 97 Capillary Refill : Less Than 3 SecondsLess Than 3 Seconds General Appearance: No Apparent Distress, WD/WN, Chronically ill HEENT: PERRL/EOMI, Normal ENT Inspection, Pharynx Normal Neck: Full Range of Motion, Normal Inspection, Non Tender, Supple Respiratory: Chest Non Tender, No Accessory Muscle Use, No Respiratory Distress, Decreased Breath Sounds, Rhonci Cardiovascular: Regular Rate, Rhythm, No Edema, No Gallop, No JVD, No Murmur, Normal Peripheral Pulses, Gallop/S4 Gastrointestinal: Normal Bowel Sounds, No Organomegaly, No Pulsatile Mass, Non Tender, Soft Back: Normal Inspection, No CVA Tenderness, No Vertebral Tenderness Extremity: Normal Capillary Refill, Normal Inspection, Normal Range of Motion, Non Tender, No Calf Tenderness, No Pedal Edema Neurologic/Psychiatric: Alert, Oriented x3, No Motor/Sensory Deficits, Normal Mood/Affect, hog ribber II-XII Norm as Tested, Abnormal Gait Skin: Normal Color, Warm/Dry, Other Lymphatic: No Adenopathy Results/Procedures Lab Laboratory Tests 04/18/20 05:04 Patient resulted labs reviewed. FIM Transfers Therapy Code Descriptions/Definitions Functional Stark Measure: 0=Not Assessed/NA 4=Minimal Assistance 1=Total Assistance 5=Supervision or Setup 2=Maximal Assistance 6=Modified Stark 3=Moderate Assistance 7=Complete IndependenceSCALE: Activities may be completed with or without assistive devices. 4-Cbiapqbclk-uzydpkb completes the activity by him/herself with no assistance from a helper. 5-Set-up or Clean-up Assistance-helper sets up or cleans up; patient completes activity. Payson assists only prior to or following the activity. 4-Supervision or Touching Assistance-helper provides verbal cues and/or touching/steadying and/or contact guard assistance as patient completes activity. Assistance may be provided throughout the activity or intermittently. 3-Partial/Moderate Assistance-helper does LESS THAN HALF the effort. Payson lifts, holds or supports trunk or limbs, but provides less than half the effort. 2-Substantial/Maximal Assistance-helper does MORE THAN HALF the effort. Payson lifts or holds trunk or limbs and provides more than half the effort. 5-Vxphgszmm-ftgzgf does ALL the effort. Patient does none of the effort to complete the activity. Or, the assistance of 2 or more helpers is required for the patient to complete the activity. If activity was not attempted, code reason: 7-Patient Refused. 9-Not Applicable-not attempted and the patient did not perform the activity before the current illness, exacerbation or injury. 10-Not Attempted due to Environmental Limitations-(lack of equipment, weather restraints, etc.). 88-Not Attempted due to Medical Conditions or Safety Concerns. Roll Left to Right (QC): 6 Sit to Lying (QC): 6 Sit to Stand (QC): 4 Chair/Gpk-sb-Xgsct Xfer(QC): 4 Car Transfer (QC): 4 Gait Training Does the Patient Walk?: Yes Distance: 200' x3 Walk 10 feet (QC): 4 Walk 50 ft with 2 Turns(QC): 4 Walk 150 ft (QC): 4 Walking 10ft/uneven surface-QC: 4 Gait Persons Needed: 1 Gait Assistive Device: FWW Wheelchair Training Does the Pt Use a Wheelchair?: No Wheel 50 ft with 2 turns (QC): 9 Wheel 150 ft (QC): 9 Stair Training Stair Training: Handrails/: uses walker #of Steps: 1 1 Step (curb) (QC): 4 4 Steps (QC): 88 12 Steps (QC): 88 Stairs: Pattern: Step to Balance Picking up an Object (QC): 3 ADL-Treatment Eating (QC): 6 Oral Hygiene (QC): 6 Bathing Location: L Arm, R Arm, L Upper Leg, R Upper Leg, L Lower Leg (including foot), R Lower Leg (including foot), Chest, Abdomen, Buttocks, Perineal Area Shower/Bathe Self (QC): 4 (s/u for IV wrappingSBA during shower transfer and standing for bottom hygiene. SUP in sit on shower chair.) Upper Body Dressing (QC): 6 (gathers and dons IND) Lower Body Dressing (QC): 4 (SUP in stance. Pt gathers clothing and dons with use of percussion teacher. good balance when pulls over hips in stance.) On/Off Footwear (QC): 6 (IND socks with sock aide.) Toileting Hygiene (QC): 4 (SBA in shower for bottom hygiene. When addressing any difficulties at home, pt states difficulty wiping bottom after diarrhea. Pt states swelling on R hip still significant, denies ability to wipe from front. Per ability to complete in shower, pt able to complete; however pt states fatigue with continued BMs.) Toilet Transfer (QC): 4 (SUP) Assessment/Plan Assessment and Plan Assess & Plan/Chief Complaint Assessment: s/p right hip fracture uncomplicated repair COPD Smoker HTN HLP Recovered alcoholic Constipation Plan: Jairo LAM IRF protocol BM regimen 04/11/20: Continue changing dressing of right hip fracture site Continue bowel regimen Pain control IV iron infusion Monitor postop anemia 04/12/20: Monitor respiratory status nebulizer treatments Oxygen supplementation Pain control 04/13/20: Wean O2 Pain control IRF protocol 04/14/20: Off O2 Podiatry consult Pain control 04/15/20: Jairo LAM Lab results will be called to PCP coverage since Deborah ordered them 04/16/20: Labs tomorrow Sensitive skin noted DC soon 04/17/20: Appreciate Dr Montana Monitor pain 04/18/20: DC is delayed due to family concerns (1) Closed right hip fracture Status: Acute (2) Smoker (3) Recovering alcoholic in remission (4) HTN (hypertension) (5) CAD (coronary artery disease) (6) COPD (chronic obstructive pulmonary disease) CATRACHITA DIAS DO Apr 18, 2020 05:51
[2020-04-18 06:07] LABS: ALBUMIN 3.5 GM/DL (3.2-4.5)
[2020-04-18 06:08] LABS: CHLORIDE 107 MMOL/L (98-107); POTASSIUM 4.4 MMOL/L (3.6-5.0); SODIUM 137 MMOL/L (135-145)
[2020-04-18 06:09] LABS: CALCIUM 8.7 MG/DL (8.5-10.1)
[2020-04-18 06:10] LABS: GLUCOSE 100 MG/DL (70-105); TOTAL PROTEIN 6.6 GM/DL (6.4-8.2)
[2020-04-18 06:11] LABS: CARBON DIOXIDE 22 MMOL/L (21-32)
[2020-04-18 06:12] LABS: BILIRUBIN,TOTAL 0.7 MG/DL (0.1-1.0)
[2020-04-18 06:13] LABS: ALKALINE PHOSPHATASE 105 U/L (40-136)
[2020-04-18 06:14] LABS: CREATININE SERUM 0.84 MG/DL (0.60-1.30); GFR ESTIMATED > 60
[2020-04-18 06:15] VITALS: BP 108/59
[2020-04-18 06:15] LABS: BUN/CREATININE RATIO 15
[2020-04-18 06:16] LABS: ALANINE AMINOTRANSFERASE 40 U/L (0-55)
[2020-04-18] MEDS: LEVOTHYROXINE 75 MCG (LEVOTHROID) TABLET PO SCH (06:16)
[2020-04-18] MEDS ORDERED: OXYC1TAB87 PO (08:34)
[2020-04-18] MEDS ORDERED: IPRA30SP NS (08:34)
--- NOTE | 2020-04-18 08:36 | D/C HH Face to Face Order ---
D/C Face to Face Orders Reconcile Patient Problems Problems Reviewed?: Yes Instructions for Patient Home Health Patient Instructions/FollowUp: Dr Cabrera in [address] Montana as scheduled Physician to follow Patient: Deborah Discharge Diet for Home: No Restrictions Patient Problems: Hip fracture right COPD Smoker Elevated platelets Goals for Patient: Esmeralda Patient Data-Allergies,Ht & Wt Patient Allergies: Coded Allergies: prednisone (Verified Allergy, Severe, 04/07/20) Steroid Psychosis Height (Feet): 5 Height (Inches): 7.50 Weight (Pounds): 151 Weight (Ounces): 0.8 Home Health Need/Face to Face Date of Face to Face: Apr 18, 2020 Clinical Findings: Generalized weakness and fatigue, Instability, Muscle weakness, Pain with ambulation, Unsteady gait I have seen Pt [id number]: Yes Discharged To: Home Diagnosis/Conditions: Hip fracture right COPD Smoker Elevated platelets Patient is Homebound due to: Ese fall risk due to instabilty, Muscle weakness, Pain w/ambulation Homebound Status Due to the above stated illness, injury or surgical procedure (medical condition or diagnosis) and associated clinical findings, the patient is homebound because of his/her inability to leave home except with aid of a supportive device and/or person AND leaving the home requires a considerable and taxing effort or is medically contraindicated. Pt req the following assistanc: Walker Home Health Nursing Orders Home Health Services Order: Nursing Services, Shafting Cleaner-Evaluate & Treat, Physical Therapy-Evaluate & Treat Certify Stmt I certify that this patient is under my care and that I, a nurse practitioner or a physician; a volunteer assistant working with me, had a face to face encounter that - meets the physician face to face encounter requirements with this patient as dated. CATRACHITA DIAS DO Apr 18, 2020 08:36
--- NOTE | 2020-04-18 08:36 | Discharge Summary ---
Diagnosis/Chief Complaint Date of Admission Apr 10, 2020 at 11:05 Date of Discharge Discharge Date: Apr 18, 2020 Discharge Summary Discharge Physical Examination Allergies: Coded Allergies: prednisone (Verified Allergy, Severe, 04/07/20) Steroid Psychosis Vitals & I&Os Vital Signs Date Time Temp Pulse Resp B/P (MAP) Pulse Ox O2 Delivery O2 Flow Rate FiO2 04/18/20 09:28 124/57 (79) 04/18/20 09:27 63 18 98 Room Air 04/18/20 06:15 36.4 Hospital Course Labs (last 24 hrs) Laboratory Tests 04/11/20 05:25: White Blood Count 10.5, Red Blood Count 2.71L, Hemoglobin 8.7L, Hematocrit 26L, Mean Corpuscular Volume 97, Mean Corpuscular Hemoglobin 32, Mean Corpuscular Hemoglobin Concent 33, Red Cell Distribution Width 18.9H, Platelet Count 655H, Mean Platelet Volume 11.1H, Neutrophils (%) (Auto) 68, Lymphocytes (%) (Auto) 19, Monocytes (%) (Auto) 12, Eosinophils (%) (Auto) 1, Basophils (%) (Auto) 0, Neutrophils # (Auto) 7.1, Lymphocytes # (Auto) 2.0, Monocytes # (Auto) 1.2H, Eosinophils # (Auto) 0.1, Basophils # (Auto) 0.0, Sodium Level 136, Potassium Level 3.6, Chloride Level 106, Carbon Dioxide Level 21, Anion Gap 9, Blood Urea Nitrogen 8, Creatinine 0.77, Estimat Glomerular Filtration Rate > 60, BUN/Creatinine Ratio 10, Glucose Level 100, Calcium Level 8.1L, Corrected Ca lcium 8.7, Total Bilirubin 0.8, Aspartate Amino Transf (AST/SGOT) 31, Alanine Aminotransferase (ALT/SGPT) 16, Alkaline Phosphatase 59, Total Protein 6.1L, Albumin 3.3 04/11/20 05:28: Iron Level 51 04/15/20 05:50: White Blood Count 17.2H, Red Blood Count 2.71L, Hemoglobin 8.7L, Hematocrit 27L, Mean Corpuscular Volume 98, Mean Corpuscular Hemoglobin 32, Mean Corpuscular Hemoglobin Concent 33, Red Cell Distribution Width 19.0H, Platelet Count 947H, Mean Platelet Volume 11.4, Neutrophils (%) (Auto) 76H, Lymphocytes (%) (Auto) 12, Monocytes (%) (Auto) 7, Eosinophils (%) (Auto) 2, Basophils (%) (Auto) 1, Neutrophils # (Auto) 13.1H, Lymphocytes # (Auto) 2.1, Monocytes # (Auto) 1.3H, Eosinophils # (Auto) 0.3, Basophils # (Auto) 0.1, Sodium Level 137, Potassium Level 4.4, Chloride Level 105, Carbon Dioxide Level 22, Anion Gap 10, Blood Urea Nitrogen 19H, Creatinine 0.82, Estimat Glomerular Filtration Rate > 60, BUN/Creatinine Ratio 23, Glucose Level 111H, Calcium Level 8.8, Corrected Calcium 9.3, Total Bilirubin 0.8, Aspartate Amino Transf (AST/SGOT) 42H, Alanine Aminotransferase (ALT/SGPT) 41, Alkaline Phosphatase 83, Total Protein 6.5, Albumin 3.4, Immature Granulocyte % (Auto) 2, Immature Granulocyte # (Auto) 0.4H , Neutrophils % (Manual) 70, Lymphocytes % (Manual) 13, Monocytes % (Manual) 8, Eosinophils % (Manual) 2, Promyelocytes % 2, Band Neutrophils 5, Hypochromasia SLIGHT, Poikilocytosis SLIGHT, Anisocytosis SLIGHT 04/17/20 05:29: White Blood Count 12.2H, Red Blood Count 2.68L, Hemoglobin 8.7L, Hematocrit 27L, Mean Corpuscular Volume 100H, Mean Corpuscular Hemoglobin 33, Mean Corpuscular Hemoglobin Concent 33, Red Cell Distribution Width 19.9H, Platelet Count 1142*H, Mean Platelet Volume 11.4, Neutrophils (%) (Auto) 63, Lymphocytes (%) (Auto) 21, Monocytes (%) (Auto) 8, Eosinophils (%) (Auto) 3, Basophils (%) (Auto) 1, Neutrophils # (Auto) 7.7, Lymphocytes # (Auto) 2.5, Monocytes # (Auto) 1.0, Eosinophils # (Auto) 0.3, Basophils # (Auto) 0.1, Sodium Level 136, Potassium Level 4.4, Chloride Level 106, Carbon Dioxide Level 23, Anion Gap 7, Blood Urea Nitrogen 15, Creatinine 0.88, Estimat Glomerular Filtration Rate > 60, BUN/Creatinine Ratio 17, Glucose Level 107H, Calcium Level 8.6, Corrected Calcium 9.1, Total Bilirubin 0.7, Aspartate Amino Transf (AST/SGOT) 36H, Alanine Aminotransferase (ALT/SGPT) 38, Alkaline Phosphatase 94, Total Protein 6.5, Albumin 3.4, Immature Granulocyte % (Auto) 4, Immature Granulocyte # (Auto) 0.5H , Neutrophils % (Manual) 68, Lymphocytes % (Manual) 24, Monocytes % (Manual) 3, Eosinophils % (Manual) 1, Band Neutrophils 3, Poikilocytosis SLIGHT, Anisocytosis SLIGHT, Basophils % (Manual) 1, Basophilic Stippling SLIGHT, Elliptocytes MODERATE, Absolute Reticulocyte Count 114H, Percent Reticulocyte Count 4.36H 04/18/20 05:04: Sodium Level 137, Potassium Level 4.4, Chloride Level 107, Carbon Dioxide Level 22, Anion Gap 8, Blood Urea Nitrogen 13, Creatinine 0.84, Estimat Glomerular Filtration Rate > 60, BUN/Creatinine Ratio 15, Glucose Level 100, Calcium Level 8.7, Corrected Calcium 9.1, Total Bilirubin 0.7, Aspartate Amino Transf (AST/SGOT) 40H, Alanine Aminotransferase (ALT/SGPT) 40, Alkaline Phosphatase 105, Lactate Dehydrogenase 724H, Total Protein 6.6, Albumin 3.5 04/18/20 05:43: Pending Labs Laboratory Tests 04/11/20 05:25: White Blood Count 10.5, Red Blood Count 2.71, Hemoglobin 8.7, Hematocrit 26, Mean Corpuscular Volume 97, Mean Corpuscular Hemoglobin 32, Mean Corpuscular Hemoglobin Concent 33, Red Cell Distribution Width 18.9, Platelet Count 655, Mean Platelet Volume 11.1, Neutrophils (%) (Auto) 68, Lymphocytes (%) (Auto) 19, Monocytes (%) (Auto) 12, Eosinophils (%) (Auto) 1, Basophils (%) (Auto) 0, Neutrophils # (Auto) 7.1, Lymphocytes # (Auto) 2.0, Monocytes # (Auto) 1.2, Eosinophils # (Auto) 0.1, Basophils # (Auto) 0.0, Sodium Level 136, Potassium Level 3.6, Chloride Level 106, Carbon Dioxide Level 21, Anion Gap 9, Blood Urea Nitrogen 8, Creatinine 0.77, Estimat Glomerular Filtration Rate > 60, BUN/Creatinine Ratio 10, Glucose Level 100, Calcium Level 8.1, Corrected Calcium 8.7, Total Bilirubin 0.8, Aspartate Amino Transf (AST/SGOT) 31, Alanine Aminotransferase (ALT/SGPT) 16, Alkaline Phosphatase 59, Total Protein 6.1, Albumin 3.3 04/11/20 05:28: Iron Level 51 04/15/20 05:50: White Blood Count 17.2, Red Blood Count 2.71, Hemoglobin 8.7, Hematocrit 27, Mean Corpuscular Volume 98, Mean Corpuscular Hemoglobin 32, Mean Corpuscular Hemoglobin Concent 33, Red Cell Distribution Width 19.0, Platelet Count 947, Mean Platelet Volume 11.4, Neutrophils (%) (Auto) 76, Lymphocytes (%) (Auto) 12, Monocytes (%) (Auto) 7, Eosinophils (%) (Auto) 2, Basophils (%) (Auto) 1, Neutrophils # (Auto) 13.1, Lymphocytes # (Auto) 2.1, Monocytes # (Auto) 1.3, Eosinophils # (Auto) 0.3, Basophils # (Auto) 0.1, Sodium Level 137, Potassium Level 4.4, Chloride Level 105, Carbon Dioxide Level 22, Anion Gap 10, Blood Urea Nitrogen 19, Creatinine 0.82, Estimat Glomerular Filtration Rate > 60, BUN/Creatinine Ratio 23, Glucose Level 111, Calcium Level 8.8, Corrected Calcium 9.3, Total Bilirubin 0.8, Aspartate Amino Transf (AST/SGOT) 42, Alanine Aminotransferase (ALT/SGPT) 41, Alkaline Phosphatase 83, Total Protein 6.5, Albumin 3.4, Immature Granulocyte % (Auto) 2, Immature Granulocyte # (Auto) 0.4, Neutrophils % (Manual) 70, Lymphocytes % (Manual) 13, Monocytes % (Manual) 8, Eosinophils % (Manual) 2, Promyelocytes % 2, Band Neutrophils 5, Hypochromasia SLIGHT, Poikilocytosis SLIGHT, Anisocytosis SLIGHT 04/17/20 05:29: White Blood Count 12.2, Red Blood Count 2.68, Hemoglobin 8.7, Hematocrit 27, Mean Corpuscular Volume 100, Mean Corpuscular Hemoglobin 33, Mean Corpuscular Hemoglobin Concent 33, Red Cell Distribution Width 19.9, Platelet Count 1142, Mean Platelet Volume 11.4, Neutrophils (%) (Auto) 63, Lymphocytes (%) (Auto) 21, Monocytes (%) (Auto) 8, Eosinophils (%) (Auto) 3, Basophils (%) (Auto) 1, Neutrophils # (Auto) 7.7, Lymphocytes # (Auto) 2.5, Monocytes # (Auto) 1.0, Eosinophils # (Auto) 0.3, Basophils # (Auto) 0.1, Sodium Level 136, Potassium Level 4.4, Chloride Level 106, Carbon Dioxide Level 23, Anion Gap 7, Blood Urea Nitrogen 15, Creatinine 0.88, Estimat Glomerular Filtration Rate > 60, BUN/Creatinine Ratio 17, Glucose Level 107, Calcium Level 8.6, Corrected Calcium 9.1, Total Bilirubin 0.7, Aspartate Amino Transf (AST/SGOT) 36, Alanine Aminotransferase (ALT/SGPT) 38, Alkaline Phosphatase 94, Total Protein 6.5, A lbumin 3.4, Immature Granulocyte % (Auto) 4, Immature Granulocyte # (Auto) 0.5, Neutrophils % (Manual) 68, Lymphocytes % (Manual) 24, Monocytes % (Manual) 3, Eosinophils % (Manual) 1, Band Neutrophils 3, Poikilocytosis SLIGHT, Anisocytosis SLIGHT, Basophils % (Manual) 1, Basophilic Stippling SLIGHT, Elliptocytes MODERATE, Absolute Reticulocyte Count 114, Percent Reticulocyte Count 4.36 04/18/20 05:04: Sodium Level 137, Potassium Level 4.4, Chloride Level 107, Carbon Dioxide Level 22, Anion Gap 8, Blood Urea Nitrogen 13, Creatinine 0.84, Estimat Glomerular Filtration Rate > 60, BUN/Creatinine Ratio 15, Glucose Level 100, Calcium Level 8.7, Corrected Calcium 9.1, Total Bilirubin 0.7, Aspartate Amino Transf (AST/SGOT) 40, Alanine Aminotransferase (ALT/SGPT) 40, Alkaline Phosphatase 105, Lactate Dehydrogenase 724, Total Protein 6.6, Albumin 3.5 04/18/20 05:43: JAK2 Mutation [Pending] Discharge Home Medications: Active Scripts Active Ipratropium [place] 30 Ml [place] 30 Ml NS TID Percocet 5-325 mg Tablet (Oxycodone HCl/Acetaminophen) 1 Each Tablet 1 Tab PO Q2HR PRN Reported Ventolin Hfa (Albuterol Sulfate) 1 Puff Puff 2 Puff INH Q4H PRN 1 PUFF = 90 MCG Ipratropium [place] 30 Ml [place] 2 Sprays NSEACH BID PRN Vitamin D3 (Cholecalciferol (Vitamin D3)) 125 Mcg Capsule 125 Mcg PO DAILY Albuterol Sulfate 2.5 Mg/3 Ml Vial.neb 3 Ml NEB Q4H PRN Brovana (Arformoterol Tartrate) 15 Mcg/2 Ml Vial.neb 2 Ml NEB BID Colestipol HCl 1 Gm Tablet 1 Gm PO DAILY Aspirin EC (Aspirin) 81 Mg Tablet.dr 81 Mg PO HS Atorvastatin Calcium 40 Mg Tablet 40 Mg PO HS Amlodipine Besylate 5 Mg Tablet 5 Mg PO DAILY Levothyroxine Sodium 75 Mcg Tablet 75 Mcg PO DAILY Cetirizine HCl 10 Mg Tablet 10 Mg PO DAILY Montelukast Sodium 10 Mg Tablet 10 Mg PO HS Lisinopril 40 Mg Tablet 40 Mg PO DAILY Instructions to patient/family Please see electronic discharge instructions given to patient. Diagnosis/Problems Diagnosis/Problems (1) Closed right hip fracture Status: Acute (2) Smoker (3) Recovering alcoholic in remission (4) HTN (hypertension) (5) CAD (coronary artery disease) (6) COPD (chronic obstructive pulmonary disease) Clinical Quality Measures DVT/VTE Risk/Contraindication: Risk Factor Score Per Nursin RFS Level Per Nursing on Admit: 4+=Very High CATRACHITA DIAS DO Apr 18, 2020 08:36
--- NOTE | 2020-04-18 08:58 | Physical Therapy Daily Note ---
PT Daily Note-Current Subjective Pt presents sitting upright in recliner. Pt agrees to PT. Pt reports 5/10 pain in legs. Appearance At the conclusion of PT treatment the patient returns to recliner where he has access to tray, call button, and all needs have been met. Mental Status Patient Orientation: Person, Place, Time, Eyes Open, Situation Transfers SCALE: Activities may be completed with or without assistive devices. 7-Ojjvpqnvjo-gkrdcnh completes the activity by him/herself with no assistance from a helper. 5-Set-up or Clean-up Assistance-helper sets up or cleans up; patient completes activity. [place] assists only prior to or following the activity. 4-Supervision or Touching Assistance-helper provides verbal cues and/or touching/steadying and/or contact guard assistance as patient completes activity. Assistance may be provided throughout the activity or intermittently. 3-Partial/Moderate Assistance-helper does LESS THAN HALF the effort. [place] lifts, holds or supports trunk or limbs, but provides less than half the effort. 2-Substantial/Maximal Assistance-helper does MORE THAN HALF the effort. [place] lifts or holds trunk or limbs and provides more than half the effort. 0-Odhfdwqft-boijfo does ALL the effort. Patient does none of the effort to com plete the activity. Or, the assistance of 2 or more helpers is required for the patient to complete the activity. If activity was not attempted, code reason: 7-Patient Refused. 9-Not Applicable-not attempted and the patient did not perform the activity before the current illness, exacerbation or injury. 10-Not Attempted due to Environmental Limitations-(lack of equipment, weather restraints, etc.). 88-Not Attempted due to Medical Conditions or Safety Concerns. Sit to Stand (QC): 4 Chair/Rwb-ke-Hkppl Xfer(QC): 4 Weight Bearing Right Lower Extremity: Right Partial Weight Bearing Left Lower Extremity: Left Full Weight Bearing Gait Training Does the Patient Walk?: Yes Distance: 200' x2 Walk 10 feet (QC): 4 Walk 50 ft with 2 Turns(QC): 4 Walk 150 ft (QC): 4 Gait Assistive Device: FWW SBA with ambulation. Pt is compliant to weight precautions and has improved his ability to shift weight using walker. Exercises Seated Therapy Exercises: Ankle pumps, Long arc quads, Hip abd/add (balloon sq ueeze) Seated Reps: [address] Ex=Flex, Abd, Ext (in parallel bar for partial weightbearing on R side.) Standing Reps: 20 NuStep Minutes: 15 NuStep Workload: 5 Treatments LE strengthening Assessment Current Status: Good Progress Pt completes NuStep without heavy breathing or increased discomfort, pt reports this helps "loosen up" his legs. Pt struggles to straighten R knee with LAQs and reports a pain in lateral side of thigh. PT Short Term Goals Short Term Goals Time Frame: Apr 17, 2020 Roll Left & Right: 4 (SBA) Sit to lyin (SBA) Lying to sitting on side of be: 4 (SBA) Sit to stand: 4 (SBA) Chair/zyd-bs-qviqi transfer: 4 (SBA) Toilet transfer: 5 Walk 10 feet: 4 (SBA) Walk 50 feet with two turns: 4 (SBA) Walk 150 feet: 4 (SBA) PT Rn New Grad Goals Rn New Grad Goals PT [facility] Goals Time Frame: Apr 24, 2020 Roll Left & Right (QC): 6 Sit to Lying (QC): 6 Lying-Sitting on Side/Bed(QC): 6 Sit to Stand (QC): 6 Chair/Awb-ix-Zqfpx Xfer(QC): 6 Toilet Transfer (QC): 6 Car Transfer (QC): 5 Does the Patient Walk: Yes Walk 10 feet (QC): 5 Walk 50ft with 2 Turns (QC): 5 Walk 150 ft (QC): 5 Walking 10ft on Uneven Surface: 5 1 Step (curb) (QC): 4 4 Steps (QC): 88 12 Steps (QC): 88 Picking up an Object (QC): 88 Does the Pt use WC or Scooter?: No Wheel 50 feet with 2 turns (QC: 9 Wheel 150 feet: 9 PT Plan Problem List Problem List: Activity Tolerance, Functional Strength, Safety, Balance, Gait, Transfer, Bed Mobility, ROM Treatment/Plan Treatment Plan: Continue Plan of Care Treatment Plan: Bed Mobility, Education, Functional Activity Deborah, Functional Strength, Group Therapy, Gait, Safety, Therapeutic Exercise, Transfers Treatment Duration: Apr 24, 2020 Frequency: At least 5 of 7 days/Wk (IRF) Estimated Hrs Per Day: 1.5 hours per day Patient and/or Family Agrees t: Yes Safety Risks/Education Patient Education: Gait Training, Transfer Techniques, Reviewed Precautions, Correct Positioning, Safety Issues Teaching Recipient: Patient Teaching Methods: Demonstration, Discussion Response to Teaching: Reinforcement Needed Time/GCodes Time In: 0800 Time Out: 0900 Total Billed Treatment Time: 60 Total Billed Treatment 1 visit EX 45' GT 15' RAFAEL ARZOLA PT Apr 18, 2020 08:58
[2020-04-18 09:27] VITALS: BP 105/63
[2020-04-18 09:28] VITALS: BP 124/57
[2020-04-18] MEDS: ASPIRIN E.C. 81 MG (ECOTRIN) TAB PO SCH (09:29)
[2020-04-18] MEDS: lisINopril 40 MG (PRINIVIL) TABLET PO SCH (09:29)
[2020-04-18] MEDS: VITAMIN D3 125 MCG (5,000 UNITS) CAPSULE PO SCH (09:29)
[2020-04-18] MEDS: LORATADINE (CLARITIN) 10 MG TAB PO SCH (09:30)
[2020-04-18] MEDS: amLODIPine 5 MG (NORVASC) TAB PO SCH (09:30)
[2020-04-18] MEDS: ENOXAPARIN 40 MG/0.4 ML (LOVENOX) SYR SC SCH (09:31)
--- NOTE | 2020-04-18 10:09 | Occupational Ther Daily Note ---
OT Current Status-Daily Note Subjective Pt seen in recliner post PT. Pt denies pain RLE at this time. Pt agrees to OT tx, denies ADLs as showered yesterday and already dressed. Pt seen in recliner. Pt agrees to OT. Pt declines out of room, denying desire to ambulate very far. Ther ex provided in room. Pt states a gb was installed in bathroom near toilet, denies desire/ need for BSC. Mental Status/Objective Patient Orientation: Person, Place, Situation ADL-Treatment Therapy Code Descriptions/Definitions Functional [place] Measure: 0=Not Assessed/NA 4=Minimal Assistance 1=Total Assistance 5=Supervision or Setup 2=Maximal Assistance 6=Modified [place] 3=Moderate Assistance 7=Complete IndependenceSCALE: Activities may be completed with or without assistive devices. 6-Izrlwsrxyn-zbhpekz completes the activity by him/herself with no assistance from a helper. 5-Set-up or Clean-up Assistance-helper sets up or cleans up; patient completes activity. [place] assists only prior to or following the activity. 4-Supervision or Touching Assistance-helper provides verbal cues and/or t ouching/steadying and/or contact guard assistance as patient completes activity. Assistance may be provided throughout the activity or intermittently. 3-Partial/Moderate Assistance-helper does LESS THAN HALF the effort. [place] lifts, holds or supports trunk or limbs, but provides less than half the effort. 2-Substantial/Maximal Assistance-helper does MORE THAN HALF the effort. [place] lifts or holds trunk or limbs and provides more than half the effort. 5-Islpekcor-hjxrkz does ALL the effort. Patient does none of the effort to complete the activity. Or, the assistance of 2 or more helpers is required for the patient to complete the activity. If activity was not attempted, code reason: 7-Patient Refused. 9-Not Applicable-not attempted and the patient did not perform the activity before the current illness, exacerbation or injury. 10-Not Attempted due to Environmental Limitations-(lack of equipment, weather restraints, etc.). 88-Not Attempted due to Medical Conditions or Safety Concerns. Eating (QC): 6 Oral Hygiene (QC): 6 Shower/Bathe Self (QC): 7 Upper Body Dressing (QC): 7 Lower Body Dressing (QC): 7 Toileting Hygiene (QC): 7 Toilet Transfer (QC): 4 Other Treatment Pt agrees to OT tx session. All sit to stands with SBA-SUP. Pt ambulates with walker with SUP. Pt ambulates to therapy gym, completing 15 min moderate arm resistance in stance to address functional UE during stance, requiring 1 rest break throughout due to LLE fatigue, no pain RLE. Pt completes UE ex with 3# dumbbell to increase functional activity tolerance and strength, in forward shoulder flexion, elbow flexion, and internal/ external rotation bilaterally, 15 reps. Pt able to pick multiple items from floor utilizing concrete engineer to assist in h ome environment success, able to place in-hand and throw, no LOB noted through entire process. Pt ambulates through halls with 2 rest breaks due to increasing LLE pain, pt denies pain in RLE though c/o a stiffness. Pt returns to room, denies restroom, sits in recliner with all needs met. Pt agrees for toilet transfer to assess need for BSC. Pt completes transfer with reference to home environment, able to place walker and utilize gb, sits with good control and stands from standard toilet with use of gb and good control. Pt states he does not desire BSC now. Pt ambulates to chair, stands for 20 min to complete balance/ UE strengthening ex at walker level. Pt completes 15 reps of each 10/10 ex bilaterally, no LOB throughout, use of BUEs with no support from w alker intermittently. Pt educated on modified cooking/ cleaning technique to ensure safety within the kitchen- pt states understanding. Pt sits and denies needs, call light in reach. Education OT Patient Education: Correct positioning, Exercise program, Home exercise program, Progress toward Goal/Update tx plan, Purpose of tx/functional activities, Safety issues, Use of adapted equipment Teaching Recipient: Patient Teaching Methods: Demonstration, Discussion Response to Teaching: Verbalize Understanding, Return Demonstration OT Short Term Goals Short Term Goals Time Frame: Apr 19, 2020 Lower body dressin Putting on/taking off footwear: 3 OT Correction Goals Director Medicare Sales Goals Time Frame: Apr 28, 2020 Eating (QC): 6 Oral Hygiene (QC): 6 Toileting Hygiene (QC): 6 Shower/Bathe Self (QC): 6 Upper Body Dressing (QC): 6 Lower Body Dressing (QC): 6 On/Off Footwear (QC): 6 Additional Goals: 1-Demonstrate ADL Tasks, 2-Verbalize Understanding, 3- ImproveStrength/Deborah 1=Demonstrate adherence to instructed precautions during ADL tasks. 2=Patient will verbalize/demonstrate understanding of assistive devices/modifications for ADL. 3=Patient will improve strength/tolerance for activity to enable patient to perform ADL's. OT Education/Plan Problem List/Assessment Assessment: Decreased Activ Tolerance, Edema, Impaired I ADL's, Impaired Self- Care Skills Discharge Recommendations Plan/Recommendations: Continue POC Therapy Discharge Recommendati: Home & Family Equpiment Recommendations-D/C: Extended Bath Bench, Hip Kit, Walker Bag or Basket Treatment Plan/Plan of Care Treatment,Training & Education: Yes Patient would benefit from OT for education, treatment and training to promote independence in ADL's, mobility, safety and/or upper extremity function for ADL's. Plan of Care: ADL Retraining, Functional Mobility, Group Exercise/Act as Ind, UE Funct Exercise/Act Treatment Duration: Apr 28, 2020 Frequency: At least 5 of 7 days/Wk (IRF) Estimated Hrs Per Day: 1.5 hours per day Rehab Potential: Fair Time/GCodes Start Time: 09:00 (1115) Stop Time: 10:00 (1145) Total Time Billed (hr/min): 90 Billed Treatment Time 4445-9114: 1, EX 3 (45), FA (15)= 60 [id number]: 1, EX 2 (30) total: 90 PAPA HOYT OTR Apr 18, 2020 10:09
--- NOTE | 2020-04-18 11:19 | Physical Therapy Daily Note ---
PT Daily Note-Current Subjective Pt present sitting upright in recliner. Pt reports 5/10 pain in R leg; no current pain in L leg. Pt agrees to PT. Appearance At conclusion of PT patient returns to recliner where he as access to tray, call button, and all needs have been met. Mental Status Patient Orientation: Person, Place, Time, Eyes Open, Situation Transfers SCALE: Activities may be completed with or without assistive devices. 7-Tynarchuzo-zeabsjz completes the activity by him/herself with no assistance from a helper. 5-Set-up or Clean-up Assistance-helper sets up or cleans up; patient completes activity. [place] assists only prior to or following the activity. 4-Supervision or Touching Assistance-helper provides verbal cues and/or touching/steadying and/or contact guard assistance as patient completes activity. Assistance may be provided throughout the activity or intermittently. 3-Partial/Moderate Assistance-helper does LESS THAN HALF the effort. [place] lifts, holds or supports trunk or limbs, but provides less than half the effort. 2-Substantial/Maximal Assistance-helper does MORE THAN HALF the effort. [place] lifts or holds trunk or limbs and provides more than half the effort. 3-Drcijqhem-jpmlii does ALL the effort. Patient does none of the effort to complete the activity. Or, the assistance of 2 or more helpers is required for the patient to complete the activity. If activity was not attempted, code reason: 7-Patient Refused. 9-Not Applicable-not attempted and the patient did not perform the activity before the current illness, exacerbation or injury. 10-Not Attempted due to Environmental Limitations-(lack of equipment, weather restraints, etc.). 88-Not Attempted due to Medical Conditions or Safety Concerns. Sit to Stand (QC): 4 Chair/Vbd-ws-Hnpzd Xfer(QC): 4 Weight Bearing Right Lower Extremity: Right Partial Weight Bearing Left Lower Extremity: Left Full Weight Bearing Gait Training Does the Patient Walk?: Yes Distance: 120'x2 Walk 10 feet (QC): 4 Walk 50 ft with 2 Turns(QC): 4 Gait Assistive Device: FWW Pt using step-through pattern and is able to make it to the gym without a need for a rest break. Exercises Seated Therapy Exercises: Ankle pumps, Long arc quads, Hip abd/add (balloon squeeze) Seated Reps: [address] Ex=Flex, Abd, Ext, Side steps (6' x3) Treatments weightbearing LE Strengthening and gait training Assessment Current Status: Good Progress Pt is improving with his ability to balance on L SL and partially weightbear on R side to complete motions with LLE. PT Short Term Goals Short Term Goals Time Frame: Apr 17, 2020 Roll Left & Right: 4 (SBA) Sit to lyin (SBA) Lying to sitting on side of be: 4 (SBA) Sit to stand: 4 (SBA) Chair/uta-bf-xghdl transfer: 4 (SBA) Toilet transfer: 5 Walk 10 feet: 4 (SBA) Walk 50 feet with two turns: 4 (SBA) Walk 150 feet: 4 (SBA) PT Agency Owner Goals Intermediate Goals PT Intermediate Goals Time Frame: Apr 24, 2020 Roll Left & Right (QC): 6 Sit to Lying (QC): 6 Lying-Sitting on Side/Bed(QC): 6 Sit to Stand (QC): 6 Chair/Bmy-jw-Ykvjr Xfer(QC): 6 Toilet Transfer (QC): 6 Car Transfer (QC): 5 Does the Patient Walk: Yes Walk 10 feet (QC): 5 Walk 50ft with 2 Turns (QC): 5 Walk 150 ft (QC): 5 Walking 10ft on Uneven Surface: 5 1 Step (curb) (QC): 4 4 Steps (QC): 88 12 Steps (QC): 88 Picking up an Object (QC): 88 Does the Pt use WC or Scooter?: No Wheel 50 feet with 2 turns (QC: 9 Wheel 150 feet: 9 PT Plan Problem List Problem List: Activity Tolerance, Functional Strength, Safety, Balance, Gait, Transfer, Bed Mobility, ROM Treatment/Plan Treatment Plan: Continue Plan of Care Treatment Plan: Bed Mobility, Education, Functional Activity Deborah, Functional Strength, Group Therapy, Gait, Safety, Therapeutic Exercise, Transfers Treatment Duration: Apr 24, 2020 Frequency: At least 5 of 7 days/Wk (IRF) Estimated Hrs Per Day: 1.5 hours per day Patient and/or Family Agrees t: Yes Safety Risks/Education Patient Education: Gait Training, Reviewed Precautions, Correct Positioning, Safety Issues Teaching Recipient: Patient Teaching Methods: Demonstration, Discussion Response to Teaching: Reinforcement Needed Time/GCodes Time In: 1015 Time Out: 1045 Total Billed Treatment Time: 30 Total Billed Treatment 1 visit GT 10' EX 20' RAFAEL ARZOLA PT Apr 18, 2020 11:19
[2020-04-18] MEDS: COLESTIPOL 1 GM (COLESTID) TAB PO SCH ×2 (14:30→20:27)
--- NOTE | 2020-04-18 14:31 | NUR ---
Pt declined De[facility], states that he had a formed bm this morning, doesn't feel like he needs it.
--- NOTE | 2020-04-18 14:37 | NUR ---
CM/SS CONCURRENT DOCUMENTATION Following up with patient regarding post hospital discharge planning. Patient states he believes he continues to make progress and requests to stay until Friday. Professional Nursing Assistant is exploring patient's progress with [facility] and Treating Therapists. DME: Will need FWW. HHC: Patient selected [facility]. Initiated referral, will finalize with discharge. MEALS: Explored meal delivery for patient, he now indicates he does not want them. His daughter in law does his grocery shopping and he thinks he can prepare easy meals. Professional Nursing Assistant will provide meal contact information for both [facility] and [facility]. Initiated conversation with son Santos Junior about discharge details, he is in a meeting, will return call. Followup tomorrow.
[2020-04-18 17:51] VITALS: BP 130/63
--- NOTE | 2020-04-18 18:05 | Progress Note ---
Subjective Date Seen by a Provider: Apr 18, 2020 Time Seen by a Provider: 18:01 Subjective/Events-last exam Fwup right femur fracture--S/P IM jose alfredo, COPD, HTN, post-op anemia, diarrhea, thrombocytosis. No diarrhea today. Objective Exam Vital Signs Date Time Temp Pulse Resp B/P (MAP) Pulse Ox O2 Delivery O2 Flow Rate FiO2 04/18/20 17:51 37.0 68 20 130/63 (85) 97 Room Air 04/18/20 09:28 124/57 (79) 04/18/20 09:27 63 18 105/63 (77) 98 Room Air 04/18/20 08:41 Room Air 04/18/20 07:37 93 Room Air 04/18/20 06:15 36.4 65 16 108/59 (75) 94 Room Air 04/17/20 20:00 Room Air I & O 04/18/20 07:00 Intake Total 1480 ml Output Total 950 ml Balance 530 ml Capillary Refill : Less Than 3 SecondsLess Than 3 Seconds General Appearance: No Apparent Distress Neck: Supple Respiratory: Lungs Clear, Decreased Breath Sounds Cardiovascular: Regular Rate, Rhythm Extremity: Non Tender, No Calf Tenderness, No Pedal Edema Neurologic/Psychiatric: Alert, Oriented x3, Other Skin: Warm/Dry Results Lab Laboratory Tests 04/18/20 05:04: Sodium Level 137, Potassium Level 4.4, Chloride Level 107, Carbon Dioxide Level 22, Anion Gap 8, Blood Urea Nitrogen 13, Creatinine 0.84, Estimat Glomerular Filtration Rate > 60, BUN/Creatinine Ratio 15, Glucose Level 100, Calcium Level 8.7, Corrected Calcium 9.1, Total Bilirubin 0.7, Aspartate Amino Transf (AST/SGOT) 40H, Alanine Aminotransferase (ALT/SGPT) 40, Alkaline Phosphatase 105, Lactate Dehydrogenase 724H, Total Protein 6.6, Albumin 3.5 04/18/20 05:43: Assessment/Plan Assessment/Plan Assess & Plan/Chief Complaint 1. Right Femur Fracture--S/P IM jose alfredo placement, pain contol, DVT prophylaxis, PT/OT 2. Hypertension--back on home meds 3. 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 Post-op anemia--on iron infusions 5. Diarrhea--improved with restart Colestid 6. Thrombocytosis--likely reactive from acute iron deficiency blood loss anemia but hematology consulted to assess Clinical Quality Measures DVT/VTE Risk/Contraindication: Risk Factor Score Per Nursin RFS Level Per Nursing on Admit: 4+=Very High GLORY MARTIN DO Apr 18, 2020 18:04
--- NOTE | 2020-04-18 19:08 | NUR ---
bedside report received from CARISA SINGH, assume care of pt
[2020-04-18] MEDS: MONTELUKAST 10 MG (SINGULAIR) TAB PO SCH (20:28)
[2020-04-18] MEDS: oxyCODONE/APAP 5/325MG (PERCOCET 5) TABLET PO PRN (20:29)
--- NOTE | 2020-04-18 20:29 | NUR ---
pt up in recliner watching debate on TV, c/o RT hip pain level 6/10 on numeric scale, Percocet 5/325 1 tab given
--- NOTE | 2020-04-18 21:20 | NUR ---
rates pain at 2/10 on numeric scale
[2020-04-19 05:15] VITALS: BP 110/63
[2020-04-19] MEDS: LEVOTHYROXINE 75 MCG (LEVOTHROID) TABLET PO SCH (06:28)
[2020-04-19] MEDS: LORATADINE (CLARITIN) 10 MG TAB PO SCH (07:36)
[2020-04-19] MEDS: IRON SUCROSE 200 MG/10 ML (VENOFER) VIAL IV SCH (07:36)
[2020-04-19] MEDS: lisINopril 40 MG (PRINIVIL) TABLET PO SCH (07:36)
[2020-04-19] MEDS: ARFORMOTEROL 15 MCG/2 ML (BROVANA) INH SOLUTIION IH SCH ×2 (07:36→19:50)
[2020-04-19] MEDS: VITAMIN D3 125 MCG (5,000 UNITS) CAPSULE PO SCH (07:36)
[2020-04-19] MEDS: amLODIPine 5 MG (NORVASC) TAB PO SCH (07:36)
[2020-04-19] MEDS: ASPIRIN E.C. 81 MG (ECOTRIN) TAB PO SCH (07:36)
[2020-04-19] MEDS: ENOXAPARIN 40 MG/0.4 ML (LOVENOX) SYR SC SCH (07:37)
[2020-04-19] MEDS: COLESTIPOL 1 GM (COLESTID) TAB PO SCH ×2 (07:52→20:25)
[2020-04-19] MEDS: oxyCODONE/APAP 5/325MG (PERCOCET 5) TABLET PO PRN ×2 (08:25→20:25)
--- NOTE | 2020-04-19 08:41 | Progress Note ---
Standard Progress Note Progress Notes/Assess & Plan Date Seen by a Provider: Apr 19, 2020 Time Seen by a Provider: 07:28 Progress/Assessment & Plan no complaints Vital Signs Date Time Temp Pulse Resp B/P (MAP) Pulse Ox O2 Delivery O2 Flow Rate FiO2 04/12/20 07:18 93 Room Air 04/12/20 06:38 37.0 71 14 124/66 (85) 92 Room Air 04/11/20 20:51 Room Air 04/11/20 20:00 96 Room Air 04/11/20 16:23 37.0 82 16 100/59 (73) 92 Room Air I & O 04/12/20 07:00 Intake Total 1700 ml Output Total 875 ml Balance 825 ml R hip incisions clean and dry. No calf tenderness. Neg Levon's s/p R hip IM jose alfredo advancing well continue PT/OT Final Diagnosis no complaints Vital Signs Date Time Temp Pulse Resp B/P (MAP) Pulse Ox O2 Delivery O2 Flow Rate FiO2 04/19/20 07:36 95 Room Air 04/19/20 05:15 36.7 65 16 110/63 (79) 94 Room Air 04/18/20 20:29 Room Air 04/18/20 17:51 37.0 68 20 130/63 (85) 97 Room Air 04/18/20 09:28 124/57 (79) 04/18/20 09:27 63 18 105/63 (77) 98 Room Air 04/18/20 08:41 Room Air I & O 04/19/20 07:00 Intake Total 1745 ml Output Total 1250 ml Balance 495 ml R hip incisions clean and dry. No calf tenderness. neg Levon's s/p R hip IM jose alfredo DC rhonda Friday FU three weeks REBEKA CODY MD Apr 19, 2020 08:41
--- NOTE | 2020-04-19 09:20 | Occupational Ther Daily Note ---
OT Current Status-Daily Note Subjective Pt seen in recliner this am. Pt states 3/10 pain in RLE. Pt agrees to OT tx. Pt states desires to stay until Friday Mental Status/Objective Patient Orientation: Person, Place, Situation Attachments: IV (iron tx.) ADL-Treatment Therapy Code Descriptions/Definitions Functional Giles Measure: 0=Not Assessed/NA 4=Minimal Assistance 1=Total Assistance 5=Supervision or Setup 2=Maximal Assistance 6=Modified Giles 3=Moderate Assistance 7=Complete IndependenceSCALE: Activities may be completed with or without assistive devices. 0-Bdehjwhdjl-pbsdfkb completes the activity by him/herself with no assistance from a helper. 5-Set-up or Clean-up Assistance-helper sets up or cleans up; patient completes activity. [place] assists only prior to or following the activity. 4-Supervision or Touching Assistance-helper provides verbal cues and/or touching/steadying and/or contact guard assistance as patient completes activity. Assistance may be provided throughout the activity or intermittently. 3-Partial/Moderate Assistance-helper does LESS THAN HALF the effort. [place] lifts, holds or supports trunk or limbs, but provides less than half the effort. 2-Substantial/Maximal Assistance-helper does MORE THAN HALF the effort. [place] lifts or holds trunk or limbs and provides more than half the effort. 6-Bnspjaujz-uhuuzv does ALL the effort. Patient does none of the effort to complete the activity. Or, the assistance of 2 or more helpers is required for the patient to complete the activity. If activity was not attempted, code reason: 7-Patient Refused. 9-Not Applicable-not attempted and the patient did not perform the activity before the current illness, exacerbation or injury. 10-Not Attempted due to Environmental Limitations-(lack of equipment, weather restraints, etc.). 88-Not Attempted due to Medical Conditions or Safety Concerns. Eating (QC): 6 Oral Hygiene (QC): 6 Bathing Location: L Arm, R Arm, L Upper Leg, R Upper Leg, L Lower Leg (including foot), R Lower Leg (including foot), Chest, Abdomen, Buttocks, Perineal Area Shower/Bathe Self (QC): 4 (Pt completes all tasks with SUP. Pt completes LB bathing, able to reach tops of feet with wash cloth. Pt educated on use of LHS) Upper Body Dressing (QC): 6 Lower Body Dressing (QC): 4 (SUP, pt gathers and dons with use of AE.) On/Off Footwear: 6 (IND socks with use of sock aide R, IND without AE L. Pt requires assist with NANI hose donning (not completed at home)) Toileting Hygiene (QC): 4 (SUP in stance.) Toilet Transfer (QC): 4 (SUP- pt stands in front of toilet, use of gbs for balance, completes urination/ kaleigh cleansing in stance with SUP.) [facility] while completing UE theraband ex bilate rally to address HEP. Pt states will watch Hulu/ read through the day, pt educated to continue fx activity tolerance training with use of theraband. Pt completes 5/5 ex with 15 reps bilaterally with min cues. Pt completes showering/ dressing as above.Pt states decreased kaleigh area swelling, as such is IND with kaleigh care as outlined in toileting. Pt returns to chair, NANI hose/ socks donned. Pt states no pain momentarily. Agrees to outdoor activity, pushed in w/c to 1st floor. Pt completes fx ambulation task across multiple terrains: carpet, cement, bridge, ramp with SBA-CGA and no LOB. Pt states fatigue/ pain LLE during upward ramp. Pt requires rest break. Pt returns to room via w/c, all needs met, call light in reach. Education OT Patient Education: Correct positioning, Exercise program, Home exercise program, Modified ADL techniques, Progress toward Goal/Update tx plan, Purpose of tx/functional activities, Safety issues Teaching Recipient: Patient Teaching Methods: Demonstration, Discussion Response to Teaching: Verbalize Understanding, Return Demonstration OT Short Term Goals Short Term Goals Time Frame: Apr 19, 2020 Lower body dressin Putting on/taking off footwear: 3 OT Care Home Goals Care Home Goals Time Frame: Apr 28, 2020 Eating (QC): 6 Oral Hygiene (QC): 6 Toileting Hygiene (QC): 6 Shower/Bathe Self (QC): 6 Upper Body Dressing (QC): 6 Lower Body Dressing (QC): 6 On/Off Footwear (QC): 6 Additional Goals: 1-Demonstrate ADL Tasks, 2-Verbalize Understanding, 3-ImproveStrength/Deborah 1=Demonstrate adherence to instructed precautions during ADL tasks. 2=Patient will verbalize/demonstrate understanding of assistive devices/modifications for ADL. 3=Patient will improve strength/tolerance for activity to enable patient to perform ADL's. OT Education/Plan Problem List/Assessment Assessment: Decreased Activ Tolerance, Edema Discharge Recommendations Plan/Recommendations: Continue POC Therapy Discharge Recommendati: Home & Family Equpiment Recommendations-D/C: Extended Bath Bench, Hip Kit, Walker Bag or Basket Treatment Plan/Plan of Care Treatment,Training & Education: Yes Patient would benefit from OT for education, treatment and training to promote independence in ADL's, mobility, safety and/or upper extremity function for ADL's. Plan of Care: ADL Retraining, Functional Mobility, Group Exercise/Act as Ind, UE Funct Exercise/Act Treatment Duration: Apr 28, 2020 Frequency: At least 5 of 7 days/Wk (IRF) Estimated Hrs Per Day: 1.5 hours per day Rehab Potential: Fair Time/GCodes Start Time: 07:45 Stop Time: 09:15 Total Time Billed (hr/min): 90 Billed Treatment Time 1, ADL 4 (60), EX (15), FA (15)= 90 PAPA HOYT OTR Apr 19, 2020 09:20
--- NOTE | 2020-04-19 09:26 | PM&R Progress Note ---
Subjective HPI/CC On Admission Date Seen by Provider: Apr 19, 2020 Time Seen by Provider: 09:30 Subjective/Events-last exam 04/19/20: Pt doing well Participating in therapy Pain pretty well controlled Bowels moving good Overall will be ready for DC on Friday for a safe DC with family 04/18/20: DC delayed due to family concerned about his safety Hospital course: Hospital Course: Pt had an uneventful hospital course. he was admitted after right hip fracture. Nebulizer treatments and MDIs maintained along with PCP Dr. Cabrera follow ups during his hospital stay. His Hgb remained stable, received IV iron, but increased platelet count prompted a consult with Dr. Montana because platelet counts were 1134 suspicious for myelodysplastic process so Dr. Montana saw him in consultation and will have close follow up as an outpatient. His bowels regained normal routine. Dr. Segura was able to trim his toenails while he was in the rehab unit and overall he was stable for DC. 04/17/20: Platelet count 1124 will require a delay on DC and consult with Dr. Montana Updated Dr. Cabrera Iron infusions tolerated Off O2 Nebulizer and inhalers maintained Right leg edema noted but its getting better 04/16/20: Son visiting him today O2 weaned Loose stools improved Right flank blister noted no evidence of anything other than contact dermatitis 04/15/20: 2 loose stools have bothered him Dressing changes later today Daughter at bedside Right IV infiltrated and will place warm wet towels 04/14/20: BM+ Incision looks good Iron infusions tolerated Edema of right leg bothers him 04/13/20: Percocet ordered and has helped with the pain Doing pretty well overall Bowels moved yesterday and they were loose May need to delay discharge IV iron infusion maintained 04/12/20: No major issue Zafuta checked on his incision and it is doing well and less drainage Bowels moving pretty well Remains on oxygen and weening that down Pt had a good night Pain is very well controlled Hgb 8.7, checked iron level, that is pending so will initiate iron infusion Oxycodone is working pretty well for him Bowels really moved very well yesterday Conferred with RN Reviewed therapy notes Checked meds and labs Review of Systems Musculoskeletal: leg pain Objective Exam Vital Signs Vital Signs Date Time Temp Pulse Resp B/P (MAP) Pulse Ox O2 Delivery O2 Flow Rate FiO2 04/19/20 20:30 Room Air 04/19/20 19:50 96 04/19/20 18:00 36.9 63 16 103/56 (72) Capillary Refill : Less Than 3 SecondsLess Than 3 Seconds General Appearance: No Apparent Distress, WD/WN, Chronically ill HEENT: PERRL/EOMI, Normal ENT Inspection, Pharynx Normal Neck: Full Range of Motion, Normal Inspection, Non Tender, Supple Respiratory: Chest Non Tender, No Accessory Muscle Use, No Respiratory Distress, Decreased Breath Sounds, Rhonci Cardiovascular: Regular Rate, Rhythm, No Edema, No Gallop, No JVD, No Murmur, Normal Peripheral Pulses, Gallop/S4 Gastrointestinal: Normal Bowel Sounds, No Organomegaly, No Pulsatile Mass, Non Tender, Soft Back: Normal Inspection, No CVA Tenderness, No Vertebral Tenderness Extremity: Normal Capillary Refill, Normal Inspection, Normal Range of Motion, Non Tender, No Calf Tenderness, No Pedal Edema Neurologic/Psychiatric: Alert, Oriented x3, No Motor/Sensory Deficits, Normal Mood/Affect, acupressure therapist II-XII Norm as Tested, Abnormal Gait Skin: Normal Color, Warm/Dry, Other Lymphatic: No Adenopathy Results/Procedures Lab Patient resulted labs reviewed. FIM Transfers Therapy Code Descriptions/Definitions Functional [place] Measure: 0=Not Assessed/NA 4=Minimal Assistance 1=Total Assistance 5=Supervision or Setup 2=Maximal Assistance 6=Modified Edna 3=Moderate Assistance 7=Complete IndependenceSCALE: Activities may be completed with or without assistive devices. 0-Kkvxpimgmm-wqghbyq completes the activity by him/herself with no assistance from a helper. 5-Set-up or Clean-up Assistance-helper sets up or cleans up; patient completes activity. [place] assists only prior to or following the activity. 4-Supervision or Touching Assistance-helper provides verbal cues and/or touching/steadying and/or contact guard assistance as patient completes activity. Assistance may be provided throughout the activity or intermittently. 3-Partial/Moderate Assistance-helper does LESS THAN HALF the effort. [place] lifts, holds or supports trunk or limbs, but provides less than half the effort. 2-Substantial/Maximal Assistance-helper does MORE THAN HALF the effort. [place] lifts or holds trunk or limbs and provides more than half the effort. 9-Lobwimppr-kzqatm does ALL the effort. Patient does none of the effort to compl ete the activity. Or, the assistance of 2 or more helpers is required for the patient to complete the activity. If activity was not attempted, code reason: 7-Patient Refused. 9-Not Applicable-not attempted and the patient did not perform the activity before the current illness, exacerbation or injury. 10-Not Attempted due to Environmental Limitations-(lack of equipment, weather restraints, etc.). 88-Not Attempted due to Medical Conditions or Safety Concerns. Roll Left to Right (QC): 6 Sit to Lying (QC): 6 Sit to Stand (QC): 4 Chair/Nom-fq-Lzsmr Xfer(QC): 4 Car Transfer (QC): 4 Gait Training Does the Patient Walk?: Yes Distance: 120'x2 Walk 10 feet (QC): 4 Walk 50 ft with 2 Turns(QC): 4 Walking 10ft/uneven surface-QC: 4 Gait Persons Needed: 1 Gait Assistive Device: FWW Wheelchair Training Does the Pt Use a Wheelchair?: No Wheel 50 ft with 2 turns (QC): 9 Wheel 150 ft (QC): 9 Stair Training Stair Training: Handrails/: uses walker #of Steps: 1 1 Step (curb) (QC): 4 4 Steps (QC): 88 12 Steps (QC): 88 Stairs: Pattern: Step to Balance Picking up an Object (QC): 3 ADL-Treatment Eating (QC): 6 Oral Hygiene (QC): 6 Bathing Location: L Arm, R Arm, L Upper Leg, R Upper Leg, L Lower Leg (including foot), R Lower Leg (including foot), Chest, Abdomen, Buttocks, Perineal Area Shower/Bathe Self (QC): 4 (Pt completes all tasks with SUP. Pt completes LB bathing, able to reach tops of feet with wash cloth. Pt educated on use of LHS) Upper Body Dressing (QC): 6 Lower Body Dressing (QC): 4 (SUP, pt gathers and dons with use of AE.) On/Off Footwear (QC): 6 (IND socks with use of sock aide R, IND without AE L. Pt requires assist with NANI hose donning (not completed at home)) Toileting Hygiene (QC): 4 (SUP in stance.) Toilet Transfer (QC): 4 (SUP- pt stands in front of toilet, use of gbs for balance, completes urination/ kaleigh cleansing in stance with SUP.) Assessment/Plan Assessment and Plan Assess & Plan/Chief Complaint Assessment: s/p right hip fracture uncomplicated repair COPD Smoker HTN HLP Recovered alcoholic Constipation Plan: [facility] IRF protocol BM regimen 04/11/20: Continue changing dressing of right hip fracture site Continue bowel regimen Pain control IV iron infusion Monitor postop anemia 04/12/20: Monitor respiratory status nebulizer treatments Oxygen supplementation Pain control 04/13/20: Wean O2 Pain control IRF protocol 04/14/20: Off O2 Podiatry consult Pain control 04/15/20: [facility] Lab results will be called to PCP coverage since Deborah ordered them 04/16/20: Labs tomorrow Sensitive skin noted DC soon 04/17/20: Appreciate Dr Montana Monitor pain 04/18/20: DC is delayed due to family concerns 04/19/20: Continue therapy DC Friday Monitor platelets Dr Montana will see him as outpatient (1) Closed right hip fracture Status: Acute (2) Smoker (3) Recovering alcoholic in remission (4) HTN (hypertension) (5) CAD (coronary artery disease) (6) COPD (chronic obstructive pulmonary disease) CATRACHITA DIAS DO Apr 19, 2020 09:26
--- NOTE | 2020-04-19 11:19 | Physical Therapy Daily Note ---
PT Daily Note-Current Subjective Pt sitting in recliner upon arrival. Pt agrees to PT. Pain Numeric Pain Scale: 3 Location: Left Location Body Site: Thigh Pain Description: Ache Mental Status Patient Orientation: Person, Place, Time, Situation Transfers SCALE: Activities may be completed with or without assistive devices. 6-Izrrcgporm-bjproqm completes the activity by him/herself with no assistance from a helper. 5-Set-up or Clean-up Assistance-helper sets up or cleans up; patient completes activity. [place] assists only prior to or following the activity. 4-Supervision or Touching Assistance-helper provides verbal cues and/or touching/steadying and/or contact guard assistance as patient completes activity. Assistance may be provided throughout the activity or intermittently. 3-Partial/Moderate Assistance-helper does LESS THAN HALF the effort. [place] lifts, holds or supports trunk or limbs, but provides less than half the effort. 2-Substantial/Maximal Assistance-helper does MORE THAN HALF the effort. [place] lifts or holds trunk or limbs and provides more than half the effort. 3-Kwkdqymkl-ophwdr does ALL the effort. Patient does none of the effort to com plete the activity. Or, the assistance of 2 or more helpers is required for the patient to complete the activity. If activity was not attempted, code reason: 7-Patient Refused. 9-Not Applicable-not attempted and the patient did not perform the activity before the current illness, exacerbation or injury. 10-Not Attempted due to Environmental Limitations-(lack of equipment, weather restraints, etc.). 88-Not Attempted due to Medical Conditions or Safety Concerns. Sit to Stand (QC): 5 Weight Bearing Right Lower Extremity: Right Partial Weight Bearing Left Lower Extremity: Left Full Weight Bearing Gait Training Does the Patient Walk?: Yes Distance: 150' x2 Walk 10 feet (QC): 5 Walk 50 ft with 2 Turns(QC): 5 Walk 150 ft (QC): 5 Gait Persons Needed: 1 Gait Assistive Device: FWW Exercises Standin way Ex=Flex, Abd, Ext, Side steps (2x along //bars) Standing Reps: 15 NuStep Minutes: 15 NuStep Workload: 5 Treatments TF to standing and amb. in hallway. Pt uses NuStep before taking RB then completing Standing EX in //bars. Pt amb. in hallway then returns to room to rest in recliner. All needs met, call light in hand. Assessment Current Status: Good Progress Pt beatriz. tx. well. PT Short Term Goals Short Term Goals Time Frame: Apr 17, 2020 Roll Left & Right: 4 (SBA) Sit to lyin (SBA) Lying to sitting on side of be: 4 (SBA) Sit to stand: 4 (SBA) Chair/jhr-cd-fbmjf transfer: 4 (SBA) Toilet transfer: 5 Walk 10 feet: 4 (SBA) Walk 50 feet with two turns: 4 (SBA) Walk 150 feet: 4 (SBA) PT Geochemist Goals Geochemist Goals PT Residential Goals Time Frame: Apr 24, 2020 Roll Left & Right (QC): 6 Sit to Lying (QC): 6 Lying-Sitting on Side/Bed(QC): 6 Sit to Stand (QC): 6 Chair/Ihw-ka-Ooojx Xfer(QC): 6 Toilet Transfer (QC): 6 Car Transfer (QC): 5 Does the Patient Walk: Yes Walk 10 feet (QC): 5 Walk 50ft with 2 Turns (QC): 5 Walk 150 ft (QC): 5 Walking 10ft on Uneven Surface: 5 1 Step (curb) (QC): 4 4 Steps (QC): 88 12 Steps (QC): 88 Picking up an Object (QC): 88 Does the Pt use WC or Scooter?: No Wheel 50 feet with 2 turns (QC: 9 Wheel 150 feet: 9 PT Plan Problem List Problem List: Activity Tolerance Treatment/Plan Treatment Plan: Continue Plan of Care Treatment Plan: Bed Mobility, Education, Functional Activity Deborah, Functional Strength, Group Therapy, Gait, Safety, Therapeutic Exercise, Transfers Treatment Duration: Apr 24, 2020 Frequency: At least 5 of 7 days/Wk (IRF) Estimated Hrs Per Day: 1.5 hours per day Patient and/or Family Agrees t: Yes Safety Risks/Education Patient Education: Gait Training, Transfer Techniques, Correct Positioning, Safety Issues Teaching Recipient: Patient Teaching Methods: Discussion Response to Teaching: Verbalize Understanding Time/GCodes Time In: 915 Time Out: 1015 Total Billed Treatment Time: 60 Total Billed Treatment 1, GT x2 (30m) & EX x2 (30m) JUDY HERNDON TREATER Apr 19, 2020 11:19
--- NOTE | 2020-04-19 11:47 | Progress Note ---
RONAN BENZ,MED STUDENT 04/19/20 1147: Progress Note Progress note: 04/19/20 No new concerns or complaints this morning Has had a BM this morning, no diarrhea States R hip pain is improving with PT States L leg has been hurting due to PT, reports hx of claudication in that leg and has an appointment with Dr. Aguilar next week ALLEY DIAS DO 04/21/20 1634: Supervisory-Addendum Brief Verification & Attestation Participated in pt care: history, MDM, physical Personally performed: exam, history, MDM, supervision of care Care discussed with: Medical Student Procedures: n/a Results interpretation: Verified all documentation Verification and Attestation of Medical Student E/M Service A medical student performed and documented this service in my presence. I reviewed and verified all information documented by the medical student and made modifications to such information, when appropriate. I personally performed the physical exam and medical decision making. Alley Dias, Apr 21, 2020,16:34 RONAN BENZ,MED STUDENT Apr 19, 2020 11:47 ALLEY DIAS DO Apr 21, 2020 16:34
--- NOTE | 2020-04-19 13:48 | Physical Therapy Daily Note ---
PT Daily Note-Current Subjective Pt sitting in recliner upon arrival. Pt agrees to PT. Pain Location: No Pain Reported Mental Status Patient Orientation: Person, Place, Time, Situation Transfers SCALE: Activities may be completed with or without assistive devices. 1-Bcbzpgmxyb-hhjgqhe completes the activity by him/herself with no assistance from a helper. 5-Set-up or Clean-up Assistance-helper sets up or cleans up; patient completes activity. [place] assists only prior to or following the activity. 4-Supervision or Touching Assistance-helper provides verbal cues and/or touching/steadying and/or contact guard assistance as patient completes activity. Assistance may be provided throughout the activity or intermittently. 3-Partial/Moderate Assistance-helper does LESS THAN HALF the effort. [place] lifts, holds or supports trunk or limbs, but provides less than half the effort. 2-Substantial/Maximal Assistance-helper does MORE THAN HALF the effort. [place] lifts or holds trunk or limbs and provides more than half the effort. 8-Ooyrbjkna-jrygrf does ALL the effort. Patient does none of the effort to complete the activity. Or, the assistance of 2 or more helpers is required for the patient to complete the activity. If activity was not attempted, code reason: 7-Patient Refused. 9-Not Applicable-not attempted and the patient did not perform the activity bef ore the current illness, exacerbation or injury. 10-Not Attempted due to Environmental Limitations-(lack of equipment, weather r estraints, etc.). 88-Not Attempted due to Medical Conditions or Safety Concerns. Weight Bearing Right Lower Extremity: Right Partial Weight Bearing Left Lower Extremity: Left Full Weight Bearing Gait Training Does the Patient Walk?: Yes Distance: 150' x2 Walk 10 feet (QC): 6 Walk 50 ft with 2 Turns(QC): 5 Walk 150 ft (QC): 5 Gait Persons Needed: 1 Gait Assistive Device: FWW Wheelchair Training Does the Pt Use a Wheelchair?: No Exercises Seated Therapy Exercises: Ankle pumps, Long arc quads, Hip flexion, Kicking activity, Hamstring Curls Seated Reps: 15 Treatments TF to standing and amb. in hallway. Pt completes Seated Ex with red Tband for added resistance. Pt returns to room at end of tx to rest in recliner. All needs met, call light in hand. Assessment Current Status: Good Progress Pt beatriz. tx well. PT Short Term Goals Short Term Goals Time Frame: Apr 17, 2020 Roll Left & Right: 4 (SBA) Sit to lyin (SBA) Lying to sitting on side of be: 4 (SBA) Sit to stand: 4 (SBA) Chair/pdi-tw-jfovh transfer: 4 (SBA) Toilet transfer: 5 Walk 10 feet: 4 (SBA) Walk 50 feet with two turns: 4 (SBA) Walk 150 feet: 4 (SBA) PT Usp Goals Master Sonar Technician Goals PT Master Sonar Technician Goals Time Frame: Apr 24, 2020 Roll Left & Right (QC): 6 Sit to Lying (QC): 6 Lying-Sitting on Side/Bed(QC): 6 Sit to Stand (QC): 6 Chair/Pkp-nl-Itocy Xfer(QC): 6 Toilet Transfer (QC): 6 Car Transfer (QC): 5 Does the Patient Walk: Yes Walk 10 feet (QC): 5 Walk 50ft with 2 Turns (QC): 5 Walk 150 ft (QC): 5 Walking 10ft on Uneven Surface: 5 1 Step (curb) (QC): 4 4 Steps (QC): 88 12 Steps (QC): 88 Picking up an Object (QC): 88 Does the Pt use WC or Scooter?: No Wheel 50 feet with 2 turns (QC: 9 Wheel 150 feet: 9 PT Plan Problem List Problem List: Activity Tolerance Treatment/Plan Treatment Plan: Continue Plan of Care Treatment Plan: Bed Mobility, Education, Functional Activity Deborah, Functional Strength, Group Therapy, Gait, Safety, Therapeutic Exercise, Transfers Treatment Duration: Apr 24, 2020 Frequency: At least 5 of 7 days/Wk (IRF) Estimated Hrs Per Day: 1.5 hours per day Patient and/or Family Agrees t: Yes Safety Risks/Education Patient Education: Correct Positioning, Safety Issues Teaching Recipient: Patient Teaching Methods: Discussion Response to Teaching: Verbalize Understanding Time/GCodes Time In: 1300 Time Out: 1330 Total Billed Treatment Time: 30 Total Billed Treatment 1, GT (15m) & EX (15m) JUDY HERNDON PTA Apr 19, 2020 13:48
[2020-04-19 15:43] LABS: BASOPHILS # (AUTO) 0.1 10^3/uL (0.0-0.1); BASOPHILS % (AUTO) 1 % (0-10); EOSINOPHILS # (AUTO) 0.3 10^3/uL (0.0-0.3); EOSINOPHILS % (AUTO) 3 % (0-10); HEMATOCRIT 27 % (40-54); HEMOGLOBIN 8.8 g/dL (13.3-17.7); LYMPHOCYTES # (AUTO) 2.9 10^3/uL (1.0-4.0); LYMPHOCYTES % (AUTO) 24 % (12-44); MEAN CORPUSCULAR HEMOGLOBIN 33 pg (25-34); MEAN CORPUSCULAR HGB CONC 33 g/dL (32-36); MEAN CORPUSCULAR VOLUME 102 fL (80-99); MEAN PLATELET VOLUME 12.1 fL (9.0-12.2); MONOCYTES # (AUTO) 1.1 10^3/uL (0.0-1.0); MONOCYTES % (AUTO) 9 % (0-12); NEUTROPHILS # (AUTO) 7.4 10^3/uL (1.8-7.8); NEUTROPHILS % (AUTO) 59 % (42-75); WHITE BLOOD COUNT 12.5 10^3/uL (4.3-11.0)
--- NOTE | 2020-04-19 15:51 | NUR ---
CM/SS PATIENT CARE CONFERENCE Reviewed Summary with patient, he is pleased to be discharging Friday, April 22, 2020. DME: [facility]: [facility], PT and OT Patient will update his son, Santos Junior. He plans a berry picker around 1000. Patient states his family members have all the requested equipment except the FWW, board writer will coordinate and request delivery Friday p.m.
[2020-04-19 15:58] LABS: PLATELET COUNT 1216 10^3/uL (130-400)
--- NOTE | 2020-04-19 17:52 | Progress Note ---
Subjective Date Seen by a Provider: Apr 19, 2020 Time Seen by a Provider: 12:35 Subjective/Events-last exam Fwup right femur fracture--S/P IM jose alfredo, COPD, HTN, post-op anemia, diarrhea, thrombocytosis. Sitting up in chair. Objective Exam Vital Signs Date Time Temp Pulse Resp B/P (MAP) Pulse Ox O2 Delivery O2 Flow Rate FiO2 04/19/20 08:29 Room Air 04/19/20 07:36 95 Room Air 04/19/20 05:15 36.7 65 16 110/63 (79) 94 Room Air 04/18/20 20:29 Room Air 04/18/20 17:51 37.0 68 20 130/63 (85) 97 Room Air I & O 04/19/20 07:00 Intake Total 1745 ml Output Total 1250 ml Balance 495 ml Capillary Refill : Less Than 3 SecondsLess Than 3 Seconds General Appearance: No Apparent Distress Respiratory: Lungs Clear Cardiovascular: Regular Rate, Rhythm Gastrointestinal: normal bowel sounds, non tender, soft Extremity: No Calf Tenderness Neurologic/Psychiatric: Alert, Oriented x3 Assessment/Plan Assessment/Plan Assess & Plan/Chief Complaint 1. Right Femur Fracture--S/P IM jose alfredo placement, pain contol, DVT prophylaxis, PT/OT 2. Hypertension--back on home meds 3. 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 Post-op anemia--on iron infusions 5. Diarrhea--improved with restart Colestid 6. Thrombocytosis--likely reactive from acute iron deficiency blood loss anemia but hematology consulted to assess Clinical Quality Measures DVT/VTE Risk/Contraindication: Risk Factor Score Per Nursin RFS Level Per Nursing on Admit: 4+=Very High GLORY MARTIN DO Apr 19, 2020 17:52
[2020-04-19 18:00] VITALS: BP 103/56
--- NOTE | 2020-04-19 19:12 | NUR ---
bedside report received from SELENE SINGH, assume care of pt
[2020-04-19] MEDS: MONTELUKAST 10 MG (SINGULAIR) TAB PO SCH (20:25)
--- NOTE | 2020-04-19 20:25 | NUR ---
pt reports had diarrhea stools today, meds given as ordered, c/o rt hip pain level 5/10 on numeric scale, Percocet 5/325 1 tab given
--- NOTE | 2020-04-19 21:15 | NUR ---
resting quietly in bed, pain level 0/10 on CNPI SCALE
[2020-04-20 05:28] VITALS: BP 111/60
[2020-04-20] MEDS: LEVOTHYROXINE 75 MCG (LEVOTHROID) TABLET PO SCH (06:20)
[2020-04-20] MEDS: lisINopril 40 MG (PRINIVIL) TABLET PO SCH (08:20)
[2020-04-20] MEDS: ENOXAPARIN 40 MG/0.4 ML (LOVENOX) SYR SC SCH (08:20)
[2020-04-20] MEDS: amLODIPine 5 MG (NORVASC) TAB PO SCH (08:20)
[2020-04-20] MEDS: LORATADINE (CLARITIN) 10 MG TAB PO SCH (08:20)
[2020-04-20] MEDS: ASPIRIN E.C. 81 MG (ECOTRIN) TAB PO SCH (08:20)
[2020-04-20] MEDS: VITAMIN D3 125 MCG (5,000 UNITS) CAPSULE PO SCH (08:20)
[2020-04-20] MEDS: COLESTIPOL 1 GM (COLESTID) TAB PO SCH ×2 (08:22→21:14)
[2020-04-20] MEDS: ARFORMOTEROL 15 MCG/2 ML (BROVANA) INH SOLUTIION IH SCH ×2 (09:28→19:20)
--- NOTE | 2020-04-20 09:41 | Occupational Ther Daily Note ---
OT Current Status-Daily Note Subjective Pt seen this am in recliner chair. Pt alert/ oriented. Agrees to OT tx with focus on strengthening/ balance/ functional activity tolerance for home d/c. Mental Status/Objective Patient Orientation: Person, Place, Situation ADL-Treatment Therapy Code Descriptions/Definitions Functional [place] Measure: 0=Not Assessed/NA 4=Minimal Assistance 1=Total Assistance 5=Supervision or Setup 2=Maximal Assistance 6=Modified [place] 3=Moderate Assistance 7=Complete IndependenceSCALE: Activities may be completed with or without assistive devices. 2-Ecnellcbaj-pbibdla completes the activity by him/herself with no assistance from a helper. 5-Set-up or Clean-up Assistance-helper sets up or cleans up; patient completes activity. [place] assists only prior to or following the activity. 4-Supervision or Touching Assistance-helper provides verbal cues and/or touching/steadying and/or contact guard assistance as patient completes activity. Assistance may be provided throughout the activity or intermittently. 3-Partial/Moderate Assistance-helper does LESS THAN HALF the effort. [place] lifts, holds or supports trunk or limbs, but provides less than half the effort. 2-Substantial/Maximal Assistance-helper does MORE THAN HALF the effort. [place] lifts or holds trunk or limbs and provides more than half the effort. 4-Lytbghehn-lygfzy does ALL the effort. Patient does none of the effort to complete the activity. Or, the assistance of 2 or more helpers is required for the patient to complete the activity. If activity was not attempted, code reason: 7-Patient Refused. 9-Not Applicable-not attempted and the patient did not perform the activity before the current illness, exacerbation or injury. 10-Not Attempted due to Environmental Limitations-(lack of equipment, weather restraints, etc.). 88-Not Attempted due to Medical Conditions or Safety Concerns. Eating (QC): 6 Oral Hygiene (QC): 6 Shower/Bathe Self (QC): 7 Upper Body Dressing (QC): 6 Lower Body Dressing (QC): 6 On/Off Footwear: 6 (IND with sock aideTED hose donned with max A- pt will not complete this task at home.) Toileting Hygiene (QC): 6 (IND in stance for kaleigh care post urination.) Toilet Transfer (QC): 4 (SUP in stance at toilet.) Other Treatment Pt completes tasks with higher IND on this date, able to complete dressing with IND based on balance/ activity level. Pt brushes teeth IND standing in front of sink then ambulates to therapy gym, completing 15 min standing arm bike with mod resistance with 1 rest break at 7 min lauren due to LLE fatigue. Pt states he has been placing increasing weight through RLE due to pain in LLE- pt educated on continued PWB status of RLE and to take increased rest breaks to ensure maintenance of WB. Pt nods in agreement. Pt completes UE ther ex with 3# weight with cues for different positions to address different muscle groups. Pt completes 7/7 ex with min cues, completes torso twists and modified sit-ups with 3# weight with rest break post-activity due to minimal SOB. Pt recovers quickly. Pt ambulates through [place] with SUP/ good balance. Pt and OT discuss pt's cat at home, pt is concerned of fall risk with cat's activity- pt educated on use of walker throughout home and ensuring BUE's on walker during ambulation/ taking time to ensure safety. Pt states cat is also outdoor cat- can keep outdoors most of time. Pt ambulates to kitchen, able to gather items from refrigerator with SUP/ no LOB/ good safety. Pt able to cut/ place items on plate; post-eating returns to recliner with all needs met, call light in reach. Pt states 3/10 pain start and end of session in R hip, no pain LLE. Education OT Patient Education: Correct positioning, Exercise program, Home exercise program, Progress toward Goal/Update tx plan, Purpose of tx/functional activities, Reviewed precautions, Safety issues Teaching Recipient: Patient Teaching Methods: Demonstration, Discussion Response to Teaching: Verbalize Understanding, Return Demonstration OT Short Term Goals Short Term Goals Time Frame: Apr 19, 2020 Lower body dressin Putting on/taking off footwear: 3 OT Penitentiary Goals Penitentiary Goals Time Frame: Apr 28, 2020 Eating (QC): 6 Oral Hygiene (QC): 6 Toileting Hygiene (QC): 6 Shower/Bathe Self (QC): 6 Upper Body Dressing (QC): 6 Lower Body Dressing (QC): 6 On/Off Footwear (QC): 6 Additional Goals: 1-Demonstrate ADL Tasks, 2-Verbalize Understanding, 3- ImproveStrength/Deborah 1=Demonstrate adherence to instructed precautions during ADL tasks. 2=Patient will verbalize/demonstrate understanding of assistive de vices/modifications for ADL. 3=Patient will improve strength/tolerance for activity to enable patient to perform ADL's. OT Education/Plan Problem List/Assessment Assessment: Decreased Activ Tolerance, Edema, Impaired I ADL's Discharge Recommendations Plan/Recommendations: Continue POC Therapy Discharge Recommendati: Home & Family Equpiment Recommendations-D/C: Extended Bath Bench, Hip Kit, Walker Bag or Basket Treatment Plan/Plan of Care Treatment,Training & Education: Yes Patient would benefit from OT for education, treatment and training to promote independence in ADL's, mobility, safety and/or upper extremity function for ADL's. Plan of Care: ADL Retraining, Functional Mobility, Group Exercise/Act as Ind, UE Funct Exercise/Act Treatment Duration: Apr 28, 2020 Frequency: At least 5 of 7 days/Wk (IRF) Estimated Hrs Per Day: 1.5 hours per day Rehab Potential: Fair Time/GCodes Start Time: 07:45 Stop Time: 09:15 Total Time Billed (hr/min): 90 Billed Treatment Time 1, ADL (15), EX 4 (60), FA (15)= 90 PAPA HOYT OTR Apr 20, 2020 09:41
--- NOTE | 2020-04-20 10:17 | PM&R Progress Note ---
Subjective HPI/CC On Admission Date Seen by Provider: Apr 20, 2020 Time Seen by Provider: 10:15 Subjective/Events-last exam 04/20/20: Pt doing pretty well today Will be ready for discharge Friday Dr. 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 he was admitted after right hip fracture. Nebulizer treatments and MDIs maintained along with PCP Dr. Cabrera follow ups during his hospital stay. His Hgb remained stable, received IV iron, but increased platelet count prompted a consult with Dr. Montana because platelet counts were 1134 suspicious for myelodysplastic process so Dr. Montana saw him in consultation and will have close follow up as an outpatient. His bowels regained normal routine. Dr. Segura was able to trim his toenails while he was in the rehab unit and overall he was stable for DC. 04/17/20: Platelet count 1124 will require a delay on DC and consult with Dr. Montana Updated Dr. Cabrera Iron infusions tolerated Off O2 Nebulizer and inhalers maintained Right leg edema noted but its getting better 04/16/20: Son visiting him today O2 weaned Loose stools improved Right flank blister noted no evidence of anything other than contact dermatitis 04/15/20: 2 loose stools have bothered him Dressing changes later today Daughter at bedside Right IV infiltrated and will place warm wet towels 04/14/20: BM+ Incision looks good Iron infusions tolerated Edema of right leg bothers him 04/13/20: Percocet ordered and has helped with the pain Doing pretty well overall Bowels moved yesterday and they were loose May need to delay discharge IV iron infusion maintained 04/12/20: No major issue Zafuta checked on his incision and it is doing well and less drainage Bowels moving pretty well Remains on oxygen and weening that down Pt had a good night Pain is very well controlled Hgb 8.7, checked iron level, that is pending so will initiate iron infusion Oxycodone is working pretty well for him Bowels really moved very well yesterday Conferred with RN Reviewed therapy notes Checked meds and labs Review of Systems General: Fatigue, Malaise Pulmonary: Dyspnea Objective Exam Vital Signs Vital Signs Date Time Temp Pulse Resp B/P (MAP) Pulse Ox O2 Delivery O2 Flow Rate FiO2 04/20/20 21:00 Room Air 04/20/20 19:22 93 04/20/20 18:00 36.9 70 18 102/63 (76) Capillary Refill : Less Than 3 SecondsLess Than 3 Seconds General Appearance: No Apparent Distress, WD/WN, Chronically ill HEENT: PERRL/EOMI, Normal ENT Inspection, Pharynx Normal Neck: Full Range of Motion, Normal Inspection, Non Tender, Supple Respiratory: Chest Non Tender, No Accessory Muscle Use, No Respiratory Distress, Decreased Breath Sounds, Rhonci Cardiovascular: Regular Rate, Rhythm, No Edema, No Gallop, No JVD, No Murmur, Normal Peripheral Pulses, Gallop/S4 Gastrointestinal: Normal Bowel Sounds, No Organomegaly, No Pulsatile Mass, Non Tender, Soft Back: Normal Inspection, No CVA Tenderness, No Vertebral Tenderness Extremity: Normal Capillary Refill, Normal Inspection, Normal Range of Motion, Non Tender, No Calf Tenderness, No Pedal Edema Neurologic/Psychiatric: Alert, Oriented x3, No Motor/Sensory Deficits, Normal Mood/Affect, trial manager II-XII Norm as Tested, Abnormal Gait Skin: Normal Color, Warm/Dry, Other Lymphatic: No Adenopathy Results/Procedures Lab Patient resulted labs reviewed. FIM Transfers Therapy Code Descriptions/Definitions Functional [place] Measure: 0=Not Assessed/NA 4=Minimal Assistance 1=Total Assistance 5=Supervision or Setup 2=Maximal Assistance 6=Modified [place] 3=Moderate Assistance 7=Complete IndependenceSCALE: Activities may be completed with or without assistive devices. 4-Zfbjzbxqcy-mxralzb completes the activity by him/herself with no assistance from a helper. 5-Set-up or Clean-up Assistance-helper sets up or cleans up; patient completes activity. [place] assists only prior to or following the activity. 4-Supervision or Touching Assistance-helper provides verbal cues and/or touching/steadying and/or contact guard assistance as patient completes activity. Assistance may be provided throughout the activity or intermittently. 3-Partial/Moderate Assistance-helper does LESS THAN HALF the effort. [place] li fts, holds or supports trunk or limbs, but provides less than half the effort. 2-Substantial/Maximal Assistance-helper does MORE THAN HALF the effort. [place] lifts or holds trunk or limbs and provides more than half the effort. 3-Cunxxtnkh-vbtvgj does ALL the effort. Patient does none of the effort to complete the activity. Or, the assistance of 2 or more helpers is required for the patient to complete the activity. If activity was not attempted, code reason: 7-Patient Refused. 9-Not Applicable-not attempted and the patient did not perform the activity before the current illness, exacerbation or injury. 10-Not Attempted due to Environmental Limitations-(lack of equipment, weather restraints, etc.). 88-Not Attempted due to Medical Conditions or Safety Concerns. Roll Left to Right (QC): 6 Sit to Lying (QC): 6 Sit to Stand (QC): 5 Chair/Erz-zj-Kasnu Xfer(QC): 4 Car Transfer (QC): 4 Gait Training Does the Patient Walk?: Yes Distance: 150' x2 Walk 10 feet (QC): 6 Walk 50 ft with 2 Turns(QC): 5 Walk 150 ft (QC): 5 Walking 10ft/uneven surface-QC: 4 Gait Persons Needed: 1 Gait Assistive Device: FWW Wheelchair Training Does the Pt Use a Wheelchair?: No Wheel 50 ft with 2 turns (QC): 9 Wheel 150 ft (QC): 9 Stair Training Stair Training: Handrails/: uses walker #of Steps: 1 1 Step (curb) (QC): 4 4 Steps (QC): 88 12 Steps (QC): 88 Stairs: Pattern: Step to Balance Picking up an Object (QC): 3 ADL-Treatment Eating (QC): 6 Oral Hygiene (QC): 6 Bathing Location: L Arm, R Arm, L Upper Leg, R Upper Leg, L Lower Leg (including foot), R Lower Leg (including foot), Chest, Abdomen, Buttocks, Perineal Area Shower/Bathe Self (QC): 7 Upper Body Dressing (QC): 6 Lower Body Dressing (QC): 6 On/Off Footwear (QC): 6 (IND with sock aideTED hose donned with max A- pt will not complete this task at home.) Toileting Hygiene (QC): 6 (IND in stance for kaleigh care post urination.) Toilet Transfer (QC): 4 (SUP in stance at toilet.) Assessment/Plan Assessment and Plan Assess & Plan/Chief Complaint Assessment: s/p right hip fracture uncomplicated repair COPD Smoker HTN HLP Recovered alcoholic Constipation Plan: Jairo LAM IRF protocol BM regimen 04/11/20: Continue changing dressing of right hip fracture site Continue bowel regimen Pain control IV iron infusion Monitor postop anemia 04/12/20: Monitor respiratory status nebulizer treatments Oxygen supplementation Pain control 04/13/20: Wean O2 Pain control IRF protocol 04/14/20: Off O2 Podiatry consult Pain control 04/15/20: Jairo LAM Lab results will be called to PCP coverage since Deborah ordered them 04/16/20: Labs tomorrow Sensitive skin noted DC soon 04/17/20: Appreciate Dr Montana Monitor pain 04/18/20: DC is delayed due to family concerns 04/19/20: Continue therapy DC Friday Monitor platelets Dr Montana will see him as outpatient 04/20/20: Monitor pain Rehab protocol (1) Closed right hip fracture Status: Acute (2) Smoker (3) Recovering alcoholic in remission (4) HTN (hypertension) (5) CAD (coronary artery disease) (6) COPD (chronic obstructive pulmonary disease) CATRACHITA DIAS DO Apr 20, 2020 10:17
--- NOTE | 2020-04-20 11:27 | Physical Therapy Daily Note ---
PT Daily Note-Current Subjective Pt presents sitting upright in recliner. Pt reports no pain. Pt agrees to PT. Appearance At conclusion of PT tx patient returns to recliner. Pt has access to tray, call button, and all needs have been met. Mental Status Patient Orientation: Person, Place, Time, Eyes Open, Situation Transfers SCALE: Activities may be completed with or without assistive devices. 2-Teniqmgfbb-jzsqdpn completes the activity by him/herself with no assistance from a helper. 5-Set-up or Clean-up Assistance-helper sets up or cleans up; patient completes activity. [place] assists only prior to or following the activity. 4-Supervision or Touching Assistance-helper provides verbal cues and/or touching/steadying and/or contact guard assistance as patient completes activity. Assistance may be provided throughout the activity or intermittently. 3-Partial/Moderate Assistance-helper does LESS THAN HALF the effort. [place] lifts, holds or supports trunk or limbs, but provides less than half the effort. 2-Substantial/Maximal Assistance-helper does MORE THAN HALF the effort. [place] lifts or holds trunk or limbs and provides more than half the effort. 0-Pcuhofank-wnaclp does ALL the effort. Patient does none of the effort to complete the activity. Or, the assistance of 2 or more helpers is required for the patient to complete the activity. If activity was not attempted, code reason: 7-Patient Refused. 9-Not Applicable-not attempted and the patient did not perform the activity before the current illness, exacerbation or injury. 10-Not Attempted due to Environmental Limitations-(lack of equipment, weather restraints, etc.). 88-Not Attempted due to Medical Conditions or Safety Concerns. Sit to Stand (QC): 4 Chair/Ppy-bp-Auzim Xfer(QC): 4 SBA Weight Bearing Right Lower Extremity: Right Partial Weight Bearing Left Lower Extremity: Left Full Weight Bearing Gait Training Does the Patient Walk?: Yes Distance: 200', 400' Walk 10 feet (QC): 4 Walk 50 ft with 2 Turns(QC): 4 Walk 150 ft (QC): 4 Gait Assistive Device: FWW Therapists walks beside pt for SBA. Pt has increased his walking speed and endurance; pt able double distance without need for rest break. Exercises Seated Therapy Exercises: Ankle pumps (HR/TR), Long arc quads (2lb weight on RLE; alternate LAQs for 5min), Hip abd/add (pillow squeeze) Seated Reps: 20 Standing: Hamstring curls, 3 way Ex=Flex, Abd, Ext, Sit to Stand (3x10), Side steps (B 6' x3) Standing Reps: 20 B 4" toe taps x20 NuStep Minutes: 15 NuStep Workload: 4 Treatments Gait training and LE strengthening Assessment Current Status: Excellent Progress, Good Progress Pt is increasing his gait distance. Pt is improving his sit to stand transfers. Pt is compliant with weightbearing precautions while still utilizing PWB on RLE. PT Short Term Goals Short Term Goals Time Frame: Apr 17, 2020 Roll Left & Right: 4 (SBA) Sit to lyin (SBA) Lying to sitting on side of be: 4 (SBA) Sit to stand: 4 (SBA) Chair/sui-ss-bgymf transfer: 4 (SBA) Toilet transfer: 5 Walk 10 feet: 4 (SBA) Walk 50 feet with two turns: 4 (SBA) Walk 150 feet: 4 (SBA) PT Retirement Goals Retirement Goals PT Retirement Goals Time Frame: Apr 24, 2020 Roll Left & Right (QC): 6 Sit to Lying (QC): 6 Lying-Sitting on Side/Bed(QC): 6 Sit to Stand (QC): 6 Chair/Mpv-eo-Hmnej Xfer(QC): 6 Toilet Transfer (QC): 6 Car Transfer (QC): 5 Does the Patient Walk: Yes Walk 10 feet (QC): 5 Walk 50ft with 2 Turns (QC): 5 Walk 150 ft (QC): 5 Walking 10ft on Uneven Surface: 5 1 Step (curb) (QC): 4 4 Steps (QC): 88 12 Steps (QC): 88 Picking up an Object (QC): 88 Does the Pt use WC or Scooter?: No Wheel 50 feet with 2 turns (QC: 9 Wheel 150 feet: 9 PT Plan Problem List Problem List: Activity Tolerance, Functional Strength, Safety, Balance, Gait, Transfer, Bed Mobility, ROM Treatment/Plan Treatment Plan: Continue Plan of Care Treatment Plan: Bed Mobility, Education, Functional Activity Deborah, Functional Strength, Group Therapy, Gait, Safety, Therapeutic Exercise, Transfers Treatment Duration: Apr 24, 2020 Frequency: At least 5 of 7 days/Wk (IRF) Estimated Hrs Per Day: 1.5 hours per day Patient and/or Family Agrees t: Yes Safety Risks/Education Patient Education: Gait Training, Transfer Techniques, Reviewed Precautions, Correct Positioning, Safety Issues Teaching Recipient: Patient Teaching Methods: Demonstration, Discussion Response to Teaching: Reinforcement Needed Time/GCodes Time In: 1000 Time Out: 1130 Total Billed Treatment Time: 90 Total Billed Treatment 1 visit GT 30' EX 60' RAFAEL ARZOLA PT Apr 20, 2020 11:27
--- NOTE | 2020-04-20 12:43 | Progress Note ---
RONAN BENZ,MED STUDENT 04/20/20 1243: Progress Note Progress note: 04/20/20 No new concerns or complaints today Notes he had more diarrhea yesterday, but has not had a bm yet this morning R leg pain continuing to improve, says swelling is better today Having continued L leg claudication that is limiting him in PT ALLEY DIAS DO 04/21/20 1634: Supervisory-Addendum Brief Verification & Attestation Participated in pt care: history, MDM, physical Personally performed: exam, history, MDM, supervision of care Care discussed with: Medical Student Procedures: n/a Results interpretation: Verified all documentation Verification and Attestation of Medical Student E/M Service A medical student performed and documented this service in my presence. I reviewed and verified all information documented by the medical student and made modifications to such information, when appropriate. I personally performed the physical exam and medical decision making. Alley Dias, Apr 21, 2020,16:34 RONAN BENZ,MED STUDENT Apr 20, 2020 12:43 ALLEY DIAS DO Apr 21, 2020 16:34
--- NOTE | 2020-04-20 12:48 | NUR ---
CM/SS DISCHARGE PLANNING Coordinating patient's discharge for Friday. HH: Confirmed [place] [facility] can provide services. If RN is ordered, orders and instructions will need to be faxed to [facility] Friday so that aviation warfare systems operator RN can picker tender Friday. DME: FWW ordered through [facility], son is going to purchase/charge a Hip Kit by phone. Both items will be delivered together to patient's room either Friday p.m. or Friday a.m. Son indicates they have the tub transfer bench. Finalize tomorrow.
--- NOTE | 2020-04-20 14:34 | NUR ---
provided prayer and Communion.
--- NOTE | 2020-04-20 17:06 | Progress Note ---
Standard Progress Note Progress Notes/Assess & Plan Date Seen by a Provider: Apr 20, 2020 Time Seen by a Provider: 17:00 Progress/Assessment & Plan 75-year-old male admitted with a right intertrochanteric fracture, status post intramedullary nail placement. Platelets noted to be elevated and has been above normal for the past 2 years. NIKA 2 mutation test pending. Patient doing well clinically without evidence of bleeding or thrombosis. Last platelet count more than 1.2 million. Will repeat CBC tomorrow morning and if continuing to increase, we will start patient on Hydrea to control the platelet count temporarily until the test results are available. Will follow patient with you. LADONNA COHEN Apr 20, 2020 17:06
[2020-04-20 18:00] VITALS: BP 102/63
[2020-04-20] MEDS: MONTELUKAST 10 MG (SINGULAIR) TAB PO SCH (21:05)
[2020-04-20] MEDS: oxyCODONE/APAP 5/325MG (PERCOCET 5) TABLET PO PRN (21:05)
[2020-04-21] MEDS: LEVOTHYROXINE 75 MCG (LEVOTHROID) TABLET PO SCH (06:04)
[2020-04-21 06:08] VITALS: BP 110/66
[2020-04-21 06:46] LABS: BASOPHILS # (AUTO) 0.2 10^3/uL (0.0-0.1); BASOPHILS % (AUTO) 1 % (0-10); EOSINOPHILS # (AUTO) 0.3 10^3/uL (0.0-0.3); EOSINOPHILS % (AUTO) 2 % (0-10); HEMATOCRIT 30 % (40-54); HEMOGLOBIN 9.7 g/dL (13.3-17.7); LYMPHOCYTES # (AUTO) 2.5 10^3/uL (1.0-4.0); LYMPHOCYTES % (AUTO) 19 % (12-44); MEAN CORPUSCULAR HEMOGLOBIN 33 pg (25-34); MEAN CORPUSCULAR HGB CONC 32 g/dL (32-36); MEAN CORPUSCULAR VOLUME 102 fL (80-99); MEAN PLATELET VOLUME 10.8 fL (9.0-12.2); MONOCYTES # (AUTO) 1.2 10^3/uL (0.0-1.0); MONOCYTES % (AUTO) 9 % (0-12); NEUTROPHILS # (AUTO) 8.5 10^3/uL (1.8-7.8); NEUTROPHILS % (AUTO) 65 % (42-75)
[2020-04-21 07:01] LABS: PLATELET COUNT 1224 10^3/uL (130-400)
--- NOTE | 2020-04-21 07:25 | NUR ---
Dr Montana notified of platelet level slightly increased 1224 from 1216. Waiting for return call
[2020-04-21] MEDS: ARFORMOTEROL 15 MCG/2 ML (BROVANA) INH SOLUTIION IH SCH ×2 (07:37→19:35)
[2020-04-21] MEDS: IRON SUCROSE 200 MG/10 ML (VENOFER) VIAL IV SCH (08:55)
[2020-04-21] MEDS: VITAMIN D3 125 MCG (5,000 UNITS) CAPSULE PO SCH (08:57)
[2020-04-21] MEDS: COLESTIPOL 1 GM (COLESTID) TAB PO SCH ×2 (08:57→20:47)
[2020-04-21] MEDS: ENOXAPARIN 40 MG/0.4 ML (LOVENOX) SYR SC SCH (08:57)
[2020-04-21] MEDS: amLODIPine 5 MG (NORVASC) TAB PO SCH (08:58)
[2020-04-21] MEDS: lisINopril 40 MG (PRINIVIL) TABLET PO SCH (08:58)
[2020-04-21] MEDS: ASPIRIN E.C. 81 MG (ECOTRIN) TAB PO SCH (08:58)
[2020-04-21] MEDS: LORATADINE (CLARITIN) 10 MG TAB PO SCH (08:58)
--- NOTE | 2020-04-21 09:03 | Occupational Ther Daily Note ---
OT Current Status-Daily Note Subjective Pt seen in recliner, alert/ oriented. Pt agrees to tx, denies pain this am. OT sees in gym post-PT. Pt agrees to OT tx. Pt denies pain. Mental Status/Objective Patient Orientation: Person, Place, Situation ADL-Treatment Therapy Code Descriptions/Definitions Functional [place] Measure: 0=Not Assessed/NA 4=Minimal Assistance 1=Total Assistance 5=Supervision or Setup 2=Maximal Assistance 6=Modified [place] 3=Moderate Assistance 7=Complete IndependenceSCALE: Activities may be completed with or without assistive devices. 7-Hwbwmvzvks-pvpuspg completes the activity by him/herself with no assistance from a helper. 5-Set-up or Clean-up Assistance-helper sets up or cleans up; patient completes activity. [place] assists only prior to or following the activity. 4-Supervision or Touching Assistance-helper provides verbal cues and/or touching/steadying and/or contact guard assistance as patient completes activity. Assistance may be provided throughout the activity or intermittently. 3-Partial/Moderate Assistance-helper does LESS THAN HALF the effort. [place] lifts, holds or supports trunk or limbs, but provides less than half the effort. 2-Substantial/Maximal Assistance-helper does MORE THAN HALF the effort. [place] lifts or holds trunk or limbs and provides more than half the effort. 2-Zdpqcsiov-fuirpa does ALL the effort. Patient does none of the effort to complete the activity. Or, the assistance of 2 or more helpers is required for the patient to complete the activity. If activity was not attempted, code reason: 7-Patient Refused. 9-Not Applicable-not attempted and the patient did not perform the activity before the current illness, exacerbation or injury. 10-Not Attempted due to Environmental Limitations-(lack of equipment, weather restraints, etc.). 88-Not Attempted due to Medical Conditions or Safety Concerns. Eating (QC): 6 Oral Hygiene (QC): 6 Bathing Location: L Arm, R Arm, L Upper Leg, R Upper Leg, L Lower Leg (including foot), R Lower Leg (including foot), Chest, Abdomen, Buttocks, Perineal Area Shower/Bathe Self (QC): 4 (SUP) Upper Body Dressing (QC): 6 Lower Body Dressing (QC): 6 (with use of AD) On/Off Footwear: 6 (with use of AD. Dons socks and shoes.) Toileting Hygiene (QC): 6 (IND) Toilet Transfer (QC): 6 (IND ) Other Treatment Pt in recliner, gathers clothing items and AE for shower use. Completes trans fers with IND and all ambulation with IND. Pt has good safety/ no LOB. Pt completes showering with SUP (in stance due to increased safety), though able to complete with IND. Pt stands at sink to complete oral care IND, returns to recliner to complete footwear, donning shoes/ socks IND. pt ambulates through boateng, gathering coffee and ambulating back to room safely. Pt in chair, all needs met, call light in reach. In gym, pt sits EOM to complete core strengthening/ balance tasks through reaching and trunk movements. Pt completes 20 reps of: torso twists/ lower plane reaches, torso twists with 1 LE raised to engage core, and modified sit-ups (with rest breaks every 5 reps with this exercise). pt returns to room with SBA, sits in recliner. pt educated on continued use of ther ex/ theraband and cushioned handles placed on pt's walker to take home. Pt denies needs, call light in reach. Pt in recliner end of session. Education OT Patient Education: Correct positioning, Exercise program, Home exercise program, Progress toward Goal/Update tx plan, Purpose of tx/functional activities, Safety issues Teaching Recipient: Patient Teaching Methods: Demonstration, Discussion Response to Teaching: Verbalize Understanding, Return Demonstration OT Short Term Goals Short Term Goals Time Frame: Apr 19, 2020 Lower body dressin Putting on/taking off footwear: 3 OT Skilled Nursing Goals Skilled Nursing Goals Time Frame: Apr 28, 2020 Eating (QC): 6 Oral Hygiene (QC): 6 Toileting Hygiene (QC): 6 Shower/Bathe Self (QC): 6 Upper Body Dressing (QC): 6 Lower Body Dressing (QC): 6 On/Off Footwear (QC): 6 Additional Goals: 1-Demonstrate ADL Tasks, 2-Verbalize Understanding, 3- ImproveStrength/Deborah 1=Demonstrate adherence to instructed precautions during ADL tasks. 2=Patient will verbalize/demonstrate understanding of assistive devices/modifications for ADL. 3=Patient will improve strength/tolerance for activity to enable patient to perform ADL's. OT Education/Plan Problem List/Assessment Assessment: Decreased Activ Tolerance, Edema (decreased on this date, though continued pitting dorsum of foot/ dodd RLE), Impaired I ADL's Discharge Recommendations Plan/Recommendations: Continue POC Therapy Discharge Recommendati: Home & Family Equpiment Recommendations-D/C: Extended Bath Bench, Hip Kit, Walker Bag or Basket Treatment Plan/Plan of Care Treatment,Training & Education: Yes Patient would benefit from OT for education, treatment and training to promote independence in ADL's, mobility, safety and/or upper extremity function for ADL's. Plan of Care: ADL Retraining, Functional Mobility, Group Exercise/Act as Ind, UE Funct Exercise/Act Treatment Duration: Apr 28, 2020 Frequency: At least 5 of 7 days/Wk (IRF) Estimated Hrs Per Day: 1.5 hours per day Rehab Potential: Fair Time/GCodes Start Time: 08:00 (1130) Stop Time: 09:00 (1200) Total Time Billed (hr/min): 90 Billed Treatment Time 1817-0115: 1, ADL 3 (45), FA (15)= 60 1, EX 2 (30) Total: 90 PAPA HOYT OTR Apr 21, 2020 09:03
--- NOTE | 2020-04-21 09:34 | Progress Note ---
RONAN BENZ,VIRAL STUDENT 04/21/20 0934: Progress Note Progress note: 04/21/20 R leg pain continuing to improve RLE swelling improved today Dr. Aguilar was not able to see him yesterday, he will keep outpatient appointment next week Platelet count continuing to rise, 1224 today Will be ready for discharge tomorrow Plan: Continue PT and OT today Per Dr. Montana, may plan to start hydroxyurea today due to PLT count Schedule for outpatient appointment with Dr. Montana Plan for discharge tomorrow ALLEY DIAS DO 04/21/20 1634: Supervisory-Addendum Brief Verification & Attestation Participated in pt care: history, MDM, physical Personally performed: exam, history, MDM, supervision of care Care discussed with: Medical Student Procedures: n/a Results interpretation: Verified all documentation Verification and Attestation of Medical Student E/M Service A medical student performed and documented this service in my presence. I reviewed and verified all information documented by the medical student and made modifications to such information, when appropriate. I personally performed the physical exam and medical decision making. Alley Dias, Apr 21, 2020,16:34 RONAN BENZ,VIRAL STUDENT Apr 21, 2020 09:34 ALLEY DIAS DO Apr 21, 2020 16:34
--- NOTE | 2020-04-21 09:46 | PM&R Progress Note ---
Subjective HPI/CC On Admission Date Seen by Provider: Apr 21, 2020 Time Seen by Provider: 10:00 Subjective/Events-last exam 04/21/20: [place] out today Dr Cabrera visited him today his PCP DC tomorrow BM this am Dr Montana appt as outpatient and Hydrea started 04/20/20: Pt doing pretty well today Will be ready for discharge Friday Dr. 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 he was admitted after right hip fracture. Nebulizer treatments and MDIs maintained a long with PCP Dr. Cabrera follow ups during his hospital stay. His Hgb remained stable, received IV iron, but increased platelet count prompted a consult with Dr. Montana because platelet counts were 1134 suspicious for myelodysplastic process so Dr. Montana saw him in consultation and will have close follow up as an outpatient. His bowels regained normal routine. Dr. Segura was able to trim his toenails while he was in the rehab unit and overall he was stable for DC. 04/17/20: Platelet count 1124 will require a delay on DC and consult with Dr. Montana Updated Dr. Cabrera Iron infusions tolerated Off O2 Nebulizer and inhalers maintained Right leg edema noted but its getting better 04/16/20: Son visiting him today O2 weaned Loose stools improved Right flank blister noted no evidence of anything other than contact dermatitis 04/15/20: 2 loose stools have bothered him Dressing changes later today Daughter at bedside Right IV infiltrated and will place warm wet towels 04/14/20: BM+ Incision looks good Iron infusions tolerated Edema of right leg bothers him 04/13/20: Percocet ordered and has helped with the pain Doing pretty well overall Bowels moved yesterday and they were loose May need to delay discharge IV iron infusion maintained 04/12/20: No major issue [place] checked on his incision and it is doing well and less drainage Bowels moving pretty well Remains on oxygen and weening that down Pt had a good night Pain is very well controlled Hgb 8.7, checked iron level, that is pending so will initiate iron infusion Oxycodone is working pretty well for him Bowels really moved very well yesterday Conferred with RN Reviewed therapy notes Checked meds and labs Review of Systems General: Fatigue, Malaise Musculoskeletal: leg pain Objective Exam Vital Signs Vital Signs Date Time Temp Pulse Resp B/P (MAP) Pulse Ox O2 Delivery O2 Flow Rate FiO2 04/21/20 19:35 Room Air 04/21/20 16:00 36.7 65 16 104/56 (72) 96 Capillary Refill : Less Than 3 SecondsLess Than 3 Seconds General Appearance: No Apparent Distress, WD/WN, Chronically ill HEENT: PERRL/EOMI, Normal ENT Inspection, Pharynx Normal Neck: Full Range of Motion, Normal Inspection, Non Tender, Supple Respiratory: Chest Non Tender, No Accessory Muscle Use, No Respiratory Distress, Decreased Breath Sounds, Rhonci Cardiovascular: Regular Rate, Rhythm, No Edema, No Gallop, No JVD, No Murmur, Normal Peripheral Pulses, Gallop/S4 Gastrointestinal: Normal Bowel Sounds, No Organomegaly, No Pulsatile Mass, Non Tender, Soft Back: Normal Inspection, No CVA Tenderness, No Vertebral Tenderness Extremity: Normal Capillary Refill, Normal Inspection, Normal Range of Motion, Non Tender, No Calf Tenderness, No Pedal Edema Neurologic/Psychiatric: Alert, Oriented x3, No Motor/Sensory Deficits, Normal Mood/Affect, squad boss II-XII Norm as Tested, Abnormal Gait Skin: Normal Color, Warm/Dry, Other Lymphatic: No Adenopathy Results/Procedures Lab Laboratory Tests 04/21/20 06:35 Patient resulted labs reviewed. FIM Transfers Therapy Code Descriptions/Definitions Functional [place] Measure: 0=Not Assessed/NA 4=Minimal Assistance 1=Total Assistance 5=Supervision or Setup 2=Maximal Assistance 6=Modified [place] 3=Moderate Assistance 7=Complete IndependenceSCALE: Activities may be completed with or without assistive devices. 6-Livfbblnns-wtuwasx completes the activity by him/herself with no assistance from a helper. 5-Set-up or Clean-up Assistance-helper sets up or cleans up; patient completes activity. [place] assists only prior to or following the activity. 4-Supervision or Touching Assistance-helper provides verbal cues and/or touching/steadying and/or contact guard assistance as patient completes activity. Assistance may be provided throughout the activity or intermittently. 3-Partial/Moderate Assistance-helper does LESS THAN HALF the effort. [place] l ifts, holds or supports trunk or limbs, but provides less than half the effort. 2-Substantial/Maximal Assistance-helper does MORE THAN HALF the effort. [place] lifts or holds trunk or limbs and provides more than half the effort. 2-Oigyjcdir-kyykci does ALL the effort. Patient does none of the effort to complete the activity. Or, the assistance of 2 or more helpers is required for the patient to complete the activity. If activity was not attempted, code reason: 7-Patient Refused. 9-Not Applicable-not attempted and the patient did not perform the activity before the current illness, exacerbation or injury. 10-Not Attempted due to Environmental Limitations-(lack of equipment, weather restraints, etc.). 88-Not Attempted due to Medical Conditions or Safety Concerns. Roll Left to Right (QC): 6 Sit to Lying (QC): 6 Sit to Stand (QC): 4 Chair/Nqi-bj-Bfqmg Xfer(QC): 4 Car Transfer (QC): 4 Gait Training Does the Patient Walk?: Yes Distance: 200', 400' Walk 10 feet (QC): 4 Walk 50 ft with 2 Turns(QC): 4 Walk 150 ft (QC): 4 Walking 10ft/uneven surface-QC: 4 Gait Persons Needed: 1 Gait Assistive Device: FWW Wheelchair Training Does the Pt Use a Wheelchair?: No Wheel 50 ft with 2 turns (QC): 9 Wheel 150 ft (QC): 9 Stair Training Stair Training: Handrails/: uses walker #of Steps: 1 1 Step (curb) (QC): 4 4 Steps (QC): 88 12 Steps (QC): 88 Stairs: Pattern: Step to Balance Picking up an Object (QC): 3 ADL-Treatment Eating (QC): 6 Oral Hygiene (QC): 6 Bathing Location: L Arm, R Arm, L Upper Leg, R Upper Leg, L Lower Leg (including foot), R Lower Leg (including foot), Chest, Abdomen, Buttocks, Perineal Area Shower/Bathe Self (QC): 4 (SUP) Upper Body Dressing (QC): 6 Lower Body Dressing (QC): 6 (with use of AD) On/Off Footwear (QC): 6 (with use of AD. Dons socks and shoes.) Toileting Hygiene (QC): 6 (IND) Toilet Transfer (QC): 6 (IND ) Assessment/Plan Assessment and Plan Assess & Plan/Chief Complaint Assessment: s/p right hip fracture uncomplicated repair COPD Smoker HTN HLP Recovered alcoholic Constipation Plan: [facility] IRF protocol BM regimen 04/11/20: Continue changing dressing of right hip fracture site Continue bowel regimen Pain control IV iron infusion Monitor postop anemia 04/12/20: Monitor respiratory status nebulizer treatments Oxygen supplementation Pain control 04/13/20: Wean O2 Pain control IRF protocol 04/14/20: Off O2 Podiatry consult Pain control 04/15/20: Jairo LAM Lab results will be called to PCP coverage since Deborah ordered them 04/16/20: Labs tomorrow Sensitive skin noted DC soon 04/17/20: Appreciate Dr Montana Monitor pain 04/18/20: DC is delayed due to family concerns 04/19/20: Continue therapy DC Friday Monitor platelets Dr Montana will see him as outpatient 04/20/20: Monitor pain Rehab protocol 04/21/20: Hydrea started per Dr Montana Monitor closely DC tomorrow (1) Closed right hip fracture Status: Acute (2) Smoker (3) Recovering alcoholic in remission (4) HTN (hypertension) (5) CAD (coronary artery disease) (6) COPD (chronic obstructive pulmonary disease) CATRACHITA DIAS DO Apr 21, 2020 09:46
--- NOTE | 2020-04-21 09:57 | Physical Therapy Daily Note ---
PT Daily Note-Current Subjective Pt.agrees to Rx and is ready for Rx. No c/o pain Pain Location: No Pain Reported Mental Status Patient Orientation: Normal For Age Attachments: Other-See Comments (mask while out of room) Transfers SCALE: Activities may be completed with or without assistive devices. 3-Lninpysyzj-exjesgc completes the activity by him/herself with no assistance from a helper. 5-Set-up or Clean-up Assistance-helper sets up or cleans up; patient completes activity. [place] assists only prior to or following the activity. 4-Supervision or Touching Assistance-helper provides verbal cues and/or touching/steadying and/or contact guard assistance as patient completes activity. Assistance may be provided throughout the activity or intermittently. 3-Partial/Moderate Assistance-helper does LESS THAN HALF the effort. [place] l ifts, holds or supports trunk or limbs, but provides less than half the effort. 2-Substantial/Maximal Assistance-helper does MORE THAN HALF the effort. [place] lifts or holds trunk or limbs and provides more than half the effort. 0-Lputajmml-xxzfxx does ALL the effort. Patient does none of the effort to complete the activity. Or, the assistance of 2 or more helpers is required for t he patient to complete the activity. If activity was not attempted, code reason: 7-Patient Refused. 9-Not Applicable-not attempted and the patient did not perform the activity before the current illness, exacerbation or injury. 10-Not Attempted due to Environmental Limitations-(lack of equipment, weather restraints, etc.). 88-Not Attempted due to Medical Conditions or Safety Concerns. Roll Left & Right (QC): 6 Sit to Lying (QC): 6 Lying to Sitting/Side of Bed(Q: 6 Sit to Stand (QC): 6 Chair/Zxd-kh-Ylvwg Xfer(QC): 6 Toilet Transfer (QC): 6 Car Transfer (QC): 6 Weight Bearing Right Lower Extremity: Right Partial Weight Bearing Left Lower Extremity: Left Full Weight Bearing Gait Training Does the Patient Walk?: Yes Walk 10 feet (QC): 6 Walk 50 ft with 2 Turns(QC): 6 Walk 150 ft (QC): 6 Walking 10ft/uneven surface-QC: 6 Gait Persons Needed: 0 Gait Assistive Device: FWW Wheelchair Training Does the Pt Use a Wheelchair?: No Stair Training Stair Training: Handrails/: 2 handrails #of Steps: 4 1 Step (curb) (QC): 6 4 Steps (QC): 5 12 Steps (QC): 88 Stairs: Pattern: Step to needed only min cues for sequence, has no steps in own home Balance Picking up an Object (QC): 88 Exercises Supine Ex: Ankle pumps, Quad Set, Rolling, Glut sets, Heel Slides, Short Arc Quads, Scooting, Straight leg raise, Hip abd/add Supine Reps: 15 Seated Therapy Exercises: Ankle pumps, Sit to stand, Long arc quads, Hip flexion, Hip abd/add Seated Reps: 15 Assessment Current Status: Good Progress PT Short Term Goals Short Term Goals Time Frame: Apr 17, 2020 Roll Left & Right: 4 (SBA) Sit to lyin (SBA) Lying to sitting on side of be: 4 (SBA) Sit to stand: 4 (SBA) Chair/vfu-nv-kmchv transfer: 4 (SBA) Toilet transfer: 5 Walk 10 feet: 4 (SBA) Walk 50 feet with two turns: 4 (SBA) Walk 150 feet: 4 (SBA) PT Senior Windows Administrator Goals Senior Windows Administrator Goals PT Senior Living Goals Time Frame: Apr 24, 2020 Roll Left & Right (QC): 6 Sit to Lying (QC): 6 Lying-Sitting on Side/Bed(QC): 6 Sit to Stand (QC): 6 Chair/Ztt-nr-Wvdyp Xfer(QC): 6 Toilet Transfer (QC): 6 Car Transfer (QC): 5 Does the Patient Walk: Yes Walk 10 feet (QC): 5 Walk 50ft with 2 Turns (QC): 5 Walk 150 ft (QC): 5 Walking 10ft on Uneven Surface: 5 1 Step (curb) (QC): 4 4 Steps (QC): 88 12 Steps (QC): 88 Picking up an Object (QC): 88 Does the Pt use WC or Scooter?: No Wheel 50 feet with 2 turns (QC: 9 Wheel 150 feet: 9 PT Plan Treatment/Plan Treatment Plan: Continue Plan of Care Treatment Plan: Bed Mobility, Education, Functional Activity Deborah, Functional Strength, Group Therapy, Gait, Safety, Therapeutic Exercise, Transfers Treatment Duration: Apr 24, 2020 Frequency: At least 5 of 7 days/Wk (IRF) Estimated Hrs Per Day: 1.5 hours per day Patient and/or Family Agrees t: Yes Safety Risks/Education Patient Education: Gait Training, Transfer Techniques, Steps, Correct Positioning, Disease Process, Safety Issues Teaching Recipient: Patient Teaching Methods: Demonstration, Discussion Response to Teaching: Verbalize Understanding, Return Demonstration Time/GCodes Time In: 900 Time Out: 1000 Total Billed Treatment Time: 60 Total Billed Treatment 1,EX20m,FA25m,GT15m MECHELLE DOMINGUEZ GRAIN OILSEED OR PASTURE FARM WORKER Apr 21, 2020 09:57
--- NOTE | 2020-04-21 11:08 | Progress Note ---
Subjective Date Seen by a Provider: Apr 20, 2020 Time Seen by a Provider: 12:30 Subjective/Events-last exam Fwup right femur fracture--S/P IM jose alfredo, COPD, HTN, post-op anemia, diarrhea, thrombocytosis. Sitting up in chair. Reports that the plan is for him to go home this weekend. Objective Exam Vital Signs Date Time Temp Pulse Resp B/P (MAP) Pulse Ox O2 Delivery O2 Flow Rate FiO2 04/21/20 09:00 Room Air 04/21/20 07:39 96 Room Air 04/21/20 06:08 36.5 63 16 110/66 (81) 94 Room Air 04/20/20 21:00 Room Air 04/20/20 19:22 93 Room Air 04/20/20 18:00 36.9 70 18 102/63 (76) 95 Room Air I & O 04/21/20 07:00 Intake Total 1500 ml Output Total 1150 ml Balance 350 ml Capillary Refill : Less Than 3 SecondsLess Than 3 Seconds General Appearance: No Apparent Distress Respiratory: Lungs Clear, Decreased Breath Sounds Cardiovascular: Regular Rate, Rhythm Gastrointestinal: normal bowel sounds, non tender, soft Extremity: Non Tender, No Calf Tenderness, Pedal Edema (right leg--improving) Neurologic/Psychiatric: Alert, Oriented x3 Results Lab Laboratory Tests 04/21/20 06:35: White Blood Count 13.0H, Red Blood Count 2.93L, Hemoglobin 9.7L, Hematocrit 30L, Mean Corpuscular Volume 102H, Mean Corpuscular Hemoglobin 33, Mean Corpuscular Hemoglobin Concent 32, Red Cell Distribution Width 20.7H, Platelet Count 1224*H, Mean Platelet Volume 10.8, Immature Granulocyte % (Auto) 3, Neutrophils (%) (Auto) 65, Lymphocytes (%) (Auto) 19, Monocytes (%) (Auto) 9, Eosinophils (%) (Auto) 2, Basophils (%) (Auto) 1, Neutrophils # (Auto) 8.5H, Lymphocytes # (Auto) 2.5, Monocytes # (Auto) 1.2H, Eosinophils # (Auto) 0.3, Basophils # (Auto) 0.2H, Immature Granulocyte # (Auto) 0.4H Assessment/Plan Assessment/Plan Assess & Plan/Chief Complaint 1. Right Femur Fracture--S/P IM jose alfredo placement, pain contol, DVT prophylaxis, PT/OT 2. Hypertension--back on home meds 3. 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 Post-op anemia--on iron infusions 5. Diarrhea--improved with restart Colestid 6. Thrombocytosis--heme consulted and looking at starting hydroxyurea Clinical Quality Measures DVT/VTE Risk/Contraindication: Risk Factor Score Per Nursin RFS Level Per Nursing on Admit: 4+=Very High GLORY MARTIN DO Apr 21, 2020 11:08
--- NOTE | 2020-04-21 11:11 | Progress Note ---
Subjective Date Seen by a Provider: Apr 21, 2020 Time Seen by a Provider: 10:30 Subjective/Events-last exam Fwup right femur fracture--S/P IM jose alfredo, COPD, HTN, post-op anemia, diarrhea, thrombocytosis. Sitting up in chair. SS in room discussing DC planning for tomorrow. Objective Exam Vital Signs Date Time Temp Pulse Resp B/P (MAP) Pulse Ox O2 Delivery O2 Flow Rate FiO2 04/21/20 09:00 Room Air 04/21/20 07:39 96 Room Air 04/21/20 06:08 36.5 63 16 110/66 (81) 94 Room Air 04/20/20 21:00 Room Air 04/20/20 19:22 93 Room Air 04/20/20 18:00 36.9 70 18 102/63 (76) 95 Room Air I & O 04/21/20 07:00 Intake Total 1500 ml Output Total 1150 ml Balance 350 ml Capillary Refill : Less Than 3 SecondsLess Than 3 Seconds General Appearance: No Apparent Distress Neck: Supple Respiratory: Lungs Clear Cardiovascular: Regular Rate, Rhythm Gastrointestinal: normal bowel sounds, non tender, soft Extremity: Non Tender, No Calf Tenderness, Pedal Edema (right leg--stable) Neurologic/Psychiatric: Alert, Oriented x3 Results Lab Laboratory Tests 04/21/20 06:35: White Blood Count 13.0H, Red Blood Count 2.93L, Hemoglobin 9.7L, Hematocrit 30L, Mean Corpuscular Volume 102H, Mean Corpuscular Hemoglobin 33, Mean Corpuscular Hemoglobin Concent 32, Red Cell Distribution Width 20.7H, Platelet Count 1224*H, Mean Platelet Volume 10.8, Immature Granulocyte % (Auto) 3, Neutrophils (%) (Auto) 65, Lymphocytes (%) (Auto) 19, Monocytes (%) (Auto) 9, Eosinophils (%) (Auto) 2, Basophils (%) (Auto) 1, Neutrophils # (Auto) 8.5H, Lymphocytes # (Auto) 2.5, Monocytes # (Auto) 1.2H, Eosinophils # (Auto) 0.3, Basophils # (Auto) 0.2H, Immature Granulocyte # (Auto) 0.4H Assessment/Plan Assessment/Plan Assess & Plan/Chief Complaint 1. Right Femur Fracture--S/P IM jose alfredo placement, pain contol, DVT prophylaxis, PT/OT, home tomorrow with homehealth 2. Hypertension--back on home meds 3. COPD--on SVNS with duoneb, IS, avoid steroids due to history of psychosis with steroids, off oxygen, nicotine patch for DC 4. Post-op anemia--on iron infusions 5. Diarrhea--improved with restart Colestid 6. Thrombocytosis--heme consulted and looking at starting hydroxyurea before DC Clinical Quality Measures DVT/VTE Risk/Contraindication: Risk Factor Score Per Nursin RFS Level Per Nursing on Admit: 4+=Very High GLORY MARTIN DO Apr 21, 2020 11:11
--- NOTE | 2020-04-21 11:33 | Physical Therapy Daily Note ---
PT Daily Note-Current Subjective Agreeable to Rx, requests btrm 1st, asks for rest breaks during Rx. No pain c/o Pain Location: No Pain Reported Mental Status Patient Orientation: Normal For Age Transfers SCALE: Activities may be completed with or without assistive devices. 7-Uoepfrwvrm-dgqabzg completes the activity by him/herself with no assistance from a helper. 5-Set-up or Clean-up Assistance-helper sets up or cleans up; patient completes activity. [place] assists only prior to or following the activity. 4-Supervision or Touching Assistance-helper provides verbal cues and/or touching/steadying and/or contact guard assistance as patient completes activity. Assistance may be provided throughout the activity or intermittently. 3-Partial/Moderate Assistance-helper does LESS THAN HALF the effort. [place] lifts, holds or supports trunk or limbs, but provides less than half the effort. 2-Substantial/Maximal Assistance-helper does MORE THAN HALF the effort. [place] lifts or holds trunk or limbs and provides more than half the effort. 2-Oenuiwbvx-mybgek does ALL the effort. Patient does none of the effort to complete the activity. Or, the assistance of 2 or more helpers is required for the patient to complete the activity. If activity was not attempted, code reason: 7-Patient Refused. 9-Not Applicable-not attempted and the patient did not perform the activity before the current illness, exacerbation or injury. 10-Not Attempted due to Environmental Limitations-(lack of equipment, weather restraints, etc.). 88-Not Attempted due to Medical Conditions or Safety Concerns. all TRFs Mod I Weight Bearing Right Lower Extremity: Right Partial Weight Bearing Left Lower Extremity: Left Full Weight Bearing Gait Training Does the Patient Walk?: Yes Gait Assistive Device: FWW new FWW arrived and fitted. gait 175 ft x 2 Mod I, PWBing maintained Exercises Standin way Ex=Flex, Abd, Ext, Marching (right opnly), Sit to Stand Standing Reps: 15 NuStep Minutes: 10 NuStep Workload: 5 Assessment Current Status: Good Progress PT Short Term Goals Short Term Goals Time Frame: Apr 17, 2020 Roll Left & Right: 4 (SBA) Sit to lyin (SBA) Lying to sitting on side of be: 4 (SBA) Sit to stand: 4 (SBA) Chair/hmq-vb-fopso transfer: 4 (SBA) Toilet transfer: 5 Walk 10 feet: 4 (SBA) Walk 50 feet with two turns: 4 (SBA) Walk 150 feet: 4 (SBA) PT Cardiology Associate Goals Cardiology Associate Goals PT Custodial Goals Time Frame: Apr 24, 2020 Roll Left & Right (QC): 6 Sit to Lying (QC): 6 Lying-Sitting on Side/Bed(QC): 6 Sit to Stand (QC): 6 Chair/Eea-qo-Ppebx Xfer(QC): 6 Toilet Transfer (QC): 6 Car Transfer (QC): 5 Does the Patient Walk: Yes Walk 10 feet (QC): 5 Walk 50ft with 2 Turns (QC): 5 Walk 150 ft (QC): 5 Walking 10ft on Uneven Surface: 5 1 Step (curb) (QC): 4 4 Steps (QC): 88 12 Steps (QC): 88 Picking up an Object (QC): 88 Does the Pt use WC or Scooter?: No Wheel 50 feet with 2 turns (QC: 9 Wheel 150 feet: 9 PT Plan Treatment/Plan Treatment Plan: Continue Plan of Care Treatment Plan: Bed Mobility, Education, Functional Activity Deborah, Functional Strength, Group Therapy, Gait, Safety, Therapeutic Exercise, Transfers Treatment Duration: Apr 24, 2020 Frequency: At least 5 of 7 days/Wk (IRF) Estimated Hrs Per Day: 1.5 hours per day Patient and/or Family Agrees t: Yes Safety Risks/Education Patient Education: Gait Training, Transfer Techniques Time/GCodes Time In: 1100 Time Out: 1130 Total Billed Treatment Time: 30 Total Billed Treatment 1,EX30m MECHELLE DOMINGUEZ PING PONG TABLE ASSEMBLER Apr 21, 2020 11:33
--- NOTE | 2020-04-21 11:56 | NUR ---
CM/SS DISCHARGE Patient will discharge tomorrow as planned. [facility]: [facility] services finalized for RN, PT OT. Agency has confirmed they will start services timely. DME: FWW and Hip Kit delivered to patient's room today in preparation for discharge tomorrow. FWW was Medicare item, son Santos Junior paid for hip kit so that it could be delivered at same time. Family already have tub transfer bench. IMM2 presented, signed, charted. Patient is beaming that he is going home tomorrow! Unit RN aware to pass on in report. Addendum: 04/21/20 at 1332 by NELIDA LI Unit RN to fax discharge orders/instructions and dc Summary to: [facility] FAX: [phone] On-call RN will filler picker documents from [facility] office prior to seeing the patient to enroll in services.
[2020-04-21] MEDS ORDERED: NICO1PAT34 TD (12:26)
[2020-04-21] MEDS ORDERED: LIDOCAINE 1% INJ 20 ML 20 ML VIAL ONE (12:48)
[2020-04-21] MEDS: HYDROXYUREA 500 MG CAP (HYDREA) PO SCH (13:20)
[2020-04-21 16:00] VITALS: BP 104/56
--- NOTE | 2020-04-21 17:01 | Progress Note ---
Standard Progress Note Progress Notes/Assess & Plan Date Seen by a Provider: Apr 21, 2020 Time Seen by a Provider: 16:59 Progress/Assessment & Plan 75-year-old male admitted with a right intertrochanteric fracture, status post intramedullary nail placement. Platelets noted to be elevated and has been above normal for the past 2 years. NIKA 2 mutation test pending. Patient doing well clinically without evidence of bleeding or thrombosis. Platelet count close to 1.3 million. Will start patient on Hydrea 500 mg daily to control the platelet count temporarily until the JAK2 results are available. Discharge planned for tomorrow. Patient to follow-up at the cancer center next week with a CBC. We will adjust hydroxyurea dose based on the blood counts. May need an outpatient bone marrow aspiration and biopsy if thrombocytosis persists. Will follow patient with you. LADONNA COHEN Apr 21, 2020 17:01
[2020-04-21] MEDS: MONTELUKAST 10 MG (SINGULAIR) TAB PO SCH (20:47)
[2020-04-22 06:10] VITALS: BP 116/63
[2020-04-22] MEDS: LEVOTHYROXINE 75 MCG (LEVOTHROID) TABLET PO SCH (06:15)
[2020-04-22] MEDS: ARFORMOTEROL 15 MCG/2 ML (BROVANA) INH SOLUTIION IH SCH (06:46)
--- NOTE | 2020-04-22 06:49 | Discharge Summary ---
Diagnosis/Chief Complaint Date of Admission Apr 10, 2020 at 11:05 Date of Discharge Discharge Date: Apr 22, 2020 Discharge Diagnosis Assessment: s/p right hip fracture uncomplicated repair COPD Smoker HTN HLP Recovered alcoholic Constipation Plan: Jairo LAM IRF protocol BM regimen 04/11/20: Continue changing dressing of right hip fracture site Continue bowel regimen Pain control IV iron infusion Monitor postop anemia 04/12/20: Monitor respiratory status nebulizer treatments Oxygen supplementation Pain control 04/13/20: Wean O2 Pain control IRF protocol 04/14/20: Off O2 Podiatry consult Pain control 04/15/20: Jairo PANGI Lab results will be called to PCP coverage since Deborah ordered them 04/16/20: Labs tomorrow Sensitive skin noted DC soon 04/17/20: Appreciate Dr Montana Monitor pain 04/18/20: DC is delayed due to family concerns 04/19/20: Continue therapy DC Friday Monitor platelets Dr Montana will see him as outpatient 04/20/20: Monitor pain Rehab protocol 04/21/20: Hydrea started per Dr Montana Monitor closely DC tomorrow (1) Closed right hip fracture Status: Acute (2) Smoker (3) Recovering alcoholic in remission (4) HTN (hypertension) (5) CAD (coronary artery disease) (6) COPD (chronic obstructive pulmonary disease) Discharge Summary Discharge Physical Examination Allergies: Coded Allergies: prednisone (Verified Allergy, Severe, 04/07/20) Steroid Psychosis Vitals & I&Os Vital Signs Date Time Temp Pulse Resp B/P (MAP) Pulse Ox O2 Delivery O2 Flow Rate FiO2 04/22/20 10:13 36.6 84 20 116/63 93 Room Air 1.00 General Appearance: Alert, Oriented X3, Cooperative Respiratory: Clear to Auscultation Cardiovascular: Regular Rate Neuro: Normal Gait, Normal Speech, Strength at 5/5 X4 Ext Psych/Mental Status: Mental Status NL Hospital Course Was the Problem List Reviewed?: Yes Standard course in IRF. Admitted after right hip fx after a fall during fishing, repaired uncomplicated by Dr Tim. Patient was weaned off O2 from post op hypoxia with COPD hx and maintained on all of his MDI's. PCP Dr Cabrera followed him during rehab course. Elevated platelets were of concern so Dr Montana was consulted and he ultimately started him on Hydrea for suspicion of myelodysplastic process. BM regimen maintained and post op constipation resolved and then Colestid restarted for chronic diarrhea. Pain was well controlled. Pt had no decompensation during the course and he dc home with family and HH in stable condition after able to regain function of ADL's and ambulation with walker. Labs (last 24 hrs) Laboratory Tests 04/11/20 05:25: White Blood Count 10.5, Red Blood Count 2.71L, Hemoglobin 8.7L, Hematocrit 26L, Mean Corpuscular Volume 97, Mean Corpuscular Hemoglobin 32, Mean Corpuscular Hemoglobin Concent 33, Red Cell Distribution Width 18.9H, Platelet Count 655H, Mean Platelet Volume 11.1H, Neutrophils (%) (Auto) 68, Lymphocytes (%) (Auto) 19, Monocytes (%) (Auto) 12, Eosinophils (%) (Auto) 1, Basophils (%) (Auto) 0, Neutrophils # (Auto) 7.1, Lymphocytes # (Auto) 2.0, Monocytes # (Auto) 1.2H, Eosinophils # (Auto) 0.1, Basophils # (Auto) 0.0, Sodium Level 136, Potassium Level 3.6, Chloride Level 106, Carbon Dioxide Level 21, Anion Gap 9, Blood Urea Nitrogen 8, Creatinine 0.77, Estimat Glomerular Filtration Rate > 60, BUN/Creatinine Ratio 10, Glucose Level 100, Calcium Level 8.1L, Corrected Calcium 8.7, Total Bilirubin 0.8, Aspartate Amino Transf (AST/SGOT) 31, Alanine Aminotransferase (ALT/SGPT) 16, Alkaline Phosphatase 59, Total Protein 6.1L, Albumin 3.3 04/11/20 05:28: Iron Level 51 04/15/20 05:50: White Blood Count 17.2H, Red Blood Count 2.71L, Hemoglobin 8.7L, Hematocrit 27L, Mean Corpuscular Volume 98, Mean Corpuscular Hemoglobin 32, Mean Corpuscular Hemoglobin Concent 33, Red Cell Distribution Width 19.0H, Platelet Count 947H, Mean Platelet Volume 11.4, Neutrophils (%) (Auto) 76H, Lymphocytes (%) (Auto) 12, Monocytes (%) (Auto) 7, Eosinophils (%) (Auto) 2, Basophils (%) (Auto) 1, Neutrophils # (Auto) 13.1H, Lymphocytes # (Auto) 2.1, Monocytes # (Auto) 1.3H, Eosinophils # (Auto) 0.3, Basophils # (Auto) 0.1, Sodium Level 137, Potassium Level 4.4, Chloride Level 105, Carbon Dioxide Level 22, Anion Gap 10, Blood Urea Nitrogen 19H, Creatinine 0.82, Estimat Glomerular Filtration Rate > 60, BUN/Creatinine Ratio 23, Glucose Level 111H, Calcium Level 8.8, Corrected Calcium 9.3, Total Bilirubin 0.8, Aspartate Amino Transf (AST/SGOT) 42H, Alanine Aminotransferase (ALT/SGPT) 41, Alkaline Phosphatase 83, Total Protein 6.5, Albumin 3.4, Immature Granulocyte % (Auto) 2, Immature Granulocyte # (Auto) 0.4H , Neutrophils % (Manual) 70, Lymphocytes % (Manual) 13, Monocytes % (Manual) 8, Eosinophils % (Manual) 2, Promyelocytes % 2, Band Neutrophils 5, Hypochromasia SLIGHT, Poikilocytosis SLIGHT, Anisocytosis SLIGHT 04/17/20 05:29: White Blood Count 12.2H, Red Blood Count 2.68L, Hemoglobin 8.7L, Hematocrit 27L, Mean Corpuscular Volume 100H, Mean Corpuscular Hemoglobin 33, Mean Corpuscular Hemoglobin Concent 33, Red Cell Distribution Width 19.9H, Platelet Count 1142*H, Mean Platelet Volume 11.4, Neutrophils (%) (Auto) 63, Lymphocytes (%) (Auto) 21, Monocytes (%) (Auto) 8, Eosinophils (%) (Auto) 3, Basophils (%) (Auto) 1, Neutrophils # (Auto) 7.7, Lymphocytes # (Auto) 2.5, Monocytes # (Auto) 1.0, Eosinophils # (Auto) 0.3, Basophils # (Auto) 0.1, Sodium Level 136, Potassium Level 4.4, Chloride Level 106, Carbon Dioxide Level 23, Anion Gap 7, Blood Urea Nitrogen 15, Creatinine 0.88, Estimat Glomerular Filtration Rate > 60, BUN/ Creatinine Ratio 17, Glucose Level 107H, Calcium Level 8.6, Corrected Calcium 9.1, Total Bilirubin 0.7, Aspartate Amino Transf (AST/SGOT) 36H, Alanine Aminotransferase (ALT/SGPT) 38, Alkaline Phosphatase 94, Total Protein 6.5, Albumin 3.4, Immature Granulocyte % (Auto) 4, Immature Granulocyte # (Auto) 0.5H , Neutrophils % (Manual) 68, Lymphocytes % (Manual) 24, Monocytes % (Manual) 3, Eosinophils % (Manual) 1, Band Neutrophils 3, Poikilocytosis SLIGHT, Anisocytosis SLIGHT, Basophils % (Manual) 1, Basophilic Stippling SLIGHT, Elliptocytes MODERATE, Absolute Reticulocyte Count 114H, Percent Reticulocyte Count 4.36H 04/18/20 05:04: White Blood Count 12.5H, Red Blood Count 2.66L, Hemoglobin 8.8L, Hematocrit 27L, Mean Corpuscular Volume 102H, Mean Corpuscular Hemoglobin 33, Mean Corpuscular Hemoglobin Concent 33, Red Cell Distribution Width 20.0H, Platelet Count 1216*H, Mean Platelet Volume 12.1, Immature Granulocyte % (Auto) 5, Neutrophils (%) (Auto) 59, Lymphocytes (%) (Auto) 24, Monocytes (%) (Auto) 9, Eosinophils (%) (Auto) 3, Basophils (%) (Auto) 1, Neutrophils # (Auto) 7.4, Lymphocytes # (Auto) 2.9, Monocytes # (Auto) 1.1H, Eosinophils # (Auto) 0.3, Basophils # (Auto) 0.1, Immature Granulocyte # (Auto) 0.6H, Sodium Level 137, Potassium Level 4.4, Chloride Level 107, Carbon Dioxide Level 22, Anion Gap 8, Blood Urea Nitrogen 13, Creatinine 0.84, Estimat Glomerular Filtration Rate > 60, BUN/Creatinine Ratio 15, Glucose Level 100, Calcium Level 8.7, Corrected Calcium 9.1, Total Bilirubin 0.7, Aspartate Amino Transf (AST/SGOT) 40H, Alanine Aminotransferase (ALT/SGPT) 40, Alkaline Phosphatase 105, Lactate Dehydrogenase 724H, Total Protein 6.6, Albumin 3.5 04/18/20 05:43: JAK2 Mutation DetectedH 04/21/20 06:35: White Blood Count 13.0H, Red Blood Count 2.93L, Hemoglobin 9.7L, Hematocrit 30L, Mean Corpuscular Volume 102H, Mean Corpuscular Hemoglobin 33, Mean Corpuscular Hemoglobin Concent 32, Red Cell Distribution Width 20.7H, Platelet Count 1224*H, Mean Platelet Volume 10.8, Immature Granulocyte % (Auto) 3, Neutrophils (%) (Auto) 65, Lymphocytes (%) (Auto) 19, Monocytes (%) (Auto) 9, Eosinophils (%) (Auto) 2, Basophils (%) (Auto) 1, Neutrophils # (Auto) 8.5H, Lymphocytes # (A uto) 2.5, Monocytes # (Auto) 1.2H, Eosinophils # (Auto) 0.3, Basophils # (Auto) 0.2H, Immature Granulocyte # (Auto) 0.4H Pending Labs Laboratory Tests 04/11/20 05:25: White Blood Count 10.5, Red Blood Count 2.71, Hemoglobin 8.7, Hematocrit 26, Mean Corpuscular Volume 97, Mean Corpuscular Hemoglobin 32, Mean Corpuscular Hemoglobin Concent 33, Red Cell Distribution Width 18.9, Platelet Count 655, Mean Platelet Volume 11.1, Neutrophils (%) (Auto) 68, Lymphocytes (%) (Auto) 19, Monocytes (%) (Auto) 12, Eosinophils (%) (Auto) 1, Basophils (%) (Auto) 0, Neutrophils # (Auto) 7.1, Lymphocytes # (Auto) 2.0, Monocytes # (Auto) 1.2, Eosinophils # (Auto) 0.1, Basophils # (Auto) 0.0, Sodium Level 136, Potassium Level 3.6, Chloride Level 106, Carbon Dioxide Level 21, Anion Gap 9, Blood Urea Nitrogen 8, Creatinine 0.77, Estimat Glomerular Filtration Rate > 60, BUN/Creatinine Ratio 10, Glucose Level 100, Calcium Level 8.1, Corrected Calcium 8.7, Total Bilirubin 0.8, Aspartate Amino Transf (AST/SGOT) 31, Alanine Aminotransferase (ALT/SGPT) 16, Alkaline Phosphatase 59, Total Protein 6.1, Albumin 3.3 04/11/20 05:28: Iron Level 51 04/15/20 05:50: White Blood Count 17.2, Red Blood Count 2.71, Hemoglobin 8.7, Hematocrit 27, Mean Corpuscular Volume 98, Mean Corpuscular Hemoglobin 32, Mean Corpuscular Hemoglobin Concent 33, Red Cell Distribution Width 19.0, Platelet Count 947, Mean Platelet Volume 11.4, Neutrophils (%) (Auto) 76, Lymphocytes (%) (Auto) 12, Monocytes (%) (Auto) 7, Eosinophils (%) (Auto) 2, Basophils (%) (Auto) 1, Neutrophils # (Auto) 13.1, Lymphocytes # (Auto) 2.1, Monocytes # (Auto) 1.3, Eosinophils # (Auto) 0.3, Basophils # (Auto) 0.1, Sodium Level 137, Potassium Level 4.4, Chloride Level 105, Carbon Dioxide Level 22, Anion Gap 10, Blood Urea Nitrogen 19, Creatinine 0.82, Estimat Glomerular Filtration Rate > 60, BUN/Creatinine Ratio 23, Glucose Level 111, Calcium Level 8.8, Corrected Calcium 9.3, Total Bilirubin 0.8, Aspartate Amino Transf (AST/SGOT) 42, Alanine Aminotransferase (ALT/SGPT) 41, Alkaline Phosphatase 83, Total Protein 6.5, Albumin 3.4, Immature Granulocyte % (Auto) 2, Immature Granulocyte # (Auto) 0.4, Neutrophils % (Manual) 70, Lymphocytes % (Manual) 13, Monocytes % (Manual) 8, Eosinophils % (Manual) 2, Promyelocytes % 2, Band Neutrophils 5, Hypochromasia SLIGHT, Poikilocytosis SLIGHT, Anisocytosis SLIGHT 04/17/20 05:29: White Blood Count 12.2, Red Blood Count 2.68, Hemoglobin 8.7, Hematocrit 27, Mean Corpuscular Volume 100, Mean Corpuscular Hemoglobin 33, Mean Corpuscular Hemoglobin Concent 33, Red Cell Distribution Width 19.9, Platelet Count 1142, Mean Platelet Volume 11.4, Neutrophils (%) (Auto) 63, Lymphocytes (%) (Auto) 21, Monocytes (%) (Auto) 8, Eosinophils (%) (Auto) 3, Basophils (%) (Auto) 1, Neutrophils # (Auto) 7.7, Lymphocytes # (Auto) 2.5, Monocytes # (Auto) 1.0, Eosinophils # (Auto) 0.3, Basophils # (Auto) 0.1, Sodium Level 136, Potassium Level 4.4, Chloride Level 106, Carbon Dioxide Level 23, Anion Gap 7, Blood Urea Nitrogen 15, Creatinine 0.88, Estimat Glomerular Filtration Rate > 60, BUN/Creatinine Ratio 17, Glucose Level 107, Calcium Level 8.6, Corrected Calcium 9.1, Total Bilirubin 0.7, Aspartate Amino Transf (AST/SGOT) 36, Alanine Aminotransferase (ALT/SGPT) 38, Alkaline Phosphatase 94, Total Protein 6.5, Albumin 3.4, Immature Granulocyte % (Auto) 4, Immature Granulocyte # (Auto) 0.5, Neutrophils % (Manual) 68, Lymphocytes % (Manual) 24, Monocytes % (Manual) 3, Eosinophils % (Manual) 1, Band Neutrophils 3, Poikilocytosis SLIGHT, Anisocytosis SLIGHT, Basophils % (Manual) 1, Basophilic Stippling SLIGHT, Elliptocytes MODERATE, Absolute Reticulocyte Count 114, Percent Reticulocyte Count 4.36 04/18/20 05:04: White Blood Count 12.5, Red Blood Count 2.66, Hemoglobin 8.8, Hematocrit 27, Me an Corpuscular Volume 102, Mean Corpuscular Hemoglobin 33, Mean Corpuscular Hemoglobin Concent 33, Red Cell Distribution Width 20.0, Platelet Count 1216, Mean Platelet Volume 12.1, Immature Granulocyte % (Auto) 5, Neutrophils (%) (Auto) 59, Lymphocytes (%) (Auto) 24, Monocytes (%) (Auto) 9, Eosinophils (%) (Auto) 3, Basophils (%) (Auto) 1, Neutrophils # (Auto) 7.4, Lymphocytes # (Auto) 2.9, Monocytes # (Auto) 1.1, Eosinophils # (Auto) 0.3, Basophils # (Auto) 0.1, Immature Granulocyte # (Auto) 0.6, Sodium Level 137, Potassium Level 4.4, Chloride Level 107, Carbon Dioxide Level 22, Anion Gap 8, Blood Urea Nitrogen 13, Creatinine 0.84, Estimat Glomerular Filtration Rate > 60, BUN/Creatinine Ratio 15, Glucose Level 100, Calcium Level 8.7, Corrected Calcium 9.1, Total Bilirubin 0.7, Aspartate Amino Transf (AST/SGOT) 40, Alanine Aminotransferase (ALT/SGPT) 40, Alkaline Phosphatase 105, Lactate Dehydrogenase 724, Total Protein 6.6, Albumin 3.5 04/18/20 05:43: JAK2 Mutation Detected 04/21/20 06:35: White Blood Count 13.0, Red Blood Count 2.93, Hemoglobin 9.7, Hematocrit 30, Mean Corpuscular Volume 102, Mean Corpuscular Hemoglobin 33, Mean Corpuscular Hemoglobin Concent 32, Red Cell Distribution Width 20.7, Platelet Count 1224, Mean Platelet Volume 10.8, Immature Granulocyte % (Auto) 3, Neutrophils (%) (Auto) 65, Lymphocytes (%) (Auto) 19, Monocytes (%) (Auto) 9, Eosinophils (%) (Auto) 2, Basophils (%) (Auto) 1, Neutrophils # (Auto) 8.5, Lymphocytes # (Auto) 2.5, Monocytes # (Auto) 1.2, Eosinophils # (Auto) 0.3, Basophils # (Auto) 0.2, Immature Granulocyte # (Auto) 0.4 Discharge Home Medications: Active Scripts Active Hydrea (Hydroxyurea) 500 Mg Cap 500 Mg PO DAILY Nicoderm Cq (Nicotine) 1 Each Patch.td24 1 Each TD DAILY Ipratropium [place] 30 Ml Sinclair 30 Ml NS TID Percocet 5-325 mg Tablet (Oxycodone HCl/Acetaminophen) 1 Each Tablet 1 Tab PO Q2HR PRN Reported Ventolin Hfa (Albuterol Sulfate) 1 Puff Puff 2 Puff INH Q4H PRN 1 PUFF = 90 MCG Ipratropium [place] 30 Ml Sinclair 2 Sprays NSEACH BID PRN Vitamin D3 (Cholecalciferol (Vitamin D3)) 125 Mcg Capsule 125 Mcg PO DAILY Albuterol Sulfate 2.5 Mg/3 Ml Vial.neb 3 Ml NEB Q4H PRN Brovana (Arformoterol Tartrate) 15 Mcg/2 Ml Vial.neb 2 Ml NEB BID Colestipol HCl 1 Gm Tablet 1 Gm PO DAILY Aspirin EC (Aspirin) 81 Mg Tablet.dr 81 Mg PO HS Atorvastatin Calcium 40 Mg Tablet 40 Mg PO HS Amlodipine Besylate 5 Mg Tablet 5 Mg PO DAILY Levothyroxine Sodium 75 Mcg Tablet 75 Mcg PO DAILY Cetirizine HCl 10 Mg Tablet 10 Mg PO DAILY Montelukast Sodium 10 Mg Tablet 10 Mg PO HS Lisinopril 40 Mg Tablet 40 Mg PO DAILY Instructions to patient/family Please see electronic discharge instructions given to patient. Diagnosis/Problems Diagnosis/Problems (1) Closed right hip fracture Status: Acute (2) Smoker (3) Recovering alcoholic in remission (4) HTN (hypertension) (5) CAD (coronary artery disease) (6) COPD (chronic obstructive pulmonary disease) Clinical Quality Measures DVT/VTE Risk/Contraindication: Risk Factor Score Per Nursin RFS Level Per Nursing on Admit: 4+=Very High CATRACHITA DIAS DO Apr 22, 2020 06:49
[2020-04-22] MEDS: lisINopril 40 MG (PRINIVIL) TABLET PO SCH (08:07)
[2020-04-22] MEDS: ENOXAPARIN 40 MG/0.4 ML (LOVENOX) SYR SC SCH (08:07)
[2020-04-22] MEDS: LORATADINE (CLARITIN) 10 MG TAB PO SCH (08:07)
[2020-04-22] MEDS: amLODIPine 5 MG (NORVASC) TAB PO SCH (08:07)
[2020-04-22] MEDS: VITAMIN D3 125 MCG (5,000 UNITS) CAPSULE PO SCH (08:07)
[2020-04-22] MEDS: HYDROXYUREA 500 MG CAP (HYDREA) PO SCH (08:07)
[2020-04-22] MEDS: ASPIRIN E.C. 81 MG (ECOTRIN) TAB PO SCH (08:07)
[2020-04-22] MEDS: COLESTIPOL 1 GM (COLESTID) TAB PO SCH (08:07)
[2020-04-22] MEDS ORDERED: NF-HYD500C PO (08:51)
--- NOTE | 2020-04-22 09:30 | NUR ---
DONTA ENCISO demonstrates understanding of discharge instructions and accurately returns instructions upon questioning. Copy of Post-Discharge Instructions given to . DONTA ENCISO is able to manage continuing needs after discharge. Patients belongings returned to . Patient discharged from 228-1 on 04-22-2020 at 10:30. DONTA ENCISO left floor via , accompanied by .
[2020-04-22 10:13] VITALS: BP 116/63
--- NOTE | 2020-04-22 16:45 | NUR ---
Notified pts daughter in law iza of new order for hydrea BID per Dr Montana starting tomorrow.
--- NOTE | 2020-04-24 09:11 | Therapy Team Discharge Summary ---
Therapy Discharge Summary Discharge Recommendations Date of Discharge Apr 22, 2020 at 09:30 Physical Therapy Patient came to rehab with R hip fx, S/P IM nail. Upon evaluation patient performed bed mobility and transfers with CGA, car transfer CGA, ambulated 150' with a rolling walker with CGA (including 50' with at least 2 turns of 90 degrees and 10' over an uneven surface), and can go up and down 1 step using a rolling walker with CGA. Patient has been performing bed mobility and transfer training, balance and endurance training, functional strengthening, stair myriam lea, gait training, and education. Patient has made good progress and has met all of his alf goals. Now, patient can perform bed mobility and transfers with independence, independent with car transfers, ambulates over 150' with a rolling walker with independence (including 50' with at least 2 turns of 90 degrees and 10' over an uneven surface), and can go up and down 4 steps using 2 handrails with setup. Patient has been discharged from this facility and will be discharged from PT at this time. Occupational Therapy Decreased Activ Tolerance, Edema (decreased on this date, though continued pitting dorsum of foot/ dodd RLE), Impaired I ADL's PT Custodial Goals Stadium Attendant Goals PT Stadium Attendant Goals Time Frame: Apr 24, 2020 Roll Left to Right (QC): 6 Sit to Lying (QC): 6 Lying-Sitting on Side/Bed(QC): 6 Sit to Stand (QC): 6 Chair/Gwr-wh-Gnpto Xfer(QC): 6 Car Transfer (QC): 5 Does the Patient Walk: Yes Walk 10 feet (QC): 5 Walk 10ft-Uneven Surface(QC): 5 Walk 50ft with 2 Turns (QC): 5 Walk 150 ft (QC): 5 Does the Pt use WC or Scooter?: No Wheel 50 feet with 2 turns (QC: 9 1 Step (curb) (QC): 4 4 Steps (QC): 88 12 Steps (QC): 88 Picking up an Object (QC): 88 OT Custodial Goals Stadium Attendant Goals Time Frame: Apr 28, 2020 Eating (QC): 6 Oral Hygiene (QC): 6 Shower/Bathe Self (QC): 6 Upper Body Dressing (QC): 6 Lower Body Dressing (QC): 6 On/Off Footwear (QC): 6 Toileting Hygiene (QC): 6 Toilet/Commode Transfer (QC): 6 Additional Goals: 1-Demonstrate ADL Tasks, 2-Verbalize Understanding, 3- ImproveStrength/Deborah 1=Demonstrate adherence to instructed precautions during ADL tasks. 2=Patient will verbalize/demonstrate understanding of assistive devices/modifications for ADL. 3=Patient will improve strength/tolerance for activity to enable patient to perform ADL's. RAFAEL ARZOLA PT Apr 24, 2020 09:11
--- NOTE | 2020-04-25 09:57 | Therapy Team Discharge Summary ---
Therapy Discharge Summary Discharge Recommendations Date of Discharge Apr 22, 2020 at 09:30 Occupational Therapy Pt admits with R hip fx/ IM nail. Pt PWB status through tx. Pt admits with fol lowing QC scores/ ability: eating 6, oral care 5, showering 3, LB dressing 3, UB 5, footwear 1, and hygiene 4. Pt limited by pain, swelling of RLE and pain of LLE during increased ambulation. Pt d/c's with all QC's at IND level other than showering at a supervision level. All LTG other than showering goals attained. Pt d/c's home with OT recommendations of d/c'd OT, use of walker, walker basket, and hip kit. D/C at this time. Decreased Activ Tolerance, Edema (decreased on this date, though continued pitting dorsum of foot/ dodd RLE), Impaired I ADL's PT Leather Stamper Goals Custodial Goals PT Custodial Goals Time Frame: Apr 24, 2020 Roll Left to Right (QC): 6 Sit to Lying (QC): 6 Lying-Sitting on Side/Bed(QC): 6 Sit to Stand (QC): 6 Chair/Hns-ss-Afjcg Xfer(QC): 6 Car Transfer (QC): 5 Does the Patient Walk: Yes Walk 10 feet (QC): 5 Walk 10ft-Uneven Surface(QC): 5 Walk 50ft with 2 Turns (QC): 5 Walk 150 ft (QC): 5 Does the Pt use WC or Scooter?: No Wheel 50 feet with 2 turns (QC: 9 1 Step (curb) (QC): 4 4 Steps (QC): 88 12 Steps (QC): 88 Picking up an Object (QC): 88 OT Custodial Goals Leather Stamper Goals Time Frame: Apr 28, 2020 Eating (QC): 6 Oral Hygiene (QC): 6 Shower/Bathe Self (QC): 6 Upper Body Dressing (QC): 6 Lower Body Dressing (QC): 6 On/Off Footwear (QC): 6 Toileting Hygiene (QC): 6 Toilet/Commode Transfer (QC): 6 Additional Goals: 1-Demonstrate ADL Tasks, 2-Verbalize Understanding, 3- ImproveStrength/Deborah 1=Demonstrate adherence to instructed precautions during ADL tasks. 2=Patient will verbalize/demonstrate understanding of assistive devices/modifications for ADL. 3=Patient will improve strength/tolerance for activity to enable patient to perform ADL's. PAPA HOYT OTR Apr 25, 2020 09:57
== END 2020-04-22 09:30 | disposition home health service (06) | DRG 561 ==
PROVIDERS: ADMIT Internal Medicine; ATTEND Internal Medicine
DX: S72.141D Displaced intertrochanteric fracture of right femur, subsequent encounter for closed fracture with routine healing (principal); D47.3 Essential (hemorrhagic) thrombocythemia; I70.212 Atherosclerosis of native arteries of extremities with intermittent claudication, left leg; I70.201 Unspecified atherosclerosis of native arteries of extremities, right leg; J44.9 Chronic obstructive pulmonary disease, unspecified; R19.7 Diarrhea, unspecified; F17.210 Nicotine dependence, cigarettes, uncomplicated; E78.00 Pure hypercholesterolemia, unspecified; I10 Essential (primary) hypertension; K21.9 Gastro-esophageal reflux disease without esophagitis; K57.90 Diverticulosis of intestine, part unspecified, without perforation or abscess without bleeding; M19.91 Primary osteoarthritis, unspecified site; F10.21 Alcohol dependence, in remission; I25.10 Atherosclerotic heart disease of native coronary artery without angina pectoris; K59.00 Constipation, unspecified; D64.9 Anemia, unspecified; L25.9 Unspecified contact dermatitis, unspecified cause; B35.1 Tinea unguium; G60.9 Hereditary and idiopathic neuropathy, unspecified; Z95.820 Peripheral vascular angioplasty status with implants and grafts; Z97.4 Presence of external hearing-aid
CPT/HCPCS: 36415; 80053; 81270; 83540; 83615; 85007; 85025; 85027; 85045; 94640; 94760

== ENCOUNTER → 2020-05-01 | Outpatient (CLI) | payer MEDICARE, OTHER ==
[~2020-05-01] MED LIST changes: +IPRA30SP NS; +NF-HYD500C PO; +NICO1PAT34 TD; +OXYC1TAB87 PO
== END ==
LOC: LABNPT 05:38
PROVIDERS: ATTEND Internal Medicine Cardiovascular Disease
DX: Z01.818 Encounter for other preprocedural examination (principal); Z20.828 Contact with and (suspected) exposure to other viral communicable diseases
CPT/HCPCS: 87635

== ENCOUNTER 2020-05-24 06:55 | Day surgery (SDC) | payer MEDICARE, OTHER ==
[~2020-05-24] VITALS: Ht 170 cm; Wt 68.0 kg
[2020-05-24] VITALS (10 sets, daily range): BP systolic 121–134; BP diastolic 75–89
[~2020-05-24 06:55] MED LIST changes: +AMLO-250 PO; -AMLO5TAB9 PO
[2020-05-24] MEDS ORDERED: LIDOCAINE 1% INJ 20 ML 20 ML VIAL ONE (07:00)
[2020-05-24] MEDS ORDERED: HEParin (CATH LAB) 2,000 ML IV ONE (07:00)
[2020-05-24] MEDS ORDERED: NS IV 1000 ML 1,000 ML ONE (07:00)
[2020-05-24] MEDS ORDERED: NS IV 1000 ML 1,000 ML IV SCH ×2 (07:00→09:07)
[2020-05-24 07:31] LABS: BILIRUBIN,URINE NEGATIVE (NEGATIVE); CLARITY,URINE CLEAR; COLOR,URINE YELLOW; GLUCOSE, URINE (UA) NEGATIVE (NEGATIVE); KETONES,URINE NEGATIVE (NEGATIVE); LEUKOCYTE ESTERASE ,URINE TRACE (NEGATIVE); NITRITE,URINE NEGATIVE (NEGATIVE); PH,URINE 5.5 (5-9); PROTEIN,URINE NEGATIVE (NEGATIVE)
[2020-05-24 07:32] LABS: HEMOGLOBIN 11.6 g/dL (13.3-17.7); WHITE BLOOD COUNT 5.6 10^3/uL (4.3-11.0)
[2020-05-24 07:38] LABS: BACTERIA,URINE TRACE /HPF
[2020-05-24 07:47] LABS: INR 1.1 (0.8-1.4); PROTHROMBIN TIME PATIENT 14.7 SEC (12.2-14.7)
--- NOTE | 2020-05-24 07:48 | Diagnostic Imaging Report ---
INDICATION: Preop. COMPARISON: 04/06/2020. FINDINGS: Portable chest. The lungs are well-aerated with mild hyperaeration. There are no infiltrates. Heart is not enlarged. No pulmonary edema. No pneumothorax or pleural effusion. No bony abnormalities. IMPRESSION: Mild hyperaeration otherwise normal portable chest. Dictated by: Dictated on workstation # [id number]
[2020-05-24 08:01] LABS: ALANINE AMINOTRANSFERASE 19 U/L (0-55); ALBUMIN 4.2 GM/DL (3.2-4.5); ALKALINE PHOSPHATASE 88 U/L (40-136); BILIRUBIN,TOTAL 0.7 MG/DL (0.1-1.0); BUN/CREATININE RATIO 14; CALCIUM 9.1 MG/DL (8.5-10.1); CARBON DIOXIDE 20 MMOL/L (21-32); CHLORIDE 108 MMOL/L (98-107); CHOLESTEROL 122 MG/DL (< 200); CREATININE SERUM 0.98 MG/DL (0.60-1.30); GFR ESTIMATED > 60; GLUCOSE 98 MG/DL (70-105); HDL CHOLESTEROL 45 MG/DL (40-60); POTASSIUM 3.9 MMOL/L (3.6-5.0); SODIUM 139 MMOL/L (135-145); TOTAL PROTEIN 7.5 GM/DL (6.4-8.2); TRIGLYCERIDES 128 MG/DL (<150); VLDL CHOLESTEROL 26 MG/DL (5-40)
[2020-05-24] MEDS ORDERED: HYDR500C2 PO (08:05)
[2020-05-24] MEDS ORDERED: MIDAZOLAM 5 MG/5 ML (VERSED) VIAL ONE (08:06)
[2020-05-24] MEDS ORDERED: fentaNYL INJECTION 100 MCG/2 ML AMP ONE (08:06)
--- NOTE | 2020-05-24 08:13 | Cardiac Procedure Note-CS/ASA ---
Pre-Procedure Note Pre-Op Procedure Note H&P Reviewed The H&P was reviewed, patient examined and no changes noted. Date H&P Reviewed: May 24, 2020 Time H&P Reviewed: 08:12 Conscious Sedation Pre-Proced Time 08:12 ASA Score 3 For ASA 3 and 4: Consider anesthesia and medical clearance. Also, for patients with a history of failed moderate sedation consider anesthesia. Airway Lungs Heart ASA score ASA 1: a normal healthy patient ASA 2: a patient with a mild systemic disease (mid diabetes, controlled hypertension, obesity x ASA 3: a patient with a severe systemic disease that limits activity (angina, COPD, prior Myocardial infarction) ASA 4: a patient with an incapacitating disease that is a constant threat to life (CHF, renal failure) ASA 5: a moribund patient not expected to survive 24 hrs. (ruptured aneurysm) ASA 6: a declared brain- patient whose organs are being harvested. For emergent operations, add the letter E after the classification Mallampati Classification Grade 3 Sedation Plan Analgesia, Amnesia, Plan communicated to team members, Discussed options with patient/fam, Discussed risks with patient/fam The patient is an appropriate candidate to undergo the planned procedure, sedation, and anesthesia. The patient immediately re-assessed prior to indication. ALFREDO JAMES MD May 24, 2020 08:13
--- NOTE | 2020-05-24 08:14 | NUR ---
SPOKE WITH THE PT (HE HAS HIS HOME MEDS WITH HIM) TO COMPLETE THE MED REC THE FOLLOWING ARE FILL DATES THAT ARE NOT SHOWN ON THE EXT MED HISTORY: 04-12-2020 CETIRIZINE 10MG #90/90DS 04-22-2020 AMLODIPINE 5MG #90/90DS 04-28-2020 LEVOTHYROXINE 75MCG #90/90DS 05-04-2020 HYDROXYUREA 500MG #60/30DS OTC MEDS: ASPIRIN 81 VIT D
--- NOTE | 2020-05-24 09:09 | Discharge Inst-Post CATH ---
Discharge Inst-CATH/EP Problems Reviewed?: Yes Post Cardiac Cath/EP D/C Inst Follow Up/Plan Appointment with Dr. JAMES's office in 4 weeks <b>CARDIAC CATH/EP PROCEDURE DISCHARGE INSTRUCTIONS</b> ACTIVITY * Go Home directly and rest. * Limit activity of the leg (or wrist if it was used) for 7 days including aerobics, swimming, jogging, bicycling, etc. * Restrict stair-climbing for 7 days if possible, if not, climb up with your non-cath leg, then bring together on the same step. * Avoid lifting, pushing, pulling or excessive movement of the affected extremity for 7 days. * Customary sexual activity may be resumed after 2 days-use caution not to use a position that strains or causes pain to the affected extremity. * No driving for 24 hours. * NO SMOKING. * Avoid straining for bowel movements for 7 days. * Gentle walking on level ground is allowed. * Returning to work will depend on the type of procedure and the results. Your doctor will discuss this with you. CALL YOUR DOCTOR FOR ANY OF THE FOLLOWING: *If bleeding from the puncture site occurs- Apply gentle pressure to site with clean cloth and call your doctor or EMS. * If a knot or lump forms under the skin, increases in size, or causes pain. * If bruising appears to be worsening or moving further down your leg instead of disappearing. * Temperature above 101 F. CARE OF YOUR GROIN INCISION; * Bruising or purple discoloration of the skin near the puncture site is common. * You may shower only, no bathtub bathing for 5 days. Be careful to avoid slipping as your leg may feel stiff. * If a closure device was used on your femoral artery, please see the attached guide regarding care of the device and your leg. * Leave dressing on FOR 24 hours. CARE OF YOUR WRIST INCISION; * Bruising or purple discoloration of the skin near the puncture site is common. * You may shower. * DO NOT submerge wrist. * Leave dressing on FOR 24 hours. ALFREDO JAMES MD May 24, 2020 9:09 am
[2020-05-24] MEDS ORDERED: PATIENT MAY USE OWN MEDS, ALL PO SCH (09:15)
--- NOTE | 2020-05-24 09:22 | Peripheral Report ---
Peripheral Report Physician (s)/Contaminated Land Consultant (s) Physician ALFREDO JAMES MD Pre-Procedure Diagnosis Pre-Procedure Diagnosis: claudication Post-Procedure Note Procedure Start Date: May 24, 2020 Name of Procedure: Abdominal aortogram with bilateral runoff Findings/Procedure Note PROCEDURE NOTE: 75 years old gentleman with extensive peripheral arterial disease, multiple interventions in the past, has been having increasing claudication, had abnormal bilateral TONY and TBI. Scheduled for peripheral angiogram After explaining the procedure to the patient, all pros and cons were explained, all questions were answered. The patient signed the consent and then he was placed on the cardiac catheterization laboratory. The patient was placed on the cardiac catheterization laboratory. Groin was prepped SL fashion local anesthesia was used. Sheath placed in the right femoral artery, runoff to the right leg was done through the sheath then I try to cross over with a rim catheter, did angiogram at that location, patient has kissing iliac stent and had difficulty advancing the wire through it, I advanced a IM curved catheter without dilated to cross over, exchange it to you F catheter, I was able to cross over, I was not satisfied with the position of the catheter I decided to remove the catheter and I did advance pigtail catheter to the abdomin al aorta and did automated runoff to the abdominal aorta and lower extremities. Catheter was removed and sheath was removed with closure device deployed FINDINGS: Abdominal aorta is heavily calcified, origin of the SMA, MARIO and renal arteries appear to be normal at the bifurcation the artery is heavily calcified and there are bilateral iliac stent with moderate stenosis. On the right side the right external iliac has mild to moderate disease, common femoral is calcified with mild disease, the SFA on the right side is heavily calcified with couple of spots with severe stenosis, beyond the trifurcation it is slow flow with myjl-jo-vypcbcln disease. On the left side the left external iliac has mild disease, total occlusion at the level of the common femoral/ostial SFA, reconstructed by collateral with slow flow down to the trifurcation, sluggish flow beyond the trifurcation. I was unable to cross over and do selective angiogram due to the heavy calcification and the kissing iliac stents. CONCLUSIONS: 1. Total occlusion of the left SFA reconstructed by collateral with diffuse heavy calcification 2. Heavily calcified right SFA with 2 area of moderate to severe stenosis 3. Patent bilateral kissing iliac stents with moderate disease within the stent 4. Heavily calcified abdominal aorta and bilateral lower extremities diffusely DISCUSSION AND RECOMMENDATIONS: Patient post complex management problem due to his heavily calcified artery and diffuse disease and the kissing iliac stent, I had difficulties advancing diagnostic 5 [place] catheters through the kissing iliac stent, I am hesitant to proceed with aggressive intervention and putting sheath across especially that the lesion is at the common femoral artery and ostial SFA. I discussed in length the management plan with the patient and his daughter and recommended referral as an outpatient to a tertiary care center for an attempt for high risk intervention versus referral for vascular surgery evaluation Anesthesia Type: Conscious Sedation Estimated blood loss (mL): 25 ml Contrast Amount: 88 ml Total Radiation Dose: 339 mGy Post-Procedure Diagnosis Post-operative diagnosis: Claudication Peripheral arterial disease Hypertension Hyperlipidemia ALFREDO JAMES MD May 24, 2020 9:22 am
== END 2020-05-24 14:05 | disposition home or self-care (01) ==
LOC: CATH 06:55 → SDC 09:23 → CATH 14:05
PROVIDERS: ATTEND Internal Medicine Cardiovascular Disease
DX: I70.203 Unspecified atherosclerosis of native arteries of extremities, bilateral legs (principal); I10 Essential (primary) hypertension; E78.2 Mixed hyperlipidemia; J30.2 Other seasonal allergic rhinitis; Z79.82 Long term (current) use of aspirin; Z79.899 Other long term (current) drug therapy; J43.9 Emphysema, unspecified; E03.9 Hypothyroidism, unspecified; I65.23 Occlusion and stenosis of bilateral carotid arteries; Z87.891 Personal history of nicotine dependence
CPT/HCPCS: 71045; 75630; 80053; 80061; 81000; 85027; 85610; 85730; 87081; C1760; C1769; C1887; C1894; 36415

== ENCOUNTER → 2020-07-17 | Outpatient (CLI) | payer MEDICARE, OTHER ==
[~2020-07-17] MED LIST changes: +HYDR500C2 PO; -MONT10TA26 PO; +MONT10TA97 PO
--- NOTE | 2020-07-17 15:06 | Diagnostic Imaging Report ---
PROCEDURE: US Bilateral lower extremity arterial. TECHNIQUE: Multiple real-time grayscale images are obtained through both lower extremity arterial systems with color Doppler imaging and color Doppler spectral analysis. INDICATION: Peripheral vascular disease. Right leg: There is diffusely diminished resistance with an abnormal monophasic waveform throughout the patent right lower extremity arterial system. We note occlusion at the middle third of the right SFA. This reconstitutes at its distal one-third and no other segmental occlusion. There is a slow antegrade monophasic flow in the ankle at the dorsalis pedis and posterior tibials at a rate of 26 and 19 cm/s. There is barely perceptible monophasic flow in the anterior tibial artery. Left leg: There is a patent left femoral arterial stent. There is high resistive triphasic waveform in the common femoral, superficial femoral and popliteal arteries without hemodynamically significant stenosis or focal velocity acceleration. There is likely a patent stent of the left common femoral. There are biphasic waveforms in the ankle at the patent dorsalis pedis and posterior tibials. No findings of hemodynamically significant left leg stenosis. IMPRESSION: Severe right greater than left atherosclerotic disease with extensive plaques bilaterally, greater right with occlusion at the mid third of the right SFA and minimal flow beyond that level. Patency of left-sided stents without hemodynamically significant left-sided stenosis. Dictated by: Dictated on workstation # [id number]
== END ==
LOC: RAD 11:37
PROVIDERS: ATTEND Physician Assistant
DX: I70.203 Unspecified atherosclerosis of native arteries of extremities, bilateral legs (principal)
CPT/HCPCS: 93925

== ENCOUNTER 2020-07-18 14:24 | Outpatient (RCR) | payer MEDICARE, OTHER ==
[2020-04-26 09:19] LABS: BASOPHILS # (AUTO) 0.2 10^3/uL (0.0-0.1); BASOPHILS % (AUTO) 2 % (0-10); EOSINOPHILS # (AUTO) 0.2 10^3/uL (0.0-0.3); EOSINOPHILS % (AUTO) 2 % (0-10); HEMATOCRIT 32 % (40-54); HEMOGLOBIN 10.3 g/dL (13.3-17.7); LYMPHOCYTES # (AUTO) 2.1 10^3/uL (1.0-4.0); LYMPHOCYTES % (AUTO) 22 % (12-44); MEAN CORPUSCULAR HEMOGLOBIN 33 pg (25-34); MEAN CORPUSCULAR HGB CONC 32 g/dL (32-36); MEAN CORPUSCULAR VOLUME 105 fL (80-99); MEAN PLATELET VOLUME 10.9 fL (9.0-12.2); MONOCYTES # (AUTO) 0.7 10^3/uL (0.0-1.0); MONOCYTES % (AUTO) 7 % (0-12); NEUTROPHILS # (AUTO) 6.3 10^3/uL (1.8-7.8); NEUTROPHILS % (AUTO) 67 % (42-75); PLATELET COUNT 864 10^3/uL (130-400); WHITE BLOOD COUNT 9.5 10^3/uL (4.3-11.0)
[2020-05-09 14:00] LABS: ABSOLUTE RETIC # 57 10e9/uL (24-90); BASOPHILS # (AUTO) 0.1 10^3/uL (0.0-0.1); BASOPHILS % (AUTO) 2 % (0-10); EOSINOPHILS # (AUTO) 0.1 10^3/uL (0.0-0.3); EOSINOPHILS % (AUTO) 2 % (0-10); HEMATOCRIT 32 % (40-54); HEMOGLOBIN 10.6 g/dL (13.3-17.7); LYMPHOCYTES # (AUTO) 1.9 10^3/uL (1.0-4.0); LYMPHOCYTES % (AUTO) 32 % (12-44); MEAN CORPUSCULAR HEMOGLOBIN 35 pg (25-34); MEAN CORPUSCULAR HGB CONC 33 g/dL (32-36); MEAN CORPUSCULAR VOLUME 106 fL (80-99); MEAN PLATELET VOLUME 10.6 fL (9.0-12.2); MONOCYTES # (AUTO) 0.3 10^3/uL (0.0-1.0); MONOCYTES % (AUTO) 5 % (0-12); NEUTROPHILS # (AUTO) 3.6 10^3/uL (1.8-7.8); NEUTROPHILS % (AUTO) 59 % (42-75); PLATELET COUNT 594 10^3/uL (130-400); WHITE BLOOD COUNT 6.1 10^3/uL (4.3-11.0)
[2020-05-09 14:22] LABS: ANISOCYTOSIS SLIGHT; BAND NEUTROPHILS 0 %; BASOPHILS % (MANUAL) 0 %; ELLIPT/OVALOCYTES MODERATE; EOSINOPHILS % (MANUAL) 4 %; LYMPHOCYTES % (MANUAL) 37 %; MONOCYTES % (MANUAL) 2 %; NEUTROPHILS % (MANUAL) 57 %; POIKILOCYTOSIS SLIGHT
[2020-05-09 14:24] LABS: ALANINE AMINOTRANSFERASE 13 U/L (0-55); ALBUMIN 3.9 GM/DL (3.2-4.5); ALKALINE PHOSPHATASE 100 U/L (40-136); BILIRUBIN,TOTAL 0.5 MG/DL (0.1-1.0); BUN/CREATININE RATIO 19; CARBON DIOXIDE 24 MMOL/L (21-32); CHLORIDE 107 MMOL/L (98-107); CREATININE SERUM 0.95 MG/DL (0.60-1.30); GFR ESTIMATED > 60; GLUCOSE 82 MG/DL (70-105); POTASSIUM 4.2 MMOL/L (3.6-5.0); SODIUM 139 MMOL/L (135-145); TOTAL PROTEIN 7.2 GM/DL (6.4-8.2)
[2020-05-22 11:44] LABS: BASOPHILS # (AUTO) 0.1 10^3/uL (0.0-0.1); BASOPHILS % (AUTO) 1 % (0-10); EOSINOPHILS # (AUTO) 0.1 10^3/uL (0.0-0.3); EOSINOPHILS % (AUTO) 2 % (0-10); HEMATOCRIT 33 % (40-54); HEMOGLOBIN 11.2 g/dL (13.3-17.7); LYMPHOCYTES # (AUTO) 1.6 10^3/uL (1.0-4.0); LYMPHOCYTES % (AUTO) 28 % (12-44); MEAN CORPUSCULAR HEMOGLOBIN 36 pg (25-34); MEAN CORPUSCULAR HGB CONC 34 g/dL (32-36); MEAN CORPUSCULAR VOLUME 108 fL (80-99); MEAN PLATELET VOLUME 10.7 fL (9.0-12.2); MONOCYTES # (AUTO) 0.4 10^3/uL (0.0-1.0); MONOCYTES % (AUTO) 7 % (0-12); NEUTROPHILS # (AUTO) 3.4 10^3/uL (1.8-7.8); NEUTROPHILS % (AUTO) 60 % (42-75); PLATELET COUNT 449 10^3/uL (130-400); WHITE BLOOD COUNT 5.6 10^3/uL (4.3-11.0)
[2020-07-05 11:47] LABS: BASOPHILS # (AUTO) 0.1 10^3/uL (0.0-0.1); BASOPHILS % (AUTO) 1 % (0-10); EOSINOPHILS # (AUTO) 0.1 10^3/uL (0.0-0.3); EOSINOPHILS % (AUTO) 2 % (0-10); HEMATOCRIT 34 % (40-54); HEMOGLOBIN 11.2 g/dL (13.3-17.7); LYMPHOCYTES # (AUTO) 1.6 10^3/uL (1.0-4.0); LYMPHOCYTES % (AUTO) 38 % (12-44); MEAN CORPUSCULAR HEMOGLOBIN 40 pg (25-34); MEAN CORPUSCULAR HGB CONC 33 g/dL (32-36); MEAN CORPUSCULAR VOLUME 120 fL (80-99); MEAN PLATELET VOLUME 10.3 fL (9.0-12.2); MONOCYTES # (AUTO) 0.3 10^3/uL (0.0-1.0); MONOCYTES % (AUTO) 7 % (0-12); NEUTROPHILS # (AUTO) 2.1 10^3/uL (1.8-7.8); NEUTROPHILS % (AUTO) 52 % (42-75); PLATELET COUNT 172 10^3/uL (130-400); WHITE BLOOD COUNT 4.1 10^3/uL (4.3-11.0)
[2020-07-18 14:58] LABS: ALANINE AMINOTRANSFERASE 20 U/L (0-55); ALBUMIN 4.5 GM/DL (3.2-4.5); ALKALINE PHOSPHATASE 90 U/L (40-136); BILIRUBIN,TOTAL 0.9 MG/DL (0.1-1.0); BUN/CREATININE RATIO 17; CALCIUM 9.4 MG/DL (8.5-10.1); CARBON DIOXIDE 27 MMOL/L (21-32); CHLORIDE 108 MMOL/L (98-107); CREATININE SERUM 0.87 MG/DL (0.60-1.30); GFR ESTIMATED > 60; GLUCOSE 91 MG/DL (70-105); POTASSIUM 3.5 MMOL/L (3.6-5.0); SODIUM 140 MMOL/L (135-145); TOTAL PROTEIN 8.2 GM/DL (6.4-8.2)
[2020-07-18 14:59] LABS: BASOPHILS % (AUTO) 1 % (0-10); EOSINOPHILS % (AUTO) 2 % (0-10); HEMATOCRIT 35 % (40-54); HEMOGLOBIN 11.8 G/DL (13.3-17.7); LYMPHOCYTES % (AUTO) 42 % (12-44); MEAN CORPUSCULAR HEMOGLOBIN 41 PG (25-34); MEAN CORPUSCULAR HGB CONC 34 G/DL (32-36); MEAN CORPUSCULAR VOLUME 120 FL (80-99); MEAN PLATELET VOLUME 10.3 FL (7.4-10.4); MONOCYTES % (AUTO) 5 % (0-12); NEUTROPHILS % (AUTO) 49 % (42-75); PLATELET COUNT 144 10^3/uL (130-400); WHITE BLOOD COUNT 4.1 10^3/uL (4.3-11.0)
[2020-07-18 15:00] LABS: BASOPHILS # (AUTO) 0.1 10^3/uL (0.0-0.1); EOSINOPHILS # (AUTO) 0.1 10^3/uL (0.0-0.3); LYMPHOCYTES # (AUTO) 1.7 X 10^3 (1.0-4.0); MONOCYTES # (AUTO) 0.2 X 10^3 (0.0-1.0)
== END 2020-07-25 | disposition home or self-care (01) ==
LOC: ONC 14:24
PROVIDERS: ATTEND Internal Medicine Hematology & Oncology
DX: Z01.818 Encounter for other preprocedural examination (principal)
CPT/HCPCS: 38222; 80053; 83615; 85007; 85025; 85045; 88184; 88185; 88237; 88264; 88305; 88311; 88313; 99213

== ENCOUNTER 2020-10-10 13:13 | Outpatient (RCR) | payer MEDICARE, OTHER ==
[2020-08-01 11:51] LABS: BASOPHILS % (AUTO) 1 % (0-10); EOSINOPHILS # (AUTO) 0.1 10^3/uL (0.0-0.3); EOSINOPHILS % (AUTO) 2 % (0-10); HEMATOCRIT 34 % (40-54); HEMOGLOBIN 11.6 g/dL (13.3-17.7); LYMPHOCYTES # (AUTO) 1.8 10^3/uL (1.0-4.0); LYMPHOCYTES % (AUTO) 36 % (12-44); MEAN CORPUSCULAR HEMOGLOBIN 41 pg (25-34); MEAN CORPUSCULAR HGB CONC 34 g/dL (32-36); MEAN CORPUSCULAR VOLUME 121 fL (80-99); MEAN PLATELET VOLUME 10.4 fL (9.0-12.2); MONOCYTES # (AUTO) 0.4 10^3/uL (0.0-1.0); MONOCYTES % (AUTO) 8 % (0-12); NEUTROPHILS # (AUTO) 2.8 10^3/uL (1.8-7.8); NEUTROPHILS % (AUTO) 53 % (42-75); PLATELET COUNT 186 10^3/uL (130-400); WHITE BLOOD COUNT 5.2 10^3/uL (4.3-11.0)
[2020-08-15 11:56] LABS: BASOPHILS % (AUTO) 1 % (0-10); EOSINOPHILS % (AUTO) 1 % (0-10); HEMATOCRIT 35 % (40-54); HEMOGLOBIN 11.8 g/dL (13.3-17.7); LYMPHOCYTES # (AUTO) 1.9 10^3/uL (1.0-4.0); LYMPHOCYTES % (AUTO) 31 % (12-44); MEAN CORPUSCULAR HEMOGLOBIN 41 pg (25-34); MEAN CORPUSCULAR HGB CONC 34 g/dL (32-36); MEAN CORPUSCULAR VOLUME 120 fL (80-99); MEAN PLATELET VOLUME 10.2 fL (9.0-12.2); MONOCYTES # (AUTO) 0.3 10^3/uL (0.0-1.0); MONOCYTES % (AUTO) 6 % (0-12); NEUTROPHILS # (AUTO) 3.6 10^3/uL (1.8-7.8); NEUTROPHILS % (AUTO) 61 % (42-75); PLATELET COUNT 229 10^3/uL (130-400); WHITE BLOOD COUNT 5.9 10^3/uL (4.3-11.0)
[2020-08-29 15:06] LABS: BASOPHILS # (AUTO) 0.1 10^3/uL (0.0-0.1); BASOPHILS % (AUTO) 1 % (0-10); EOSINOPHILS # (AUTO) 0.1 10^3/uL (0.0-0.3); EOSINOPHILS % (AUTO) 2 % (0-10); HEMATOCRIT 34 % (40-54); HEMOGLOBIN 11.7 g/dL (13.3-17.7); LYMPHOCYTES # (AUTO) 1.9 10^3/uL (1.0-4.0); LYMPHOCYTES % (AUTO) 29 % (12-44); MEAN CORPUSCULAR HEMOGLOBIN 41 pg (25-34); MEAN CORPUSCULAR HGB CONC 34 g/dL (32-36); MEAN CORPUSCULAR VOLUME 120 fL (80-99); MEAN PLATELET VOLUME 10.6 fL (9.0-12.2); MONOCYTES # (AUTO) 0.4 10^3/uL (0.0-1.0); MONOCYTES % (AUTO) 6 % (0-12); NEUTROPHILS # (AUTO) 4.1 10^3/uL (1.8-7.8); NEUTROPHILS % (AUTO) 62 % (42-75); PLATELET COUNT 210 10^3/uL (130-400); WHITE BLOOD COUNT 6.6 10^3/uL (4.3-11.0)
[2020-08-29 15:25] LABS: ALANINE AMINOTRANSFERASE 18 U/L (0-55); ALBUMIN 4.2 GM/DL (3.2-4.5); ALKALINE PHOSPHATASE 97 U/L (40-136); BILIRUBIN,TOTAL 0.5 MG/DL (0.1-1.0); BUN/CREATININE RATIO 13; CALCIUM 9.1 MG/DL (8.5-10.1); CARBON DIOXIDE 23 MMOL/L (21-32); CHLORIDE 109 MMOL/L (98-107); CREATININE SERUM 1.04 MG/DL (0.60-1.30); GFR ESTIMATED > 60; GLUCOSE 111 MG/DL (70-105); POTASSIUM 3.8 MMOL/L (3.6-5.0); SODIUM 141 MMOL/L (135-145); TOTAL PROTEIN 7.6 GM/DL (6.4-8.2)
[~2020-10-10 13:13] MED LIST changes: -LISI40TA PO; +LISI40TA9 PO; +MONT10TA32 PO; -MONT10TA97 PO
[2020-10-10 13:46] LABS: BASOPHILS # (AUTO) 0.1 10^3/uL (0.0-0.1); BASOPHILS % (AUTO) 2 % (0-10); EOSINOPHILS # (AUTO) 0.1 10^3/uL (0.0-0.3); EOSINOPHILS % (AUTO) 2 % (0-10); HEMATOCRIT 40 % (40-54); HEMOGLOBIN 13.5 g/dL (13.3-17.7); LYMPHOCYTES # (AUTO) 1.9 10^3/uL (1.0-4.0); LYMPHOCYTES % (AUTO) 28 % (12-44); MEAN CORPUSCULAR HEMOGLOBIN 38 pg (25-34); MEAN CORPUSCULAR HGB CONC 34 g/dL (32-36); MEAN CORPUSCULAR VOLUME 113 fL (80-99); MEAN PLATELET VOLUME 10.8 fL (9.0-12.2); MONOCYTES # (AUTO) 0.6 10^3/uL (0.0-1.0); MONOCYTES % (AUTO) 9 % (0-12); NEUTROPHILS % (AUTO) 60 % (42-75); PLATELET COUNT 233 10^3/uL (130-400); WHITE BLOOD COUNT 6.7 10^3/uL (4.3-11.0)
== END 2020-10-30 | disposition home or self-care (01) ==
LOC: ONC 13:13
PROVIDERS: ATTEND Internal Medicine Hematology & Oncology
DX: Z51.11 Encounter for antineoplastic chemotherapy (principal); D47.1 Chronic myeloproliferative disease; D47.3 Essential (hemorrhagic) thrombocythemia; I73.9 Peripheral vascular disease, unspecified; J44.9 Chronic obstructive pulmonary disease, unspecified; I10 Essential (primary) hypertension; E03.9 Hypothyroidism, unspecified; E78.2 Mixed hyperlipidemia
CPT/HCPCS: 80053; 83615; 85025; 99213

== ENCOUNTER 2020-10-18 11:26 | Outpatient (RCR) | payer MEDICARE, OTHER | END 2020-11-06 13:42 | disposition home or self-care (01) | PROVIDERS: ATTEND Orthopaedic Surgery | DX: S43.412A Sprain of left coracohumeral (ligament), initial encounter (principal); X58.XXXA Exposure to other specified factors, initial encounter ==

== ENCOUNTER 2020-11-21 10:27 | Outpatient (RCR) | payer MEDICARE, OTHER ==
[2020-11-21 10:34] LABS: BASOPHILS # (AUTO) 0.1 10^3/uL (0.0-0.1); BASOPHILS % (AUTO) 1 % (0-10); EOSINOPHILS # (AUTO) 0.2 10^3/uL (0.0-0.3); EOSINOPHILS % (AUTO) 3 % (0-10); HEMATOCRIT 44 % (40-54); HEMOGLOBIN 14.2 g/dL (13.3-17.7); LYMPHOCYTES # (AUTO) 1.7 10^3/uL (1.0-4.0); LYMPHOCYTES % (AUTO) 26 % (12-44); MEAN CORPUSCULAR HEMOGLOBIN 36 pg (25-34); MEAN CORPUSCULAR HGB CONC 32 g/dL (32-36); MEAN CORPUSCULAR VOLUME 111 fL (80-99); MEAN PLATELET VOLUME 10.4 fL (9.0-12.2); MONOCYTES # (AUTO) 0.4 10^3/uL (0.0-1.0); MONOCYTES % (AUTO) 7 % (0-12); NEUTROPHILS # (AUTO) 4.1 10^3/uL (1.8-7.8); NEUTROPHILS % (AUTO) 63 % (42-75); PLATELET COUNT 310 10^3/uL (130-400); WHITE BLOOD COUNT 6.4 10^3/uL (4.3-11.0)
[2020-11-21 10:57] LABS: ALANINE AMINOTRANSFERASE 40 U/L (0-55); ALBUMIN 4.3 GM/DL (3.2-4.5); ALKALINE PHOSPHATASE 92 U/L (40-136); BILIRUBIN,TOTAL 0.8 MG/DL (0.1-1.0); BUN/CREATININE RATIO 15; CALCIUM 9.3 MG/DL (8.5-10.1); CARBON DIOXIDE 24 MMOL/L (21-32); CHLORIDE 105 MMOL/L (98-107); CREATININE SERUM 0.96 MG/DL (0.60-1.30); GFR ESTIMATED > 60; GLUCOSE 99 MG/DL (70-105); POTASSIUM 4.2 MMOL/L (3.6-5.0); SODIUM 136 MMOL/L (135-145); TOTAL PROTEIN 7.8 GM/DL (6.4-8.2)
== END 2021-02-19 | disposition home or self-care (01) ==
LOC: ONC 10:27
PROVIDERS: ATTEND Internal Medicine Hematology & Oncology
DX: D47.1 Chronic myeloproliferative disease (principal); D47.3 Essential (hemorrhagic) thrombocythemia; I73.9 Peripheral vascular disease, unspecified; J44.9 Chronic obstructive pulmonary disease, unspecified; I10 Essential (primary) hypertension; E03.9 Hypothyroidism, unspecified; E78.2 Mixed hyperlipidemia; Z79.899 Other long term (current) drug therapy; Z79.890 Hormone replacement therapy
CPT/HCPCS: 80053; 83615; 85025; G0463; 99213

== ENCOUNTER → 2020-12-20 | Outpatient (CLI) | payer MEDICARE, OTHER | LOC: CARD 11:30 | PROVIDERS: ATTEND Internal Medicine Cardiovascular Disease | DX: I10 Essential (primary) hypertension (principal); R07.9 Chest pain, unspecified | CPT/HCPCS: 93306 ==

== ENCOUNTER → 2020-12-27 | Outpatient (CLI) | payer MEDICARE, OTHER ==
[~2020-12-27] MED LIST changes: +REGADENOSON 0.4 MG/5 ML SYR (LEXISCAN) IV ONE
[2020-12-27] MEDS: CATHETER FLUSH 10 ML SYR IV PRN ×2 (08:23→09:48)
[2020-12-27 09:47] VITALS: BP 136/82
--- NOTE | 2020-12-27 12:00 | Cardiology Stress Test Report ---
Stress Test Report Date of Procedure/Referring: Date of Procedure: Dec 27, 2020 PCP Alfredo Aguilar MD Admitting Physician No,Local Physician Indications: HTN Baseline Heart Rate: 52 Baseline Blood Pressure: Blood Pressure Systolic: 136 Blood Pressure Diastolic: 82 Baseline Vitals Vital Signs Date Time Temp Pulse Resp B/P (MAP) Pulse Ox O2 Delivery O2 Flow Rate FiO2 12/27/20 09:47 68 16 136/82 (100) 98 Room Air Baseline EKG: Baseline EKG: NSR Summary After explaining the procedure to the patient, he signed a consent and then brought to the stress nuclear laboratory. Patient received 0.4 mg Lexiscan for stress test, ECG, heart rate and blood pressure were monitored continuously. Resting and stress dose of radio tracer w ere injected, imaging was acquired and reviewed in short axis, horizontal long axis and vertical long axis views. TID: 1.09 SSS: 2 SDS: 1 EF: 42 1. Patient tolerated Lexiscan well 2. Baseline sinus rhythm with occasional atrial and ventricular premature contractions 3. No significant ischemia or infarction on SPECT images 4. Normal left ventricular size with mild hypokinesia at the inferolateral and anterolateral wall, EF 42% ALFREDO AGUILAR MD Dec 27, 2020 12:00
== END ==
LOC: CARD 08:00
PROVIDERS: ATTEND Internal Medicine Cardiovascular Disease
DX: I10 Essential (primary) hypertension (principal); R07.9 Chest pain, unspecified
CPT/HCPCS: 78452; 93017; A9502

== ENCOUNTER → 2021-02-05 | Outpatient (CLI) | payer MEDICARE, OTHER ==
[~2021-02-05] MED LIST changes: -REGADENOSON 0.4 MG/5 ML SYR (LEXISCAN) IV ONE
== END ==
LOC: CARD 11:30
PROVIDERS: ATTEND Family Medicine
DX: I49.9 Cardiac arrhythmia, unspecified (principal)
CPT/HCPCS: 93225; 93226

== ENCOUNTER 2021-02-21 13:47 | Outpatient (RCR) | payer MEDICARE, OTHER ==
[2021-02-21 14:09] LABS: BASOPHILS # (AUTO) 0.1 10^3/uL (0.0-0.1); BASOPHILS % (AUTO) 2 % (0-10); EOSINOPHILS # (AUTO) 0.1 10^3/uL (0.0-0.3); EOSINOPHILS % (AUTO) 2 % (0-10); HEMATOCRIT 40 % (40-54); HEMOGLOBIN 13.3 g/dL (13.3-17.7); LYMPHOCYTES % (AUTO) 27 % (12-44); MEAN CORPUSCULAR HEMOGLOBIN 36 pg (25-34); MEAN CORPUSCULAR HGB CONC 33 g/dL (32-36); MEAN CORPUSCULAR VOLUME 109 fL (80-99); MEAN PLATELET VOLUME 10.6 fL (9.0-12.2); MONOCYTES # (AUTO) 0.5 10^3/uL (0.0-1.0); MONOCYTES % (AUTO) 7 % (0-12); NEUTROPHILS # (AUTO) 4.6 10^3/uL (1.8-7.8); NEUTROPHILS % (AUTO) 63 % (42-75); PLATELET COUNT 282 10^3/uL (130-400); WHITE BLOOD COUNT 7.4 10^3/uL (4.3-11.0)
[2021-02-21 14:31] LABS: BILIRUBIN,TOTAL 0.7 MG/DL (0.1-1.0); CALCIUM 9.4 MG/DL (8.5-10.1); CREATININE SERUM 0.93 MG/DL (0.60-1.30); TOTAL PROTEIN 7.6 GM/DL (6.4-8.2)
[2021-03-07] MEDS ORDERED: CLOP75TA69 PO (10:28)
== END 2021-05-22 | disposition home or self-care (01) ==
LOC: ONC 13:47
PROVIDERS: ATTEND Internal Medicine Hematology & Oncology
DX: D47.1 Chronic myeloproliferative disease (principal); D47.3 Essential (hemorrhagic) thrombocythemia; I73.9 Peripheral vascular disease, unspecified; I10 Essential (primary) hypertension; E03.9 Hypothyroidism, unspecified; E78.2 Mixed hyperlipidemia; J43.9 Emphysema, unspecified
CPT/HCPCS: 80053; 83615; 85025; G0463; 99213

== ENCOUNTER 2021-03-07 05:34 | Outpatient (CLI) | payer MEDICARE, OTHER ==
[~2021-03-07] VITALS: Ht 170 cm; Wt 72.5 kg
[2021-03-07] MEDS ORDERED: CLOP75TA69 PO (10:28)
== END 2021-03-07 10:49 | disposition home or self-care (01) ==
LOC: PREOP 05:34
PROVIDERS: ATTEND Orthopaedic Surgery
DX: Z01.818 Encounter for other preprocedural examination (principal)

== ENCOUNTER 2021-03-14 05:58 | Day surgery (SDC) | payer MEDICARE, OTHER ==
--- NOTE | 2021-03-07 06:29 | HISTORY AND PHYSICAL ---
DATE OF SERVICE: ADMISSION HISTORY AND PHYSICAL DATE OF ADMISSION: 03/14/2021. This will be for outpatient surgery on 03/14/2021 for left shoulder arthroscopy and rotator cuff repair. HISTORY OF PRESENT ILLNESS: The patient is a 75-year-old gentleman, who is right hand dominant, but reports progressively worsening left shoulder pain and weakness. He underwent an MRI, which revealed partial thickness tearing of the supraspinatus with a SLAP tear. He has undergone treatment with injections, formal physical therapy and activity modifications without relief. Due to functional impairment and failure to improve with conservative measures, the patient has elected to proceed with surgical intervention. REVIEW OF SYSTEMS: No chest pain, no shortness of breath, no dysuria. PAST MEDICAL HISTORY: COPD, allergic rhinitis, asthma, hyperlipidemia, hypertension, and hypothyroidism. PAST SURGICAL HISTORY: Right hip intramedullary nail. FAMILY HISTORY: Noncontributory. PRIMARY CARE PROVIDER: Dr. Cabrera. MEDICATIONS: Cetirizine, lisinopril, amlodipine, levothyroxine, atorvastatin, aspirin, albuterol, Ventolin, Spiriva, and hydrocodone. ALLERGIES: STEROIDS. SOCIAL HISTORY: The patient is a former smoker. Denies alcohol use. PHYSICAL EXAMINATION: GENERAL: The patient is well-developed, well-nourished, in no acute distress. HEENT: Normocephalic, atraumatic. Pupils are equal, round and reactive to light. Oropharynx is clear. NECK: Supple, with no lymphadenopathy. LUNGS: Clear to auscultation bilaterally. HEART: Regular rate and rhythm. ABDOMEN: Soft, nontender, and nondistended. EXTREMITIES: Left shoulder demonstrates positive Neer's and positive Hawkin sign. He has weakness with abduction and external rotation. He has a positive [place]'s maneuver. He has symmetric forward elevation, external and internal rotation actively. IMPRESSION: Left shoulder partial thickness rotator cuff tear with SLAP tear. PLAN: Left shoulder arthroscopy, biceps tenotomy, acromioplasty and open rotator cuff repair. The risks, benefits, options, ramifications and recovery were discussed at length with the patient. He understands and wishes to proceed. Job ID: [id number] DocumentID: [id number] Dictated Date: 02/26/2021 15:59:43 Inside Sales Account Executive Date: 02/26/2021 17:07:03 Dictated By: REBEKA CODY MD
[2021-03-14] VITALS (11 sets, daily range): BP systolic 96–120; BP diastolic 64–96
[~2021-03-14] VITALS: Ht 170 cm; Wt 72.5 kg
[~2021-03-14 05:58] MED LIST changes: +CLOP75TA69 PO
[2021-03-14] MEDS ORDERED: ceFAZolin INJECTION 1,000 MG in WATER (STERILE) FOR INJECTION 10 ML IV ONE (06:15)
[2021-03-14] MEDS ORDERED: LACTATED RINGERS 1,000 ML IV PRN (06:15)
[2021-03-14] MEDS ORDERED: morphine PF (DURAMORPH) 10 MG/10 ML AMP ONE (07:08)
[2021-03-14] MEDS ORDERED: BUPIVACAINE 0.25% 30 ML (SENSORCAINE) VIAL ONE (07:09)
[2021-03-14] MEDS ORDERED: oxyCODONE/APAP 5/325MG (PERCOCET 5) TABLET PO PRN (07:30)
--- NOTE | 2021-03-14 07:31 | Progress Note-Pre Operative ---
Pre-Operative Progress Note H&P Reviewed The H&P was reviewed, patient examined and no changes noted. Date Seen by Provider: Mar 14, 2021 Time Seen by Provider: 07:20 Date H&P Reviewed: Mar 14, 2021 Time H&P Reviewed: 07:11 Pre-Operative Diagnosis: left shoulder SLAP and rotator cuff tears REBEKA CODY MD Mar 14, 2021 07:31
--- NOTE | 2021-03-14 07:32 | Progress Note-Post Operative ---
Post-Operative Progess Note Surgeon (s)/Nutrition Internship (s) Surgeon REBEKA CODY MD Nutrition Internship: Herson Rivas Pre-Operative Diagnosis left shoulder SLAP and rotator cuff tears Post-Operative Diagnosis left shoulder SLAP and labral tears and chondromalacia of the glenoid Procedure & Operative Findings Date of Procedure 03/14/21 Procedure Performed/Findings left shoulder arthroscopic biceps tenotomy, labral debridement and chondroplasty of the glenoid Anesthesia Type GETA Estimated Blood Loss Estimated blood loss (mL): minimal Specimens/Packing Specimens Removed none Packing: none REBEKA CODY MD Mar 14, 2021 07:32
--- NOTE | 2021-03-14 08:25 | Anesthesia-General Post-Op ---
General Patient Condition Mental Status/LOC: Same as Preop Cardiovascular: Satisfactory Nausea/Vomiting: Absent Respiratory: Satisfactory Pain: Controlled Complications: Absent Post Op Complications Complications None Follow Up Care/Instructions Patient Instructions None needed. Anesthesia/Patient Condition Patient Condition Patient is doing well, no complaints, stable vital signs, no apparent adverse anesthesia problems. No complications reported per nursing. GAGAN GUZMAN CRNA Mar 14, 2021 08:25
[2021-03-14] MEDS ORDERED: ONDANSETRON 4 MG/2 ML (SDV) Z0FRAN IVP PRN (08:30)
[2021-03-14] MEDS ORDERED: morphine INJ 10 MG/ML 1ML (SYR OR VIAL) IVP ONE (08:30)
[2021-03-14] MEDS ORDERED: MEPERIDINE (DEMEROL) INJ 50 MG/ML IVP ONE (08:30)
--- NOTE | 2021-03-14 11:31 | OPERATIVE REPORT ---
DATE OF SERVICE: 03/14/2021 PREOPERATIVE DIAGNOSES: 1. Left shoulder superior labrum anterior and posterior tear. 2. Left shoulder rotator cuff tear. POSTOPERATIVE DIAGNOSES: 1. Left shoulder superior labrum anterior and posterior tear. 2. Left labral tear. 3. Left shoulder chondromalacia of the glenoid. PROCEDURES: 1. Left shoulder arthroscopic biceps tenotomy. 2. Left shoulder arthroscopic labral debridement. 3. Left shoulder arthroscopic chondroplasty of the glenoid. SURGEON: Johnathon Cody MD PLANT HEALTH MANAGER: Herson Rivas, who assisted throughout the procedure and closed the incisions. ANESTHESIA: General endotracheal by Fredy Escalona CRNA. ESTIMATED BLOOD LOSS: Minimal. DRAINS: None. COMPLICATIONS: None. POSTOPERATIVE PLAN: Passive range of motion and sling wear for comfort with progressive activities as symptoms allow. The patient was transferred to the recovery room awake and in stable condition. STATEMENT OF MEDICAL NECESSITY: The patient is a 75-year-old right hand dominant gentleman with complaints of left shoulder pain, worse with overhead activities. He has undergone treatment with injections, anti-inflammatories, rest, as well as formal physical therapy without relief. An MRI revealed some rotator cuff tendinosis, but no full thickness tearing. It also revealed a SLAP tear and due to functional impairment and failure to improve with conservative measures, the patient elected to proceed with surgical intervention. Examination under anesthesia revealed forward elevation of 170 degrees, external rotation of 85 degrees, internal rotation of 75 degrees. Arthroscopic findings, the rotator cuff was intact throughout. There was a type 2 SLAP tear with an anterior flap of the labrum from the 9 to 11 o'clock positions. There was grade II chondral flap with central portion of the glenoid. Otherwise, no chondral abnormalities were noted. The remainder of the labrum was intact. DESCRIPTION OF PROCEDURE: After risks and benefits of procedure were discussed and questions were answered, informed consent was signed and placed on chart. The operative site was confirmed in the preoperative holding area initialed by the surgeon. The patient was then transferred to the operating room and after adequate levels of general endotracheal anesthetic were obtained, a timeout was called, confirming the operative site. Examination under anesthesia was performed with the above findings noted. Left shoulder and upper extremity were prepped and draped in the usual sterile fashion. Shoulder joint was injected with 20 mL fluid. Standard posterior portal was placed under direct visualization. Anterior portal was created in the interval between biceps, subscapularis and glenoid. The biceps anchor was released, the stump was debrided with a shaver. The anterior labral flap was debrided with a shaver back to a stable edge. The central glenoid flap was debrided with shaver as well. Shoulder joint was copiously irrigated. The portal sites were closed with 4-0 nylon in simple interrupted fashion. Shoulder joint was injected with Duramorph. The port sites were infiltrated with plain Marcaine. A soft dressing and sling were applied. The patient was transferred to the recovery room awake and in stable condition. Job ID: [id number] DocumentID: [id number] Dictated Date: 03/14/2021 08:24:47 Senior Applications Developer Date: 03/14/2021 11:30:57 Dictated By: JOHNATHON CODY MD
== END 2021-03-14 11:00 ==
LOC: SDC 05:58
PROVIDERS: ATTEND Orthopaedic Surgery
DX: M75.102 Unspecified rotator cuff tear or rupture of left shoulder, not specified as traumatic (principal); S43.432A Superior glenoid labrum lesion of left shoulder, initial encounter; M94.212 Chondromalacia, left shoulder; J44.9 Chronic obstructive pulmonary disease, unspecified; E78.5 Hyperlipidemia, unspecified; I10 Essential (primary) hypertension; E03.9 Hypothyroidism, unspecified; Z79.899 Other long term (current) drug therapy; Z79.890 Hormone replacement therapy; Z79.82 Long term (current) use of aspirin; Z79.891 Long term (current) use of opiate analgesic
CPT/HCPCS: 87081

== ENCOUNTER 2021-05-31 10:44 | Outpatient (RCR) | payer MEDICARE, OTHER ==
[2021-05-31 10:39] LABS: BASOPHILS # (AUTO) 0.1 10^3/uL (0.0-0.1); BASOPHILS % (AUTO) 2 % (0-10); EOSINOPHILS # (AUTO) 0.1 10^3/uL (0.0-0.3); EOSINOPHILS % (AUTO) 1 % (0-10); HEMATOCRIT 40 % (40-54); HEMOGLOBIN 13.3 g/dL (13.3-17.7); LYMPHOCYTES % (AUTO) 31 % (12-44); MEAN CORPUSCULAR HEMOGLOBIN 36 pg (25-34); MEAN CORPUSCULAR HGB CONC 34 g/dL (32-36); MEAN CORPUSCULAR VOLUME 108 fL (80-99); MEAN PLATELET VOLUME 10.6 fL (9.0-12.2); MONOCYTES # (AUTO) 0.5 10^3/uL (0.0-1.0); MONOCYTES % (AUTO) 7 % (0-12); NEUTROPHILS # (AUTO) 3.8 10^3/uL (1.8-7.8); NEUTROPHILS % (AUTO) 58 % (42-75); PLATELET COUNT 278 10^3/uL (130-400); WHITE BLOOD COUNT 6.5 10^3/uL (4.3-11.0)
[~2021-05-31 10:44] MED LIST changes: +MONT-40 PO; -MONT10TA32 PO
[2021-05-31 10:59] LABS: ALBUMIN 4.3 GM/DL (3.2-4.5); BILIRUBIN,TOTAL 0.8 MG/DL (0.1-1.0); CALCIUM 9.8 MG/DL (8.5-10.1); CREATININE SERUM 0.99 MG/DL (0.60-1.30); POTASSIUM 4.6 MMOL/L (3.6-5.0); TOTAL PROTEIN 7.7 GM/DL (6.4-8.2)
== END 2021-07-20 | disposition home or self-care (01) ==
LOC: ONC 10:44
PROVIDERS: ATTEND Internal Medicine Hematology & Oncology
DX: D47.1 Chronic myeloproliferative disease (principal); D47.3 Essential (hemorrhagic) thrombocythemia; I73.9 Peripheral vascular disease, unspecified; I10 Essential (primary) hypertension; E03.9 Hypothyroidism, unspecified; E78.2 Mixed hyperlipidemia; J43.9 Emphysema, unspecified; F17.200 Nicotine dependence, unspecified, uncomplicated
CPT/HCPCS: 80053; 83615; 85025; G0463; 99213

== ENCOUNTER → 2023-01-30 | Outpatient (CLI) | payer MEDICARE, OTHER ==
[~2023-01-30] MED LIST changes: +CLOP-31 PO; -CLOP75TA69 PO; -KETO5DRO14 OD; +KETO5DRO20 OD; +OMEP20TA56 PO; -OMEP20TA7 PO
== END ==
LOC: LAB 13:06
PROVIDERS: ATTEND Nurse Practitioner Family
DX: N40.0 Benign prostatic hyperplasia without lower urinary tract symptoms (principal)
CPT/HCPCS: 36415; 84153

== ENCOUNTER → 2023-03-13 | Outpatient (CLI) | payer MEDICARE, OTHER ==
[2023-03-13 09:45] LABS: ALBUMIN 4.2 GM/DL (3.2-4.5); BILIRUBIN,TOTAL 0.8 MG/DL (0.1-1.0); CALCIUM 9.2 MG/DL (8.5-10.1); CREATININE SERUM 1.02 MG/DL (0.60-1.30); POTASSIUM 4.3 MMOL/L (3.6-5.0); TOTAL PROTEIN 7.5 GM/DL (6.4-8.2)
[2023-03-13 10:06] LABS: FREE T4 (FREE THYROXINE) 0.99 NG/DL (0.70-1.48)
== END ==
LOC: LAB 09:01
PROVIDERS: ATTEND Family Medicine
DX: E03.9 Hypothyroidism, unspecified (principal); I25.10 Atherosclerotic heart disease of native coronary artery without angina pectoris; R73.9 Hyperglycemia, unspecified
CPT/HCPCS: 36415; 80053; 80061; 83036; 84439; 84443